=== PATIENT | female | born 1975 | race Caucasian/White ===

== ENCOUNTER 2022-08-13 18:41 | Inpatient (IN) | payer OTHER, SELFPAY ==
[2022-08-13] VITALS (11 sets, daily range): BP systolic 146–180; BP diastolic 87–103; PULSE 91–108; RESP 16–24; TEMP 36.7–37; O2SAT 94–99; BMI 28.2; BMI 27.7
[2022-08-13 19:05] LABS: Absolute Lymphocyte Count 2.02 X10^3/uL (0.83-4.51); Absolute Neutrophil Count 2.8 X10^3/uL (2.0-7.7); Basophil# 0.02 X10^3/uL; Basophil% 0.4 % (0-1); Eosinophil# 0.08 X10^3/uL; Eosinophils% 1.5 % (0-5); Hematocrit 45.1 % (37-47); Hemoglobin 15.3 g/dL (12.0-15.0); Lymphocyte # 2.02 X10^3/ul (0.83-4.51); Lymphocyte % 37.5 % (19-41); Mean Corp Hgb Conc 33.9 g/dL (32-36); Mean Corpuscular Hgb 29.5 pg (27.0-32.0); Mean Corpuscular Volume 87.1 fL (81-99); Mean Platelet Vol. 9.6 fl (6.2-12.0); Monocyte# 0.49 X10^3/uL; Monocyte% 9.1 % (0-10); NRBC Flagged by Analyzer 0 % (0-5); Neutrophil # 2.75 X10^3/uL (2.7-7.7); Neutrophil % 51.1 % (47-70); Platelet Count 208 K/mm3 (150-450); RBC Distribution Width CV 11.9 % (11.6-14.6); RBC Distribution Width SD 37.8 fl (35.1-43.9); Red Blood Count 5.18 M/mm3 (4.2-5.4); White Blood Count 5.4 K/mm3 (4.4-11.0)
--- NOTE | 2022-08-13 19:07 | ED.RN ---
SYMPTOMS STARTING AT 0800, RIGHT ARM AND RIGHT LEG N/T, WEAKNESS. ALSO LEFT SIDE N/T TO FACE.
[2022-08-13 19:19] LABS: Anion Gap 9 (5-15); BUN 17 mg/dL (7-18); BUN/Creat Ratio 24.4 RATIO (10-20); Calcium,Total 9.9 mg/dL (8.5-10.1); Chloride 99 mmol/L (98-107); EST Glomerular Filtration Rate 95 mL/min (>60); Est Glom Filt Rate - Afr Amer 115 mL/min (>60); Estimated Creatinine Clearance 91.01 ml/min; Glucose 295 mg/dL (74-106); Potassium 3.8 mmol/L (3.5-5.1); Sodium Level 136 mmol/L (136-145)
[2022-08-13 19:20] LABS: Bedside Glucose 305 mg/dL (74-106)
--- NOTE | 2022-08-13 19:44 | EKG12_ITS ---
Test Reason : DYSRHYTHMIA Blood Pressure : / mmHG Vent. Rate : 102 BPM Atrial Rate : 102 BPM P-R Int : 150 ms QRS Dur : 090 ms QT Int : 350 ms P-R-T Axes : 050 -23 022 degrees QTc Int : 456 ms Sinus tachycardia Inferior NH, age undetermined, cannot be excluded Confirmed by SUZETTE RICE, SCARLET ([id number]), copy editor MAXWELL LAY ([id number]) on 08/15/2022 10:59:45 AM Referred By: Confirmed By:SCARLET BRADFORD MD
--- NOTE | 2022-08-13 19:44 | CT_ITS ---
STUDY: CT BRAIN WITHOUT CONTRAST REASON FOR EXAM: Female, 47 years old. Neuro deficit, acute, stroke suspected RADIATION DOSAGE (If Supplied By Facility): CTDIvol = ( ) mGy, DLP = ( 796.11 ) mGycm TECHNIQUE: Transaxial CT imaging of the brain was performed without administration of intravenous contrast material. Individualized dose optimization techniques were used for this CT. COMPARISON: No relevant priors. FINDINGS: Normal soft tissue structures. Normal calvarium. Normal size ventricles and extra-axial spaces for the patient''s age. Normal white matter tracts of the cerebral hemispheres. Normal basal ganglia and thalami. Normal brainstem. Normal cerebellum. There is no intracranial hemorrhage. There are no findings of an acute ischemic infarction. Normal visualized paranasal sinuses. CT/STROKE Brain/Head without Cont IMPRESSION: Normal unenhanced CT scan of the brain. N.B. : The above Results were Read Back by Eren Scott MD to Dr. Jake MD, and understanding confirmed on 08/13/2022 20:06:54 (ET). Electronically Signed: Eren Scott MD at 20:10 EDT ,
--- NOTE | 2022-08-13 19:45 | CT_ITS ---
We are attempting to reach an attending provider to discuss findings. An addendum with communication details will be sent when the communication is complete. STUDY: CTA HEAD AND NECK WITH CONTRAST REASON FOR EXAM: Female, 47 years old. Neuro deficit, acute, stroke suspected RADIATION DOSAGE (If Supplied By Facility): CTDIvol = ( 17.25 ) mGy, DLP = ( 650.98 ) mGycm TECHNIQUE: CT angiography was performed with a multi-detector CT scanner. Data acquisition was obtained from the skull base through the vertex following intravenous administration of IV 100mL Isovue-[id number]. MIP images were reconstructed from the axial data set. Post-processing of the angiographic images was performed, with multiplanar reformation and 3D reconstruction. Individualized dose optimization techniques were used for this CT. COMPARISON: No relevant priors. FINDINGS: Normal bilateral petrous carotid arteries. There is calcified plaque formation of the right cavernous carotid artery, with a moderate stenosis (50-75%). There is calcified plaque formation of the left cavernous carotid artery, with a moderate stenosis (50-75%). Normal right A1 segments of the anterior cerebral artery. Normal left A1 segments of the anterior cerebral artery. Normal intact anterior communicating artery (ACOM). Normal bilateral A2 segments of the anterior cerebral arteries. Normal right M1 and M2 segments of the middle cerebral arteries, with a normal M1 bifurcation. Normal left M1 and M2 segments of the middle cerebral arteries, with a normal M1 bifurcation. There is non-visualization of the right posterior communicating artery (PCOM). There is non-visualization of the left posterior communicating artery (PCOM). Normal bilateral vertebral arteries. Normal basilar artery with a normal basilar bifurcation. The visualized bilateral superior cerebellar (SCA) arteries are normal. Normal bilateral P1, P2 and visualized P3 segments of the posterior cerebral arteries. There is no demonstrated aneurysm of the [place] of [place]. There is no demonstrated abnormality of the visualized brain. AORTIC ARCH: Normal visualized aortic arch. Normal origins of the brachiocephalic, left common carotid, and left subclavian arteries. RIGHT CAROTID ARTERIES: Normal right common carotid artery (CCA). Normal right common carotid bulb. Normal origin of the right internal carotid (ICA) artery without a hemodynamically significant stenosis. Normal visualized cervical portion of the right internal carotid artery. Normal origin of the right external carotid artery (ECA). LEFT CAROTID ARTERIES: Normal left common carotid artery (CCA). Normal left common carotid bulb. Normal origin of the left internal carotid (ICA) artery without a hemodynamically significant stenosis. Normal visualized cervical portion of the left internal carotid artery. Normal origin of the left external carotid artery (ECA). VERTEBRAL ARTERIES: Normal bilateral vertebral arteries. 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 Sensitivity limited due to suboptimal 3-D reformats. Electronically Signed: Eren Scott MD at 20:40 EDT ,
--- NOTE | 2022-08-13 19:50 | CM.ED ---
Social Work Responding to stroke alert. Patient friend present and reports that family has been notified. No social work needs currently identified. Abner Valenzuela MSW, FCOS
--- NOTE | 2022-08-13 20:29 | RAD_ITS ---
STUDY: X-RAY CHEST REASON FOR EXAM: Female, 47 years old. Neuro deficit, acute, stroke suspected TECHNIQUE: Single frontal view of the chest. COMPARISON: None. FINDINGS: The lungs are clear and expanded. There is no demonstrated pleural abnormality. Normal size heart. Normal mediastinum and renuka. Normal visualized pulmonary arteries. Normal visualized aortic arch and descending thoracic aorta. Normal visualized thoracic spine. Normal visualized ribs, clavicles, and shoulders. There is no demonstrated abnormality of the visualized soft tissue structures of the upper abdomen. RAD/Chest 1 View IMPRESSION: Normal x-ray examination of the chest. Electronically Signed: Eren Scott MD at 22:18 EDT ,
--- NOTE | 2022-08-13 20:42 | EX.ED.DYSGE1 ---
HPI History of Present Illness Chief Complaint: Hypertension Detail of Chief Complaint: High blood pressure, numbness left side of face, numbness right extremities Informant: patient Onset/Context/Timing Onset: Today and Hours (Arm at 0800 leg and face late morning early afternoon) Context: Sudden Onset Timing: Continuous Quality: Tingling right upper and lower extremity, left side of face and weakness RL Location: Per HPI narrative Current Severity: Mild Maximum Severity: Mild Worsened by: Nothing Relieved by: Nothing Associated Symptoms Associated Symptoms: Symptoms of hyperglycemia Narrative Narrative: Patient is a 47-year-old woman who is a former smoker. She quit in 2010. She has not seen a physician prior to [facility]. She presents because her blood pressure was elevated. Upon questioning she endorses numbness left side her face, numbness to the right upper and lower extremity. She also complains of weakness right lower extremity. Onset 0800. She is on no medications. She denies any allergies. She does report intermittent blurred vision. She does report polyuria, polydipsia and nocturia. Prior similar symptoms: No Recent Illness/Hospitalization: No PFSH PFS Medical History (Updated 08/13/22 @ 20:[address] Thong Joseph MD) Nondisplaced fracture of neck of right radius Medical History no medical history no medical history Home Medications apple cider vinegar 500 mg tablet 500 mg PO DAILY 02/09/22 [History Last Taken Unknown] cinnamon bark 500 mg capsule (Cinnamon) 500 mg PO DAILY 02/09/22 [History Last Taken Unknown] ibuprofen 200 mg capsule 800 mg PO Q6H PRN Pain 02/09/22 [History Last Taken Unknown] multivitamin 1 cap PO DAILY 08/13/22 [History Last Taken Unknown] Allergy/AdvReac Type Severity Reaction Status Date / Time cephalexin monohydrate Allergy Hives Verified 08/13/22 18:42 [From Keflex] CT CONTRAST AdvReac Other Uncoded 08/13/22 20:13 Surgical History H/O abdominoplasty H/O adenoidectomy Social History (Updated 08/13/22 @ 20:[address] Thong Joseph MD) household members: none Smoking Status: Former smoker substance use type: does not use ROS ROS ED Constitutional Constitutional ED: Denies chills, fever(s), subjective, sweats or weight loss Eyes Eyes: Reports blurry vision; Denies change in vision or diplopia ENT ENT ED: Denies ear pain, rhinorrhea or sore throat Cardiovascular Cardiovascular: Denies chest pain, orthopnea, palpitations, paroxysmal nocturnal dyspnea or racing heartbeat Respiratory/Chest Respiratory/Chest: Denies cough, dyspnea, dyspnea on exertion, orthopnea or paroxysmal nocturnal dyspnea Gastrointestinal Gastrointestinal: Denies abdominal pain, melena, nausea or vomiting Genitourinary Genitourinary ED: Denies dysuria, hematuria or urinary frequency Musculoskeletal Musculoskeletal: Denies arthralgias, back pain, myalgias or neck pain Integumentary Denies abscess, Abrasions or rash Neurologic Neurologic: Reports paresthesias and weakness; Denies headache(s) Psychiatric Psychiatric: Denies anxiety or depression Endocrine Endocrinology: Reports polydipsia, polyphagia and polyuria; Denies cold intolerance or heat intolerance Hematologic/Lymphatic Hematologic/Lymphatic: Denies easy bleeding or easy bruising EXAM Physical Exam Const Vital Signs: 08/13/22 18:42 08/13/22 20:01 08/13/22 19:44 Temperature 98.6 F 98.6 F Temperature Source Temporal Temporal Pulse Rate 105 H 104 H Respiratory Rate 18 24 H Blood Pressure 162/99 H 178/96 H Blood Pressure Mean 120 123 Pulse Ox 99 94 Oxygen Delivery Method Room Air Room Air Room Air 08/13/22 20:14 Temperature 98.1 F Temperature Source Oral Pulse Rate 108 H Respiratory Rate 24 H Blood Pressure 177/98 H Blood Pressure Mean 124 Pulse Ox 96 Oxygen Delivery Method Room Air Positive well nourished and well developed General Appearance ED: well developed and NAD; Negative for pallor HEENT Reports moist mucous membranes HEENT Narrative: Head is atraumatic no cephalic. Ears normal. Nares patent. Uvula midline. No deviation of protrusion. No erythema or exudate the posterior pharynx. Eyes PERRL and EOMs intact bilaterally Eyes Narrative: There is no nystagmus. Neck no lymphadenopathy, supple and no JVD Neck Narrative: There is no carotid bruit. Chest Wall inspection of chest normal and palpation of chest normal Resp normal respiratory effort and clear to auscultation bilaterally Cardio regular rhythm, S1 normal heart sound, S2 normal heart sound and no murmurs Rate: tachycardic GI normal to inspection, nondistended, normoactive bowel sounds, non-tender, non-distended and no masses; Negative for hepatosplenomegaly Back/Spine no CVA tenderness Cervical Spine: Negative for cervical spine tenderness Thoracic Spine / Upper Back: Negative for thoracic spinal tenderness Lumbar Spine / Lower Back: Negative for lumbar spinal tenderness Neuro oriented x3, CN's II-XII intact bilaterally and No no sensory deficits noted Sensorium / Orientation: alert Motor Exam: Negative for strength 5/5 throughout Psych mental status grossly normal Skin No no rashes or lesions noted and No no wounds General Skin Exam: Negative for elasticity normal, jaundice or pallor MDM MDM MDM Narrative Medical decision making narrative: She presents because of high blood pressure. Her blood sugar is high. She also has elevated blood sugar. Her cyst symptoms and findings are consistent with a stroke. Stroke team was initiated. Stroke order set was initiated. Lab Data Attestation: I reviewed the patient's lab results. Labs: Laboratory Results - last 24 hr 08/13/22 08/13/22 08/13/22 19:00 19:00 19:01 WBC 5.4 RBC 5.18 Hgb 15.3 H Hct 45.1 MCV 87.1 MCH 29.5 MCHC 33.9 RDW Std Deviation 37.8 RDW Coeff of Jarett 11.9 Plt Count 208 MPV 9.6 Immature Gran % (Auto) 0.400 Neut % (Auto) 51.1 Lymph % (Auto) 37.5 [place] % (Auto) 9.1 Eos % (Auto) 1.5 Baso % (Auto) 0.4 Absolute Neuts (auto) 2.8 Absolute Lymphs (auto) 2.02 Nucleated RBC % 0 Sodium 136 Potassium 3.8 Chloride 99 Carbon Dioxide 28.0 Anion Gap 9 BUN 17 Creatinine 0.70 Estim Creat Clear Calc 91.01 Est GFR (MDRD) Af Amer 115 Est GFR (MDRD) Non-Af 95 BUN/Creatinine Ratio 24.4 H Glucose 295 H Calcium 9.9 POC Glucose 305 H Radiography Diagnostic Testing: Clinical Impression(s) from Imaging Studies Brain CT 08/13/22 19:44 IMPRESSION: Normal unenhanced CT scan of the brain. N.B. : The above Results were Read Back by Eren Scott MD to Dr. Jake MD, and understanding confirmed on 08/13/2022 20:06:54 (ET). Electronically Signed: Eren Scott MD at 20:10 EDT Reading Location ID and State: [address] [place] [address] , Service support , ADDENDUM: 08/13/222016 IMPRESSION: Normal unenhanced CT scan of the brain. N.B. : The above Results were Read Back by Eren Scott MD to Dr. Jake MD, and understanding confirmed on 08/13/2022 20:06:54 (ET). 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 Sensitivity limited due to suboptimal 3-D reformats. Electronically Signed: Eren Scott MD at 20:40 EDT Reading Location ID and State: [address] [place] [address] , Service support , Single view chest x-ray is normal. Cardiac silhouette and size normal. Perihilar region normal. Osseous structures normal. Lung parenchyma is normal EKG Initial EKG: Attestation: I personally reviewed and interpreted this EKG as follows: Interpretation: Sinus Tachycardia (Sinus tachycardia otherwise normal. IA interval is 150 ms. Cures duration 90 ms. QT duration 3 and 50 ms. [place] is normal) Discharge Plan Triage Chief Complaint: Hypertension ED Provider: Thong Joseph Dx/Rx/DC Orders Clinical Impression: Acute cerebrovascular accident (CVA), Hypertension, New onset type 2 diabetes mellitus Prescriptions: No Action cinnamon bark [Cinnamon] 500 mg capsule 500 mg PO DAILY apple cider vinegar 500 mg tablet 500 mg PO DAILY ibuprofen 200 mg capsule 800 mg PO Q6H PRN (Reason: Pain) multivitamin Capsule 1 cap PO DAILY Primary Care Provider: Ema Amaro Referrals: Ema Amaro MD [Primary Care Provider] - Disposition Disposition: Acute Care Hospital [facility]
--- NOTE | 2022-08-13 21:01 | ECHOD_ITS ---
Reason For Study: TIA/STROKE Procedure This was a 2D Doppler, Color Flow transthoracic echocardiogram. Exam performed in department. Left Ventricle Normal LV size. Left ventricular systolic function is normal. The estimated ejection fraction is 60 %. Diastolic function is indeterminate. No regional wall motion abnormalities noted. Right Ventricle Normal RV size. Normal systolic function. Atria Normal left atrium. Normal right atrium. No doppler evidence for ASD. Bubble contrast study negative for right to left interatrial shunt. Mitral Valve There is no mitral annular calcification. Normal mitral valve. Mild (1+) mitral valve insufficiency. Tricuspid Valve Normal tricuspid valve. Trivial tricuspid valve insufficiency. Unable to estimate RV systolic pressure due to insufficient tricuspid regurgitant envelope. Aortic Valve Trisinus/trileaflet aortic valve. Normal aortic valve. Pulmonic Valve The pulmonic valve is not well visualized. Great Vessels Normal sized aortic root. Pericardium/Pleural No pericardial effusion. Medication Performed a rapid injection of agitated mix of 9 cc saline and 1cc air to assess for atrial septal defect. MMode/2D Measurements & Calculations LVIDd: 5.0 cm IVSd: 0.91 cm Ao root diam: 3.1 cm LVIDs: 3.2 cm LVPWd: 0.87 cm RVDd: 2.5 cm FS: 37.4 % LAV(MOD-bp): 72.1 ml LVAd ap4: 25.4 cm2 SV(MOD-sp4): 35.2 ml LAV(MOD-bp) Indexed: 38.3 ml/m2 LVLd ap4: 8.1 cm LAV(MOD-sp2): 73.0 ml EDV(MOD-sp4): 66.0 ml LAV(MOD-sp4): 59.8 ml EDV(sp4-el): 67.5 ml LVAs ap4: 15.4 cm2 LVLs ap4: 6.9 cm ESV(MOD-sp4): 30.7 ml ESV(sp4-el): 29.2 ml EF(MOD-sp4): 53.4 % EF(sp4-el): 56.8 % SV(sp4-el): 38.3 ml LA A4 area: 20.6 cm2 LA dimension(2D): 3.8 cm RA A4 area: 12.2 cm2 Time Measurements MV dec time: 0.16 sec Doppler Measurements & Calculations MV E max ernesto: 76.5 cm/sec Lat Peak E' Ernesto: 9.5 cm/sec Med Peak E' Ernesto: 7.4 cm/sec MV A max ernesto: 111.6 cm/sec E/E' lat: 8.1 E/E' med: 10.3 MV E/A: 0.69 MV V2 max: 100.3 cm/sec MV dec slope: 480.1 cm/sec2 Ao V2 max: 152.6 cm/sec MV max P.0 mmHg Ao max P.3 mmHg MV V2 mean: 61.0 cm/sec Ao V2 mean: 105.9 cm/sec MV mean P.7 mmHg Ao mean P.0 mmHg MV V2 VTI: 23.7 cm Ao V2 VTI: 28.1 cm LV V1 max: 91.4 cm/sec PA V2 max: 95.8 cm/sec LV V1 max P.4 mmHg PA V2 mean: 72.4 cm/sec LV V1 mean P.2 mmHg LV V1 mean: 70.0 cm/sec LV V1 VTI: 17.3 cm ECHO/Echo Complete Interpretation Summary Left ventricular systolic function is normal. The estimated ejection fraction is 60 %. Mild (1+) mitral valve insufficiency. Trivial tricuspid valve insufficiency. Unable to estimate RV systolic pressure due to insufficient tricuspid regurgita nt envelope. Diastolic function is indeterminate. Bubble contrast study negative for right to left interatrial shunt. Ordering Physician: Jacqueline Byers Referring Physician: Ema Amaro M.D. Performed By: Idalmis Berg RCS
--- NOTE | 2022-08-13 21:02 | PCM.HP.STD ---
Documented by User: SAGRARIO Santiago 08/13/22 21:13 HPI - General General Date of Admission: 08/13/22 Date of Service: 08/13/22 Chief Complaint: Right sided weakness HPI Narrative ANCELMO SARKAR, is a 47 F who presents weakness of her upper and lower extremities. Patient states that the onset of her weakness began at 8:00 this morning. Patient states that she has not seen a physician in many years and is not currently on any medications. Patient states that she does not know if she has any health problems and she has not seen a physician for quite some time. Patient states that she also noted her blood pressure was elevated this morning. [facility] Medical History Nondisplaced fracture of neck of right radius Medical History no medical history Home Medications apple cider vinegar 500 mg tablet 500 mg PO DAILY 02/09/22 [History Last Taken Unknown] cinnamon bark 500 mg capsule (Cinnamon) 500 mg PO DAILY 02/09/22 [History Last Taken Unknown] ibuprofen 200 mg capsule 800 mg PO Q6H PRN Pain 02/09/22 [History Last Taken Unknown] multivitamin 1 cap PO DAILY 08/13/22 [History Last Taken Unknown] Allergy/AdvReac Type Severity Reaction Status Date / Time cephalexin monohydrate Allergy Hives Verified 08/13/22 18:42 [From Keflex] CT CONTRAST AdvReac Other Uncoded 08/13/22 20:13 Family History (Updated 08/13/22 @ 23:36 by Sommer Maddox) Mother Diabetes Father Diabetes Surgical History H/O abdominoplasty H/O adenoidectomy Social History (Updated 08/13/22 @ 23:37 by Sommer Maddox) household members: significant other and none number of children: 4 current occupational status: employed 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 Smoking Status: Former smoker substance use type: does not use ROS Constitutional Constitutional: Denies anorexia, change in weight, chills, fatigue, fever(s) or malaise Cardiovascular Cardiovascular: Denies chest pain, edema, palpitations or syncope Respiratory/Chest Respiratory/Chest: Denies cough, shortness of breath at rest, shortness of breath with exertion or wheezing Gastrointestinal Gastrointestinal: Denies abdominal pain, constipation, diarrhea, nausea or vomiting Genitourinary Genitourinary: Denies dysuria Musculoskeletal Musculoskeletal: Denies back pain, extremity pain or joint pain Integumentary Integumentary: Denies dry skin Neurologic Neurologic: Reports focal weakness and sensory deficit; Denies abnormal speech, confusion or dizziness Psychiatric Psychiatric: Denies anxiety or depression Endocrine Endocrinology: Denies change in body appearance Hematologic/Lymphatic Hematologic/Lymphatic: Denies anemia Vital Signs Vital Signs Vital Signs: 08/13/22 18:42 08/13/22 20:01 08/13/22 19:44 Temperature 98.6 F 98.6 F Temperature Source Temporal Temporal Pulse Rate 105 H 104 H Respiratory Rate 18 24 H Blood Pressure 162/99 H 178/96 H Blood Pressure Mean 120 123 Pulse Ox 99 94 Oxygen Delivery Method Room Air Room Air Room Air 08/13/22 20:14 Temperature 98.1 F Temperature Source Oral Pulse Rate 108 H Respiratory Rate 24 H Blood Pressure 177/98 H Blood Pressure Mean 124 Pulse Ox 96 Oxygen Delivery Method Room Air Weight Weight: 175 lb Body Mass Index (BMI) 28.2 Physical Exam Const alert, oriented x3 and no apparent distress General Appearance: cooperative HEENT normocephalic and head/scalp atraumatic Eyes conjunctivae normal and no scleral icterus Neck no lymphadenopathy and supple General: trachea midline Lymph Lymphatic: no lymphadenopathy noted Resp normal respiratory effort, normal air movement and clear to auscultation bilaterally Effort and Inspection: tachypneic Cardio regular rate, regular rhythm, S1 normal heart sound, S2 normal heart sound and peripheral pulses 2+ throughout Rate: tachycardic GI normal to inspection, nondistended, normoactive bowel sounds, soft to palpation and non-tender Extremity normal capillary refill and no clubbing, cyanosis or edema Skin General Skin Exam: no breakdown Lesions: no lesions Rashes: no rashes Neuro oriented x3 Neuro Narrative: NIH score 4 due to right leg and right arm motor drift as well as limb ataxia Sensorium / Orientation: awake and alert Speech: speech normal Psych thought process normal and cooperative Appearance: appropriate Results Lab / Micro Data Result Diagrams: 08/13/22 19:00 08/13/22 19:00 Labs: Laboratory Results - last 24 hr 08/13/22 19:00: WBC 5.4, RBC 5.18, Hgb 15.3 H, Hct 45.1, MCV 87.1, MCH 29.5, MCHC 33.9, RDW Std Deviation 37.8, RDW Coeff of Jarett 11.9, Plt Count 208, MPV 9.6, Immature Gran % (Auto) 0.400, Neut % (Auto) 51.1, Lymph % (Auto) 37.5, [place] % (Auto) 9.1, Eos % (Auto) 1.5, Baso % (Auto) 0.4, Absolute Neuts (auto) 2.8, Absolute Lymphs (auto) 2.02, Nucleated RBC % 0 08/13/22 19:00: Sodium 136, Potassium 3.8, Chloride 99, Carbon Dioxide 28.0, Anion Gap 9, BUN 17, Creatinine 0.70, Estim Creat Clear Calc 91.01, Est GFR (MDRD) Af Amer 115, Est GFR (MDRD) Non-Af 95, BUN/Creatinine Ratio 24.4 H, Glucose 295 H, Calcium 9.9 08/13/22 19:01: POC Glucose 305 H Radiology Impression Brain CT 08/13/22 19:44 IMPRESSION: Normal unenhanced CT scan of the brain. N.B. : The above Results were Read Back by Eren Scott MD to Dr. Jake MD, and understanding confirmed on 08/13/2022 20:06:54 (ET). Electronically Signed: Eren Scott MD at 20:10 EDT Reading Location ID and State: [facility] / [place] , Service support , ADDENDUM: 08/13/222016 IMPRESSION: Normal unenhanced CT scan of the brain. N.B. : The above Results were Read Back by Eren Sctot MD to Dr. Jake MD, and understanding confirmed on 08/13/2022 20:06:54 (ET). Electronically Signed: Eren Scott MD at 20:10 EDT , Head/Neck CTA 08/13/22 19:45 IMPRESSION: Moderate stenosis within the cavernous segment internal carotid arteries bilaterally. Sensitivity limited due to suboptimal 3-D reformats. Electronically Signed: Eren Scott MD at 20:40 EDT Reading Location ID and State: [facility] / [place] , Service support , ADDENDUM: 08/13/22 204 IMPRESSION: Moderate stenosis within the cavernous segment internal carotid arteries bilaterally. Sensitivity limited due to suboptimal 3-D reformats. N.B. : The above Results were Read Back by Eren Scott MD to dr mc MD, and understanding confirmed on 08/13/2022 20:41:15 (ET). Electronically Signed: Eren Scott MD at 20:40 EDT , Assessment & Plan Assessment/Plan (1) Acute cerebrovascular accident (CVA): PLAN: Plan 1. CVA -Admit to PCU -NIH and vital sign monitoring per protocol -Patient initiated on atorvastatin -MRI head ordered for a.m. -Echocardiogram ordered for a.m. -CBC, BMP, TSH, hemoglobin A1c, lipid panel ordered for a.m. -CTA head and neck and brain CT negative -As needed labetalol and hydralazine ordered for blood pressure control -PT, ST, OT ordered per stroke protocol -NIH score 4 2. Hypertension -We will allow permissive hypertension for the first 24 hours per stroke protocol -As needed hydralazine and labetalol ordered 3. Diabetes mellitus type 2 -Patient has elevated blood sugar on initial CMP -Not currently under medical supervision outpatient -ACH S blood sugars with sliding scale insulin ordered -Hemoglobin A1c ordered DVT prophylaxis-subcu Lovenox This patient was seen by SAGRARIO Santiago under the supervision of Dr. Coles. 28 minutes spent in clinical coordination of patient's plan of care. Documented by User: Dr. Marcellus Coles MD 08/14/22 00:51 HPI - General General Date of Admission: 08/13/22 PFSH Medical History Nondisplaced fracture of neck of right radius Medical History no medical history Home Medications apple cider vinegar 500 mg tablet 500 mg PO DAILY 02/09/22 [History Last Taken Unknown] cinnamon bark 500 mg capsule (Cinnamon) 500 mg PO DAILY 02/09/22 [History Last Taken Unknown] ibuprofen 200 mg capsule 800 mg PO Q6H PRN Pain 02/09/22 [History Last Taken Unknown] multivitamin 1 cap PO DAILY 08/13/22 [History Last Taken Unknown] Allergy/AdvReac Type Severity Reaction Status Date / Time cephalexin monohydrate Allergy Hives Verified 08/13/22 18:42 [From Keflex] CT CONTRAST AdvReac Other Uncoded 08/13/22 20:13 Family History (Updated 08/13/22 @ 23:36 by Sommer Maddox) Mother Diabetes Father Diabetes Surgical History H/O abdominoplasty H/O adenoidectomy Social History (Updated 08/13/22 @ 23:37 by Sommer Maddox) household members: significant other and none number of children: 4 current occupational status: employed 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 CVA -Admit to PCU -NIH and vital sign monitoring per protocol -Patient initiated on atorvastatin -MRI head ordered for a.m. -Echocardiogram ordered for a.m. -CBC, BMP, TSH, hemoglobin A1c, lipid panel ordered for a.m. -CTA head and neck and brain CT negative -As needed labetalol and hydralazine ordered for blood pressure control -PT, ST, OT ordered per stroke protocol -NIH score 4 2. Hypertension -We will allow permissive hypertension for the first 24 hours per stroke protocol -As needed hydralazine and labetalol ordered 3. Diabetes mellitus type 2 -Patient has elevated blood sugar on initial CMP -Not currently under medical supervision outpatient -ACH S blood sugars with sliding scale insulin ordered -Hemoglobin A1c ordered DVT prophylaxis-subcu Lovenox This patient was seen by Jacqueline Byers NP-C under the supervision of Dr. Coles. 28 minutes spent in clinical coordination of patient's plan of care. Patient seen and examined and agree with above assessment and plan
[2022-08-13 22:32] LABS: International Normalized Ratio 1.1; Prothrombin Time (Protime)PT. 14.3 SECONDS (11.7-14.9)
[2022-08-13 22:33] LABS: Partial Thromboplast Time 31.7 Seconds (24.1-36.2)
[2022-08-13 22:55] LABS: Troponin-I HS 6 pg/mL (3.0-54.0)
[2022-08-13 22:59] LABS: Troponin-I HS 5 pg/mL (3.0-54.0)
[2022-08-13 23:22] LABS: Hemoglobin A1c 11.7 % (3.8-5.6)
[2022-08-14] VITALS (13 sets, daily range): BP systolic 142–160; BP diastolic 81–92; PULSE 75–106; RESP 14–18; TEMP 36.5–37.1; O2SAT 93–97; BMI 27.7
[2022-08-14] MEDS: Insulin Lispro 100 UNIT/ML INSULN.PEN SC ×5 (00:21→22:11)
[2022-08-14] MEDS: Atorvastatin Calcium 80 MG Tablet PO ×2 (00:22→22:11)
[2022-08-14 00:36] LABS: Bedside Glucose 226 mg/dL (74-106)
[2022-08-14 06:24] LABS: Absolute Lymphocyte Count 2.08 X10^3/uL (0.83-4.51); Absolute Neutrophil Count 2.6 X10^3/uL (2.0-7.7); Basophil# 0.02 X10^3/uL; Basophil% 0.4 % (0-1); Eosinophil# 0.11 X10^3/uL; Eosinophils% 2.1 % (0-5); Hematocrit 43.6 % (37-47); Hemoglobin 14.6 g/dL (12.0-15.0); Lymphocyte # 2.08 X10^3/ul (0.83-4.51); Lymphocyte % 39.2 % (19-41); Mean Corp Hgb Conc 33.5 g/dL (32-36); Mean Corpuscular Hgb 29.8 pg (27.0-32.0); Mean Platelet Vol. 9.9 fl (6.2-12.0); Monocyte# 0.44 X10^3/uL; Monocyte% 8.3 % (0-10); NRBC Flagged by Analyzer 0 % (0-5); Neutrophil # 2.64 X10^3/uL (2.7-7.7); Neutrophil % 49.8 % (47-70); Platelet Count 193 K/mm3 (150-450); RBC Distribution Width CV 11.8 % (11.6-14.6); RBC Distribution Width SD 38.1 fl (35.1-43.9); White Blood Count 5.3 K/mm3 (4.4-11.0)
[2022-08-14] MEDS: 0.9% Saline Lock 10 ML Syringe IV (06:40)
[2022-08-14 07:01] LABS: Bedside Glucose 265 mg/dL (74-106)
[2022-08-14 07:02] LABS: Anion Gap 9 (5-15); BUN 13 mg/dL (7-18); BUN/Creat Ratio 24.3 RATIO (10-20); Calcium,Total 9.1 mg/dL (8.5-10.1); Chloride 103 mmol/L (98-107); Cholesterol 210 mg/dL (200); Creatinine, Serum 0.54 mg/dL (0.55-1.02); EST Glomerular Filtration Rate 129 mL/min (>60); Est Glom Filt Rate - Afr Amer 156 mL/min (>60); Estimated Creatinine Clearance 117.97 ml/min; Glucose 249 mg/dL (74-106); High Density Lipoprotein 40 mg/dL; Potassium 3.7 mmol/L (3.5-5.1); Sodium Level 137 mmol/L (136-145); Thyroid Stim Hormone (TSH) 1.55 uIU/mL (0.358-3.74); Triglycerides 379 mg/dL; Very Low Density Lipoprotein 76 mg/dL (5-40)
--- NOTE | 2022-08-14 07:59 | PCM.PN.HOSP ---
Subjective Subjective Patient is a 47-year-old lady with no previous medical comorbidities who presented with right lower extremity weakness as well as altered sensation on right side of the face. CT of the head obtained came back unremarkable. Patient was found to have elevated glucose levels consistent with new onset diabetes mellitus type 2 hemoglobin A1c was greater than 11. Objective Data Objective Data Vital Signs: Vital Signs Temp Pulse Resp BP Pulse Ox O2 Del Method 98.1 F 102 H 14 155/92 H 93 Room Air 08/14/22 07:54 08/14/22 07:54 08/14/22 07:54 08/14/22 07:54 08/14/22 07:54 08/14/22 07:54 Oxygen Delivery Method Room Air Weight: 79.1 kg Body Mass Index (BMI) 27.7 Intake & Output: Intake and Output for Last 24 Hours 08/12/22 08/13/22 08/14/22 23:59 23:59 23:59 Intake Total 120 / 120 Balance 120 / 120 Lab / Micro Data Result Diagrams: 08/14/22 05:33 08/14/22 05:33 Labs: Laboratory Results - last 24 hr 08/13/22 19:00: WBC 5.4, RBC 5.18, Hgb 15.3 H, Hct 45.1, MCV 87.1, MCH 29.5, MCHC 33.9, RDW Std Deviation 37.8, RDW Coeff of Jarett 11.9, Plt Count 208, MPV 9.6, Immature Gran % (Auto) 0.400, Neut % (Auto) 51.1, Lymph % (Auto) 37.5, [place] % (Auto) 9.1, Eos % (Auto) 1.5, Baso % (Auto) 0.4, Absolute Neuts (auto) 2.8, Absolute Lymphs (auto) 2.02, Nucleated RBC % 0 08/13/22 19:00: Sodium 136, Potassium 3.8, Chloride 99, Carbon Dioxide 28.0, Anion Gap 9, BUN 17, Creatinine 0.70, Estim Creat Clear Calc 91.01, Est GFR (MDRD) Af Amer 115, Est GFR (MDRD) Non-Af 95, BUN/Creatinine Ratio 24.4 H, Glucose 295 H, Calcium 9.9 08/13/22 19:00: PT 14.3, INR 1.1, APTT 31.7 08/13/22 19:00: Troponin I High Sens 5 08/13/22 19:00: Hemoglobin A1c 11.7 H 08/13/22 19:01: POC Glucose 305 H 08/13/22 22:25: Troponin I High Sens 6 08/13/22 23:56: POC Glucose 226 H 08/14/22 05:33: WBC 5.3, RBC 4.90, Hgb 14.6, Hct 43.6, MCV 89.0, MCH 29.8, MCHC 33.5, RDW Std Deviation 38.1, RDW Coeff of Jarett 11.8, Plt Count 193, MPV 9.9, Immature Gran % (Auto) 0.200, Neut % (Auto) 49.8, Lymph % (Auto) 39.2, [place] % (Auto) 8.3, Eos % (Auto) 2.1, Baso % (Auto) 0.4, Absolute Neuts (auto) 2.6, Absolute Lymphs (auto) 2.08, Nucleated RBC % 0 08/14/22 05:33: Sodium 137, Potassium 3.7, Chloride 103, Carbon Dioxide 25.0, Anion Gap 9, BUN 13, Creatinine 0.54 L, Estim Creat Clear Calc 117.97, Est GFR (MDRD) Af Amer 156, Est GFR (MDRD) Non-Af 129, BUN/Creatinine Ratio 24.3 H, Glucose 249 H, Calcium 9.1, Triglycerides 379 H, Cholesterol 210 H, LDL Cholesterol 94, VLDL Cholesterol 76 H, HDL Cholesterol 40, TSH 1.55 08/14/22 06:37: POC Glucose 265 H Radiography Diagnostic Testing: Radiology Impression Brain CT 08/13/22 19:44 IMPRESSION: Normal unenhanced CT scan of the brain. N.B. : The above Results were Read Back by Eren Scott MD to Dr. Jake MD, and understanding confirmed on 08/13/2022 20:06:54 (ET). Electronically Signed: Eren Scott MD at 20:10 EDT Reading Location ID and State: [facility] / [place] , Service support , ADDENDUM: 08/13/222016 IMPRESSION: Normal unenhanced CT scan of the brain. N.B. : The above Results were Read Back by Eren Scott MD to Dr. Jake MD, and understanding confirmed on 08/13/2022 20:06:54 (ET). Electronically Signed: Eren Scott MD at 20:10 EDT Reading Location ID and State: [facility] / [place] , Service support , Head/Neck CTA 08/13/22 19:45 IMPRESSION: Moderate stenosis within the cavernous segment internal carotid arteries bilaterally. Sensitivity limited due to suboptimal 3-D reformats. Electronically Signed: Eren Scott MD at 20:40 EDT Reading Location ID and State: [facility] / [place] , Service support , ADDENDUM: 08/13/222047 IMPRESSION: Moderate stenosis within the cavernous segment internal carotid arteries bilaterally. Sensitivity limited due to suboptimal 3-D reformats. N.B. : The above Results were Read Back by Eren Scott MD to dr mc MD, and understanding confirmed on 08/13/2022 20:41:15 (ET). Electronically Signed: Eren Scott MD at 20:40 EDT Reading Location ID and State: [facility] / [place] , Service support , Chest X-Ray 08/13/22 20:29 IMPRESSION: Normal x-ray examination of the chest. Electronically Signed: Eren Scott MD at 22:18 EDT , Physical Exam Narrative GENERAL: cooperative HEENT: Atraumatic; normocephalic EYES; Anicteric, Normal Conjunctiva NECK; supple, normal thyroid, RESPIRATORY: Diminished to auscultation CARDIOVASCULAR: Regular S1 S2, GI: soft, normoactive bowel sounds, : No Renal angle tenderness; EXTREMITIES: No edema, no clubbing, MUSCULOSKELETAL: no muscle wasting NEURO: Awake; strength 4/5 in right lower extremity SKIN: No Rash PSYCH; Flat affect Assessment & Plan Assessment/Plan (1) Hypertension: (2) New onset type 2 diabetes mellitus: (3) Acute cerebrovascular accident (CVA): (4) Nondisplaced fracture of neck of right radius: PLAN: Plan Patient is a 47-year-old lady with no previous medical comorbidities who presented with right lower extremity weakness as well as altered sensation on right side of the face. CT of the head obtained came back unremarkable. Patient was found to have elevated glucose levels consistent with new onset diabetes mellitus type 2 hemoglobin A1c was greater than 11. 1. Right-sided weakness ? Patient has been admitted to a monitored bed where she is currently undergoing evaluation to either rule in or rule out acute CVA. As part of patient management she was started on antiplatelet therapy statin therapy. CTA of the head and neck obtained demonstrated moderate bilateral carotid artery stenosis. MRI ordered. 2D echo also ordered 2. Dyslipidemia ? New onset diagnosis patient is on high-dose statin therapy 3. New onset diabetes mellitus type 2 ? Hemoglobin A1c on admission was 11.7. Patient started on long-acting insulin in addition to Accu-Cheks before meals and at bedtime with sliding scale correction factor coverage. Consult was also placed to dietitian and diabetic education 4. Elevated blood pressure ? Patient not a known hypertensive blood pressure on admission was 180/103. Given her presentation will allow permissive hypertension. Plan is to initiate antihypertensives prior to discharge 5. Overweight with BMI of 27.7 ? Weight loss advised 6. DVT prophylaxis ? SC Lovenox Charges/Coding Visit Charges OBSV E&M: 98532 Subsequent observation care L3
--- NOTE | 2022-08-14 09:00 | MRI_ITS ---
STUDY: MRI BRAIN WITHOUT CONTRAST REASON FOR EXAM: Female, 47 years old. Stroke TECHNIQUE: Standardized multiplanar fat and water weighted pulse sequences were obtained. COMPARISON: None. FINDINGS: Normal size of the ventricles and extra-axial spaces for the patient''s age. Normal white matter tracts of the supratentorial brain. There is a focal DWI signal within the left lateral mid thalamus measuring 10 x 4 mm with low signal on ADC consistent with acute focal thalamic infarct. Normal T2* images of the brain without demonstrated susceptibility artifact. There is no demonstrated hemosiderin stain. Normal bilateral basal ganglia. There is no extra-axial fluid accumulation. Normal flow voids within the major intracranial circulation suggesting patency by spin echo criteria. Normal sella turcica, pituitary gland, infundibular stalk, optic chiasm and hypothalamus. Normal tectal plate and pineal gland. Normal midbrain, sabi and medulla. Small area of high T2 and low T1 signal within the left mid cerebellum consistent with previous infarct is noted measuring approximately 10 x 5 mm.. Normal basal cisterns. Normal bilateral temporal bones. Normal bilateral internal auditory canals. No demonstrated orbital abnormality, within the constraints of a routine brain study. Normal visualized paranasal sinuses. Normal calvarium and skull base. Normal visualized soft tissue structures. Normal visualized upper cervical spine. MRI/Brain without Contrast IMPRESSION: 1. Findings consistent with acute focal left thalamic infarct measuring 10 x 4 mm with mild surrounding ischemic change. Otherwise no evidence of acute intraparenchymal bleed or large territorial ischemia. 2. 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 Electronically Signed: Elliot Mas DO at 15:23 EDT ,
[2022-08-14] MEDS: Insulin Glargine-YFGN 100 UNIT/ML Pen 15 UNIT SC ×2 (11:22→22:12)
[2022-08-14] MEDS: Aspirin 81 MG TAB.CHEW 162 MG PO (11:22)
[2022-08-14 11:40] LABS: Bedside Glucose 311 mg/dL (74-106)
[2022-08-14] MEDS: LORazepam 0.5 MG Tablet PO (13:51)
--- NOTE | 2022-08-14 15:33 | TELEMED_ITS ---
[facility] Tele[facility] has confirmed receipt of a request for visit. This document confirms receipt of the order initiating the consult. To find the results of the consultation, please view the patient's reports for the scanned Telemed Consult.
[2022-08-14] MEDS: Enoxaparin 40 MG/0.4 ML Syringe SC (16:06)
[2022-08-14 16:25] LABS: Bedside Glucose 285 mg/dL (74-106)
[2022-08-14 22:40] LABS: Bedside Glucose 283 mg/dL (74-106)
--- NOTE | 2022-08-15 01:20 | PCM.HOSP.N ---
Hospitalist Note Review of records with MRI brain w/ findings consistent with acute focal left thalamic infarct measuring 10 x 4 mm with mild surrounding ischemic change, small left mid cerebellar 10 x 5 mm previous chronic infarct is also noted, CTA head and neck w/ moderate stenosis within the cavernous segment internal carotid arteries bilaterally, ECHO w/ normal LV systolic function, EF 60%, mild MVI, trivial TVI, bubble contrast study negative. Patient currently maintained on aspirin, high-dose statin, hemoglobin A1c 11.7% with initiation of subcu twice daily long-acting insulin and short-acting insulin with insulin sliding scale. Neurology recommended dual asa, plavix x 3 weeks which was added and then transition following to single agent asa 81 mg daily following.
[2022-08-15 02:59] VITALS: PULSE 80
[2022-08-15 03:45] VITALS: BP 147/88; PULSE 93; RESP 18; TEMP 36.6; O2SAT 99
[2022-08-15 04:10] VITALS: BMI 27.7
[2022-08-15] MEDS: Insulin Lispro 100 UNIT/ML INSULN.PEN SC (06:33)
[2022-08-15 06:55] LABS: Bedside Glucose 233 mg/dL (74-106)
[2022-08-15 07:00] VITALS: PULSE 86
[2022-08-15 07:15] VITALS: BP 155/102; PULSE 101; RESP 16; TEMP 36.7; O2SAT 97
[2022-08-15 07:23] VITALS: O2SAT 94
--- NOTE | 2022-08-15 07:27 | PCM.PN.HOSP ---
Subjective Subjective Patient seen had a relatively uneventful night Objective Data Objective Data Vital Signs: Vital Signs Temp Pulse Resp BP Pulse Ox O2 Del Method 98.1 F 101 H 16 155/102 H 97 Room Air 08/15/22 07:15 08/15/22 07:15 08/15/22 07:15 08/15/22 07:15 08/15/22 07:15 08/15/22 07:15 Oxygen Delivery Method Room Air Weight: 79.1 kg Body Mass Index (BMI) 27.7 Intake & Output: Intake and Output for Last 24 Hours 08/13/22 08/14/22 08/15/22 23:59 23:59 23:59 Intake Total 1295 / 1295 Balance 1295 / 1295 Lab / Micro Data Result Diagrams: 08/14/22 05:33 08/14/22 05:33 Labs: Laboratory Results - last 24 hr 08/14/22 11:19: POC Glucose 311 H 08/14/22 15:55: POC Glucose 285 H 08/14/22 22:09: POC Glucose 283 H 08/15/22 06:31: POC Glucose 233 H Radiography Diagnostic Testing: Radiology Impression Echocardiogram 08/13/22 21:01 Interpretation Summary Left ventricular systolic function is normal. The estimated ejection fraction is 60 %. Mild (1+) mitral valve insufficiency. Trivial tricuspid valve insufficiency. Unable to estimate RV systolic pressure due to insufficient tricuspid regurgitant envelope. Diastolic function is indeterminate. Bubble contrast study negative for right to left interatrial shunt. Ordering Physician: Jacquelnie Byers Referring Physician: Ema Amaro M.D. Performed By: Idalmis Berg RCS Brain MRI 08/14/22 09:00 IMPRESSION: 1. Findings consistent with acute focal left thalamic infarct measuring 10 x 4 mm with mild surrounding ischemic change. Otherwise no evidence of acute intraparenchymal bleed or large territorial ischemia. 2. 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 Electronically Signed: Elliot Mas, at 15:23 EDT , Physical Exam Narrative GENERAL: cooperative HEENT: Atraumatic; normocephalic EYES; Anicteric, Normal Conjunctiva NECK; supple, normal thyroid, RESPIRATORY: Diminished to auscultation CARDIOVASCULAR: Regular S1 S2, GI: soft, normoactive bowel sounds, : No Renal angle tenderness; EXTREMITIES: No edema, no clubbing, MUSCULOSKELETAL: no muscle wasting NEURO: Awake; strength 4/5 in right lower extremity SKIN: No Rash PSYCH; Flat affect Assessment & Plan Assessment/Plan (1) Hypertension: (2) New onset type 2 diabetes mellitus: (3) Acute cerebrovascular accident (CVA): (4) Nondisplaced fracture of neck of right radius: PLAN: Plan Patient is a 47-year-old lady with no previous medical comorbidities who presented with right lower extremity weakness as well as altered sensation on right side of the face. CT of the head obtained came back unremarkable. Patient was found to have elevated glucose levels consistent with new onset diabetes mellitus type 2 hemoglobin A1c was greater than 11. 1. Right-sided weakness ? Patient has been admitted to a monitored bed where she is currently undergoing evaluation to either rule in or rule out acute CVA. As part of patient management she was started on antiplatelet therapy statin therapy. CTA of the head and neck obtained demonstrated moderate bilateral carotid artery stenosis. MRI ordered. 2D echo also ordered -Echo result and MRI reviewed. MRI was diagnostic for Findings consistent with acute focal left thalamic infarct measuring 10 x 4 mm with mild surrounding ischemic change. Otherwise no evidence of acute intraparenchymal bleed or large territorial ischemia. 2. Dyslipidemia ? New onset diagnosis patient is on high-dose statin therapy 3. New onset diabetes mellitus type 2 ? Hemoglobin A1c on admission was 11.7. Patient started on long-acting insulin in addition to Accu-Cheks before meals and at bedtime with sliding scale correction factor coverage. Consult was also placed to dietitian and diabetic education 4. Elevated blood pressure ? Patient not a known hypertensive blood pressure on admission was 180/103. Given her presentation will allow permissive hypertension. Plan is to initiate antihypertensives prior to discharge 5. Overweight with BMI of 27.7 ? Weight loss advised 6. DVT prophylaxis ? JAVIER Cali Charges/Coding Visit Charges Inpatient E&M: 84477 Subs Hosp L2
[2022-08-15] MEDS: Enoxaparin 40 MG/0.4 ML Syringe SC (08:55)
[2022-08-15] MEDS: Clopidogrel Bisulfate 75 MG Tablet PO (08:55)
[2022-08-15] MEDS: Aspirin 81 MG TAB.CHEW 162 MG PO (08:55)
[2022-08-15] MEDS: Insulin Glargine-YFGN 100 UNIT/ML Pen 15 UNIT SC (08:56)
--- NOTE | 2022-08-15 09:39 | PCM.DC.SUM ---
Providers Date of Admission: 08/14/22 Date of Discharge: 08/15/22 Primary Care Physician: Dr. Ema Amaro MD Reason For Visit: STROKE R/O Diagnosis Discharge Diagnosis (1) Hypertension: Status: Chronic Code(s): I10 - Essential (primary) hypertension (2) New onset type 2 diabetes mellitus: Status: Acute Code(s): E11.9 - Type 2 diabetes mellitus without complications (3) Acute cerebrovascular accident (CVA): Status: Acute Code(s): I63.9 - Cerebral infarction, unspecified (4) Nondisplaced fracture of neck of right radius: Status: Acute Code(s): S52.134A - Nondisplaced fracture of neck of right radius, initial encounter for closed fracture Plan Patient is a 47-year-old lady with no previous medical comorbidities who presented with right lower extremity weakness as well as altered sensation on right side of the face. CT of the head obtained came back unremarkable. Patient was found to have elevated glucose levels consistent with new onset diabetes mellitus type 2 hemoglobin A1c was greater than 11. 1. Right-sided weakness ? Patient has been admitted to a monitored bed where she is currently undergoing evaluation to either rule in or rule out acute CVA. As part of patient management she was started on antiplatelet therapy statin therapy. CTA of the head and neck obtained demonstrated moderate bilateral carotid artery stenosis. MRI ordered. 2D echo also ordered -Echo result and MRI reviewed. MRI was diagnostic for Findings consistent with acute focal left thalamic infarct measuring 10 x 4 mm with mild surrounding ischemic change. Otherwise no evidence of acute intraparenchymal bleed or large territorial ischemia. 2. Dyslipidemia ? New onset diagnosis patient is on high-dose statin therapy 3. New onset diabetes mellitus type 2 ? Hemoglobin A1c on admission was 11.7. Patient started on long-acting insulin in addition to Accu-Cheks before meals and at bedtime with sliding scale correction factor coverage. Consult was also placed to dietitian and diabetic education 4. Elevated blood pressure ? Patient not a known hypertensive blood pressure on admission was 180/103. Given her presentation will allow permissive hypertension. Plan is to initiate antihypertensives prior to discharge 5. Overweight with BMI of 27.7 ? Weight loss advised 6. DVT prophylaxis ? SC Lovenox Medications at Discharge Home Medications aspirin 81 mg chewable tablet 162 mg PO BREAKFAST #90 tabs 08/15/22 atorvastatin 80 mg tablet 80 mg PO QHS #90 tabs 08/15/22 clopidogrel 75 mg tablet 75 mg PO DAILY #21 tabs 08/15/22 insulin glargine 100 unit/mL (3 mL) subcutaneous pen (Lantus Solostar U-100 Insulin) 15 unit (0.15 mL) subcut BID #120 mL 08/15/22 losartan 50 mg tablet 50 mg PO DAILY #90 tabs 08/15/22 metformin 500 mg tablet 500 mg PO BID #180 tabs 08/15/22 Hospital Course Summary of Care Provided Minutes Spent on Discharge: 35 Physical Exam Narrative GENERAL: cooperative HEENT: Atraumatic; normocephalic EYES; Anicteric, Normal Conjunctiva NECK; supple, normal thyroid, RESPIRATORY: Diminished to auscultation CARDIOVASCULAR: Regular S1 S2, GI: soft, normoactive bowel sounds, : No Renal angle tenderness; EXTREMITIES: No edema, no clubbing, MUSCULOSKELETAL: no muscle wasting NEURO: Awake; strength 4/5 in right lower extremity SKIN: No Rash PSYCH; Flat affect Weight / BMI Weight Weight: 79.1 kg Body Mass Index (BMI) 27.7 ABG / Lab / Microbiology Data Result Diagrams: 08/14/22 05:33 08/14/22 05:33 Laboratory: Laboratory Results - last 24 hr 08/14/22 11:19: POC Glucose 311 H 08/14/22 15:55: POC Glucose 285 H 08/14/22 22:09: POC Glucose 283 H 08/15/22 06:31: POC Glucose 233 H Radiography Diagnostic Testing: Radiology Impression Echocardiogram 08/13/22 21:01 Interpretation Summary Left ventricular systolic function is normal. The estimated ejection fraction is 60 %. Mild (1+) mitral valve insufficiency. Trivial tricuspid valve insufficiency. Unable to estimate RV systolic pressure due to insufficient tricuspid regurgitant envelope. Diastolic function is indeterminate. Bubble contrast study negative for right to left interatrial shunt. Ordering Physician: Jacqueline Byers Referring Physician: Ema Amaro M.D. Performed By: Idalmis Berg RCS Brain MRI 08/14/22 09:00 IMPRESSION: 1. Findings consistent with acute focal left thalamic infarct measuring 10 x 4 mm with mild surrounding ischemic change. Otherwise no evidence of acute intraparenchymal bleed or large territorial ischemia. 2. 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 Electronically Signed: Elliot Mas DO at 15:23 EDT , D/C Instructions Discharge Diet: Low fat / Low cholesterol and 1800 Calorie Control Diet Discharge Activity: Return to Normal Activity Call your doctor if you observe: Fever of 101 or Higher, Shortness of breath, Fainting spells and Chest pain Meaningful Use Info Meaningful Use Diagnoses (Choose all that apply): Ischemic CVA CVA Therapy Assessed for PT,OT and/or ST?: Yes Ischemic Stroke Antithrombotic order at d/c?: Yes Dx of Atrial fib/flutter?: No Anticoagulant at discharge?: No Reason anticoagulant not ordered: Treatment not Indicated Statins at discharge?: Yes Primary Dx Acute Ischemic CVA?: Yes IV tPA ordered during stay?: No Reason IV t-PA not ordered: Treatment not Indicated Discharge Plan Admission Admit Date/Time: 08/14/22 15:23 Attending Provider: Adelso Medina Consulting Providers: Marcellus Coles Discharge Orders/Prescriptions Prescriptions: New atorvastatin 80 mg Tablet 80 mg PO QHS Qty: 90 0RF aspirin 81 mg Tablet,Chewable 162 mg PO BREAKFAST Qty: 90 0RF insulin glargine [Lantus Solostar U-100 Insulin] 100 unit/mL (3 mL) insulin pen 15 unit subcut BID Qty: 120 0RF losartan 50 mg tablet 50 mg PO DAILY Qty: 90 0RF clopidogrel 75 mg Tablet 75 mg PO DAILY Qty: 21 0RF metformin 500 mg tablet 500 mg PO BID Qty: 180 0RF Discontinued cinnamon bark [Cinnamon] 500 mg capsule 500 mg PO DAILY apple cider vinegar 500 mg tablet 500 mg PO DAILY ibuprofen 200 mg capsule 800 mg PO Q6H PRN (Reason: Pain) multivitamin Capsule 1 cap PO DAILY Referrals / Follow Up: Ema Amaro MD [Med Staff - Substation Operator Transforming] - In 1 Week Disposition Disposition (needs filled in before D/C Order can be placed): Home, Self Care Charges/Coding Visit Charges Inpatient E&M: 83723 Disch Hosp
--- NOTE | 2022-08-15 09:43 | CASEMGMT ---
FILIBERTO completed assessment with patient at bedside. SW also confirmed addresses and phone numbers. PCP: Currently does not have one. Specialists: None Preferred Pharmacy:? [facility] Insurance: [employer] Prescription Benefit: Patient was not sure. She just acquired this insurance Living Will/HPOA: None LNOK: Patient has 4 children Living Arrangements:? Patient lives in a 1 story home with 3 entry steps. Patient lives with her fiance. Transportation: Patient drives DME:??None HHC/SNF: None Mental Health:? None Substance Use:? None Community Resources:? None Plan:? Patient has been diagnosed with a Stroke this admission. Patient is also a newly diagnosed Diabetic. Patient needs a Primary Care Doctor. SW gave patient a Healthcare Provider Directory. Patient would like to go to [facility]. Patient is okay with any physician at that office. FILIBERTO spoke with departmental secretary and asked her to please schedule a new patient appointment for patient. [place] called [facility] and they are not taking new patients. FILIBERTO spoke with patient and she was okay with [facility]. FILIBERTO notified departmental secretary. Proposal Consultant was able to get an appt for patient and she placed in the computer to print out on d/c instructions. RN ALYCE was working on obtaining a prescription for a glucometer for patient. Radha SHAH
--- NOTE | 2022-08-15 10:43 | CASEMGMT ---
Glucometer script to pt with discharge instructions. Pt states no further concerns with going home at discharge. Pt referred to [facility] pt link program. Pt was seeing Dr. Amaro but would like to switch to Dr. Ugarte and appt set up for 08/21. Nilson RO CM
--- NOTE | 2022-08-15 10:59 | CASEMGMT ---
SW completed a PHQ 9 with patient as she had a Stroke. Patient scored a 0 which indicates no depression. Patient denies any need for resources. Radha SHAH
[2022-08-15 11:15] VITALS: BP 150/98; PULSE 103; RESP 16; TEMP 36.7; O2SAT 98
--- NOTE | 2022-08-15 11:21 | PHA.DC.MC ---
Pharmacy Service has performed discharge medication reconciliation and counseling for this patient. Pen needles not entered, started on Lantus.This [facility] spoke to RN ALYCE who texted to request pen needles to be sent to pharmacy. 1. ATORVASTATIN 80MG PO QHS 2. ASPIRIN 162MG PO BREAKFAST 3. CLOPIDOGREL 75MG PO DAILY 4. INSULIN GLARGINE 15UNITS SC BID 5. LOSARTAN 50MG PO DAILY 6. METFORMIN 500MG PO BIDCM The patient's discharge medication list was reviewed for discrepancies and discrepancies were resolved. Home Medications aspirin 81 mg chewable tablet 162 mg PO BREAKFAST #90 tabs 08/15/22 atorvastatin 80 mg tablet 80 mg PO QHS #90 tabs 08/15/22 clopidogrel 75 mg tablet 75 mg PO DAILY #21 tabs 08/15/22 insulin glargine 100 unit/mL (3 mL) subcutaneous pen (Lantus Solostar U-100 Insulin) 15 unit (0.15 mL) subcut BID #120 mL 08/15/22 losartan 50 mg tablet 50 mg PO DAILY #90 tabs 08/15/22 metformin 500 mg tablet 500 mg PO BID #180 tabs 08/15/22 The patient was counseled on the following discharge medications and changes in medications for homegoing were reviewed. The Reason for Use, instructions for use, and potential side effects were reviewed for all new medications. The patient's questions regarding all of their medications were answered. The patient was able to verbally demonstrate an understanding of their discharge medications. Patient counseled by pharmacy graduate internMaria E.
[2022-08-15 11:40] VITALS: BMI 27.7
== END 2022-08-15 11:40 | disposition home or self-care (01) | DRG 66 ==
LOC: ED 20:50 → PCU 21:11
PROVIDERS: Nurse Practitioner Family; Admitting Provider Family Medicine; Emergency Provider Emergency Medicine; PCP Internal Medicine; Visit Provider Internal Medicine
DX: I63.50 Cerebral infarction due to unspecified occlusion or stenosis of unspecified cerebral artery (principal); E11.65 Type 2 diabetes mellitus with hyperglycemia; I10 Essential (primary) hypertension; H53.8 Other visual disturbances; I65.23 Occlusion and stenosis of bilateral carotid arteries; E78.5 Hyperlipidemia, unspecified; S52.134A Nondisplaced fracture of neck of right radius, initial encounter for closed fracture; Z87.891 Personal history of nicotine dependence; E66.3 Overweight; M62.81 Muscle weakness (generalized); Z79.2 Long term (current) use of antibiotics; Z68.27 Body mass index [BMI] 27.0-27.9, adult
CPT/HCPCS: 36415; 70450; 70496; 70498; 70551; 71045; 80048; 80061; 82962; 83036; 84443; 84484; 85025; 85610; 85730; 92610; 93005; 93306; 94762; 97162; 97802; 99284; Q9967; A4216

== ENCOUNTER 2022-11-08 08:00 | Outpatient (RCR) | payer OTHER, SELFPAY ==
--- NOTE | 2022-08-27 16:56 | HP.PTEVAL ---
Patient's Visit Information ANCELMO SARKAR is a 47 year old F referred to Physical Therapy by Dr. Heather Ugarte MD with a diagnosis of CVA. Date of Evaluation: 08/27/22 Physical Therapist: Terra Pittman DPT - Visit Plan Frequency: 3x /Week Duration: 4 Weeks Plan: Focus on proprioception, right sided strength and core strength/stabilization and functional mobility s/p CVA. HEP Given IE: HR/TR, SLS, SLR, sit to stand - Subjective Patient reports that she had a stroke about 2 weeks ago- she reports that her right side just feels weak. She feels that the right leg is going to buckle under her. She has no pain just the sensation of weakness. She is right hand dominate. Lives with with a ranch with 5 stairs to enter- handrail. She is trying reciprocal but is more doing then one at a time. She feels that her balance is just not there. Her has a large vehicle and getting in/out does not feel safe. She has N/T in her right hand- she plans to get an OT Script. Fully I prior to the stroke- she is driving a little bit now- but is nervous about the break at quick speed. 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 Sleep: no problems- she is more tired and is now taking naps to combat fatigue. She has not had an LOB just feels funny. Goals: be able to drive again and feel more confident with her balance and strength. - Objective Posture: FH, RS can correct but does not maintain. Gait: antalgic- decreased stance on right foot and does catch her right toe occasionally. HR/TR: able in standing. SLS: 3 sec then LOB- increased muscle sway. Stairs: asc.desc 8 recip with 2 HR- poor control with foot placement. Balance: See FGA. ROM: WFL in all planes. Strength: Core: fair minus, Hip: Left: 4+/5 throughout Right: 4/5 throughout with 4-/5 in hip flexion- poor control with SLR but able. Knee: Left: 5/5 Right: 4+/5, Ankle: Left: 5/5 Right: 4+/5 - Balance/Special Test Scores Functional Gait Assessment Score: 20 % Disability: 33.3400 Lower Extremity Functional Score: 60 TUG Test Time Seconds: 9.8 30 Second Chair Rise Test Seconds: 11 - Goals Goal 1:: Patient will be I with HEP and progression Goal Time Frame: 4-6 Weeks Goal 2:: Patient will ambulate >300 feet with a normalized gait pattern Goal Time Frame: 4-6 Weeks Goal 3:: Patient will asc/desc 8 recip with 1 HR and good control Goal Time Frame: 4-6 Weeks Goal 4:: Patient will report 80% improvement Goal Time Frame: 4-6 Weeks - Rehabilitation Potential Physical Therapy Diagnosis: Patient presents with hypomobility- she has decreased LE and core strength/stabilization right>left, proprioception, flex and muscular endurance s/p CVA leading to decreased ability to perform ADL's. Rehabilitation Potential: Fair - Anticipated Interventions Patient/Client Instruction: Educate patient on: Benefits of Fitness Program Therapeutic Exercise to Include: Strength training, Endurance training, Balance training, Coordination, Agility training, Body mechanics, Postural training, Flexibilty training, Gait and locomotor training, Neuromotor development, Dynamic Lumbar Stabilization, Abigail Exercises For the Purpose of:: To improve muscle performance and motor function Thank you for the opportunity to evaluate your patient. For Medicare and Medicare HMO plans, please review the plan of care and approve it. It will need to be FAXED BACK to us at [phone] for Medicare purposes. For Medicare only, by signing this I certify the plan of care. Please let me know if there are questions or concerns regarding this plan of care. Physician Signature: Date:
--- NOTE | 2022-09-12 10:52 | HP.OTEVAL_ITS ---
Patient's Visit Information ANCELMO SARKAR is a 47 year old F, referred to Occupational Therapy by Dr. Heather Ugarte MD, with a diagnosis of CVA right side weakness. 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 pt states she said she was dropping her phone a lot during the day-. pt states her did try to get her when her blood pressure was high- pt refused. 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 pt will see neurologist in Dec. unless they call her with a cancellation - ADLs Kitchen: Open jars, Open bottle caps Miscellaneous: Handle money (change), Write, Use computer keyboard - ROM ROM Comments: bilateral ROM is WNL. no lag or deviation of right UE - Strength Shoulder: right 14# left 15# Elbow: right 15# biceps 19# left 16# biceps 18# Cafeteria Aide: right 25# left 50# Lateral Pinch: right 2# left 4# Tripod Pinch: right 8# left 8# Tip-to-Tip Pinch: right 4# left 4# - Sensation Thumb: right 2.83 left 2.83 Index: right 2.83 left 2.83 Middle: right 2.83 left 2.83 Ring: right 2.83 left 2.83 Little: right 2.83 left 2.83 Sensation Comments: pt reports tingling throughout the entire right UE does get worse with movement - Visual/Perceptual Skills Comments: pt states she is going to her eye as left eye is not seeing as well since her stroke. - Nine Hole Peg Right: 21.59 Left: 18.24 - Goals Goal:: pt will demo a increase in right supervisor cab strength to 45# or greater to increase pts ind. with ADLs and IADLs by d/c. pt will demo the ability to lift 3#, 4# to shoulder height for 5 min or above to simulate putting dishes away by d/c Goal:: pt will demo a increase in FMS noted by a decrease completion time with 9 hole peg test to under 20Sec. by d.c. pt will demo the ability to type 3 sentences without mistakes or needing corrections by d/c Goal:: pt will demo understanding of energy conservation and use of ad. eq. as needed by d/c Goal:: pt will report a decrease in right UE tingling by 50% to increase ind. with ADLs and IADLs by d.c - Rehabilitation General Assessment: pt demo with right UE supervisor cab weakness and decrease in FMS limiting pts ind. with ADLs and IADLS. pt would benefit form skilled OT services 2-3x week for 3-4weeks to return pt to PLOF. Rehabilitation Potential: Excellent - Anticipated Interventions Strengthening, Desensitization, Sensory Retraining, Ergonomic Education, Fine Motor Coord/Herrera, Neuro Reeducation, Education re assistive Equipment, Education re Diagnosis, Caregiver Training, Home Program - Visit Plan Frequency: 2-3x /Week Duration: 4 Weeks General Plan: therapy will initiate UE strengthening- fine motor challenges and simulated Home mtg. tasks TEXT: Thank you for the opportunity to evaluate your patient. For Medicare and Medicare HMO plans, please review the plan of care and approve it. It will need to be FAXED BACK to us at [phone] for Medicare purposes. Please let me know if there are questions or concerns regarding this plan of care. Physician Signature: Date:
--- NOTE | 2022-10-02 13:30 | HP.OTDCSUM_ITS ---
It has been my pleasure to treat ANCELMO SARKAR under orders from Dr. Heather Ugarte MD, for the diagnosis of CVA right side weakness for a total of 6 visit(s). Please see the following information for a summary of their discharge status. % Improvement: 100 Objective/Function: Initial: Press Hand Supervisor: right 25#(current 65#) left 50# (current- same). Lateral Pinch: right 2#(current- 13# ) left 4#(current- 12#). Tripod Pinch: right 8# (current-14# ) left 8# (current-12#). Tip-to-Tip Pinch: right 4# (current-10#) left 4#. (current- 8#) Patient Goals: Use Hand/Wrist/Arm Normally Again, Decrease Tingling/Numbness, Be More Independent in ADLS Goal:: pt will demo a increase in right fruit vendor strength to 45# or greater to increase pts ind. with ADLs and IADLs by d/c. pt will demo the ability to lift 3#, 4# to shoulder height for 5 min or above to simulate putting dishes away by d/c Goal:: pt will demo a increase in FMS noted by a decrease completion time with 9 hole peg test to under 20Sec. by d.c. pt will demo the ability to type 3 sentences without mistakes or needing corrections by d/c Goal:: pt will demo understanding of energy conservation and use of ad. eq. as needed by d/c Goal:: pt will report a decrease in right UE tingling by 50% to increase ind. with ADLs and IADLs by d.c Plan: Discontinue d/t mastering goals. See measurements above. Discharge Comments: pt was seen for 6 OT sessions - pt has made gains in her strength and reports she is doing 100% of all her daily tasks- pt will continue with speech therapy for cognitive issues. pt met OT goals and is D.C at this time with [facility]. pt agrees with D/C. If there are questions or concerns regarding this patient's occupational therapy, please fell free to call me at [phone]. Thank you for the referral of this patient. Sincerely, Erin Garrett, OTR/L, CHT
--- NOTE | 2022-10-05 14:16 | HP.SP.EVAL ---
History - History Date of Eval: 10/04/22 Date of Onset of Diagnosis: 08/13/22 Previous speech therapy: Yes Results: Swallow eval at [facility] for stroke protocol - swallow function determined to be WNL Other Relevant Medical History/Diagnoses/Surgery: ARELIS SARKAR is a 47 year old female who presents to [facility] following a recommendation from physical therapy due to concerns for word finding deficits and short-term memory s/p left thalamic and cerebellar CVA. 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 Arelis manages her own finances and medications at home and reports no difficulty. Pt is also driving - no concerns. Pt reporting difficulties at work with word finding when under high stress environments. Pt reporting this did not use to affect her. Pt also reporting being more emotional. Smoking Status: Smoker, status unknown Hx Smoking: Yes Hx Smoking Cessation Date: 04/18/11 Hx Tobacco Use: No - Pain Is pain an issue with your current prescribed condition?: No Patient Allergies - Allergies Allergies cephalexin monohydrate [From Keflex] Allergy (Verified 09/24/22 09:12) Hives CT CONTRAST Adverse Reaction (Uncoded 09/24/22 09:12) Other SNEEZING CLQT - CLQT CLQT Administered: Yes CLQT: Cognitive Linguistic Quick Test (CLQT) is a criterion - referenced assessment designed for adults between the ages of 18 and 89 with known or suspected neurological dysfuntions. The CLQT is to assess strength and weaknesses in five cognitive domains. Severity ratings are within normal limits, mild, moderate, severe deficits. The subtests are as follows: Date: 10/04/22 - Attention Attention: WNL - Memory Memory: WNL - Executive Functions Executive Functions: WNL - Language Language: WNL - Visuospatial Skills Visuospatial Skills: WNL - Composite Severity Rating Composite Severity Rating: WNL - Clock Drawing Severity Rating Clock Drawing Severity Rating: Moderate - CLQT Comments Qualitative Data Although Pt scored WNL across all indices Pt still reporting aphasia symptoms mostly high stress environments, however in the day to day as well. Pt reporting her coworkers often need to finish her sentences for her. Pt also reporting poor short-term memory as well as fleeting attention to tasks. Plan - Plan Plan: Will recommend Pt for weekly outpatient speech therapy to address mild cognitive impairment and aphasia deficits characterized by difficulties with short-term memory, word retrieval, and attention. Pt would benefit from training in compensatory strategies for recall and word retrieval, as well as cognitive training to improve cognitive functioning. Without skilled ST services, the Pt is at risk for decreased independence completing daily living tasks. - Recommendations Treatment Warranted: Yes Treatment Warranted: Receptive/ Expressive Language, Cognition - Progress Prognosis: Excellent - Frequency Frequency: 1x/Week Duration: 6 Weeks - Goals that are Established Determination:: Goals will be added/modified as deemed necessary and appropriate. Therapy will be discontinued when results of re-evaluation indicate therapy is no longer needed or lack of progress has been documented. - Goal #1-5 Goal #1: Arelis will independently demonstrate use of word finding strategies to participate in complex conversation tasks that include a memory component in 3 out of 4 word finding occurrences across 3 measured opportunities. Goal #2: Arelis will establish volitional control of respiration evidenced by utilization of diaphragmatic breathing to calm self during stressful situations within 4 weeks with 100% accuracy independently. Goal #3: Arelis will modify environment at home or work via implementing internal and external memory compensatory strategies within 4 weeks time of their initial evaluation. Goal #4: Arelis will complete mod complex sustained, alternating, divided attention tasks with 85% acc independently across 3 measured opportunities. Education - Patient has Indicated that the Following Identified Educational Needs: None The Patient has indicated that they have no educational or learning abilities that may effect their care.: Yes - Patient Instruction Patient Education: Diagnosis, Treatment Plan, Goals Other Education: Extensive education provided to Pt regarding the locations of her current stroke and apparent previous undx stroke - left thalamus and left cerebellum. Discussed the types of symptoms she would be experiencing and how this may play out in day to day life. Pt appearing appreciative of education. Person Taught: Patient Teaching Method: Discussion, Demonstration Response to teaching: Return demonstration, Verbalize understanding
--- NOTE | 2022-11-08 08:52 | HP.SP.DC_ITS ---
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 Pt attended 4 additional consecutive sessions following initial evaluation to target word retrieval, instruction on word finding strategies, and diaphragmatic breathing exercises to reduce tension in difficult word finding moments. Following Pt's performance in therapy as well as self-report, Pt deemed appropriate for d/c from speech therapy at this time. Pt provided w/home carry over activities to continue targeting expressive language as well as handouts provided for automobile rental clerk al/internal/environmental memory aids. Pt discharged from speech therapy caseload on this date with Pt's consent, 11/08/22. Thank you for allowing me to participate in the care of your Pt. Will reevaluate at Pt?s request following script from physician.
== END 2022-11-08 13:17 | disposition home or self-care (01) ==
LOC: SP 08:00
PROVIDERS: PCP Internal Medicine; Referring Provider Internal Medicine; Visit Provider Internal Medicine
DX: I69.351 Hemiplegia and hemiparesis following cerebral infarction affecting right dominant side (principal)
CPT/HCPCS: 92507; 92523; 97110; 97162; 97166; 97530

== ENCOUNTER → 2022-12-13 | Outpatient (CLI) | payer OTHER, SELFPAY ==
--- NOTE | 2022-12-13 09:03 | BI_ITS ---
MAMMOGRAPHY - BILATERAL DIAGNOSTIC REASON FOR EXAM: Female, 47 years old. Occasional left breast discomfort. PERTINENT HISTORY: Mother with breast cancer. Grandmother with breast cancer. TECHNIQUE: Digital bilateral breast dimitry (3D mammographic acquisition) in the CC and MLO projections. 2-D mediolateral oblique (MLO) and craniocaudad (CC) views of both breasts were obtained. CAD: Full Field Digital Mammography with Computer Added Detection was performed. COMPARISON: Comparison is made with prior outside EXAMINATION dated 05/05/2019. FINDINGS: Breast Composition: The breasts are heterogeneously dense, which may obscure small masses. There are no dominant masses or suspicious calcifications. Stable small benign-appearing bilateral axillary lymph nodes. No other significant abnormalities are identified. There has been no significant change since the prior study. BI/DIAG MAMM W/CAD, BILAT IMPRESSION: Stable bilateral diagnostic mammogram. One year follow-up recommended. (A) ASSESSMENT CATEGORY: BIRADS Category 2: Benign. A letter regarding these results will be sent to the patient by the facility within 30 days. Approximately 10% of breast cancers are not detected by mammography. A normal mammogram should not delay biopsy of a clinically suspicious abnormality. Electronically Signed: Isaias Loaiza MD at 10:09 [facility] ,
== END | disposition home or self-care (01) ==
LOC: OPBI 09:01
PROVIDERS: PCP Internal Medicine; Visit Provider Internal Medicine
DX: N64.4 Mastodynia (principal); Z80.3 Family history of malignant neoplasm of breast
CPT/HCPCS: 77062; 77066; G0279

== ENCOUNTER → 2023-03-02 | Outpatient (CLI) | payer OTHER, SELFPAY ==
[2023-03-02 08:23] LABS: Erythrocyte Sedimentation Rate 9 mm/hr (0-30)
[2023-03-02 08:26] LABS: Hematocrit 37.2 % (37-47); Hemoglobin 12.5 g/dL (12.0-15.0); Mean Corp Hgb Conc 33.6 g/dL (32-36); Mean Corpuscular Hgb 29.7 pg (27.0-32.0); Mean Corpuscular Volume 88.4 fL (81-99); Mean Platelet Vol. 9.5 fl (6.2-12.0); Platelet Count 275 K/mm3 (150-450); RBC Distribution Width CV 11.7 % (11.6-14.6); RBC Distribution Width SD 37.4 fl (35.1-43.9); Red Blood Count 4.21 M/mm3 (4.2-5.4); White Blood Count 5.6 K/mm3 (4.4-11.0)
[2023-03-02 08:54] LABS: ALB/GLOB Ratio 1.1 RATIO (0.9-2.4); AST(SGOT) 15 U/L (15-37); Alanine Aminotransfer ALT/SGPT 27 U/L (13-56); Albumin, Serum 3.3 g/dL (3.2-5.0); Alkaline Phosphatase 65 U/L (45-117); Anion Gap 2 (5-15); BUN 10 mg/dL (7-18); BUN/Creat Ratio 16.3 RATIO (10-20); Calcium,Total 8.6 mg/dL (8.5-10.1); Chloride 107 mmol/L (98-107); Cholesterol 131 mg/dL (200); Creatinine, Serum 0.61 mg/dL (0.55-1.02); EST Glomerular Filtration Rate 110 mL/min (>60); Est Glom Filt Rate - Afr Amer 133 mL/min (>60); Globulin 3.1 g/dL (2.2-4.2); Glucose 96 mg/dL (74-106); High Density Lipoprotein 46 mg/dL; Potassium 4.1 mmol/L (3.5-5.1); Protein, Total 6.4 g/dL (6.4-8.2); Sodium Level 137 mmol/L (136-145); Thyroid Stim Hormone (TSH) 1.15 uIU/mL (0.358-3.74); Triglycerides 76 mg/dL; Very Low Density Lipoprotein 15 mg/dL (5-40)
[2023-03-04 09:02] LABS: Vitamin B12 267 pg/mL (211-911)
[2023-03-04 15:40] LABS: ANTINUCLEAR ANTIBODIES DIRECT Negative (Negative)
[2023-03-07 00:07] LABS: Complement C3 106 mg/dL (82-167); Dilute Prothrombin Time (dPT) 34.4 sec (0.0-47.6); Dilute Russell Viper Venom 32.1 sec (0.0-47.0); Free Kappa Light Chains 30.8 mg/L (3.3-19.4); Free Lambda Light Chains 23.1 mg/L (5.7-26.3); PTT-LA 33.3 sec (0.0-43.5); Protein C Antigen 182 % (60-150); Protein S, Free 103 % (61-136); Thrombin Time 16.1 sec (0.0-23.0); Vitamin B1, Thiamine 107.8 nmol/L (66.5-200.0); dPT Confirm Ratio 1.08 Ratio (0.00-1.34)
[2023-03-07 12:57] LABS: Anti-Cardiolipin Ab, IgA, Qn < 9 APL U/mL (0-11); Anti-Cardiolipin Ab, IgG, Qn < 9 GPL U/mL (0-14); Anti-Cardiolipin Ab, IgM, Qn 10 MPL U/mL (0-12); Anti-Thrombin 3 AG, Immunol 83 % (72-124); Antithrombin 3 Function 118 % (75-135); Complement CH50 > 60 U/mL (>41); Interpretation Comment: (.); Protein C, Functional 186 % (73-180); Protein S, Funtional 110 % (63-140); Protein S, Total 77 % (60-150)
== END | disposition home or self-care (01) ==
LOC: LAB 06:58
PROVIDERS: PCP Internal Medicine; Visit Provider Psychiatry & Neurology Neurology
DX: I63.9 Cerebral infarction, unspecified (principal); G57.90 Unspecified mononeuropathy of unspecified lower limb
CPT/HCPCS: 36415; 80053; 80061; 81240; 81241; 82607; 82746; 83883; 84425; 84443; 85027; 85300; 85301; 85302; 85303; 85305; 85306; 85652; 86038; 86147; 86160; 86162; 86225; 86235

== ENCOUNTER → 2023-09-09 | Outpatient (CLI) | payer OTHER, SELFPAY ==
[2023-09-11 12:08] LABS: Albumin 3.6 g/dL (2.9-4.4); Alpha-1-Globulins 0.2 g/dL (0.0-0.4); Alpha-2-Globulins 0.7 g/dL (0.4-1.0); Gamma Globulin 0.9 g/dL (0.4-1.8); Immunoglobulin A 503 mg/dL (87-352); Immunoglobulin G 940 mg/dL (586-1602); Immunoglobulin M 92 mg/dL (26-217); PROEL- TOTAL PROTEIN 6.8 g/dL (6.0-8.5)
== END | disposition home or self-care (01) ==
PROVIDERS: PCP Internal Medicine; Referring Provider Psychiatry & Neurology Neurology; Visit Provider Psychiatry & Neurology Neurology
DX: G57.90 Unspecified mononeuropathy of unspecified lower limb (principal)
CPT/HCPCS: 36415; 82784; 84165; 86334; 86335

== ENCOUNTER → 2023-12-16 | Outpatient (CLI) | payer OTHER, SELFPAY ==
[2023-12-16 12:14] LABS: Absolute Lymphocyte Count 2.04 X10^3/uL (0.83-4.51); Absolute Neutrophil Count 3.3 X10^3/uL (2.0-7.7); Basophil# 0.03 X10^3/uL; Basophil% 0.5 % (0-1); Eosinophil# 0.16 X10^3/uL; Eosinophils% 2.7 % (0-5); Hematocrit 39.3 % (37-47); Hemoglobin 13.5 g/dL (12.0-15.0); Lymphocyte # 2.04 X10^3/ul (0.83-4.51); Lymphocyte % 33.9 % (19-41); Mean Corp Hgb Conc 34.4 g/dL (32-36); Mean Corpuscular Hgb 30.8 pg (27.0-32.0); Mean Corpuscular Volume 89.5 fL (81-99); Mean Platelet Vol. 9.9 fl (6.2-12.0); Monocyte# 0.48 X10^3/uL; NRBC Flagged by Analyzer 0 % (0-5); Neutrophil # 3.28 X10^3/uL (2.7-7.7); Neutrophil % 54.6 % (47-70); Platelet Count 269 K/mm3 (150-450); RBC Distribution Width CV 11.8 % (11.6-14.6); RBC Distribution Width SD 38.5 fl (35.1-43.9); Red Blood Count 4.39 M/mm3 (4.2-5.4)
[2023-12-16 12:59] LABS: ALB/GLOB Ratio 0.9 RATIO (0.9-2.4); AST(SGOT) 11 U/L (15-37); Alanine Aminotransfer ALT/SGPT 22 U/L (13-56); Albumin, Serum 3.6 g/dL (3.2-5.0); Alkaline Phosphatase 71 U/L (45-117); Anion Gap 7 (5-15); BUN 15 mg/dL (7-18); BUN/Creat Ratio 17.6 RATIO (10-20); Calcium,Total 9.7 mg/dL (8.5-10.1); Chloride 105 mmol/L (98-107); Cholesterol 191 mg/dL (200); Creatinine, Serum 0.85 mg/dL (0.55-1.02); EST Glomerular Filtration Rate 75 mL/min (>60); Est Glom Filt Rate - Afr Amer 91 mL/min (>60); Globulin 3.8 g/dL (2.2-4.2); Glucose 121 mg/dL (74-106); High Density Lipoprotein 57 mg/dL; Potassium 4.8 mmol/L (3.5-5.1); Protein, Total 7.4 g/dL (6.4-8.2); Sodium Level 137 mmol/L (136-145); Triglycerides 141 mg/dL; Very Low Density Lipoprotein 28 mg/dL (5-40)
== END | disposition home or self-care (01) ==
LOC: BIMLAB 09:28
PROVIDERS: PCP Internal Medicine; Referring Provider Internal Medicine; Visit Provider Internal Medicine
DX: E11.9 Type 2 diabetes mellitus without complications (principal); E78.5 Hyperlipidemia, unspecified
CPT/HCPCS: 36415; 80053; 80061; 85025

== ENCOUNTER → 2024-01-29 | Outpatient (CLI) | payer OTHER, SELFPAY ==
--- NOTE | 2024-01-29 10:24 | BI_ITS ---
MAMMOGRAPHY - BILATERAL SCREENING 3-D TOMOSYNTHESIS REASON FOR EXAM: Female, 48 years old. SCREENING PERTINENT HISTORY: No significant family history. TECHNIQUE: 2-D mammograms and 3-D Tomosynthesis of the breast (s) were performed. CAD was performed. COMPARISON: 12/13/2022 FINDINGS: The breast composition is composed of scattered fibroglandular density. Scattered benign calcifications are seen. 1 cm oval obscured equal density mass in the retroareolar right breast at mid depth and focal compression views recommended for further evaluation. No dominant mass left breast. No suspicious calcifications.. No architectural distortion is identified. There is no skin thickening or retraction. BI/SCRN MAMM (CAD)W/ROLO BILAT IMPRESSION: Further imaging evaluation is recommended. ASSESSMENT CATEGORY: BIRADS Category 0: Incomplete. Need additional imaging evaluation as above. A letter regarding these results will be sent to the patient by the facility within 30 days. FOLLOW UP RECOMMENDATION: Additional imaging recommended as above. (E) Approximately 10% of breast cancers are not detected by mammography. A normal mammogram should not delay biopsy of a clinically suspicious abnormality. Electronically Signed: Sekou Chance MD at 19:33 EST ,
--- OUTSIDE RECORDS SUMMARY | 2024-01-29 10:55 | XMS RPT_ITS | CCD ---
Author Name Unknown Address [address] [place] [address] Organization [facility] Results Test Name Value Interpretation Reference Range Facil ity Clinical Note 06-16-2021 Note Date & Type Note Facility 06-16-2021 Note Patient Outreach (IN [facility]) ANCELMO SARKAR ([id number]) 1975 F Date Time Provider Department 06/16/21 MICHAEL GU During your visit today, we recorded the following information about you: Allergies As of Date: 06/16/2021 Noted Allergy Reaction KEFLEX (CEPHALEXIN) 08/02/2008 4 - Hives Date Reviewed: 02/15/2020 Reviewed by: [facility] - Fully Assessed Visit Diagnosis:Encounter for screening mammogram for breast cancer [Z12.31] Order(s):[facility] SCREENING [[id number]] Order #: [id number] FUTURE Prescriptions as of 06/19/2021 - metFORMIN (GLUCOPHAGE) 500 mg tablet Take 2 tablets by mouth daily with breakfast. Take one at supper as directed - metFORMIN (GLUCOPHAGE) 500 mg tablet Take 2 tablets by mouth daily with breakfast. Take one at supper as directed - losartan (COZAAR) 100 mg tablet Take 1 tablet by mouth once daily. - Multivitamin capsule Take 1 capsule by mouth once daily. - glimepiride (AMARYL) 4 mg tablet Take 1 tablet by mouth daily with breakfast. - lansoprazole (PREVACID 24HR) 15 mg capsule Take 1 capsule by mouth once daily. - Blood-Glucose Meter (RELION PRIME METER) misc Checking sugars once daily (and as needed) - Lancets lancets Test blood sugar(s) 3 times daily. Dx: 250.02. Insulin: No - Alcohol Swabs (ALCOHOL PREP SWABS) padm Apply 1 Units to affected area three times daily. Problem List As Of Date 06/16/2021 Noted Resolved HSIL (High Grade Squamous Intraepithelial Lesio*03/22/2010 Menorrhagia [N92.0] 04/10/2010 Dysmenorrhea [N94.6] 07/12/2010 Endometrial Polyp [N84.0] 07/19/2010 Liver enzyme elevation [R74.8] 05/27/2012 DM (diabetes mellitus) [E11.9] 06/02/2012 Abdominal pain, epigastric [R10.13] Diabetes mellitus type 2, uncontrolled, without* Diastasis recti [M62.08] 08/26/2012 Gastroesophageal reflux disease [K21.9] 09/14/2019 Psoriasis [L40.9] 09/14/2019 Tendinitis of left shoulder [M77.8] 01/20/2020 Encounter Status:Closed by CARLO JARA on 06/19/21 [facility] Clinical Note 03-21-2021 Note Date & Type Note Facility 03-21-2021 Note Patient Outreach ([facility]) ANCELMO SARKAR ([id number]) 1975 F Date Time Provider Department 03/21/21 PATRICIA DIAZ (ZAK) SAVITA During your visit today, we recorded the following information about you: Patricia Diaz Pss 03/21/2021 8:55 AM Signed POPULATION HEALTH NAVIGATION OUTREACH Action/FYI HM due mammo, HGB A1c, Retinal Exam Left , sent ms Contact made with patient or family member? NO Pt identified by name and : NO Outreach Outcome/Action Unable to reach patient: Phone number not valid / voicemail full [employer] message sent Reason for Outreach Care Gap or Scheduling/Wellness visits Payer: Payor: MMO / Plan: MMO [employer] / Product Type: PPO / Care Gap Reviewed:: Breast Cancer screening Diabetic Eye Exam HBA1C Reminder: Reminder note to check Health Maintenance for items below Health Maintenance items due: HEPATITIS C SCREENING Never done HIV SCREENING Never done BP CONTROLLED (<130/80) Never done HBA1C due on 04/09/2018 URINE ALBUMIN:CREATININE RATIO due on 10/10/2018 LDL CHOLESTEROL due on 10/10/2018 PAP TESTING due on 02/15/2019 HPV TESTING due on 02/15/2019 MAMMOGRAM due on 04/16/2020 DIABETIC FOOT EXAM due on 09/14/2020 DEPRESSION SCREENING due on 09/14/2020 DILATED RETINAL EXAM due on 01/19/2021 ANNUAL PCP TEAM CHRONIC DISEASE VISIT due on 02/28/2021 Advanced Directives Completed: Have you ever planned for future healthcare decisions with a power of criminal attorney, living will, or advance directives? n/a Referrals: N/A Message Sent to Practice: NO Navigation Signature: Patricia Diaz Pss March 21, 2021 8:50 AM Allergies As of Date: 03/21/2021 Noted Allergy Reaction KEFLEX (CEPHALEXIN) 08/02/2008 4 - Hives Date Reviewed: 02/15/2020 Reviewed by: Sybil (Fur Blowing Machine Attendant) Da - Fully Assessed Reason for Visit: Population Health Navigation Outreach [3910] Cmt: deferred care Prescriptions as of 03/21/2021 Sig: METFORMIN 500 MG TABLET Take 2 tablets by mouth daily* METFORMIN 500 MG TABLET Take 2 tablets by mouth daily* LOSARTAN 100 MG TABLET Take 1 tablet by mouth once d* MULTIVITAMIN CAPSULE Take 1 capsule by mouth once * GLIMEPIRIDE 4 MG TABLET Take 1 tablet by mouth daily * LANSOPRAZOLE 15 MG CAPSULE,DE* Take 1 capsule by mouth once * BLOOD-GLUCOSE METER Checking sugars once daily (a* LANCETS Test blood sugar(s) 3 times d* ALCOHOL SWABS Apply 1 Units to affected are* Problem List As Of Date 03/21/2021 Noted Resolved HSIL (High Grade Squamous Intraepithelial Lesio*03/22/2010 Menorrhagia [N92.0] 04/10/2010 Dysmenorrhea [N94.6] 07/12/2010 Endometrial Polyp [N84.0] 07/19/2010 Liver enzyme elevation [R74.8] 05/27/2012 DM (diabetes mellitus) [E11.9] 06/02/2012 Abdominal pain, epigastric [R10.13] Diabetes mellitus type 2, uncontrolled, without* Diastasis recti [M62.08] 08/26/2012 Gastroesophageal reflux disease [K21.9] 09/14/2019 Psoriasis [L40.9] 09/14/2019 Tendinitis of left shoulder [M77.8] 01/20/2020 Encounter Status:Closed by PATRICIA COSTA on 03/21/21 [facility] Progress note 03-21-2021 Note Date & Type Note Facility 03-21-2021 Note HNO ID: [id number] Author: Patricia Oro Service: ? Author Type: ? Type: Progress Notes Filed: 03/21/2021 8:55 AM Note Text: POPULATION HEALTH NAVIGATION OUTREACH Action/FYI HM due mammo, HGB A1c, Retinal Exam Left vm, sent [facility] Contact made with patient or family member? NO Pt identified by name and : NO Outreach Outcome/Action Unable to reach patient: Phone number not valid / voicemail full [employer] message sent Reason for Outreach Care Gap or Scheduling/Wellness visits Payer: Payor: MMO / Plan: MMO [employer] / Product Type: PPO / Care Gap Reviewed:: Breast Cancer screening Diabetic Eye Exam HBA1C Reminder: Reminder note to check Health Maintenance for items below Health Maintenance items due: HEPATITIS C SCREENING Never done HIV SCREENING Never done BP CONTROLLED (<130/80) Never done HBA1C due on 04/09/2018 URINE ALBUMIN:CREATININE RATIO due on 10/10/2018 LDL CHOLESTEROL due on 10/10/2018 PAP TESTING due on 02/15/2019 HPV TESTING due on 02/15/2019 MAMMOGRAM due on 04/16/2020 DIABETIC FOOT EXAM due on 09/14/2020 DEPRESSION SCREENING due on 09/14/2020 DILATED RETINAL EXAM due on 01/19/2021 ANNUAL PCP TEAM CHRONIC DISEASE VISIT due on 02/28/2021 Advanced Directives Completed: Have you ever planned for future healthcare decisions with a power of criminal attorney, living will, or advance directives? n/a Referrals: N/A Message Sent to Practice: NO Navigation Signature: Patricia Oro March 21, 2021 8:50 AM [facility] Clinical Note 02-28-2021 Note Date & Type Note Facility 02-28-2021 Note Patient Outreach (IN TMWS) ANCELMO SARKAR ([id number]) 1975 F Date Time Provider Department 02/28/21 MICHAEL GU INTERIC During your visit today, we recorded the following information about you: Brinda Jono [employer] OFFICER 02/28/2021 11:51 AM Signed POPULATION HEALTH NAVIGATION OUTREACH Action/ Hba1c - Attempted to reach patient but no answer and no voice mail set up. Letter mailed Contact made with patient or family member? NO Pt identified by name and : YES Outreach Outcome/Action Letter mailed Reason for Outreach Care Gap or Scheduling/Wellness visits Payer: Payor: MMO / Plan: MMO [employer] / Product Type: PPO / Care Gap Reviewed:: HBA1C Reminder: Reminder note to check Health Maintenance for items below Health Maintenance items due: HEPATITIS C SCREENING Completed HIV SCREENING Completed BP CONTROLLED (<130/80) Completed HBA1C due on 04/09/2018 URINE ALBUMIN:CREATININE RATIO due on 10/10/2018 LDL CHOLESTEROL due on 10/10/2018 PAP TESTING due on 02/15/2019 HPV TESTING due on 02/15/2019 MAMMOGRAM due on 04/16/2020 DIABETIC FOOT EXAM due on 09/14/2020 DEPRESSION SCREENING due on 09/14/2020 DILATED RETINAL EXAM due on 01/19/2021 ANNUAL PCP TEAM CHRONIC DISEASE VISIT due on 02/28/2021 Advanced Directives Completed: Have you ever planned for future healthcare decisions with a power of criminal attorney, living will, or advance directives? No. Are you interested in a follow-up phone call or visit with a doctor for more information about planning for future health care decisions? No Referrals: N/A Message Sent to Practice: NO Navigation Signature: Brinda De La Cruz LPN February 28, 2021 11:02 AM Allergies As of Date: 02/28/2021 Noted Allergy Reaction KEFLEX (CEPHALEXIN) 08/02/2008 4 - Hives Date Reviewed: 02/15/2020 Reviewed by: Sybil (Fur Blowing Machine Attendant) Da - Fully Assessed Prescriptions as of 02/28/2021 Sig: METFORMIN 500 MG TABLET Take 2 tablets by mouth daily* METFORMIN 500 MG TABLET Take 2 tablets by mouth daily* LOSARTAN 100 MG TABLET Take 1 tablet by mouth once d* MULTIVITAMIN CAPSULE Take 1 capsule by mouth once * GLIMEPIRIDE 4 MG TABLET Take 1 tablet by mouth daily * LANSOPRAZOLE 15 MG CAPSULE,DE* Take 1 capsule by mouth once * BLOOD-GLUCOSE METER Checking sugars once daily (a* LANCETS Test blood sugar(s) 3 times d* ALCOHOL SWABS Apply 1 Units to affected are* Problem List As Of Date 02/28/2021 Noted Resolved HSIL (High Grade Squamous Intraepithelial Lesio*03/22/2010 Menorrhagia [N92.0] 04/10/2010 Dysmenorrhea [N94.6] 07/12/2010 Endometrial Polyp [N84.0] 07/19/2010 Liver enzyme elevation [R74.8] 05/27/2012 DM (diabetes mellitus) [E11.9] 06/02/2012 Abdominal pain, epigastric [R10.13] Diabetes mellitus type 2, uncontrolled, without* Diastasis recti [M62.08] 08/26/2012 Gastroesophageal reflux disease [K21.9] 09/14/2019 Psoriasis [L40.9] 09/14/2019 Tendinitis of left shoulder [M77.8] 01/20/2020 Letter Text Encounter Status:Closed by BRINDA DE LA CRUZ LPN on 02/28/21 [facility] Progress note 02-28-2021 Note Date & Type Note Facility 02-28-2021 Note HNO ID: [id number] Author: Brinda De La Cruz LPN Service: ? Author Type: ? Type: Progress Notes Filed: 02/28/2021 11:51 AM Note Text: POPULATION HEALTH NAVIGATION OUTREACH Action/FYI Hba1c - Attempted to reach patient but no answer and no voice mail set up. Letter mailed Contact made with patient or family member? NO Pt identified by name and : YES Outreach Outcome/Action Letter mailed Reason for Outreach Care Gap or Scheduling/Wellness visits Payer: Payor: MMO / Plan: MMO [employer] / Product Type: PPO / Care Gap Reviewed:: HBA1C Reminder: Reminder note to check Health Maintenance for items below Health Maintenance items due: HEPATITIS C SCREENING Completed HIV SCREENING Completed BP CONTROLLED (<130/80) Completed HBA1C due on 04/09/2018 URINE ALBUMIN:CREATININE RATIO due on 10/10/2018 LDL CHOLESTEROL due on 10/10/2018 PAP TESTING due on 02/15/2019 HPV TESTING due on 02/15/2019 MAMMOGRAM due on 04/16/2020 DIABETIC FOOT EXAM due on 09/14/2020 DEPRESSION SCREENING due on 09/14/2020 DILATED RETINAL EXAM due on 01/19/2021 ANNUAL PCP TEAM CHRONIC DISEASE VISIT due on 02/28/2021 Advanced Directives Completed: Have you ever planned for future healthcare decisions with a power of criminal attorney, living will, or advance directives? No. Are you interested in a follow-up phone call or visit with a doctor for more information about planning for future health care decisions? No Referrals: N/A Message Sent to Practice: NO Navigation Signature: Brinda De La Cruz LPN February 28, 2021 11:02 AM [facility] Progress note 02-21-2021 Note Date & Type Note Facility 02-21-2021 Note HNO ID: [id number] Author: Sybil Roberson (Cns) Service: ? Author Type: Nurse Specialist Type: Progress Notes Filed: 02/21/2021 11:36 AM Note Text: needs labs and visit scheduled [facility] Clinical Note 02-02-2021 Note Date & Type Note Facility 02-02-2021 Note Patient Outreach ([place] [facility]) ANCELMO SARKAR ([id number]) 1975 F Date Time Provider Department 02/02/21 WEATHERS, OUSMANE COVAMN During your visit today, we recorded the following information about you: Allergies As of Date: 02/02/2021 Noted Allergy Reaction KEFLEX (CEPHALEXIN) 08/02/2008 4 - Hives Date Reviewed: 02/15/2020 Reviewed by: Sybil (Fur Blowing Machine Attendant) Da - Fully Assessed Order(s):SARS-COVID VACCINE 1ST DOSE APPT [[id number]] Order #: [id number] FUTURE Prescriptions as of 02/02/2021 Sig: METFORMIN 500 MG TABLET Take 2 tablets by mouth daily* METFORMIN 500 MG TABLET Take 2 tablets by mouth daily* LOSARTAN 100 MG TABLET Take 1 tablet by mouth once d* MULTIVITAMIN CAPSULE Take 1 capsule by mouth once * GLIMEPIRIDE 4 MG TABLET Take 1 tablet by mouth daily * LANSOPRAZOLE 15 MG CAPSULE,DE* Take 1 capsule by mouth once * BLOOD-GLUCOSE METER Checking sugars once daily (a* LANCETS Test blood sugar(s) 3 times d* ALCOHOL SWABS Apply 1 Units to affected are* Problem List As Of Date 02/02/2021 Noted Resolved HSIL (High Grade Squamous Intraepithelial Lesio*03/22/2010 Menorrhagia [N92.0] 04/10/2010 Dysmenorrhea [N94.6] 07/12/2010 Endometrial Polyp [N84.0] 07/19/2010 Liver enzyme elevation [R74.8] 05/27/2012 DM (diabetes mellitus) [E11.9] 06/02/2012 Abdominal pain, epigastric [R10.13] Diabetes mellitus type 2, uncontrolled, without* Diastasis recti [M62.08] 08/26/2012 Gastroesophageal reflux disease [K21.9] 09/14/2019 Psoriasis [L40.9] 09/14/2019 Tendinitis of left shoulder [M77.8] 01/20/2020 Encounter Status:Closed by E Ink, Momentum EnergyUSER on 02/06/21 [facility] Summary Purpose Family History No Family History Records FoundNo Family History Records Found Advance Directives No Advanced Directives Records FoundNo Advanced Directives Records Found Additional Source Comments INFORMATION SOURCE (unrecogn ized section and content) DATE CREATED AUTHOR AUTHOR'S ORGANIZ ATION 01/13/2022 [facility] FOR RECORDS PERTAINING TO PATIENTS WHO ARE OR HAVE BEEN ENROLLED IN A CHEMICAL DEPENDENCY/SUBSTANCEABUSE PROGRAM, SOME INFORMATION MAY BE OMITTED. This clinical summary was aggregated from multiple sources. Caution should be exercised in using it in the provision of clinical care. This summary normalizes information from multiple sources, and as a consequence, information in this document may materially change the coding, format and clinical context of patient data. In addition, data may be omitted in some cases. CLINICAL DECISIONS SHOULD BE BASED ON THE PRIMARY CLINICAL RECORDS. [facility]. provides no warranty or guarantee of the accuracy or completeness of information in this document.
== END | disposition home or self-care (01) ==
LOC: OPBI 10:23
PROVIDERS: PCP Internal Medicine; Referring Provider Nurse Practitioner; Visit Provider Nurse Practitioner
DX: Z12.31 Encounter for screening mammogram for malignant neoplasm of breast (principal)
CPT/HCPCS: 77063; 77067

== ENCOUNTER → 2024-02-03 | Outpatient (CLI) | payer OTHER, SELFPAY ==
--- NOTE | 2024-02-03 14:20 | US_ITS ---
STUDY: ULTRASOUND BREAST - RIGHT REASON FOR EXAM: Female, 48 years old. Abnormal screening mammogram. TECHNIQUE: Axial and longitudinal images of the RIGHT breast were performed with a high resolution ultrasound transducer. # OF IMAGES: [id number] COMPARISON: Comparison is made with prior mammogram dated February 03, 2024. FINDINGS: RIGHT Breast: The mammographic abnormality corresponds to a 9 mm x 9 mm x 5 mm well-defined hypoechoic solid nodule at the 6:00 position breast and one centimeters from the nipple. This most likely represents a fibroadenoma although biopsy is recommended for further evaluation. US/Breast Limited Unilateral IMPRESSION: The mammographic abnormality corresponds to a 9 mm x 9 mm x 5 mm well-defined hypoechoic nodule at the 6:00 position of the breast at 1 cm from the nipple. Biopsy recommended. ASSESSMENT CATEGORY: BIRADS Category 4: Suspicious - Biopsy Should Be Considered. A letter regarding these results will be sent to the patient by the facility within 30 days. Electronically Signed: Isaias Loaiza MD at 15:15 EDT ,
--- NOTE | 2024-02-03 14:20 | BI_ITS ---
MAMMOGRAPHY - UNILATERAL DIAGNOSTIC: RIGHT BREAST REASON FOR EXAM: Female, 48 years old. Abnormal screening mammogram. PERTINENT HISTORY: Non-contributory. TECHNIQUE: Compression spot views in the mediolateral oblique and craniocaudad projections were obtained. CAD: Full Field Digital Mammography with Computer Added Detection was performed. COMPARISON: Comparison is made with prior study of January 29, 2024. FINDINGS: Breast Composition: The breasts are heterogeneously dense, which may obscure small masses. Persistent 1 cm nodular density in the retroareolar region of the right breast. Correlation with ultrasound is recommended. No other significant abnormalities are identified. BI/DIAG MAMM W/CAD, UNILAT IMPRESSION: Persistent 1 cm nodular density in the retroareolar region of the right breast as described. Correlation with ultrasound is recommended. ASSESSMENT CATEGORY: BIRADS Category 0: Incomplete. Need additional imaging evaluation. A letter regarding these results will be sent to the patient by the facility within 30 days. Approximately 10% of breast cancers are not detected by mammography. A normal mammogram should not delay biopsy of a clinically suspicious abnormality. Electronically Signed: Isaias Loaiza MD at 15:33 EDT ,
--- OUTSIDE RECORDS SUMMARY | 2024-02-03 20:02 | XMS RPT_ITS | CCD ---
Author Name Unknown Address [address] [place] [address] Organization [facility] Results Test Name Value Interpretation Reference Range Facil ity Clinical Note 06-16-2021 Note Date & Type Note Facility 06-16-2021 Note Patient Outreach (IN TMMN) ANCELMO SARKAR ([id number]) 1975 F Date Time Provider Department 06/16/21 MICHAEL GU During your visit today, we recorded the following information about you: Allergies As of Date: 06/16/2021 Noted Allergy Reaction KEFLEX (CEPHALEXIN) 08/02/2008 4 - Hives Date Reviewed: 02/15/2020 Reviewed by: [facility]Min[facility] Center[facility]an Roberson - Fully Assessed Visit Diagnosis:Encounter for screening mammogram for breast cancer [Z12.31] Order(s):[facility] SCREENING [[id number]] Order #: [id number] FUTURE Prescriptions as of 06/19/2021 - metFORMIN [...] Encounter Status:Closed by CARLO JARA on 06/19/21 [facility] Clinical Note 03-21-2021 Note Date & Type Note Facility 03-21-2021 Note Patient Outreach ([facility]) ANCELMO SARKAR ([id number]) 1975 F Date Time Provider Department 03/21/21 [...] Phone number not valid / voicemail full [employer] message sent Reason for Outreach Care Gap [...] future healthcare decisions with a power of state attorney, living will, or advance directives? n/a Referrals: N/A Message Sent to Practice: NO Navigation Signature: Patricia Diaz Pss March 21, 2021 8:50 AM Allergies As of Date: 03/21/2021 Noted Allergy Reaction KEFLEX (CEPHALEXIN) 08/02/2008 4 - Hives Date Reviewed: 02/15/2020 Reviewed by: Sybil (Top [employer]) Da - Fully Assessed Reason for Visit: [...] Encounter Status:Closed by PATRICIA COSTA on 03/21/21 [facility] Progress note 03-21-2021 Note Date & Type Note Facility 03-21-2021 Note HNO ID: [id number] Author: Patricia Oro Service: ? Author Type: ? Type: Progress Notes Filed: 03/21/2021 8:55 AM Note Text: POPULATION HEALTH NAVIGATION OUTREACH Action/FYI HM due mammo, HGB A1c, Retinal Exam Left vm, sent [facility] Contact made with patient or family member? NO Pt identified by name and : NO Outreach Outcome/Action Unable to reach patient: Phone number not valid / voicemail full Whisk[employer] message sent Reason for Outreach Care Gap [...] future healthcare decisions with a power of state attorney, living will, or advance directives? n/a Referrals: N/A Message Sent to Practice: NO Navigation Signature: Patricia Oro March 21, 2021 8:50 AM [facility] Clinical Note 02-28-2021 Note Date & Type Note Facility 02-28-2021 Note Patient Outreach (IN TMWS) ANCELMO SARKAR ([id number]) 1975 F Date Time Provider Department 02/28/21 MICHAEL GU INTERIC During your visit today, we recorded the following information about you: Brinda Jono CHILD CARE ATTENDANT 02/28/2021 11:51 AM Signed POPULATION HEALTH NAVIGATION [...] future healthcare decisions with a power of state attorney, living will, or advance directives? No. [...] Hives Date Reviewed: 02/15/2020 Reviewed by: Sybil (Top Executive) Da - Fully Assessed Prescriptions as of [...] BRINDA DE LA CRUZ LPN on 02/28/21 [facility] Progress note 02-28-2021 Note Date & Type Note Facility 02-28-2021 Note HNO ID: [id number] Author: Brinda De La Cruz LPN Service: [...] future healthcare decisions with a power of state attorney, living will, or advance directives? No. Are you interested in a follow-up phone call or visit with a doctor for more information about planning for future health care decisions? No Referrals: N/A Message Sent to Practice: NO Navigation Signature: Brinda De La Cruz LPN February 28, 2021 11:02 AM [facility] Progress note 02-21-2021 Note Date & Type Note Facility 02-21-2021 Note HNO ID: [id number] Author: Sybil Roberson (Cns) Service: ? Author Type: Nurse Specialist Type: Progress Notes Filed: 02/21/2021 11:36 AM Note Text: needs labs and visit scheduled [facility] Clinical Note 02-02-2021 Note Date & Type Note Facility 02-02-2021 Note Patient Outreach ([place] [facility]) ANCELMO SARKAR ([id number]) 1975 F Date Time Provider Department 02/02/21 WEATHERS, OUSMANE COVAMN During your visit today, we recorded the following information about you: Allergies As of Date: 02/02/2021 Noted Allergy Reaction KEFLEX (CEPHALEXIN) 08/02/2008 4 - Hives Date Reviewed: 02/15/2020 Reviewed by: Sybil ([employer]) Da - Fully Assessed Order(s):SARS-COVID VACCINE 1ST DOSE APPT [[id number]] Order #: [id number] FUTURE Prescriptions as of 02/02/2021 Sig: METFORMIN [...] left shoulder [M77.8] 01/20/2020 Encounter Status:Closed by [employer], ShustirUSER on 02/06/21 [facility] Summary Purpose Family History No Family History Records FoundNo Family History Records Found Advance Directives No Advanced Directives Records FoundNo Advanced Directives Records Found Additional Source Comments INFORMATION SOURCE (unrecogn ized section and content) DATE CREATED AUTHOR AUTHOR'S ORGANIZ ATION 01/13/2022 [facility] FOR RECORDS PERTAINING TO PATIENTS WHO [...] BE BASED ON THE PRIMARY CLINICAL RECORDS. [facility]. provides no warranty or guarantee of the accuracy or completeness of information in this document.
== END | disposition home or self-care (01) ==
PROVIDERS: PCP Internal Medicine; Referring Provider Nurse Practitioner; Visit Provider Nurse Practitioner
DX: R92.8 Other abnormal and inconclusive findings on diagnostic imaging of breast (principal); R92.30 Dense breasts, unspecified
CPT/HCPCS: 76642; 77065

== ENCOUNTER → 2024-02-14 | Outpatient (CLI) | payer OTHER, SELFPAY ==
--- NOTE | 2024-02-14 | BRBX_PTH ---
PATIENT: ANCELMO SARKAR LOC: OPUS U#:[id number] AGE/SX: 48/F ROOM: RE02/14/[address]: SAGRARIO Sultana : 1975 BED: DIS: 02/14/2024 SPEC #: [id number] RECD: 02/14/24 14:54 STATUS: ЕКАТЕРИНА REQ #: [id number] SHERIE: 02/14/24 00:[address]: Mony Ferrer DEPT: SURGICAL PATHOLOGY RECD BY: Benjamin Siegel ENTERED: 02/17/24 08:54 SP TYPE: BREAST BX OTHR DR: MD Dr. Mony Lott MD Emily Ferullo, NP-C Tissues: Right breast, NOS Procedures: Surgery Specimen Level IV Comments: @ Ordering doctor for LYNDSAY edited from EJ to @ by MOHSEN at 02/17/24 0935 @ Submitting doctor edited from EJ to @ by MOHSEN at 02/17/24 0935 HEADER OPERATION: Ultrasound guided right breast core biopsy PRE-OP DIAGNOSIS: Right breast mass TISSUE SUBMITTED: Right breast 6 o'clock, 1cm from the nipple MICROSCOPIC DIAGNOSIS Right breast at 6 o'clock, core biopsy; Densely collagenized stroma. Lobular involution. No evidence of malignancy. /mr 02/18/2024 MICROSCOPIC DESCRIPTION Slides are reviewed. GROSS DESCRIPTION Received in fixative is one container labeled with the patient name and designated right breast. The specimen consists of multiple elongated fragments of douglas-yellow fibrotic loose tissue measuring in aggregate 1.5 x 1.5x 0.1 cm. The specimen is totally submitted in 1 cassette. MARYAM/ 02/17/24 TC:5 CPT: 06531
--- NOTE | 2024-02-14 12:17 | US_ITS ---
ULTRASOUND GUIDED CORE BIOPSY REASON FOR EXAM: Female, 48 years old. Right breast mass PERTINENT HISTORY: Hypoechoic nodule at the 6:00 position of the breast at 1 cm from the nipple. COMPARISON: None. TECHNIQUE: (All elements of maximal sterile barrier technique followed, including US elements as applicable) Upon arrival to the breast imaging department the patient''s identification was confirmed and the RIGHT breast was marked according to time-out protocol. Ultrasound guided core biopsy and clip placement, to include potential risks and complications, was explained in full to the patient. Written and verbal consent were obtained prior to initiation of the procedure. The RIGHT breast was prepped and draped in standard sterile fashion and local anesthesia was obtained with 1% buffered lidocaine. A small dermatotomy was then made to introduce the core biopsy needle. Under ultrasound guidance multiple core samples were obtained with a 13 gauge needle and submitted in formalin for pathology. A titanium clip was then deployed into the biopsy cavity under ultrasound guidance. Upon completion of the procedure hemostasis was obtained and sterile dressing was applied. The patient tolerated the entire procedure without immediate complication and was discharged from the breast imaging department in good condition. US/US Breast Biopsy 1st Lesion IMPRESSION: Ultrasound guided core biopsy of a mass in the RIGHT breast at 6:00 position of the breast at 1 cm from nipple. without complication. Electronically Signed: Isaias Loaiza MD at 14:20 EDT ,
--- NOTE | 2024-02-14 13:07 | PCM.OPRPT ---
Report of Operation Date of Procedure: 02/14/24 Pre-Operative Diagnosis: Right breast mass Post-Operative Diagnosis: Same Surgery/Procedure Performed:: Ultrasound guided right breast biopsy Surgeon: Mony Ferrer Type of Anesthesia: Local Specimen's removed: Right breast mass 6:00 1 cm from the nipple Estimated Blood Loss (mL): < 5 cc Description of Procedure: Procedure: Right ultrasound-guided core biopsy Indications: 48 year-old female with hypoechoic nodule at 6:00 in the right breast 1 centimeters from the nipple. Risk benefits were discussed the patient and she elected to proceed with ultrasound guided core biopsy with clip placement Description of procedure: Patient was brought into the ultrasound room in the right breast was marked. A timeout was completed verifying correct patient, procedure, site, specially, prior to beginning procedure. The right breast was prepped and draped in usual sterile fashion and using local anesthesia was obtained with 1% lidocaine with epi. The lesion was located with the ultrasound. Small incision was made with 11 blade to introduced the mammotome through the skin. Under ultrasound guidance multiple core samples were obtained using then 13-gauge mammotome and sent in formalin for pathology. The Bluesocket dual ultra ribbon clip was then deployed into the biopsy cavity under ultrasound guidance and a picture was taken. Upon completion procedure hemostasis was obtained and a Steri-Strip and OpSite were placed. Patient was then taken to the mammography suite for clip verification. The clip was verified. The patient tolerated the procedure well and was discharged from the breast imaging department good condition. Complications none
== END | disposition home or self-care (01) ==
PROVIDERS: PCP Internal Medicine; Referring Provider Nurse Practitioner; Visit Provider Nurse Practitioner
DX: N63.10 Unspecified lump in the right breast, unspecified quadrant (principal)
CPT/HCPCS: 19083; 88305

== ENCOUNTER → 2024-04-10 | Outpatient (CLI) | payer OTHER, SELFPAY ==
[2024-04-10 12:11] LABS: Absolute Lymphocyte Count 1.86 X10^3/uL (0.83-4.51); Basophil# 0.05 X10^3/uL; Basophil% 0.7 % (0-1); Eosinophil# 0.13 X10^3/uL; Eosinophils% 1.7 % (0-5); Hematocrit 39.8 % (37-47); Hemoglobin 13.1 g/dL (12.0-15.0); Lymphocyte # 1.86 X10^3/ul (0.83-4.51); Lymphocyte % 24.5 % (19-41); Mean Corp Hgb Conc 32.9 g/dL (32-36); Mean Corpuscular Hgb 29.2 pg (27.0-32.0); Mean Corpuscular Volume 88.8 fL (81-99); Mean Platelet Vol. 10.1 fl (6.2-12.0); Monocyte% 6.6 % (0-10); NRBC Flagged by Analyzer 0 % (0-5); Neutrophil # 5.02 X10^3/uL (2.7-7.7); Neutrophil % 66.2 % (47-70); Platelet Count 272 K/mm3 (150-450); RBC Distribution Width CV 11.8 % (11.6-14.6); RBC Distribution Width SD 38.1 fl (35.1-43.9); Red Blood Count 4.48 M/mm3 (4.2-5.4); White Blood Count 7.6 K/mm3 (4.4-11.0)
[2024-04-10 13:10] LABS: AST(SGOT) 15 U/L (15-37); Alanine Aminotransfer ALT/SGPT 22 U/L (13-56); Albumin, Serum 3.7 g/dL (3.2-5.0); Alkaline Phosphatase 73 U/L (45-117); Anion Gap 6 (5-15); BUN 20 mg/dL (7-18); BUN/Creat Ratio 20.6 RATIO (10-20); Calcium,Total 9.5 mg/dL (8.5-10.1); Chloride 106 mmol/L (98-107); Creatinine, Serum 0.97 mg/dL (0.55-1.02); EST Glomerular Filtration Rate 65 mL/min (>60); Est Glom Filt Rate - Afr Amer 78 mL/min (>60); Globulin 3.6 g/dL (2.2-4.2); Glucose 123 mg/dL (74-106); Potassium 4.4 mmol/L (3.5-5.1); Protein, Total 7.3 g/dL (6.4-8.2); Sodium Level 138 mmol/L (136-145)
[2024-04-14 16:09] LABS: Anti-Nuclear Antibody Test Positive (.)
== END | disposition home or self-care (01) ==
PROVIDERS: PCP Internal Medicine; Referring Provider Dermatology; Visit Provider Dermatology
DX: L30.9 Dermatitis, unspecified (principal)
CPT/HCPCS: 36415; 80053; 85025; 86038

== ENCOUNTER → 2024-07-20 | Outpatient (CLI) | payer OTHER, SELFPAY ==
--- NOTE | 2024-07-20 12:24 | STRESSREP ---
Stress Test Report Date: 07/20/2024 Procedure: Exercise tolerance test/imaging study Indications: Chest pain Consent: Per the patient Procedure: The patient exercised on a Blue protocol for 5 minutes achieving a peak heart rate of 141 bpm (83% predicted maximal heart rate) with a peak blood pressure 150/70 mmHg and a peak MET capacity of 7.0 METs. The baseline ECG demonstrated sinus rhythm. The peak exercise ECG demonstrated no ischemic changes. There were no cardiac dysrhythmias pretest, during exercise, or recovery. The functional capacity was considered average. There was complained of mild chest discomfort with exercise. The examination was discontinued secondary to dyspnea and chest discomfort. The patient was injected with 13.9 mCi of technetium 99m Cardiolite and subsequently rest SPECT Cardiolite nuclear imaging was obtained in the horizontal long, vertical long, and short axis views. Post-exercise, the patient was injected with 42.7 mCi of technetium 99m Cardiolite and subsequently stress SPECT Cardiolite nuclear imaging was obtained in the horizontal long, vertical long, and short axis views. A gated Cardiolite study at peak stress was obtained. Rest and stress SPECT Cardiolite nuclear imaging status post realignment, normalization, and attenuation correction, demonstrates the appearance of relative uniform tracer uptake and myocardial perfusion appearing within normal limits. There is end systolic thickening and brightening. The gated Cardiolite study demonstrates myocardial thickening and inward wall motion. The reported LVEF is 62%. Impression: 1. Technically adequate (percent predicted maximal heart rate greater than 85%) exercise tolerance test 2. Peak exercise ECG with no ischemic changes. Mild chest discomfort reported. 3. There were no cardiac dysrhythmias pretest, during exercise, or recovery 4. Rest and stress SPECT Cardiolite nuclear imaging demonstrate relative uniform tracer uptake and myocardial perfusion appearing within normal limits. 5. The gated Cardiolite study reports an LVEF of 62%. This note was generated with [employer]edom[employer] software. It may contain incorrect words, spelling, and punctuation that were not noted in checking the note before signing.
== END | disposition home or self-care (01) ==
LOC: CVS 06:58
PROVIDERS: PCP Internal Medicine; Referring Provider Internal Medicine; Visit Provider Internal Medicine
DX: R94.31 Abnormal electrocardiogram [ECG] [EKG] (principal); R07.9 Chest pain, unspecified
CPT/HCPCS: 78452; 93017; A9500; A4216

== ENCOUNTER → 2024-07-29 | Outpatient (CLI) | payer OTHER, SELFPAY ==
[2024-08-03 12:08] LABS: HPV APTIMA, High Risk Negative (Negative)
== END | disposition home or self-care (01) ==
LOC: LABSPEC 13:06
PROVIDERS: PCP Internal Medicine; Referring Provider Nurse Practitioner Family; Visit Provider Nurse Practitioner Family
DX: Z12.4 Encounter for screening for malignant neoplasm of cervix (principal)
CPT/HCPCS: 87624; 88175; G0145

== ENCOUNTER → 2024-09-21 | Outpatient (CLI) | payer OTHER, SELFPAY ==
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
[2024-09-21 12:33] LABS: Anion Gap 9 (5-15); BUN 22 mg/dL (7-18); BUN/Creat Ratio 24.9 RATIO (10-20); Calcium,Total 9.2 mg/dL (8.5-10.1); Chloride 108 mmol/L (98-107); Creatinine, Serum 0.88 mg/dL (0.55-1.02); EST Glomerular Filtration Rate 72 mL/min (>60); Est Glom Filt Rate - Afr Amer 87 mL/min (>60); Glucose 152 mg/dL (74-106); Potassium 4.6 mmol/L (3.5-5.1); Sodium Level 141 mmol/L (136-145)
== END | disposition home or self-care (01) ==
LOC: BIMLAB 10:48
PROVIDERS: PCP Internal Medicine; Referring Provider Internal Medicine; Visit Provider Internal Medicine
DX: I10 Essential (primary) hypertension (principal)
CPT/HCPCS: 36415; 80048

== ENCOUNTER 2024-10-12 06:23 | Day surgery (SDC) | payer OTHER, SELFPAY ==
[2024-10-12] VITALS (9 sets, daily range): BP systolic 81–123; BP diastolic 53–89; PULSE 72–107; RESP 16; TEMP 36.7–36.9; O2SAT 95–98; BMI 25.6
--- NOTE | 2024-10-12 06:59 | PRE.ANES_ITS ---
ASA Classification* ASA Classification ASA Classification: 3 Assessment & Plan Anesthesia* Anesthesia Assessment Anesthesia Assessment: Discussed sedation and/or anesthesia options, risks, benefits, and alternatives with patient/parents/legal guardian/POA. Questions invited. The patient/parents/legal guardian/POA seems to understand and agrees to proceed with anesthesia plan. Reviewed the physical assessment, medical history, allergy history and patient home medications list prior to surgery/procedure/anesthetic and documented any changes. Performed airway and anesthesia risk assessments. Anesthesia Type Anesthesia Type: MAC Anesthesia Focused Assessment* Temperature: 98.0 F Pulse Rate: 107 Blood Pressure: 123/89 Respiratory Rate: 16 Pulse Ox: 98 Airway Assessment Mouth opens: >3 cm Mallampati Score: II Focused Labs Anesthesia Preop lab: CBC WBC 7.6 K/mm3 (4.4-11.0) 04/10/24 09:53 RBC 4.48 M/mm3 (4.2-5.4) 04/10/24 09:53 Hgb 13.1 g/dL (12.0-15.0) 04/10/24 09:53 Hct 39.8 % (37-47) 04/10/24 09:53 Plt Count 272 K/mm3 (150-450) 04/10/24 09:53 CHEMISTRY Potassium 4.6 mmol/L (3.5-5.1) 09/21/24 10:48 Sodium 141 mmol/L (136-145) 09/21/24 10:48 BUN 22 mg/dL (7-18) H 09/21/24 10:48 Creatinine 0.88 mg/dL (0.55-1.02) 09/21/24 10:48 Glucose 152 mg/dL (74-106) H 09/21/24 10:48 POC Glucose 233 mg/dL (74-106) H 08/15/22 06:31 TSH 1.15 uIU/mL (0.358-3.74) 03/02/23 07:02 COAG PT 14.3 SECONDS (11.7-14.9) 08/13/22 19:00 Pre-Assessment Diagnosis/Proposed Procedure Planned Operative Procedure(s): COLONOSCOPY-OA Anesthesia History 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 When Was Last Pacemaker Check QUESTION #4 FULL TEXT: You/Your Family Experience fever (hyperthermia) with Anesthesia Last Oral Intake Last Oral intake: Last Oral Intake NPO since 23:00 10/12/24 06:35 Meds taken in AM with sips of Yes 10/12/24 06:35 water? Meds patient instructed to see med list 10/12/24 06:35 take am of surgery PONV PONV - salesperson automobiles: PONV - salesperson automobiles Female Yes 10/08/24 09:59 HX of Motion Sickness Yes 10/08/24 09:59 HX of N/V After Surgery No 10/08/24 09:59 Non-Smoker Yes 10/08/24 09:59 Duration of Surgery greater No 10/08/24 09:59 than 60 minutes Number of Risk Factors 3 10/08/24 09:59 PONV Score Moderate Risk 10/08/24 09:59 Height & Weight Height & Weight: Anesthesia: Height & Weight Height 5 ft 6 in 10/12/24 06:35 Weight: 72 kg 10/12/24 06:35 Body Mass Index (BMI) 25.6 10/12/24 06:35 Respiratory Assessment Respiratory Assessment - salesperson automobiles: Respiratory Tract Infection Hx - salesperson automobiles Hx Respiratory Tract Infection No 10/08/24 09:59 STOP Sleep Apnea STOP Sleep Apnea - salesperson automobiles: STOP Sleep Apnea - salesperson automobiles Hx Hypertension Yes: CONTROLLED ON MED 10/08/24 09:59 Hx Sleep Apnea No 10/08/24 09:59 CPAP BIPAP Do you snore loudly (louder No 10/08/24 09:59 than talking or can be heard Do you often feel tired/ No 10/08/24 09:59 fatigued/ sleepy during daytime? Has anyone observed you stop No 10/08/24 09:59 breathing during sleep? STOP Results Negative 10/08/24 09:59 QUESTION #5 FULL TEXT : Do you snore loudly (louder than talking or can be heard through closed doors)? 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 Specify any problems Hx of Preganancy in last 3 No 10/08/24 09:59 Months Nurse Filling Out Transfusion VCHRISTIN 10/08/24 09:59 & Questions: Date: 10/08/24 10/08/24 09:59 Time: 10:00 10/08/24 09:59 Patient unable to answer at this time (ie. confused, unrespo /Reproduction History /Reproductive History - salesperson automobiles: /Reproductive Hx- salesperson automobiles Hx Now No 10/08/24 09:59 Gestational Age (in weeks): EDC: Hx Hx Para Hx Section SAB No 10/08/24 09:59 PFSH Medical History Post-menopausal Alcohol use Diabetes Migraine headache Dietary restriction Former smoker History of Holter monitoring History of echocardiogram History of stress test Hypertension Flu vaccine refused Anxiety about health Chest pain Abnormal EKG Colon cancer screening Health care maintenance Psoriasis Fungal dermatitis Numbness on right side Fatigue Acute frontal sinusitis, unspecified Hyperlipidemia Family history of breast cancer in first degree relative Breast pain, left Headache Type 2 diabetes mellitus Right sided weakness CVA (cerebral vascular accident) History of gallstones History of fracture of clavicle History of wrist fracture Nondisplaced fracture of neck of right radius Home Medications ?Medication ?Instructions ?Recorded ?Last Taken ?Type aspirin 81 mg chewable tablet 162 mg (2 x 81 mg) PO BREAKFAST 08/15/22 10/06/24 Rx #90 tabs cyanocobalamin (vitamin B-12) 100 100 mcg .Route .Q30 DAYS 03/11/23 Unknown Hi story mcg/mL injection solution flash glucose sensor (FreeStyle #3 ea 11/28/23 Unknown Rx Bob 2 Sensor kit) losartan 50 mg tablet 50 mg PO DAILY #90 TABLETS 06/29/24 10/12/24 Rx metformin 500 mg tablet 500 mg PO BID 3 months #180 tabs 06/29/24 Unknown Rx semaglutide 2 mg/dose (8 mg/3 mL) 2 mg (0.75 mL) subcut QWEEK 3 10/01/24 10/04/24 Rx subcutaneous pen injector (Ozempic) months #9.75 mL Allergy/AdvReac Type Severity Reaction Status Date / Time adhesive Allergy Unknown Rash Verified 10/12/24 06:35 cephalexin monohydrate (From AdvReac Intermediate Hives Verified 10/12/24 06:35 Keflex) Iodinated Contrast Media AdvReac Intermediate Sneezing Verified 10/12/24 06:35 Family History Mother Diabetes Breast cancer, Onset Age: 60 Hypertension High cholesterol CVA (cerebral vascular accident) Thyroid disorder Father Diabetes Myocardial infarction, Onset Age: 65 Hypertension Surgical History H/O breast biopsy History of History of cholecystectomy H/O abdominoplasty H/O adenoidectomy Social History adopted: No household members: significant other number of children: 4 current occupational status: employed 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 current occupational exposures/hazards: No pets and animals: Yes history of recent travel: No sexually active: Yes Smoking Status: Former smoker Tobacco: How many years used: 20 second hand exposure: No quit status: quit date established alcohol intake: current alcohol intake frequency: other Alcohol type: wine details: occasionally substance use type: does not use caffeine: Yes Type: coffee Number of servings: 1 eating out: 1-3 times/week during the past year weight has: remained stable what type of physical activity do you participate in: none jessa/evangelical: None seatbelt use: always do you feel safe at home: Yes Review of Systems (Anesthesia) ROS Narrative System reviewed and no additional complaints, except as documented.
[2024-10-12 07:09] LABS: Bedside Glucose 142 mg/dL (74-106)
--- NOTE | 2024-10-12 07:22 | HP.PCM_ITS ---
HPI - General General Date of Service: 10/12/24 HPI Narrative ANCELMO SARKAR, is a 49 F who presents for screening colonoscopy. Patient never had previous colonoscopy. Patient denies any family history of colon cancer. Patient has bowel movements about every other day denies any blood. Patient denies any chronic abdominal pain/nausea/vomiting/reflux. [facility] Medical History Post-menopausal Alcohol use Diabetes Migraine headache Dietary restriction Former smoker History of Holter monitoring History of echocardiogram History of stress test Hypertension Flu vaccine refused Anxiety about health Chest pain Abnormal EKG Colon cancer screening Health care maintenance Psoriasis Fungal dermatitis Numbness on right side Fatigue Acute frontal sinusitis, unspecified Hyperlipidemia Family history of breast cancer in first degree relative Breast pain, left Headache Type 2 diabetes mellitus Right sided weakness CVA (cerebral vascular accident) History of gallstones History of fracture of clavicle History of wrist fracture Nondisplaced fracture of neck of right radius Home Medications ?Medication ?Instructions ?Recorded ?Last Taken ?Type aspirin 81 mg chewable tablet 162 mg (2 x 81 mg) PO BREAKFAST 08/15/22 10/06/24 Rx #90 tabs cyanocobalamin (vitamin B-12) 100 100 mcg .Route .Q30 DAYS 03/11/23 Unknown History mcg/mL injection solution flash glucose sensor (FreeStyle #3 ea 11/28/23 Unknown Rx Bob 2 Sensor kit) losartan 50 mg tablet 50 mg PO DAILY #90 TABLETS 06/29/24 10/12/24 Rx metformin 500 mg tablet 500 mg PO BID 3 months #180 tabs 06/29/24 Unknown Rx semaglutide 2 mg/dose (8 mg/3 mL) 2 mg (0.75 mL) subcut QWEEK 3 10/01/24 10/04/24 Rx subcutaneous pen injector (Ozempic) months #9.75 mL Allergy/AdvReac Type Severity Reaction Status Date / Time adhesive Allergy Unknown Rash Verified 10/12/24 06:35 cephalexin monohydrate (From AdvReac Intermediate Hives Verified 10/12/24 06:35 Keflex) Iodinated Contrast Media AdvReac Intermediate Sneezing Verified 10/12/24 06:35 Family History Mother Diabetes Breast cancer, Onset Age: 60 Hypertension High cholesterol CVA (cerebral vascular accident) Thyroid disorder Father Diabetes Myocardial infarction, Onset Age: 65 Hypertension Surgical History H/O breast biopsy History of History of cholecystectomy H/O abdominoplasty H/O adenoidectomy Social History adopted: No household members: significant other number of children: 4 current occupational status: employed 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 current occupational exposures/hazards: No pets and animals: Yes history of recent travel: No sexually active: Yes Smoking Status: Former smoker Tobacco: How many years used: 20 second hand exposure: No quit status: quit date established alcohol intake: current alcohol intake frequency: other Alcohol type: wine details: occasionally substance use type: does not use caffeine: Yes Type: coffee Number of servings: 1 eating out: 1-3 times/week during the past year weight has: remained stable what type of physical activity do you participate in: none jessa/temple: None seatbelt use: always do you feel safe at home: Yes Past Medical/Surgical History Planned Operation Planned Operative Procedure(s): COLONOSCOPY-OA Previous Hospitalizations/Surgeries HX Hospitalizations: No Any Problems With Anesthesia: No You/Your Family Experience Fever (Hyperthermia) With Anes: No Cholinesterase deficiency: No Cardiovascular Hx of Irregular Heartbeat and/or Afib: No Hx Heart Attack: No Hx Congestive Heart Failure: No Hx Hypertension: Yes (CONTROLLED ON MED) Hx Pacemaker: No Respiratory Hx Chronic Obstructive Pulmonary Disease (COPD): No Hx Asthma: No Hx Emphysema: No Hx Sleep Apnea: No Hx Respiratory Tract Infection/Cold (presently): No Do You Snore Loudly (louder than talking or can be heard): No Do You Often Feel Tired/ Fatigued/ Sleepy Dring Daytime?: No Has Anyone Observed You Stop Breathing During Sleep?: No Result (for STOP score): Negative Hx Smoking: Yes Smoking Status: Former smoker Gastrointestinal Hx Ulcer: No Difficulty Chewing/Swallowing: No Neurological Hx Seizures: No Hx Transient Ischemic Attacks (TIA): No Hx Multiple Sclerosis: No Hx Parkinson's Disease: No Hx Head/Neck Injury: No Hx Headaches: No Hx Back Injury/Pain: No Does patient have nerve stimulator: No Blood Disorder Hx Deep Vein Thrombosis: No Reproduction : No Endocrine Hx Diabetes: Yes Psycho/Social Hx Anxiety: No Hx Depression: No Miscellaneous Recent Exposure to Contagious Disease: No Allergies adhesive Allergy (Unknown, Verified 10/12/24 06:35) Rash cephalexin monohydrate (From Keflex) Adverse Reaction (Intermediate, Verified 10/12/24 06:35) Hives Iodinated Contrast Media Adverse Reaction (Intermediate, Verified 10/12/24 06:35) Sneezing Discharge Is Pt Admitted From a Longterm, or a Residential: No After D/C, Where Do you Plan to Go: Return Home Vital Signs Vital Signs Vital Signs: 10/12/24 06:35 10/12/24 06:35 10/12/24 07:00 Temperature 98.0 F 98.0 F Temperature Source Temporal Pulse Rate 107 H 107 H Respiratory Rate 16 16 Respiratory Pattern Normal Blood Pressure 123/89 H 123/89 H Blood Pressure Mean 100 Blood Pressure Source Monitor Blood Pressure Position Sitting Blood Pressure Location Right Arm Pulse Ox 98 98 Oxygen Delivery Method Room Air Weight Weight: 158 lb 11.725 oz Body Mass Index (BMI) 25.6 Physical Exam Const alert, oriented x3 and no apparent distress HEENT normocephalic and head/scalp atraumatic Resp normal respiratory effort Cardio regular rate GI soft to palpation and non-tender; Negative for non-distended Palpation: Negative for guarding Extremity no clubbing, cyanosis or edema Skin no rashes or lesions noted Neuro CN's II-XII intact bilaterally Psych mental status grossly normal Assessment & Plan Assessment/Plan (1) Colon cancer screening: Surgery Risks - Colonoscopy I discussed with the patient the risks of the procedure: Yes Risks Include but are not Limited To: Risks include but are not limited to: Bleeding, perforation requiring further surgery, inability to complete colonoscopy requiring barium enema.
--- NOTE | 2024-10-12 07:53 | OP.COLON_ITS ---
Patient Name: Arelis Bacon Procedure Date: 10/12/2024 7:24 AM Date of : 1975 Age: 49 Procedure: Colonoscopy Indications: Screening for colorectal malignant neoplasm Providers: Mony Ferrer MD Referring MD: Heather Ugarte MD Medicines: Monitored Anesthesia Care Patient Profile: This is a 49 year old female. Last Colonoscopy: none. The patient's first colonoscopy is today. Complications: No immediate complications. Procedure: Pre-Anesthesia Assessment: - Prior to the procedure, a History and Physical was performed, and patient medications and allergies were reviewed. The patient's tolerance of previous anesthesia was also reviewed. The risks and benefits of the procedure and the sedation options and risks were discussed with the patient. All questions were answered, and informed consent was obtained. Prior Anticoagulants: The patient has taken no anticoagulant or antiplatelet agents. ASA Grade Assessment: Per anesthesia. After reviewing the risks and benefits, the patient was deemed in satisfactory condition to undergo the procedure. After I obtained informed consent, the scope was passed under direct vision. Throughout the procedure, the patient's blood pressure, pulse, and oxygen saturations were monitored continuously. The Colonoscope was introduced through the anus and advanced to the cecum, identified by appendiceal orifice and ileocecal valve. The colonoscopy was performed without difficulty. The patient tolerated the procedure well. The quality of the bowel preparation was good. Scope In: 7:36:27 AM Scope Withdrawal Time 0 hours 7 minutes 58 seconds Scope Out: 7:49:45 AM Total Procedure Duration Time 0 hours 13 minutes 18 seconds Findings: The perianal and digital rectal examinations were normal. The entire examined colon appeared normal on direct and retroflexion views. Impression: - The entire examined colon is normal on direct and retroflexion views. - No specimens collected. Recommendation: - Discharge patient to home. - Resume previous diet. - Continue present medications. - Repeat colonoscopy in 10 years for screening purposes. Procedure Code(s): --- Professional --- G0121, PT, Colorectal cancer screening; colonoscopy on individual not meeting criteria for high risk Diagnosis Code(s): --- Professional --- Z12.11, Encounter for screening for malignant neoplasm of colon CPT copyright 2021 [employer]. All rights reserved. The codes documented in this report are preliminary and upon microsoft dynamics ax developer review may be revised to meet current compliance requirements. MD Mony Sears MD 10/12/2024 7:52:32 AM This report has been signed electronically. Number of Addenda: 0 Note Initiated On: 10/12/2024 7:24 AM
--- NOTE | 2024-10-12 07:53 | OP.CCLET_ITS ---
10/12/2024 Heather Ugarte MD [address] [place] [address] [place] [address] Re : Colonoscopy procedure for Arelis Bacon Dear Dr. Ugarte This procedure was performed on Saturday, October 12, 2024. My impressions and recommendations are as follows: Impressions : - The entire examined colon is normal on direct and retroflexion views. - No specimens collected. Recommendations : - Discharge patient to home. - Resume previous diet. - Continue present medications. - Repeat colonoscopy in 10 years for screening purposes. My findings are described in the full procedure note, which is enclosed. If I can be of further assistance, please feel free to contact me at Doctor phone number(s): , Work: . Sincerely, MD Mony Sears MD 10/12/2024 7:52:32 AM This report has been signed electronically.
--- NOTE | 2024-10-12 08:03 | PCM.POST.ANE ---
Anesthesia: Postop Eval I Current Vital Signs Temperature: 98.2 F Pulse Rate: 72 Blood Pressure: 97/53 Respiratory Rate: 16 Pulse Ox: 98 Oxygen Delivery Method: Room Air Assessment Airway patent: Yes Spontaneous unlabored respirations: Yes Mental status: Asleep nausea: No Vomiting: No Anesthesia Complication: No Fluid Hydration Crystalloid volume administer (ml): 50 Total IV fluid infused: 50 Progress Note Anesthesia document: Postop Eval 1 completed: Yes
--- NOTE | 2024-10-12 10:17 | PCM.POSTANE2 ---
Anesthesia Postop Eval I Sum Postop Eval Completion status Anesthesia document: Postop Eval 1 completed: Yes Anesthesia Postop Eval I Summary Anesthesia Postop Eval I Summary: Anesthesia Postop Eval I: Assessment Summary Airway patent Yes 10/12/24 08:04 [email or web address] Spontaneous unlabored Yes 10/12/24 08:04 [email or web address] respirations Mental status Asleep 10/12/24 08:04 [email or web address] nausea No 10/12/24 08:04 [email or web address] Vomiting No 10/12/24 08:04 [email or web address] Anesthesia Postop Eval I: Fluid Summary Crystalloid volume administer 50 10/12/24 08:04 [email or web address] (ml) Colloids volume administered ( ml) Blood Product volume administered (ml) Total IV fluid infused 50 10/12/24 08:04 [email or web address] Anesthesia Postop Eval I: Summary Notes Anesthesia Complication No 10/12/24 08:04 [email or web address] Anesthesia Complication Comment: Post-operative progress note Anesthesia: Postop Eval II Evaluation Mental status: Awake Pain Level: 1 nausea: No Vomiting: No
== END 2024-10-12 08:39 | disposition home or self-care (01) ==
LOC: EN 06:23 → AC 06:24
PROVIDERS: PCP Internal Medicine; Referring Provider Internal Medicine; Visit Provider Surgery
PROC: 0DJD8ZZ Inspection of Lower Intestinal Tract, Via Natural or Artificial Opening Endoscopic (ICD-10-PCS; CPT 45378; principal; 2024-10-12 07:25)
DX: Z12.11 Encounter for screening for malignant neoplasm of colon (principal); E11.9 Type 2 diabetes mellitus without complications; Z79.82 Long term (current) use of aspirin; Z79.84 Long term (current) use of oral hypoglycemic drugs; Z87.891 Personal history of nicotine dependence; Z79.85 Long-term (current) use of injectable non-insulin antidiabetic drugs; E78.5 Hyperlipidemia, unspecified; I10 Essential (primary) hypertension; Z86.73 Personal history of transient ischemic attack (TIA), and cerebral infarction without residual deficits; Z79.899 Other long term (current) drug therapy; Z90.49 Acquired absence of other specified parts of digestive tract
CPT/HCPCS: 45378; 82962; A4216; J2405

== ENCOUNTER → 2025-02-04 | Outpatient (CLI) | payer OTHER, SELFPAY ==
--- NOTE | 2025-02-04 08:00 | BI_ITS ---
PROCEDURE: SCRN MAMM (CAD)W/ROLO BILAT REASON FOR EXAM: F, Age 49 y/o , BREAST CANCER SCREENINGMother with breast cancer. Grandmother with breast cancer. History of prior right ultrasound-guided breast biopsy. TECHNIQUE: Bilateral screening digital breast tomosynthesis with 2D and 3D images. Computer aided detection. COMPARISON: Prior exam(s) dating back to February 14, 2000.. FINDINGS: The breasts are heterogeneously dense which may obscure small masses. A tissue clip marker is seen in the anterior slightly inferior medial aspect of the right breast. This is unchanged. Small bilateral axillary lymph nodes. No suspicious masses, areas of developing architectural distortion, or suspicious calcifications.. Stable examination. BI/SCRN MAMM (CAD)W/ROLO BILAT IMPRESSION: BI-RADS 2: BENIGN. RECOMMEND ANNUAL MAMMOGRAPHIC SCREENING. Follow-up code: Routine Follow-up The patient will be notified of the results by letter. Reading Location: [facility]
== END | disposition home or self-care (01) ==
LOC: OPBI 07:53
PROVIDERS: PCP Internal Medicine; Referring Provider Internal Medicine; Visit Provider Internal Medicine
DX: Z12.31 Encounter for screening mammogram for malignant neoplasm of breast (principal); Z80.3 Family history of malignant neoplasm of breast
CPT/HCPCS: 77063; 77067

== ENCOUNTER → 2025-03-25 | Outpatient (CLI) | payer OTHER, SELFPAY ==
[2025-03-25 10:47] LABS: Absolute Lymphocyte Count 1.88 X10^3/uL (0.83-4.51); Absolute Neutrophil Count 3.9 X10^3/uL (2.0-7.7); Basophil# 0.04 X10^3/uL; Basophil% 0.6 % (0-1); Eosinophil# 0.12 X10^3/uL; Eosinophils% 1.9 % (0-5); Hemoglobin 13.2 g/dL (12.0-15.0); Lymphocyte # 1.88 X10^3/ul (0.83-4.51); Lymphocyte % 29.1 % (19-41); Mean Corp Hgb Conc 33.8 g/dL (32-36); Mean Corpuscular Hgb 29.7 pg (27.0-32.0); Mean Corpuscular Volume 87.6 fL (81-99); Mean Platelet Vol. 9.6 fl (6.2-12.0); Monocyte% 7.7 % (0-10); NRBC Flagged by Analyzer 0 % (0-5); Neutrophil % 60.4 % (47-70); Platelet Count 255 K/mm3 (150-450); RBC Distribution Width CV 11.9 % (11.6-14.6); RBC Distribution Width SD 38.5 fl (35.1-43.9); Red Blood Count 4.45 M/mm3 (4.2-5.4); White Blood Count 6.5 K/mm3 (4.4-11.0)
[2025-03-25 11:00] LABS: ALB/GLOB Ratio 1.4 RATIO (0.9-2.4); AST(SGOT) 21 U/L (<=31); Alanine Aminotransfer ALT/SGPT 18 U/L (<=34); Albumin, Serum 4.1 g/dL (3.5-5.0); Alkaline Phosphatase 65 U/L (35-104); Anion Gap 13 (5-15); BUN 17 mg/dL (4-19); BUN/Creat Ratio 22.3 RATIO (10-20); Calcium,Total 9.3 mg/dL (7.6-11.0); Carbon Dioxide 18.3 mmol/L (21.0-32.0); Chloride 103 mmol/L (98-108); Cholesterol 196 mg/dL (<=200); Creatinine, Serum 0.76 mg/dL (0.70-1.20); EST Glomerular Filtration Rate 94 (>60); Glucose 122 mg/dL (70-99); High Density Lipoprotein 51 mg/dL; Low Density Lipoprotein Calc. 116 mg/dL; Potassium 4.6 mmol/L (3.3-5.1); Protein, Total 7.1 g/dL (5.9-8.4); Sodium Level 134 mmol/L (133-145); Total Bilirubin 0.38 mg/dL (0.00-1.30); Triglycerides 149 mg/dL; Very Low Density Lipoprotein 30 mg/dL (5-40); cholesterol:hdl ratio screen 3.88
[2025-03-25 11:02] LABS: Hemoglobin A1c 6.8 % (<=5.6)
== END | disposition home or self-care (01) ==
LOC: MTLAB 08:34
PROVIDERS: PCP Internal Medicine; Referring Provider Internal Medicine; Visit Provider Internal Medicine
DX: E11.69 Type 2 diabetes mellitus with other specified complication (principal)
CPT/HCPCS: 36415; 80053; 80061; 83036; 85025

== ENCOUNTER → 2025-07-21 | Outpatient (CLI) | payer OTHER, SELFPAY ==
[2025-07-21 10:10] LABS: Hematocrit 38.9 % (37-47); Hemoglobin 13.3 g/dL (12.0-15.0); Immature Granulocytes Count 0.030 X10^3/uL (0.0-0.0); Mean Corp Hgb Conc 34.2 g/dL (32-36); Mean Corpuscular Volume 87.8 fL (81-99); Mean Platelet Vol. 9.6 fl (6.2-12.0); NRBC Flagged by Analyzer 0 % (0-5); Platelet Count 265 K/mm3 (150-450); RBC Distribution Width CV 12.0 % (11.6-14.6); RBC Distribution Width SD 38.5 fl (35.1-43.9); Red Blood Count 4.43 M/mm3 (4.2-5.4); White Blood Count 7.8 K/mm3 (4.4-11.0)
[2025-07-21 10:45] LABS: AST(SGOT) 18 U/L (<=31); Alanine Aminotransfer ALT/SGPT 18 U/L (<=34); Albumin, Serum 4.3 g/dL (3.5-5.0); Alkaline Phosphatase 59 U/L (35-104); Anion Gap 15 (5-15); BUN 14 mg/dL (4-19); BUN/Creat Ratio 19.1 RATIO (10-20); Calcium,Total 9.7 mg/dL (7.6-11.0); Carbon Dioxide 22.0 mmol/L (21.0-32.0); Chloride 101 mmol/L (98-108); Globulin 3.0 g/dL (2.2-4.2); Glucose 100 mg/dL (70-99); Potassium 4.4 mmol/L (3.3-5.1)
== END | disposition home or self-care (01) ==
LOC: MTLAB 07:32
PROVIDERS: PCP Internal Medicine; Referring Provider Internal Medicine; Visit Provider Internal Medicine
DX: R00.2 Palpitations (principal)
CPT/HCPCS: 36415; 80053; 84439; 84443; 85025

== ENCOUNTER → 2025-07-23 | Outpatient (CLI) | payer OTHER, SELFPAY ==
--- NOTE | 2025-07-23 12:34 | MRI_ITS ---
PROCEDURE: UPPER EXT/NO JT/ WO 07/23/2025 REASON FOR EXAM: R HAND PAIN ATTN: THUMB TECHNIQUE: T1, T2, stir, multiplanar multisequence images through the right hand were obtained without contrast. COMPARISON: June 11, 2025 x-ray FINDINGS: Bone Marrow: Subcortical cyst formation is noted in the trapezium. Marginal osteophytes are noted at the base of the 1st metacarpal. A 0.4 x 0.2 cm corticated osteochondral fragment is noted at the 1st carpometacarpal articulation. The carpal bones appear aligned. There is no occult fracture. Effusion: There is no significant effusion. Soft Tissues: There is no soft tissue mass or cyst. Ligaments and Tendons: The flexor and extensor tendons appear intact. MRI/Upper Ext/No Jt/ wo IMPRESSION: Subcortical cyst formation is noted in the trapezium. Marginal osteophytes are noted at the base of the 1st metacarpal. A 0.4 x 0.2 cm corticated osteochondral fragment is noted at the 1st carpometac arpal articulation. Reading Location: [facility]
== END | disposition home or self-care (01) ==
LOC: MRI 12:31
PROVIDERS: PCP Internal Medicine; Referring Provider Nurse Practitioner Family; Visit Provider Nurse Practitioner Family
DX: M65.4 Radial styloid tenosynovitis [de Quervain] (principal); M77.8 Other enthesopathies, not elsewhere classified; M18.11 Unilateral primary osteoarthritis of first carpometacarpal joint, right hand
CPT/HCPCS: 73218

== ENCOUNTER → 2025-08-03 | Outpatient (CLI) | payer OTHER, SELFPAY | END | disposition home or self-care (01) | LOC: PSN 07:31 | PROVIDERS: PCP Internal Medicine; Referring Provider Internal Medicine; Visit Provider Internal Medicine | DX: R00.2 Palpitations (principal) | CPT/HCPCS: 93225; 93226 ==

== ENCOUNTER 2025-09-09 10:00 | Outpatient (RCR) | payer OTHER, SELFPAY ==
--- NOTE | 2025-08-04 17:06 | HP.OTEVAL_ITS ---
Patient's Visit Information Visit Information Visit Information: ANCELMO SARKAR is a 50 year old F, referred to Occupational Therapy by SAGRARIO Norton, with a diagnosis of right thumb pain cmc OA, pain. Date of Evaluation: 08/04/25 Occupational Therapist: BARBARA Guajardo/Speedy, CHT Subjective Subjective: This 50 year old female was seen for OT eval with dx of right unilateral primary osteoarthritis of first carpometacarpal joint. pt states end of April she started having pain- pt states pain was very intense she went to the [facility]. 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 pt is limited with daily tasks due to pain of her right thumb. pt would like to know what she can do to return to a PLOF. Pain right hand: Current Pain Intensity: 2 Pain Intensity Range: 7 ROM Wrist: right 55/30 left 75/70 CMC: right 10 left 15 MP: right 50 left 60 IP: right 30 left 50 Palmar Abduction: right 45 left 55* Strength [employer] Specialist: right 10# left 50# Lateral Pinch: right unable left 4# Tripod Pinch: right unable left 4# Sensation Sensation Comments: denies Quick DASH-Disab of Arm,Shoulder& Hand Quick DASH Score: 36.6650 Goals Goal:: pt will demo a increase in right hand alterations tailor strength by 15# or greater to return pt to her PLOF by d.c. pt will demo a increase in right lateral and tripod pinch by 4# to increase pts IND. wtih ADLs by dc. Goal:: pt will demo a increase in right wrist ROM by 10* to improve pts functional use of right dominate hand by d/c. Goal:: pt will report no pain greater than 2/10 with use of right UE with ADLs by d.c Goal:: Pt will demo understanding of joint protection and ergonomics when performing BADLs and IADLs by d/c Pt will demo understanding of adaptive Equipment use to decrease stress on joints to allow pt to perform BADSL and IADLS at SHERLY level. Goal:: Pt will demo understanding of using supportive bracing 80% of workday/ADLS to decrease stress on tendon origin to allow healing and decrease pain by end of 2nd session. Rehabilitation General Assessment: pt demo with right thumb pain that limits her use of right dominate hand with daily tasks. Pt would benefit from skilled OT services 1-2x week for 4 weeks. Today therapist josiane. custom thumb spica orthosis with wrist included to decrease joint stress and pain. Therapist ed. pt on CMC braces once pain decreases that will support cmc but not limit her wrist ROM. Therapist ed. pt on joint protection bertha. pt demo understanding and agree to POC. Rehabilitation Potential: Good Anticipated Interventions Anticipated Interventions: A/AAROM/PROM, Strengthening, Triggerpoint Release, Modalities, Orthoses, Joint Protection/Energy Conservation and Ergonomic E ducation Visit Plan Frequency: 1-2x /Week Duration: 4 Weeks General Plan: orthosis to decrease pain and support CMC ed. on joint protection bertha. info on thumb care strengthen as zander. TEXT: Thank you for the opportunity to evaluate your patient. For Medicare and Medicare HMO plans, please review the plan of care and approve it. It will need to be FAXED BACK to us at [phone] for Medicare purposes. Please let me know if there are questions or concerns regarding this plan of care. Physician Signature: Date:
--- NOTE | 2025-09-09 10:16 | HP.OTDCSUM ---
Discharge Summary D/C Summary: It has been my pleasure to treat ANCELMO SARKAR under orders from SAGRARIO Norton, for the diagnosis of right thumb pain cmc OA, pain for a total of 6 visit(s). Please see the following information for a summary of their discharge status. Overall Improvement % Improvement: 90 Objective Objective/Function: pt demo understanding of orthosis right product development intern strength 40# increase from 10# right lateral pinch 2# increase from 0 right tripod pinch 2# increase from 0 right wrist ROM 60/6 increase from 55/30 right cmc 10* same as eval right MPJ flexion 50* same as eval right IP flexion 50* increase from 30* pt is out of her splint most of the time- only wearing when needed. 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 pt agrees with D/C Goals Patient Goals: Decrease Pain, Use Hand/Wrist/Arm Normally Again and Be More Independent in ADLS Goal:: pt will demo a increase in right product development intern strength by 15# or greater to return pt to her PLOF by d.c. ( goal met) pt will demo a increase in right lateral and tripod pinch by 4# to increase pts IND. wtih ADLs by dc. ( progressing able to pinch 2# more discomfort at CMCJ) Goal:: pt will demo a increase in right wrist ROM by 10* to improve pts functional use of right dominate hand by d/c. ( goal met ) Goal:: pt will report no pain greater than 2/10 with use of right UE with ADLs by d.c ( goal met) Goal:: Pt will demo understanding of joint protection and ergonomics when performing BADLs and IADLs by d/c ( goal met ) Pt will demo understanding of adaptive Equipment use to decrease stress on joints to allow pt to perform BADSL and IADLS at SHERLY level. ( goal met) Goal:: Pt will demo understanding of using supportive bracing 80% of workday/ADLS to decrease stress on tendon origin to allow healing and decrease pain by end of 2nd session. 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 Thank you for the referral of this patient. Sincerely, Erin Garrett OTR/L, CHT
== END 2025-09-09 12:22 | disposition home or self-care (01) ==
LOC: OT 10:00
PROVIDERS: PCP Internal Medicine; Referring Provider Nurse Practitioner Family; Visit Provider Nurse Practitioner Family
DX: M18.11 Unilateral primary osteoarthritis of first carpometacarpal joint, right hand (principal); M77.8 Other enthesopathies, not elsewhere classified
CPT/HCPCS: 97035; 97110; 97140; 97166; 97530

== ENCOUNTER → 2025-10-19 | Outpatient (CLI) | payer OTHER, SELFPAY ==
[2025-10-19 11:44] LABS: AST(SGOT) 18 U/L (<=31); Alanine Aminotransfer ALT/SGPT 21 U/L (<=34); Albumin, Serum 4.3 g/dL (3.5-5.0); Alkaline Phosphatase 63 U/L (35-104); Anion Gap 13 (5-15); BUN 18 mg/dL (4-19); BUN/Creat Ratio 24.0 RATIO (10-20); Calcium,Total 10.0 mg/dL (7.6-11.0); Carbon Dioxide 25.1 mmol/L (21.0-32.0); Chloride 102 mmol/L (98-108); Cholesterol 208 mg/dL (<=200); Globulin 3.1 g/dL (2.2-4.2); Glucose 116 mg/dL (70-99); Low Density Lipoprotein Calc. 119 mg/dL; Potassium 4.7 mmol/L (3.3-5.1); Triglycerides 165 mg/dL; Very Low Density Lipoprotein 33 mg/dL (5-40); cholesterol:hdl ratio screen 3.47
== END | disposition home or self-care (01) ==
LOC: LAB 09:36
PROVIDERS: PCP Internal Medicine; Referring Provider Internal Medicine Cardiovascular Disease; Visit Provider Internal Medicine Cardiovascular Disease
DX: E11.69 Type 2 diabetes mellitus with other specified complication (principal); E78.5 Hyperlipidemia, unspecified
CPT/HCPCS: 36415; 80053; 80061

== ENCOUNTER → 2025-11-10 | Outpatient (CLI) | payer OTHER, SELFPAY ==
--- NOTE | 2025-11-10 06:21 | ECHOCS_ITS ---
Reason For Study Reason For Study: PALPITATIONS Procedure This was a 2D Doppler, Color Flow transthoracic echocardiogram. Myocardial strain analysis was performed in this exam to aid in the assessment of cardiac function. The patient is in sinus rhythm. Contrast injection was performed. Exam performed in department. Left Ventricle Normal size and thickness. Moderate posterior and inferior hypokinesis. Estimated LVEF 45%. Stage I diastolic dysfunction. Global longitudinal strain is -15% which is mildly abnormal. Right Ventricle Normal right ventricle. Atria The left and right atria are normal. Mitral Valve Trivial mitral valve insufficiency. Tricuspid Valve Normal tricuspid valve. Aortic Valve Trisinus/trileaflet aortic valve. Trivial aortic valve insufficiency. Pulmonic Valve The pulmonic valve is not well visualized. Trivial pulmonic valve insufficiency. Great Vessels Normal sized aortic root. Pericardium/Pleural No pericardial effusion. Medication 22 gauge I.V. with prn adaptor inserted into right arm. (HAND). Diluted definity 1.5ml given slow IV push to enhance endocardial definition. MMode/2D Measurements & Calculations LVIDd: 3.7 cm IVSd: 1.1 cm LVOT diam: 2.1 cm LVIDs: 2.4 cm LVPWd: 1.0 cm RVDd: 3.1 cm FS: 35.7 % LVOT area: 3.4 cm2 Ao root diam: 2.9 cm asc Aorta Diam: 3.4 cm LAV(MOD- bp): 32.6 ml LAV(MOD- bp) Indexed: 17.7 ml/m2 LAV(MOD- sp2): 28.8 ml LAV(MOD- sp4): 36.0 ml LVAd ap4: 29.8 cm2 LVAd ap2: 29.4 cm2 EDV(MOD- bp): 89.7 ml LVLd ap4: 8.2 cm LVLd ap2: 8.1 cm ESV(MOD- bp): 47.4 ml EDV(MOD-sp4): 88.9 ml EDV(MOD-sp2): 88.5 ml EF(MOD- bp): 47.1 % EDV(sp4-el): 92.0 ml EDV(sp2-el): 90.9 ml LVAs ap4: 20.3 cm2 LVAs ap2: 20.4 cm2 LVLs ap4: 7.4 cm LVLs ap2: 7.3 cm ESV(MOD-sp4): 46.2 ml ESV(MOD-sp2): 47.5 ml ESV(sp4-el): 47.5 ml ESV(sp2-el): 48.7 ml EF(MOD-sp4): 48.0 % EF(MOD-sp2): 46.3 % EF(sp4-el): 48.4 % SV(MOD-sp4): 42.6 ml SV(MOD-sp2): 40.9 ml SV(sp4- el): 44.6 ml SI(MOD-sp4): 23.2 ml/m2 SI(MOD-sp2): 22.3 ml/m2 Ao sinus diam: 3.[address] Junction: 2.9 cm LA A4 area: 14.7 cm2 LA dimension(2D): 3.4 cm RA A4 area: 8.4 cm2 TAPSE: 1.7 cm Time Measurements MV dec time: 0.18 sec Doppler Measurements & Calculations MV E max ernesto: 58.6 cm/sec Lat Peak E' Ernesto: 7.1 cm/sec Med Peak E' Ernesto: 6.6 cm/sec MV A max ernesto: 87.9 cm/sec E/E' lat: 8.2 E/E' med: 8.9 MV E/A: 0.67 Ao V2 max: 117.6 cm/sec LV V1 max: 83.2 cm/sec MV dec slope: 333.2 cm/sec2 Ao max P.5 mmHg LV V1 max P.8 mmHg Ao V2 mean: 92.8 cm/sec LV V1 mean P.8 mmHg Ao mean P.6 mmHg LV V1 mean: 65.1 cm/sec Ao V2 VTI: 23.3 cm LV V1 VTI: 15.4 cm AV (velocity ratio): 0.66 SAUL(I,D): 2.3 cm2 SAUL(V,D): 2.4 cm2 SV(LVOT): 53.0 ml PA V2 max: 72.1 cm/sec PI end-d ernesto: 100.2 cm/sec ECHO/Echo Complete W/ Contrast Interpretation Summary Moderate posterior and inferior hypokinesis. Estimated LVEF 45%. Stage I diasto lic dysfunction. Global longitudinal strain is -15% which is mildly abnormal. Ordering Physician: Jorge Lindsay Referring Physician: DAVID KLEIN Performed By: Trixie Peralta RDCS
--- OUTSIDE RECORDS SUMMARY | 2025-11-10 06:23 | XMS RPT_ITS | CCD ---
Author Organization [facility] Care Team Providers Care Stopper Grinder Name Role Phone Dr. Michael Gu Primary Care Provider Dr. Thong Joseph Emergency Provider Dr. Marcellus Coles Admit Provider Dr. Marcellus Coles Other Provider SAGRARIO Byers Attending Provider Unavail able Dr. Adelso Medina Attending Provider Unavailable Dr. Adelso Medina Other Provider Unavailable Dr. Marcellus Aldana Attending Provider [phone] Lisandra Robin Attending Provider Dr. Michael Gu Primary Care Provider Dr. Marcellus Aldana Attending Provider [phone] Thong Joseph Emergency Provider Dr. Marcellus Coles Admit Provider Sharyn, Dr. Germain Other Provider SAGRARIO Byers Attending Provider Unavail able Dr. Adelso Medina Attending Provider Unavailable Dr. Adelso Medina Other Provider Unavailable Dr. Heather Ugarte Primary Care Provider [phone] Dr. Heather Ugarte Attending Provider [phone] Dr. Heather Ugarte Referring Provider [phone] Dr. Heather Ugarte Primary Care Provider [phone] Dr. Heather Ugarte Attending Provider [phone] Dr. eHather Ugarte Referring Provider [phone] Dr. Lukas Wang Attending Provider LASHAWN Mcdowell Attending Provider Dr. Lukas Wang Referring Provider Dr. Heather Ugarte Primary Care Provider [phone] Dr. Lukas Wang Attending Provider Dr. Lukas Wang Referring Provider Dr. Heather Ugarte Attending Provider [phone] Torito, Dr. Romero Referring Provider [phone] Dr. Heather Ugarte Primary Care Provider [phone] Torito, Dr. Romero Referring Provider [phone] Dr. Lukas Wang Attending Provider Dr. Lukas Wang Referring Provider [phone] Dr. Heather Ugarte Attending Provider [phone] Dr. Heather Ugarte Primary Care Provider [phone] Dr. Lukas Wang Attending Provider [phone] Lukas Wang Referring Provider [phone] Heather Ugarte Attending Provider [phone] Dr. Heather Ugarte Referring Provider [phone] SHEILA Rodriguez-C Sugey Attending Provider [phone] Dr. Heather Ugarte Primary Care Provider [phone] Dr. Lukas Wang Attending Provider [phone] Dr. Lukas Wang Referring Provider [phone] Dr. Mony Ferrer Attending Provider Michael, BLUEBERRY GROWER-C Sugey Referring Provider [phone] Michael, BLUEBERRY GROWER-C Sugey Other Provider [phone] LASHAWN Quijano Attending Provider Torito RICE, Dr. Romero Primary Care Provider Kathleen RICE, Dr. Gaytan Attending Provider Kathleen RICE, Dr. Gaytan Referring Provider Torito RICE, Dr. Romero Attending Provider Torito RICE, Dr. Romero Referring Provider Torito RICE, Dr. Romero Primary Care Provider Kathleen RICE, Dr. Gaytan Attending Provider Kathleen RICE, Dr. Gaytan Referring Provider Torito RICE, Dr. Romero Primary Care Provider Kathleen RICE, Dr. Gaytan Attending Provider Kathleen RICE, Dr. Gaytan Referring Provider Torito RICE, Dr. Romero Primary Care Provider Torito RICE, Dr. Romero Attending Provider Torito RICE, Dr. Romero Referring Provider Kathleen RICE, Dr. Gaytan Attending Provider Kathleen RICE, Dr. Gaytan Referring Provider Yadiel Mcdowell Attending Provider Torito RICE, Dr. Romero Primary Care Provider Kathleen RICE, Dr. Gaytan Attending Provider Kathleen RICE, Dr. Gaytan Referring Provider Torito RICE, Dr. Romero Attending Provider oTrito RICE, Dr. Romero Referring Provider Tonya Padgett Attending Provider Ashly RICE, Dr. Hinton Attending Provider Torito RICE, Dr. Romero Primary Care Provider Kathleen RICE, Dr. Gaytan Attending Provider [phone] Kathleen RICE, Dr. Gaytan Referring Provider [phone] Torito RICE, Dr. Romero Primary Care Provider Torito RICE, Dr. Romero Attending Provider [phone] Torito RICE, Dr. Romero Referring Provider [phone] Jacoby SOSA-CTonya Referring Provider Torito RICE, Dr. Romero Primary Care Provider Torito RICE, Dr. Romero Referring Provider [phone] Torito RICE, Dr. Romero Attending Provider [phone] Torito RICE, Dr. Romero Primary Care Physician Kathleen RICE, Dr. Gaytan Attending Physician [phone] Kathleen RICE, Dr. Gaytan Referring Provider Yadiel Mcdowell Attending Physician Tonya Padgett Attending Physician [phone] Ashly RICE, Dr. Hinton Attending Physician [phone] Torito RICE, Dr. Romero Attending Physician [phone] Neftali RICE, Dr. Patel Attending Physician [phone] Dr. Nick Lee MD Attending Physician Torito RICE, Dr. Romero Primary Care Physician Kathleen RICE, Dr. Gaytan Attending Physician [phone] Kathleen RICE, Dr. Gaytan Referring Provider Lukas Wang Attending Unavailable Lukas Wang Referring Unavailable Oleghe, Efewongosmani Primary Care Unavailable Oleghe, Efewongbe Referring Unavailable Oleghe, Efewongbe Primary Care Unavailable Oleghe, Efewongbe Attending Unavailable Tonya Dozier Attending Unavailable Oleghe, Efewongbe Referring Unavailable Oleghe, Efewongbe Primary Care Unavailable Lukas Wang Referring Unavailable Lukas Wang Attending Unavailable Oleghe, Efewongbe Primary Care Unavailable Oleghe, Efewongbe Attending Unavailable Oleghe, Efewongbe Referring Unavailable Oleghe, Efewongbe Primary Care Unavailable Oleghe, Efewongbe Referring Unavailable Oleghe, Efewongbe Primary Care Unavailable Oleghe, Efewongbe Attending Unavailable Tonya Dozier Attending Unavailable Oleghe, Efewongbe Referring Unavailable Oleghe, Efewongbe Primary Care Unavailable Lukas Wang Referring Unavailable Lukas Wang Attending Unavailable Oleghe, Efewongbe Primary Care Unavailable Oleghe, Efewongbe Referring Unavailable Oleghe, Efewongbe Primary Care Unavailable Oleghe, Efewongbe Attending Unavailable Oleghe, Efewongbe Primary Care Unavailable Lukas Wang Referring Unavailable Lukas Wang Attending Unavailable Oleghe, Efewongbe Primary Care Unavailable Jamaal Limon Attending Unavailable Nick Lee Attending Unavailable Oleghe, Efewongbe Primary Care Unavailable Willye, Efewongbe Referring Unavailable Lukas Wang Referring Unavailable Lukas Wang Attending Unavailable Oleghe, Efewongbe Primary Care Unavailable Lukas Wang Attending Unavailable Lukas Wang Referring Unavailable Oleghe, Efewongbe Primary Care Unavailable Lukas Wang Attending Unavailable Lukas Wang Referring Unavailable Oleghe, Efewongbe Primary Care Unavailable Oleghe, Efewongbe Attending Unavailable Oleghe, Efewongbe Referring Unavailable Oleghe, Efewongbe Primary Care Unavailable Lukas Wang Attending Unavailable Lukas Wang Referring Unavailable Oleghe, Efewongbe Primary Care Unavailable Robotham, Mony Consulting Unavailable Carissa Mony Attending Unavailable Oleghe, Efewongbe Referring Unavailable Oleghe, Efewongbe Primary Care Unavailable Lukas Wang Attending Unavailable Oleghe, Efewongbe Primary Care Unavailable Oleghe, Efewongbe Referring Unavailable Ashly, [place] Attending Unavailable Oleghe, Efewongbe Primary Care Unavailable Tonya Dozier Attending Unavailable Oleghe, Efewongbe Referring Unavailable Oleghe, Efewongbe Primary Care Unavailable Tonya Dozier Referring Unavailable Tonya Dozier Attending Unavailable Oleghe, Efewongbe Primary Care Unavailable Oleghe, Efewongbe Attending Unavailable Oleghe, Efewongbe Referring Unavailable Oleghe, Efewongbe Primary Care Unavailable Tonya Dozier Attending Unavailable Tonya Dozier Referring Unavailable Oleghe, Efewongbe Primary Care Unavailable Lukas Wang Referring Unavailable BaddoLukas perera Attending Unavailable Oleghe, Efewongbe Primary Care Unavailable Lukas Wang Referring Unavailable Mignondour Lukas Attending Unavailable Oleghe, Efewongbe Primary Care Unavailable Oleghe, Efewongbe Attending Unavailable Oleghe, Efewongbe Referring Unavailable Oleghe, Efewongbe Primary Care Unavailable Tonya Dozier Attending Unavailable Oleghe, Efewongbe Referring Unavailable Oleghe, Efewongbe Primary Care Unavailable Yadiel Mcdowell Attending Unavailable Oleghe, Efewongbe Referring Unavailable Oleghe, Efewongbe Primary Care Unavailable MignondoLukas perera Referring Unavailable Baddotrever Lukas Attending Unavailable Oleghe, Efewongbe Primary Care Unavailable Mignondour Lukas Attending Unavailable Oleghe, Efewongbe Primary Care Unavailable Oleghe, Efewongbe Referring Unavailable Oleghe, Efewongbe Primary Care Unavailable Mony Ferrer Attending Unavailable Oleghe, Efewongbe Referring Unavailable Oleghe , Dr. Romero Primary Care Physician Dr. Heather Ugarte MD Referring Provider [phone] Yadiel Mcdowell Attending Physician Tonya Padgett Attending Physician Dr. Jamaal Limon MD Attending Physician Dr. Lukas Wang MD Attending Physician [phone] Dr. Lukas Wang MD Referring Provider Dr. Heather Ugarte MD Attending Physician Tonya Padgett Referring Provider Neftali RICE, Dr. Patel Attending Physician [phone] Rosa RICE, Dr. Romero Attending Physician Allergies Allergy Classification Reported Allergen(s) Allergy Type Date of Onset Reaction(s) Facility (20 sources) Cephalexin; Translations: [cephalexin monohydrate] Drug Allergy 2 Hives [facility] (4 sources) CT CONTRAST Propensity to adverse reactions 2 Other [facility] (20 sources) Triiodobenzoic Acids Propensity to adverse reactions 3 Sneezing [facility] (20 sources) Adhesive agent; Translations: [adhesive] Allergy to substance 5 Rash [facility] (1 source) Iodinated Contrast Media Drug allergy (disorder) 5 [facility] Repository Medications Current Medications Medication Drug Class(es) Dates Sig (Normalized) Sig (Original) aspirin 81 mg chewable tablet (20 sources) Platelet Aggregation Inhibitor, Nonsteroidal Anti-inflammatory Drug Start: 08-15-2022 take 2 tablets by mouth at breakfast Start: 08-15-2022 take 162 mg by mouth at breakf ast Aspirin Active 162 MG PO WITH BREAKFAST August 15, 2022 12:00am Blood-Glucose Sensor (Freest yle Bob 3 Plus Sensor) device (8 sources) Start: 08-02-2025 Blood-Glucose Sensor (Freestyle Bob 3 Plus Sensor) device Active 0 .Route 1 August 01, 2025 11:00pm As directed Start: 08-02-2025 Blood-Glucose Sensor (Freestyle Bob 3 Plus Sensor) device Active 0 .Route 1 August 02, 2025 12:00am As directed Blood-Glucose,[place],Cont (Freestyle Bob 3 [place]) misc (8 sources) Start: 08-02-2025 Blood-Glucose,[place],Cont (Freestyle Bob 3 [place]) misc Active 0 .Route 1 August 01, 2025 11:00pm As directed Start: 08-02-2025 Blood-Glucose, [place],Cont (Freestyle Bob 3 [place]) misc Active 0 .Route 1 August 02, 2025 12:00am As directed carvedilol 3.125 mg oral tablet (6 sources) alpha-Adrenergic Yodit, beta-Adrenergic Yodit Start: 08-06-2025 take 1 tablet by mouth every twelve hours at mealtime Cyanocobalamin (Vitamin B-12) 100 mcg/mL solution (20 sources) Start: 03-11-2023 Start: 03-11-2023 Cyanocobalamin (Vitamin B-12) 100 mcg/mL solution Active 100 ug .Route .Q30 DAYS March 11, 2023 12:00am 100 mcg Q30 DAYS; every 30 days Complies with drug therapy Start: 03-11-2023 Start: 03-11-2023 Cyanocobalamin (Vitamin B-12) 100 mcg/mL solution Active 100 ug .Route .Q30 DAYS March 11, 2023 12:00am 100 mcg Q30 DAYS; every 30 days 24 hr metFORMIN hydrochlorid e 500 mg extended release oral tablet (20 sources) Biguanide Start: 03-29-2025 Start: 06-10-2023 End: 03-29-2025 take 1 tablet by mouth twice daily Metformin 500 mg tablet Discontinued 500 mg PO TWICE A DAY 180 90 3 June 29, 2024 3:22pm March 29, 2025 8:12am Start: 12-03-2022 End: 06-10-2023 take 1 tablet by mouth twice daily Metformin 1,000 mg tablet Discontinued 1000 mg PO TWICE A DAY 180 90 3 December 03, 2022 9:56am June 10, 2023 8:30am Start: 08-15-2022 End: 12-03-2022 take 1 tablet by mouth twice daily Metformin 500 mg tablet Discontinued 500 mg PO TWICE A DAY 180 0 November 13, 2022 11:27am December 03, 2022 9:59am Start: 11-30-2015 End: 02-09-2022 take 1 tablet by mouth twice daily at mealtime Metformin 500 MG tablet Discontinued 500 mg PO TWICE DAILY WITH MEALS November 30, 2015 12:00am February 09, 2022 12:08pm Semaglutide (20 sources) Start: 09-15-2025 Start: 09-15-2025 Start: 10-01-2024 End: 09-15-2025 Semaglutide (Ozempic) 2 mg/d ose (8 mg/3 mL) pen injector Discontinued 2 mg SC EVERY WEEK 9.75 90 October 01, 2024 2:01pm September 15, 2025 4:15pm Start: 10-01-2024 End: 09-15-2025 Semaglutide (Ozempic) 2 mg/d ose (8 mg/3 mL) pen injector Discontinued 2 mg SC EVERY WEEK 9.75 90 October 01, 2024 3:01pm September 15, 2025 5:15pm Start: 10-01-2024 Semaglutide (O zempic) 2 mg/dose (8 mg/3 mL) pen injector Active 2 mg SC EVERY WEEK 9.75 90 October 01, 2024 3:01pm Complies with drug therapy Start: 10-01-2024 Start: 04-20-2024 End: 10-01-2024 Semaglutide (Ozempic) 2 mg/d ose (8 mg/3 mL) pen injector Discontinued 2 mg SC EVERY WEEK 9.75 90 April 20, 2024 9:57pm October 01, 2024 2:01pm Start: 04-20-2024 End: 10-01-2024 Semaglutide (Ozempic) 2 mg/d ose (8 mg/3 mL) pen injector Discontinued 2 mg SC EVERY WEEK 9.75 90 April 20, 2024 10:57pm October 01, 2024 3:01pm Start: 09-11-2023 End: 04-20-2024 Semaglutide (Ozempic) 2 mg/d ose (8 mg/3 mL) pen injector Discontinued 2 mg SC EVERY WEEK September 10, 2023 11:00pm April 20, 2024 9:58pm Start: 09-11-2023 End: 04-20-2024 Semaglutide (Ozempic) 2 mg/d ose (8 mg/3 mL) pen injector Discontinued 2 mg SC EVERY WEEK September 11, 2023 12:00am April 20, 2024 10:58pm Start: 06-25-2023 End: 06-27-2023 Semaglutide 2 mg/dose (8 mg/ 3 mL) pen injector Discontinued 2 mg SC EVERY WEEK 9.75 90 June 25, 2023 10:09am June 27, 2023 2:03pm Start: 06-25-2023 End: 06-27-2023 Semaglutide 2 mg/dose (8 mg/ 3 mL) pen injector Discontinued 2 mg SC EVERY WEEK 9.75 90 June 25, 2023 11:09am June 27, 2023 3:03pm Start: 03-26-2023 End: 06-25-2023 Semaglutide (Ozempic) 2 mg/d ose (8 mg/3 mL) pen injector Discontinued 2 mg SC EVERY WEEK 9.75 March 26, 2023 12:12pm June 25, 2023 10:09am Start: 03-26-2023 End: 06-25-2023 Semaglutide (Ozempic) 2 mg/d ose (8 mg/3 mL) pen injector Discontinued 2 mg SC EVERY WEEK 9.75 90 March 26, 2023 1:12pm June 25, 2023 11:09am Semaglutide (Ozempic) 2 mg/d ose (8 mg/3 mL) pen injector (20 sources) Start: 10-01-2024 Semaglutide (O zempic) 2 mg/dose (8 mg/3 mL) pen injector Active 2 mg SC EVERY WEEK 9.75 October 01, 2024 3:01pm Start: 10-01-2024 Semaglutide (O zempic) 2 mg/dose (8 mg/3 mL) pen injector Active 2 mg SC EVERY WEEK 9.75 October 01, 2024 3:01pm Start: 04-20-2024 End: 10-01-2024 Semaglutide (Ozempic) 2 mg/d ose (8 mg/3 mL) pen injector Discontinued 2 mg SC EVERY WEEK 9.75 90 April 20, 2024 10:57pm October 01, 2024 3:01pm Start: 04-20-2024 End: 10-01-2024 Semaglutide (Ozempic) 2 mg/d ose (8 mg/3 mL) pen injector Discontinued 2 mg SC EVERY WEEK 9.75 April 20, 2024 10:57pm October 01, 2024 3:01pm Start: 09-11-2023 End: 04-20-2024 Semaglutide (Ozempic) 2 mg/d ose (8 mg/3 mL) pen injector Discontinued 2 mg SC EVERY WEEK September 11, 2023 12:00am April 20, 2024 10:58pm Start: 09-11-2023 Semaglutide (O zempic) 2 mg/dose (8 mg/3 mL) pen injector Active 2 MG SC EVERY WEEK September 10, 2023 11:00pm Start: 09-11-2023 Semaglutide (O zempic) 2 mg/dose (8 mg/3 mL) pen injector Active 2 MG SC EVERY WEEK September 11, 2023 12:00am Start: 03-26-2023 End: 06-25-2023 Semaglutide (Ozempic) 2 mg/d ose (8 mg/3 mL) pen injector Discontinued 2 mg SC EVERY WEEK 9.75 90 March 26, 2023 1:12pm June 25, 2023 11:09am Start: 03-26-2023 End: 06-25-2023 Semaglutide (Ozempic) 2 mg/d ose (8 mg/3 mL) pen injector Discontinued 2 mg SC EVERY WEEK 9.75 March 26, 2023 1:12pm June 25, 2023 11:09am Start: 03-26-2023 End: 06-25-2023 Semaglutide (Ozempic) 2 mg/d ose (8 mg/3 mL) pen injector Discontinued 2 MG SC EVERY WEEK 9.75 March 26, 2023 12:12pm June 25, 2023 10:09am Start: 03-26-2023 End: 06-25-2023 Semaglutide (Ozempic) 2 mg/d ose (8 mg/3 mL) pen injector Discontinued 2 MG SC EVERY WEEK 9.75 March 26, 2023 1:12pm June 25, 2023 11:09am vitamin B12 (6 sources) Vitamin B12 Start: 03-11-2023 Cyanocobalamin (Vitamin B-12) Active 100 MCG .Route March 10, 2023 11:00pm every 30 days Start: 03-11-2023 Cyanocobalamin (Vitamin B-12) Active 100 MCG .Route March 11, 2023 12:00am every 30 days Completed/Discontinued Medications Medication Drug Class(es) Dates Sig (Normalized) Sig (Original) amoxicillin 500 mg oral capsule (20 sources) Penicillin-class Antibacterial Start: 02-19-2024 End: 02-29-2024 take 1 capsule by mouth twice daily Amoxicillin 500 mg capsule Discontinued 500 mg PO TWICE A DAY 20 10 February 18, 2024 11:00pm February 27, 2024 11:00pm February 28, 2024 11:14pm apple cider vinegar 500 mg oral tablet (20 sources) Start: 02-09-2022 End: 08-15-2022 take 1 tablet by mouth once daily Apple Cider Vinegar 500 mg tablet Discontinued 500 mg PO DAILY February 08, 2022 11:00pm August 15, 2022 8:45am atorvastatin 80 mg oral tablet (20 sources) HMG-CoA Reductase Inhibitor Start: 08-15-2022 End: 03-04-2023 take 1 tablet by mouth at bedtime Atorvastatin 80 mg tablet Discontinued 80 mg PO AT BEDTIME 90 0 November 14, 2022 9:09am March 04, 2023 1:03pm azithromycin 250 mg oral tablet (20 sources) Macrolide Antimicrobial Start: 02-12-2023 End: 03-04-2023 Azithromycin 250 mg tablet Discontinued 250 mg PO daily 12 February 11, 2023 11:00pm March 04, 2023 1:03pm 2 tablets today, then 1 tablet daily on days 2 through 11 B-Complex With Vitamin C (6 sources) Start: 03-04-2023 End: 06-10-2023 take 1 tablet by mouth once daily B-Complex With Vitamin C Discontinued 1 TABLET PO DAILY March 03, 2023 11:00pm June 10, 2023 8:15am Start: 03-04-2023 End: 06-10-2023 take 1 tablet by mouth once daily B-Complex With Vitamin C Discontinued 1 TABLET PO DAILY March 04, 2023 12:00am June 10, 2023 9:15am Start: 03-04-2023 take 1 tablet by yessenia th once daily B-Complex With Vitamin C Active 1 TABLET PO DAILY March 04, 2023 12:00am B-Complex With Vitamin C tablet (20 sources) Start: 03-04-2023 End: 06-10-2023 B-Complex With Vitamin C tab let Discontinued 1 {tbl} PO DAILY March 03, 2023 11:00pm June 10, 2023 8:15am Start: 03-04-2023 End: 06-10-2023 B-Complex With Vitamin C tab let Discontinued 1 {tbl} PO DAILY March 04, 2023 12:00am June 10, 2023 9:15am benzocaine 15 mg / menthol 2.6 mg oral lozenge (20 sources) Standardized Chemical Allergen Start: 11-30-2015 End: 02-09-2022 Benzocaine-Menthol (Cepacol Sore Throat Lozenge) 1 EACH lozenge Discontinued 1 NMA MM 4 TIMES DAILY NEEDED as needed for Sore Throat 16 0 November 30, 2015 5:20am February 09, 2022 12:07pm cinnamon bark 500 mg oral capsule (20 sources) Start: 02-09-2022 End: 08-15-2022 take 1 capsule by mouth once daily Cinnamon Bark (Cinnamon) 500 mg capsule Discontinued 500 mg PO DAILY February 08, 2022 11:00pm August 15, 2022 8:45am clopidogrel 75 mg oral tablet (20 sources) [id number] Platelet Inhibitor Start: 08-15-2022 End: 12-03-2022 take 1 tablet by mouth once daily Clopidogrel 75 mg Tablet Discontinued 75 mg PO DAILY 0 August 14, 2022 11:00pm December 03, 2022 9:24am Dulaglutide (20 sources) GLP-1 Receptor Agonist Start: 07-18-2023 End: 09-11-2023 Dulaglutide (Trulicity) 3 mg/0.5 mL pen injector Discontinued 3 mg SC EVERY WEEK 6.5 90 July 18, 2023 7:17am September 11, 2023 7:47am Start: 07-18-2023 End: 09-11-2023 Dulaglutide (Trulicity) 3 mg /0.5 mL pen injector Discontinued 3 mg SC EVERY WEEK 6.5 90 July 18, 2023 8:17am September 11, 2023 8:47am Start: 07-18-2023 End: 09-11-2023 Dulaglutide (Trulicity) 3 mg /0.5 mL pen injector Discontinued 3 mg SC EVERY WEEK 6.5 90 July 18, 2023 8:17am September 11, 2023 8:47am Start: 07-18-2023 End: 09-11-2023 Dulaglutide (Trulicity) 3 mg /0.5 mL pen injector Discontinued 3 MG SC EVERY WEEK 6.5 90 July 18, 2023 7:17am September 11, 2023 7:47am Start: 07-18-2023 End: 09-11-2023 Dulaglutide (Trulicity) 3 mg /0.5 mL pen injector Discontinued 3 MG SC EVERY WEEK 6.5 90 July 18, 2023 8:17am September 11, 2023 8:47am Start: 07-16-2023 End: 07-18-2023 Dulaglutide (Trulicity) 3 mg /0.5 mL pen injector Discontinued 3 mg SC EVERY WEEK 6.5 90 July 16, 2023 11:03am July 18, 2023 7:17am Start: 07-16-2023 End: 07-18-2023 Dulaglutide (Trulicity) 3 mg /0.5 mL pen injector Discontinued 3 mg SC EVERY WEEK 6.5 90 July 16, 2023 12:03pm July 18, 2023 8:17am Start: 07-16-2023 End: 07-18-2023 Dulaglutide (Trulicity) 3 mg /0.5 mL pen injector Discontinued 3 mg SC EVERY WEEK 6.5 July 16, 2023 12:03pm July 18, 2023 8:17am Start: 07-16-2023 End: 07-18-2023 Dulaglutide (Trulicity) 3 mg /0.5 mL pen injector Discontinued 3 MG SC EVERY WEEK 6.5 90 July 16, 2023 11:03am July 18, 2023 7:17am Start: 07-16-2023 End: 07-18-2023 Dulaglutide (Trulicity) 3 mg /0.5 mL pen injector Discontinued 3 MG SC EVERY WEEK 6.5 July 16, 2023 12:03pm July 18, 2023 8:17am Start: 06-27-2023 End: 07-16-2023 Dulaglutide (Trulicity) 3 mg /0.5 mL pen injector Discontinued 3 mg SC EVERY WEEK 2 0 June 26, 2023 11:00pm July 16, 2023 11:04am Start: 06-27-2023 End: 07-16-2023 Dulaglutide (Trulicity) 3 mg /0.5 mL pen injector Discontinued 3 mg SC EVERY WEEK 2 0 June 27, 2023 12:00am July 16, 2023 12:04pm Start: 06-27-2023 End: 07-16-2023 Dulaglutide (Trulicity) 3 mg /0.5 mL pen injector Discontinued 3 mg SC EVERY WEEK 2 June 27, 2023 12:00am July 16, 2023 12:04pm Start: 06-27-2023 End: 07-16-2023 Dulaglutide (Trulicity) 3 mg /0.5 mL pen injector Discontinued 3 MG SC EVERY WEEK 2 June 26, 2023 11:00pm July 16, 2023 11:04am Start: 06-27-2023 End: 07-16-2023 Dulaglutide (Trulicity) 3 mg /0.5 mL pen injector Discontinued 3 MG SC EVERY WEEK 2 June 27, 2023 12:00am July 16, 2023 12:04pm fexofenadine hydrochloride 180 mg oral tablet (20 sources) Histamine-1 Receptor Antagonist Start: 07-29-2024 End: 09-21-2024 take 1 tablet by mouth once daily Fexofenadine (Yani Allergy) 180 mg tablet Discontinued 180 mg PO daily July 28, 2024 11:00pm September 21, 2024 9:26am Flash Glucose Scanning [place] (Freestyle Bob 2 [place]) misc (20 sources) Start: 01-11-2023 End: 06-22-2024 Flash Glucose Scanning [place] (Freestyle Bob 2 [place]) misc Discontinued 0 .Route 1 January 11, 2023 9:34am June 22, 2024 8:15am As directed Start: 01-11-2023 End: 06-22-2024 Flash Glucose Scanning [place] r (Freestyle Bob 2 [place]) misc Discontinued 0 .Route 1 January 11, 2023 10:34am June 22, 2024 9:15am As directed Start: 01-11-2023 End: 06-22-2024 Flash Glucose Scanning [place] r (Freestyle Bob 2 [place]) misc Discontinued 0 .Route 1 January 11, 2023 10:34am June 22, 2024 9:15am As directed Start: 01-11-2023 Flash Glucose Scanning [place] (Freestyle Bob 2 [place]) misc Active 0 .Route 1 January 11, 2023 9:34am As directed Start: 01-11-2023 Flash Glucose Scanning [place] (Freestyle Bob 2 [place]) misc Active 0 .Route 1 January 11, 2023 10:34am As directed Start: 09-24-2022 End: 01-11-2023 Flash Glucose Scanning [place] r (Freestyle Bob 2 [place]) misc Discontinued 0 .Route 1 September 23, 2022 11:00pm January 11, 2023 9:34am As directed Start: 09-24-2022 End: 01-11-2023 Flash Glucose Scanning [place] (Freestyle Bob 2 [place]) misc Discontinued 0 .Route 1 September 24, 2022 12:00am January 11, 2023 10:34am As directed Start: 09-24-2022 End: 01-11-2023 Flash Glucose Scanning [place] r (Freestyle Bob 2 [place]) misc Discontinued 0 .Route 1 September 23, 2022 11:00pm January 11, 2023 9:34am As directed Start: 09-24-2022 End: 01-11-2023 Flash Glucose Scanning [place] (Freestyle Bob 2 [place]) misc Discontinued 0 .Route September 24, 2022 12:00am January 11, 2023 10:34am As directed Start: 09-24-2022 Flash Glucose Scanning [place] (Freestyle Bob 2 [place]) misc Active 0 .Route 1 September 23, 2022 11:00pm As directed Flash Glucose Sensor (Freestyle Bob 2 Sensor) kit (20 sources) Start: 08-02-2025 End: 08-02-2025 Flash Glucose Sensor (Freest yle Bob 2 Sensor) kit Discontinued 0 .ROUTE .COMPLEX 3 August 02, 2025 5:57pm August 02, 2025 5:59pm USE DIRECTED TO MONITOR BLOOD SUGAR CONTINUOUSLY. CHANGE SENSOR EVERY 14 DAYS Start: 08-02-2025 End: 08-02-2025 Flash Glucose Sensor (Freest yle Bob 2 Sensor) kit Discontinued 0 .ROUTE .COMPLEX 3 August 02, 2025 6:57pm August 02, 2025 6:59pm USE DIRECTED TO MONITOR BLOOD SUGAR CONTINUOUSLY. CHANGE SENSOR EVERY 14 DAYS Start: 12-02-2024 End: 08-02-2025 Flash Glucose Sensor (Freest yle Bob 2 Sensor) kit Discontinued 0 .ROUTE .COMPLEX 3 December 02, 2024 8:43am August 02, 2025 5:57pm USE DIRECTED TO MONITOR BLOOD SUGAR CONTINUOUSLY. CHANGE SENSOR EVERY 14 DAYS Start: 12-02-2024 End: 08-02-2025 Flash Glucose Sensor (Freest yle Bob 2 Sensor) kit Discontinued 0 .ROUTE .COMPLEX 3 December 02, 2024 9:43am August 02, 2025 6:57pm USE DIRECTED TO MONITOR BLOOD SUGAR CONTINUOUSLY. CHANGE SENSOR EVERY 14 DAYS Start: 12-02-2024 Flash Glucose Sensor (Freestyle Bob 2 Sensor) kit Active 0 .ROUTE .COMPLEX 3 December 02, 2024 9:43am USE DIRECTED TO MONITOR BLOOD SUGAR CONTINUOUSLY. CHANGE SENSOR EVERY 14 DAYS Start: 12-02-2024 Flash Glucose Sensor (Freestyle Bob 2 Sensor) kit Active 0 .ROUTE .COMPLEX December 02, 2024 9:43am USE DIRECTED TO MONITOR BLOOD SUGAR CONTINUOUSLY. CHANGE SENSOR EVERY 14 DAYS Start: 11-28-2023 End: 12-02-2024 Flash Glucose Sensor (Freest yle Bob 2 Sensor) kit Discontinued 0 .ROUTE .COMPLEX 3 November 28, 2023 9:37pm December 02, 2024 8:44am USE DIRECTED TO MONITOR BLOOD SUGAR CONTINUOUSLY. CHANGE SENSOR EVERY 14 DAYS Start: 11-28-2023 End: 12-02-2024 Flash Glucose Sensor (Freest yle Bob 2 Sensor) kit Discontinued 0 .ROUTE .COMPLEX 3 November 28, 2023 10:37pm December 02, 2024 9:44am USE DIRECTED TO MONITOR BLOOD SUGAR CONTINUOUSLY. CHANGE SENSOR EVERY 14 DAYS Start: 11-28-2023 End: 12-02-2024 Flash Glucose Sensor (Freest yle Bob 2 Sensor) kit Discontinued 0 .ROUTE .COMPLEX November 28, 2023 10:37pm December 02, 2024 9:44am USE DIRECTED TO MONITOR BLOOD SUGAR CONTINUOUSLY. CHANGE SENSOR EVERY 14 DAYS Start: 11-28-2023 Flash Glucose Sensor (Freestyle Bob 2 Sensor) kit Active 0 .ROUTE .COMPLEX November 28, 2023 10:37pm USE DIRECTED TO MONITOR BLOOD SUGAR CONTINUOUSLY. CHANGE SENSOR EVERY 14 DAYS Start: 11-28-2023 Flash Glucose Sensor (Freestyle Bob 2 Sensor) kit Active 0 .ROUTE .COMPLEX 3 November 28, 2023 9:37pm USE DIRECTED TO MONITOR BLOOD SUGAR CONTINUOUSLY. CHANGE SENSOR EVERY 14 DAYS Start: 09-27-2023 End: 11-28-2023 Flash Glucose Sensor (Freest yle Bob 2 Sensor) kit Discontinued 0 .ROUTE .COMPLEX 1 September 27, 2023 7:26am November 28, 2023 9:38pm USE DIRECTED TO MONITOR BLOOD SUGAR CONTINUOUSLY. CHANGE SENSOR EVERY 14 DAYS Start: 09-27-2023 End: 11-28-2023 Flash Glucose Sensor (Freest yle Bob 2 Sensor) kit Discontinued 0 .ROUTE .COMPLEX 1 3 September 27, 2023 8:26am November 28, 2023 10:38pm USE DIRECTED TO MONITOR BLOOD SUGAR CONTINUOUSLY. CHANGE SENSOR EVERY 14 DAYS Start: 09-27-2023 End: 11-28-2023 Flash Glucose Sensor (Freest yle Bob 2 Sensor) kit Discontinued 0 .ROUTE .COMPLEX 1 September 27, 2023 8:26am November 28, 2023 10:38pm USE DIRECTED TO MONITOR BLOOD SUGAR CONTINUOUSLY. CHANGE SENSOR EVERY 14 DAYS Start: 09-27-2023 End: 11-28-2023 Flash Glucose Sensor (Freest yle Bob 2 Sensor) kit Discontinued 0 .ROUTE .COMPLEX 1 September 27, 2023 7:26am November 28, 2023 9:38pm USE DIRECTED TO MONITOR BLOOD SUGAR CONTINUOUSLY. CHANGE SENSOR EVERY 14 DAYS Start: 08-12-2023 End: 09-27-2023 Flash Glucose Sensor (Freest yle Bob 2 Sensor) kit Discontinued 0 .ROUTE .COMPLEX 1 August 12, 2023 9:36pm September 27, 2023 7:27am USE DIRECTED TO MONITOR BLOOD SUGAR CONTINUOUSLY. CHANGE SENSOR EVERY 14 DAYS Start: 08-12-2023 End: 09-27-2023 Flash Glucose Sensor (Freest yle Bob 2 Sensor) kit Discontinued 0 .ROUTE .COMPLEX 1 3 August 12, 2023 10:36pm September 27, 2023 8:27am USE DIRECTED TO MONITOR BLOOD SUGAR CONTINUOUSLY. CHANGE SENSOR EVERY 14 DAYS Start: 08-12-2023 End: 09-27-2023 Flash Glucose Sensor (Freest yle Bob 2 Sensor) kit Discontinued 0 .ROUTE .COMPLEX 1 August 12, 2023 10:36pm September 27, 2023 8:27am USE DIRECTED TO MONITOR BLOOD SUGAR CONTINUOUSLY. CHANGE SENSOR EVERY 14 DAYS Start: 08-12-2023 End: 09-27-2023 Flash Glucose Sensor (Freest yle Bob 2 Sensor) kit Discontinued 0 .ROUTE .COMPLEX 1 August 12, 2023 9:36pm September 27, 2023 7:27am USE DIRECTED TO MONITOR BLOOD SUGAR CONTINUOUSLY. CHANGE SENSOR EVERY 14 DAYS Start: 08-12-2023 Flash Glucose Sensor (Freestyle Bob 2 Sensor) kit Active 0 .ROUTE .COMPLEX 1 August 12, 2023 10:36pm USE DIRECTED TO MONITOR BLOOD SUGAR CONTINUOUSLY. CHANGE SENSOR EVERY 14 DAYS Start: 06-28-2023 End: 08-12-2023 Flash Glucose Sensor (Freest yle Bob 2 Sensor) kit Discontinued 0 .ROUTE .COMPLEX 1 June 28, 2023 6:01pm August 12, 2023 9:36pm USE DIRECTED TO MONITOR BLOOD SUGAR CONTINUOUSLY. CHANGE SENSOR EVERY 14 DAYS Start: 06-28-2023 End: 08-12-2023 Flash Glucose Sensor (Freest yle Bob 2 Sensor) kit Discontinued 0 .ROUTE .COMPLEX 1 3 June 28, 2023 7:01pm August 12, 2023 10:36pm USE DIRECTED TO MONITOR BLOOD SUGAR CONTINUOUSLY. CHANGE SENSOR EVERY 14 DAYS Start: 06-28-2023 End: 08-12-2023 Flash Glucose Sensor (Freest yle Bob 2 Sensor) kit Discontinued 0 .ROUTE .COMPLEX 1 June 28, 2023 6:01pm August 12, 2023 9:36pm USE DIRECTED TO MONITOR BLOOD SUGAR CONTINUOUSLY. CHANGE SENSOR EVERY 14 DAYS Start: 06-28-2023 End: 08-12-2023 Flash Glucose Sensor (Freest yle Bob 2 Sensor) kit Discontinued 0 .ROUTE .COMPLEX 1 June 28, 2023 7:01pm August 12, 2023 10:36pm USE DIRECTED TO MONITOR BLOOD SUGAR CONTINUOUSLY. CHANGE SENSOR EVERY 14 DAYS Start: 05-06-2023 End: 06-28-2023 Flash Glucose Sensor (Freest yle Bob 2 Sensor) kit Discontinued 0 .ROUTE .COMPLEX 1 3 May 06, 2023 11:55am June 28, 2023 6:01pm USE DIRECTED TO MONITOR BLOOD SUGAR CONTINUOUSLY. CHANGE SENSOR EVERY 14 DAYS Start: 05-06-2023 End: 06-28-2023 Flash Glucose Sensor (Freest yle Bob 2 Sensor) kit Discontinued 0 .ROUTE .COMPLEX 1 3 May 06, 2023 12:55pm June 28, 2023 7:01pm USE DIRECTED TO MONITOR BLOOD SUGAR CONTINUOUSLY. CHANGE SENSOR EVERY 14 DAYS Start: 05-06-2023 End: 06-28-2023 Flash Glucose Sensor (Freest yle Bob 2 Sensor) kit Discontinued 0 .ROUTE .COMPLEX 1 May 06, 2023 11:55am June 28, 2023 6:01pm USE DIRECTED TO MONITOR BLOOD SUGAR CONTINUOUSLY. CHANGE SENSOR EVERY 14 DAYS Start: 05-06-2023 End: 06-28-2023 Flash Glucose Sensor (Freest yle Bob 2 Sensor) kit Discontinued 0 .ROUTE .COMPLEX 1 May 06, 2023 12:55pm June 28, 2023 7:01pm USE DIRECTED TO MONITOR BLOOD SUGAR CONTINUOUSLY. CHANGE SENSOR EVERY 14 DAYS Start: 05-02-2023 End: 05-06-2023 Flash Glucose Sensor (Freest yle Bob 2 Sensor) kit Discontinued 0 .ROUTE .COMPLEX 1 3 May 02, 2023 10:01am May 06, 2023 11:55am USE DIRECTED TO MONITOR BLOOD SUGAR CONTINUOUSLY. CHANGE SENSOR EVERY 14 DAYS Start: 05-02-2023 End: 05-06-2023 Flash Glucose Sensor (Freest yle Bob 2 Sensor) kit Discontinued 0 .ROUTE .COMPLEX 1 3 May 02, 2023 11:01am May 06, 2023 12:55pm USE DIRECTED TO MONITOR BLOOD SUGAR CONTINUOUSLY. CHANGE SENSOR EVERY 14 DAYS Start: 05-02-2023 End: 05-06-2023 Flash Glucose Sensor (Freest yle Bob 2 Sensor) kit Discontinued 0 .ROUTE .COMPLEX 1 May 02, 2023 10:01am May 06, 2023 11:55am USE DIRECTED TO MONITOR BLOOD SUGAR CONTINUOUSLY. CHANGE SENSOR EVERY 14 DAYS Start: 05-02-2023 End: 05-06-2023 Flash Glucose Sensor (Freest yle Bob 2 Sensor) kit Discontinued 0 .ROUTE .COMPLEX 1 May 02, 2023 11:01am May 06, 2023 12:55pm USE DIRECTED TO MONITOR BLOOD SUGAR CONTINUOUSLY. CHANGE SENSOR EVERY 14 DAYS Start: 05-01-2023 End: 05-02-2023 Flash Glucose Sensor (Freest yle Bob 2 Sensor) kit Discontinued 0 .ROUTE .COMPLEX 1 3 May 01, 2023 5:27pm May 02, 2023 10:01am USE DIRECTED TO MONITOR BLOOD SUGAR CONTINUOUSLY. CHANGE SENSOR EVERY 14 DAYS Start: 05-01-2023 End: 05-02-2023 Flash Glucose Sensor (Freest yle Bob 2 Sensor) kit Discontinued 0 .ROUTE .COMPLEX 1 3 May 01, 2023 6:27pm May 02, 2023 11:01am USE DIRECTED TO MONITOR BLOOD SUGAR CONTINUOUSLY. CHANGE SENSOR EVERY 14 DAYS Start: 05-01-2023 End: 05-02-2023 Flash Glucose Sensor (Freest yle Bob 2 Sensor) kit Discontinued 0 .ROUTE .COMPLEX 1 May 01, 2023 5:27pm May 02, 2023 10:01am USE DIRECTED TO MONITOR BLOOD SUGAR CONTINUOUSLY. CHANGE SENSOR EVERY 14 DAYS Start: 05-01-2023 End: 05-02-2023 Flash Glucose Sensor (Freest yle Bob 2 Sensor) kit Discontinued 0 .ROUTE .COMPLEX 1 May 01, 2023 6:27pm May 02, 2023 11:01am USE DIRECTED TO MONITOR BLOOD SUGAR CONTINUOUSLY. CHANGE SENSOR EVERY 14 DAYS Start: 04-30-2023 End: 05-01-2023 Flash Glucose Sensor (Freest yle Bob 2 Sensor) kit Discontinued 0 .ROUTE .COMPLEX 1 3 April 30, 2023 3:16pm May 01, 2023 5:27pm USE DIRECTED TO MONITOR BLOOD SUGAR CONTINUOUSLY. CHANGE SENSOR EVERY 14 DAYS Start: 04-30-2023 End: 05-01-2023 Flash Glucose Sensor (Freest yle Bob 2 Sensor) kit Discontinued 0 .ROUTE .COMPLEX 1 3 April 30, 2023 4:16pm May 01, 2023 6:27pm USE DIRECTED TO MONITOR BLOOD SUGAR CONTINUOUSLY. CHANGE SENSOR EVERY 14 DAYS Start: 04-30-2023 End: 05-01-2023 Flash Glucose Sensor (Freest yle Bob 2 Sensor) kit Discontinued 0 .ROUTE .COMPLEX 1 April 30, 2023 3:16pm May 01, 2023 5:27pm USE DIRECTED TO MONITOR BLOOD SUGAR CONTINUOUSLY. CHANGE SENSOR EVERY 14 DAYS Start: 04-30-2023 End: 05-01-2023 Flash Glucose Sensor (Freest yle Bob 2 Sensor) kit Discontinued 0 .ROUTE .COMPLEX 1 April 30, 2023 4:16pm May 01, 2023 6:27pm USE DIRECTED TO MONITOR BLOOD SUGAR CONTINUOUSLY. CHANGE SENSOR EVERY 14 DAYS Start: 04-29-2023 End: 04-30-2023 Flash Glucose Sensor (Freest yle Bob 2 Sensor) kit Discontinued 0 .ROUTE .COMPLEX 1 3 April 29, 2023 10:21am April 30, 2023 3:16pm USE DIRECTED TO MONITOR BLOOD SUGAR CONTINUOUSLY. CHANGE SENSOR EVERY 14 DAYS Start: 04-29-2023 End: 04-30-2023 Flash Glucose Sensor (Freest yle Bob 2 Sensor) kit Discontinued 0 .ROUTE .COMPLEX 1 3 April 29, 2023 11:21am April 30, 2023 4:16pm USE DIRECTED TO MONITOR BLOOD SUGAR CONTINUOUSLY. CHANGE SENSOR EVERY 14 DAYS Start: 04-29-2023 End: 04-30-2023 Flash Glucose Sensor (Freest yle Bob 2 Sensor) kit Discontinued 0 .ROUTE .COMPLEX 1 April 29, 2023 10:21am April 30, 2023 3:16pm USE DIRECTED TO MONITOR BLOOD SUGAR CONTINUOUSLY. CHANGE SENSOR EVERY 14 DAYS Start: 04-29-2023 End: 04-30-2023 Flash Glucose Sensor (Freest yle Bob 2 Sensor) kit Discontinued 0 .ROUTE .COMPLEX 1 April 29, 2023 11:21am April 30, 2023 4:16pm USE DIRECTED TO MONITOR BLOOD SUGAR CONTINUOUSLY. CHANGE SENSOR EVERY 14 DAYS Start: 03-13-2023 End: 04-29-2023 Flash Glucose Sensor (Freest yle Bob 2 Sensor) kit Discontinued 0 .Route 1 March 13, 2023 8:03am April 29, 2023 10:21am As directed Start: 03-13-2023 End: 04-29-2023 Flash Glucose Sensor (Freest yle Bob 2 Sensor) kit Discontinued 0 .Route 1 March 13, 2023 9:03am April 29, 2023 11:21am As directed Start: 03-13-2023 End: 04-29-2023 Flash Glucose Sensor (Freest yle Bob 2 Sensor) kit Discontinued 0 .Route 1 March 13, 2023 8:03am April 29, 2023 10:21am As directed Start: 03-13-2023 End: 04-29-2023 Flash Glucose Sensor (Freest yle Bob 2 Sensor) kit Discontinued 0 .Route 1 March 13, 2023 9:03am April 29, 2023 11:21am As directed Start: 01-15-2023 End: 03-13-2023 Flash Glucose Sensor (Freest yle Bob 2 Sensor) kit Discontinued 0 .Route 1 January 15, 2023 12:27pm March 13, 2023 8:03am As directed Start: 01-15-2023 End: 03-13-2023 Flash Glucose Sensor (Freest yle Bob 2 Sensor) kit Discontinued 0 .Route 1 January 15, 2023 1:27pm March 13, 2023 9:03am As directed Start: 01-15-2023 End: 03-13-2023 Flash Glucose Sensor (Freest yle Bob 2 Sensor) kit Discontinued 0 .Route January 15, 2023 12:27pm March 13, 2023 8:03am As directed Start: 01-15-2023 End: 03-13-2023 Flash Glucose Sensor (Freest yle Bob 2 Sensor) kit Discontinued 0 .Route 1 January 15, 2023 1:27pm March 13, 2023 9:03am As directed Start: 01-15-2023 Flash Glucose Sensor (Freestyle Bob 2 Sensor) kit Active 0 .Route January 15, 2023 1:27pm As directed Start: 11-08-2022 End: 01-15-2023 Flash Glucose Sensor (Freest yle Bob 2 Sensor) kit Discontinued 0 .Route 1 November 08, 2022 12:17pm January 15, 2023 12:28pm As directed Start: 11-08-2022 End: 01-15-2023 Flash Glucose Sensor (Freest yle Bob 2 Sensor) kit Discontinued 0 .Route 1 November 08, 2022 1:17pm January 15, 2023 1:28pm As directed Start: 11-08-2022 End: 01-15-2023 Flash Glucose Sensor (Freest yle Bob 2 Sensor) kit Discontinued 0 .Route 1 November 08, 2022 12:17pm January 15, 2023 12:28pm As directed Start: 11-08-2022 End: 01-15-2023 Flash Glucose Sensor (Freest yle Bob 2 Sensor) kit Discontinued 0 .Route 1 November 08, 2022 1:17pm January 15, 2023 1:28pm As directed Start: 11-08-2022 Flash Glucose Sensor (Freestyle Bob 2 Sensor) kit Active 0 .Route 1 November 08, 2022 12:17pm As directed Start: 09-24-2022 End: 11-08-2022 Flash Glucose Sensor (Freest yle Bob 2 Sensor) kit Discontinued 0 .Route 1 September 23, 2022 11:00pm November 08, 2022 12:17pm As directed Start: 09-24-2022 End: 11-08-2022 Flash Glucose Sensor (Freest yle Bob 2 Sensor) kit Discontinued 0 .Route 1 September 24, 2022 12:00am November 08, 2022 1:17pm As directed Start: 09-24-2022 End: 11-08-2022 Flash Glucose Sensor (Freest yle Bob 2 Sensor) kit Discontinued 0 .Route 1 September 24, 2022 12:00am November 08, 2022 1:17pm As directed Start: 09-24-2022 End: 11-08-2022 Flash Glucose Sensor (Freest yle Bob 2 Sensor) kit Discontinued 0 .Route 1 September 23, 2022 11:00pm November 08, 2022 12:17pm As directed fluconazole 200 mg oral tablet (20 sources) Azole Antifungal Start: 12-16-2023 End: 03-16-2024 take 1 tablet by mouth once daily Fluconazole 200 mg tablet Discontinued 200 mg PO DAILY 5 0 January 17, 2024 10:21am March 16, 2024 8:24am Cutaneous fungal infection Superficial mycosis, unspecified glimepiride 4 mg oral tablet (20 sources) Sulfonylurea Start: 11-30-2015 End: 02-09-2022 take 1 tablet by mouth once daily Glimepiride 4 MG tablet Discontinued 4 mg PO DAILY November 30, 2015 12:00am February 09, 2022 12:08pm hydrocortisone 25 mg/ml topical cream (20 sources) Corticosteroid Start: 12-31-2023 End: 03-16-2024 Hydrocortisone 2.5 % cream Discontinued 1 NMA TOPICAL TWICE A DAY as needed for rash 30 December 31, 2023 12:00am March 16, 2024 8:24am ibuprofen 200 mg oral capsule (20 sources) Nonsteroidal Anti-inflammatory Drug Start: 02-09-2022 End: 08-15-2022 take 4 capsules by mouth every six hours as needed for pain Ibuprofen 200 mg capsule Discontinued 800 mg PO EVERY 6 HOURS as needed for Pain February 08, 2022 11:00pm August 15, 2022 8:49am Start: 02-09-2022 End: 08-15-2022 take 800 mg by mouth every six hours Ibuprofen Discontinued 800 MG PO EVERY 6 HOURS February 09, 2022 12:00am August 15, 2022 9:49am 3 ml insulin glargine 100 unt/ml pen injector (20 sources) Insulin Analog Start: 03-26-2023 End: 03-26-2023 Insulin Glargine (Lantus Solostar U-100 Insulin) 100 unit/mL (3 mL) insulin pen Discontinued 5 U SC DAILY 4.5 90 2 March 26, 2023 7:42am March 26, 2023 12:12pm Start: 12-03-2022 End: 03-26-2023 Insulin Glargine (Lantus [place] ostar U-100 Insulin) 100 unit/mL (3 mL) insulin pen Discontinued 15 U SC DAILY 13.5 90 2 December 03, 2022 9:56am March 26, 2023 7:43am Start: 08-15-2022 End: 12-03-2022 Insulin Glargine (Lantus [place] ostar U-100 Insulin) 100 unit/mL (3 mL) insulin pen Discontinued 15 U SC TWICE A DAY 120 0 August 14, 2022 11:00pm December 03, 2022 9:59am losartan potassium 50 mg oral tablet (20 sources) Angiotensin 2 Receptor Yodit Start: 08-15-2022 End: 08-02-2025 take 1 tablet by mouth once daily Losartan 50 mg tablet Discontinued 50 mg PO DAILY 90 1 February 08, 2025 3:26pm August 02, 2025 5:57pm miconazole nitrate 0.02 mg/mg topical powder (20 sources) Azole Antifungal Start: 01-17-2024 End: 06-22-2024 Miconazole Nitrate (Antifungal (Miconazole)) 2 % powder Discontinued 1 NMA TOPICAL TWICE A DAY 85 1 January 17, 2024 12:00am June 22, 2024 8:15am Cutaneous fungal infection Superficial mycosis, unspecified apply twice a day x3 weeks or until rash is clear then apply for 1 week thereafter Multivitamin Capsule (20 sources) Start: 08-13-2022 End: 08-15-2022 Multivitamin Capsule Discontinued 1 NMA PO DAILY August 12, 2022 11:00pm August 15, 2022 8:45am Start: 08-13-2022 End: 08-15-2022 Multivitamin Capsule Discont inued 1 NMA PO DAILY August 13, 2022 12:00am August 15, 2022 9:45am Multivitamin preparation (9 sources) Start: 08-13-2022 End: 08-15-2022 take 1 capsule by mouth once daily Multivitamin Discontinued 1 CAP PO DAILY August 12, 2022 11:00pm August 15, 2022 8:45am Start: 08-13-2022 End: 08-15-2022 take 1 capsule by mouth once daily Multivitamin Discontinued 1 CAP PO DAILY August 13, 2022 12:00am August 15, 2022 9:45am Start: 08-13-2022 take 1 capsule by mo [facility] once daily Multivitamin Active 1 CAP PO DAILY August 13, 2022 12:00am nystatin 100 unt/mg topical powder (20 sources) Polyene Antifungal Start: 12-16-2023 End: 01-17-2024 Nystatin 100,000 unit/gram powder Discontinued 1 NMA TOPICAL THREE TIMES A DAY 60 2 December 16, 2023 12:00am January 17, 2024 10:22am Start: 12-16-2023 End: 01-17-2024 Nystatin Discontinued 1 APPL IC TOPICAL THREE TIMES A DAY 60 December 16, 2023 1:00am January 17, 2024 11:22am predniSONE 10 mg oral tablet (18 sources) Start: 06-02-2025 End: 07-12-2025 take 4 tablets by mouth once daily, then take 3 tablets by mouth once daily, then take 2 tablets by mouth once daily, then take 1 tablet by mouth once daily Prednisone 10 mg tablet Discontinued 10 mg PO daily 30 0 June 01, 2025 11:00pm July 12, 2025 9:29am 4 tablets daily x3 days, then 3 tablets daily x3 days, then 2 tablets daily x3 days, then 1 tablet daily x3 days rosuvastatin calcium 10 mg oral tablet (20 sources) HMG-CoA Reductase Inhibitor Start: 03-29-2025 End: 06-02-2025 take 1 tablet by mouth once daily Rosuvastatin 10 mg tablet Discontinued 10 mg PO daily 30 March 28, 2025 11:00pm June 02, 2025 1:44pm Semaglutide (20 sources) Start: 03-26-2023 End: 03-26-2023 Semaglutide (Ozempic) 1 mg/dose (4 mg/3 mL) pen injector Discontinued 2 mg SC EVERY WEEK 19.5 90 March 26, 2023 7:42am March 26, 2023 12:12pm Start: 03-26-2023 End: 03-26-2023 Semaglutide (Ozempic) 1 mg/d ose (4 mg/3 mL) pen injector Discontinued 2 mg SC EVERY WEEK 19.5 90 March 26, 2023 8:42am March 26, 2023 1:12pm Start: 03-26-2023 End: 03-26-2023 Semaglutide (Ozempic) 1 mg/d ose (4 mg/3 mL) pen injector Discontinued 2 mg SC EVERY WEEK 19.5 90 March 26, 2023 8:42am March 26, 2023 1:12pm Start: 03-26-2023 End: 03-26-2023 Semaglutide (Ozempic) 1 mg/d ose (4 mg/3 mL) pen injector Discontinued 2 MG SC EVERY WEEK 19.5 90 March 26, 2023 7:42am March 26, 2023 12:12pm Start: 03-26-2023 End: 03-26-2023 Semaglutide (Ozempic) 1 mg/d ose (4 mg/3 mL) pen injector Discontinued 2 MG SC EVERY WEEK 19.5 90 March 26, 2023 8:42am March 26, 2023 1:12pm Start: 12-03-2022 End: 03-26-2023 Semaglutide (Ozempic) 1 mg/d ose (4 mg/3 mL) pen injector Discontinued 1 mg SC EVERY WEEK 9.75 90 December 03, 2022 9:55am March 26, 2023 7:43am Start: 12-03-2022 End: 03-26-2023 Semaglutide (Ozempic) 1 mg/d ose (4 mg/3 mL) pen injector Discontinued 1 mg SC EVERY WEEK 9.75 90 December 03, 2022 10:55am March 26, 2023 8:43am Start: 12-03-2022 End: 03-26-2023 Semaglutide (Ozempic) 1 mg/d ose (4 mg/3 mL) pen injector Discontinued 1 mg SC EVERY WEEK 9.75 December 03, 2022 10:55am March 26, 2023 8:43am Start: 12-03-2022 End: 03-26-2023 Semaglutide (Ozempic) 1 mg/d ose (4 mg/3 mL) pen injector Discontinued 1 MG SC EVERY WEEK 9.75 December 03, 2022 9:55am March 26, 2023 7:43am Start: 12-03-2022 End: 03-26-2023 Semaglutide (Ozempic) 1 mg/d ose (4 mg/3 mL) pen injector Discontinued 1 MG SC EVERY WEEK 9.75 December 03, 2022 10:55am March 26, 2023 8:43am Start: 12-03-2022 Semaglutide (O zempic) 1 mg/dose (4 mg/3 mL) pen injector Active 1 MG SC EVERY WEEK 9.75 December 03, 2022 10:55am Start: 09-24-2022 End: 12-03-2022 Semaglutide (Ozempic) 1 mg/d ose (4 mg/3 mL) pen injector Discontinued 0.5 mg SC EVERY WEEK 4.875 90 September 24, 2022 8:29am December 03, 2022 9:59am 0.25 WEEKLY X 1 MONTH THEN INCREASE TO 0.5 Start: 09-24-2022 End: 12-03-2022 Semaglutide (Ozempic) 1 mg/d ose (4 mg/3 mL) pen injector Discontinued 0.5 mg SC EVERY WEEK 4.87 90 September 24, 2022 9:29am December 03, 2022 10:59am 0.25 WEEKLY X 1 MONTH THEN INCREASE TO 0.5 Start: 09-24-2022 End: 12-03-2022 Semaglutide (Ozempic) 1 mg/d ose (4 mg/3 mL) pen injector Discontinued 0.5 mg SC EVERY WEEK 4.September 24, 2022 9:29am December 03, 2022 10:59am 0.25 WEEKLY X 1 MONTH THEN INCREASE TO 0.5 Start: 09-24-2022 End: 12-03-2022 Semaglutide (Ozempic) 1 mg/d ose (4 mg/3 mL) pen injector Discontinued 0.5 MG SC EVERY WEEK 4.September 24, 2022 8:29am December 03, 2022 9:59am 0.25 WEEKLY X 1 MONTH THEN INCREASE TO 0.5 Start: 09-24-2022 End: 12-03-2022 Semaglutide (Ozempic) 1 mg/d ose (4 mg/3 mL) pen injector Discontinued 0.5 MG SC EVERY WEEK 4.September 24, 2022 9:29am December 03, 2022 10:59am 0.25 WEEKLY X 1 MONTH THEN INCREASE TO 0.5 Start: 09-24-2022 Semaglutide (O zempic) 1 mg/dose (4 mg/3 mL) pen injector Active 0.5 MG SC EVERY WEEK 4.September 24, 2022 8:29am 0.25 WEEKLY X 1 MONTH THEN INCREASE TO 0.5 Start: 08-21-2022 End: 09-24-2022 Semaglutide (Ozempic) 1 mg/d ose (4 mg/3 mL) pen injector Discontinued 0.25 mg SC EVERY WEEK 3 August 20, 2022 11:00pm September 24, 2022 8:29am 0.25 WEEKLY X 1 MONTH THEN INCREASE TO 0.5 Start: 08-21-2022 End: 09-24-2022 Semaglutide (Ozempic) 1 mg/d ose (4 mg/3 mL) pen injector Discontinued 0.25 mg SC EVERY WEEK 3 August 21, 2022 12:00am September 24, 2022 9:29am 0.25 WEEKLY X 1 MONTH THEN INCREASE TO 0.5 Start: 08-21-2022 End: 09-24-2022 Semaglutide (Ozempic) 1 mg/d ose (4 mg/3 mL) pen injector Discontinued 0.25 mg SC EVERY WEEK 3 August 21, 2022 12:00am September 24, 2022 9:29am 0.25 WEEKLY X 1 MONTH THEN INCREASE TO 0.5 Start: 08-21-2022 End: 09-24-2022 Semaglutide (Ozempic) 1 mg/d ose (4 mg/3 mL) pen injector Discontinued 0.25 MG SC EVERY WEEK 3 August 21, 2022 12:00am September 24, 2022 9:29am 0.25 WEEKLY X 1 MONTH THEN INCREASE TO 0.5 Start: 08-21-2022 End: 09-24-2022 Semaglutide (Ozempic) 1 mg/d ose (4 mg/3 mL) pen injector Discontinued 0.25 MG SC EVERY WEEK August 20, 2022 11:00pm September 24, 2022 8:29am 0.25 WEEKLY X 1 MONTH THEN INCREASE TO 0.5 Semaglutide (5 sources) Start: 06-25-2023 End: 06-27-2023 Semaglutide Discontinued 2 M G SC EVERY WEEK 9.75 June 25, 2023 10:09am June 27, 2023 2:03pm Start: 06-25-2023 End: 06-27-2023 Semaglutide Discontinued 2 M G SC EVERY WEEK 9.75 June 25, 2023 11:09am June 27, 2023 3:03pm Semaglutide 2 mg/dose (8 mg/ 3 mL) pen injector (17 sources) Start: 06-25-2023 End: 06-27-2023 Semaglutide 2 mg/dose (8 mg/ 3 mL) pen injector Discontinued 2 mg SC EVERY WEEK 9.75 90 June 25, 2023 11:09am June 27, 2023 3:03pm Start: 06-25-2023 End: 06-27-2023 Semaglutide 2 mg/dose (8 mg/ 3 mL) pen injector Discontinued 2 mg SC EVERY WEEK 9.75 90 June 25, 2023 11:09am June 27, 2023 3:03pm triamcinolone acetonide 0.005 mg/mg topical ointment (20 sources) Corticosteroid Start: 03-16-2024 End: 06-22-2024 Triamcinolone Acetonide 0.5 % ointment Discontinued 1 NMA TOPICAL TWICE A DAY 15 March 15, 2024 11:00pm June 22, 2024 8:15am Problems Active Problems Problem Classification Problem Date Documented Date Episodic/Chronic Acute cerebrovascular disease (20 sources) Cerebrovascular accident; Translations: [Cerebral infarction, unspecified] Chronic Comment on above: 07/2022, NO RESIDUAL Cardiac dysrhythmias (12 sources) Palpitations; Translations: [Palpitations] Onset: 08-16-2025 07-19-2025 Episodic Diabetes mellitus with complications (1 source) Type 2 diabetes mellitus with other specified complication; Translations: [Type 2 diabetes mellitus with other specified complication] Onset: 07-12-2025 Chronic Diabetes mellitus without complication (20 sources) Type 2 diabetes mellitus; Translations: [Type 2 diabetes mellitus without complications] Onset: 12-21-2024 Chronic Disorders of lipid metabolism (20 sources) Hyperlipidemia; Translations: [Hyperlipidemia, unspecified] 12-03-2022 Chronic Essential hypertension (20 sources) Hypertensive disorder; Translations: [Essential (primary) hypertension] Chronic Fracture of upper limb (20 sources) Fracture of radial neck; Translations: [Nondisplaced fracture of neck of right radius, initial encounter for closed fracture] Episodic Headache; including migraine (20 sources) Headache; Translations: [Headache] Episodic Malaise and fatigue (1 source) Chronic fatigue, unspecified; Translations: [Chronic fatigue, unspecified] Onset: 09-22-2025 Chronic Malaise and fatigue (20 sources) Right hemiparesis; Translations: [Weakness] Episodic Miscellaneous mental health disorders (20 sources) Anxiety about body function or health; Translations: [Other symptoms and signs involving emotional state] 06-22-2024 Episodic Mycoses (20 sources) Dermal mycosis; 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, unspecified] 12-16-2023 Episodic Nonmalignant breast conditions (20 sources) Mastodynia; Translations: [Pain of left breast] 12-03-2022 Episodic Nonspecific chest pain (20 sources) Chest pain; Translations: [Chest pain, unspecified] 06-22-2024 Episodic Osteoarthritis (20 sources) Arthritis of first carpometacarpal joint of right hand; Translations: [Unilateral primary osteoarthritis of first carpometacarpal joint, right hand] Onset: 09-09-2025 06-11-2025 Chronic Comment on above: Right Thumb Other connective tissue disease (20 sources) Tenosynovitis of right radial styloid; Translations: [Radial styloid tenosynovitis [de Quervain]] 06-02-2025 Episodic Other connective tissue disease (20 sources) Tendinitis of hand; Translations: [Other enthesopathies, not elsewhere classified] 06-11-2025 Episodic Other connective tissue disease (1 source) Other enthesopathies, not elsewhere classified; Translations: [Other enthesopathies, not elsewhere classified] Onset: 09-09-2025 Episodic Other connective tissue disease (1 source) Radial styloid tenosynovitis [de Quervain]; Translations: [Radial styloid tenosynovitis [de Quervain]] Onset: 07-30-2025 Episodic Other nervous system disorders (20 sources) Neuropathy of lower limb; Translations: [Unspecified mononeuropathy of unspecified lower limb] 12-23-2022 Chronic Other nervous system disorders (2 sources) Unspecified mononeuropathy of unspecified lower limb; Translations: [Mononeuritis of lower limb, unspecified] 09-03-2023 Chronic Other nervous system disorders (20 sources) Numbness; Translations: [Anesthesia of skin] 12-23-2022 Episodic Other nervous system disorders (5 sources) Anesthesia of skin; Translations: [Disturbance of skin sensation] 12-17-2022 Episodic Other upper respiratory infections (20 sources) Acute frontal sinusitis; Translations: [Acute frontal sinusitis, unspecified] 02-12-2023 Episodic Residual codes; unclassified (20 sources) Family history of malignant neoplasm of breast in first degree relative; Translations: [Family history of malignant neoplasm of breast] 12-03-2022 Episodic Residual codes; unclassified (1 source) Family history of malignant neoplasm of breast; Translations: [Family history of malignant neoplasm of breast] 12-03-2022 Episodic Residual codes; unclassified (20 sources) Influenza vaccination declined; Translations: [Immunization not carried out because of patient refusal] 09-21-2024 Episodic Unclassified (3 sources) Tendinitis of thumb Unclassified (8 sources) M77.8 - Other enthesopathies, not elsewhere classified,M18.11 - Unilateral primary osteoarthritis of first carpometacarpal joint, right hand Past or Other Problems Problem Classification Problem Date Documented Da te Episodic/Chronic Other screening for suspected conditions (not mental disorders or infectious disease) (20 sources) Patient encounter status; Translations: [Encounter for other screening for malignant neoplasm of breast] Onset: 10-19-2024 01-17-2024 Episodic Results Test Name Value Interpretation Reference Range Facility Office Visit Reporton 2024 Office Visit Report [facility] [address] [place] [address] OFFICE VISIT Date of Service: 09/13/25 MR#: [id number] Acct: [id number] Patient: ARELIS BACON Rep #: [id number] : 1975 Provider: Dr. Lukas fields MD Age/Sex: 50/F Location: [facility] Status: Signed Intake Vital Signs 08/09/25 13:09 08/31/25 14:20 09/13/25 08:40 Height 5 ft 6 in 5 ft 6 in 5 ft 6 in Weight: 163 lb BMI 26.3 BP 113/80 Blood Pressure Location Rt brachial Position Sitting Respiration 17 Pulse 106 H Pulse Source Monitor Temp 98.0 F Temp Source Temporal Pulse Oximetry (%) 94 Oxygen Delivery Method room air Intake Visit Reasons: B12 inject Chief Complaint: Allergies adhesive Allergy (Unknown, Verified 08/31/25 14:21) Rash cephalexin monohydrate (From Keflex) Adverse Reaction (Intermediate, Verified 08/31/25 14:21) Hives Iodinated Contrast Media Adverse Reaction (Intermediate, Verified 08/31/25 14:21) Sneezing Office Meds cyanocobalamin (vitamin B-12) 1,000 mcg/mL injection solution Performing Provider: Lukas Wang MD Performing Location: [facility] Administered by: Jazzy Lagos on 09/13/25 08:42 Dose Route Admin Location Dispensed Lot Number Expiration Date Package NDC NDC Propulsion Systems Engineer 1,500 mcg IM right deltoid 1.5 mL [id number] 03/24/27 40017-811-72 [id number] S OMERSET THERAP Comments: The patient presents for B12 injection for treatment of fatigue. She has fatigue. Her last B12 injection was of benefit for fatigue. The patient is awake and alert. B12 1500mcg IM was administered today. There were no complications. Assessment and Plan Assessment and Plan (1) Fatigue: Status: Chronic Qualifiers: Fatigue type: chronic, unspecified Qualified Code(s): R53.82 - Chronic fatigue, unspecified Orders: Orders Vitamin B12 09/13/25 R53.82 - Chronic fatigue, unspecified 09/14/25 0002 Date Lukas Green Signature: Date (if applicable) CC: Normal [facility] OT D/C Summaryon 09-09-2025 OT D/C Summary [facility] [place] [address] / REHABILITATION SERVICES DISCHARGE SUMMARY MR#: [id number] Acct: [id number] Name: ARELIS BACON Rep #: [id number] : 1975 50 From: Erin JIMENEZ/Speedy, CHT Referring DrDominique: SAGRARIO Dozier Status: REG RCR Eval Date: Discharge Date: Discharge Summary D/C Summary: It has been my pleasure to treat ARELIS BACON under orders from SAGRARIO Norton, for the diagnosis of right thumb pain cmc OA, pain for a total of 6 visit(s). Please see the following information for a summary of their discharge status. Overall Improvement % Improvement: 90 Objective Objective/Function: pt demo understanding of orthosis right design draftsman strength 40# increase from 10# right lateral pinch 2# increase from 0 right tripod pinch 2# increase from 0 right wrist ROM 60/6 increase from 55/30 right cmc 10* same as eval right MPJ flexion 50* same as eval right IP flexion 50* increase from 30* pt is out of her splint most of the time- only wearing when needed. 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 pt agrees with D/C Goals Patient Goals: Decrease Pain, Use Hand/Wrist/Arm Normally Again and Be More Independent in ADLS Goal:: pt will demo a increase in right design draftsman strength by 15# or greater to return pt to her PLOF by d.c. ( goal met) pt will demo a increase in right lateral and tripod pinch by 4# to increase pts IND. wtih ADLs by dc. ( progressing able to pinch 2# more discomfort at CMCJ) Goal:: pt will demo a increase in right wrist ROM by 10* to improve pts functional use of right dominate hand by d/c. ( goal met ) Goal:: pt will report no pain greater than 2/10 with use of right UE with ADLs by d.c ( goal met) Goal:: Pt will demo understanding of joint protection and ergonomics when performing BADLs and IADLs by d/c ( goal met ) Pt will demo understanding of adaptive Equipment use to decrease stress on joints to allow pt to perform BADSL and IADLS at SHERLY level. ( goal met) Goal:: Pt will demo understanding of using supportive bracing 80% of workday/ADLS to decrease stress on tendon origin to allow healing and decrease pain by end of 2nd session. 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 Thank you for the referral of this patient. Sincerely, Erin Garrett, ALYSONR/Speedy, CHT 09/09/25 1016 CC: BLUEBERRY GROWERJason Dozier; Dr. Heather Ugarte MD MK Signed Normal [facility] Plastic Surgery Visit Report on 08-31-2025 Plastic Surgery Visit Report [facility] Plastic Reconstructive Surgery [address], [address] [place] [address] OFFICE VISIT Date of Service: 08/31/25 MR#: [id number] Acct: [id number] Name: ARELSI BACON Rep #: [id number] : 1975 Provider: Dr. Nick Lee MD Age/Sex: 50/F Location: [place] [address] Status: Signed Intake Vital Signs 08/03/25 13:03 08/16/25 08:13 08/31/25 14:20 Height 5 ft 6 in 5 ft 6 in 5 ft 6 in Weight: 164 lb 13 oz BMI 26.6 BP 121/80 H Blood Pressure Location Rt brachial Position Sitting Respiration 17 Pulse 74 Pulse Source Monitor Temp 98.2 F Temp Source Temporal Pulse Oximetry (%) 94 Oxygen Delivery Method room air Intake Visit Reasons: RIGHT HAND Chief Complaint: right thumb and wrist pain-tendonitis Is patient in pain?: Yes (/) Allergies adhesive Allergy (Unknown, Verified 08/31/25 14:21) Rash cephalexin monohydrate (From Keflex) Adverse Reaction (Intermediate, Verified 08/31/25 14:21) Hives Iodinated Contrast Media Adverse Reaction (Intermediate, Verified 08/31/25 14:21) Sneezing Medications ???Medication ???Instructions ???Recorded ???Confirmed ???Type aspirin 81 mg chewable tablet 162 mg (2 x 81 mg) PO BREAKFAST 08/31/25 Rx #90 tabs cyanocobalamin (vitamin B-12) 100 100 mcg .Route .Q30 DAYS 03/11/23 08/31/25 History mcg/mL injection solution semaglutide 2 mg/dose (8 mg/3 mL) 2 mg (0.75 mL) subcut QWEEK 3 06/1708/31/25 Rx subcutaneous pen injector (Ozempic) months #9.75 mL metformin 500 mg tablet,extended 1,000 mg (2 x 500 mg) PO BID 3 04/1808/31/25 Rx release 24 hr months #360 tabs blood-glucose sensor (FreeStyle #1 ea 08/02/25 08/31/25 Rx Bob 3 Plus Sensor device) blood-glucose,freight manager,con t #1 ea 08/02/25 08/31/25 Rx (FreeStyle Bob 3 [place]) losartan 50 mg tablet 50 mg PO DAILY #90 TABLETS 5 08/31/25 Rx carvedilol 3.125 mg tablet 3.125 mg PO Q12H #60 tabs 08/06/25 08/31/25 Rx Nurse's Note: pt was seeing Alfredo Dozier NP, and has had OT therapy for right thumb and wrist pain. Rating pain at 2/10. Does use splint which helps. Kenalog [facility][NOTE 3] 9869-6210-31 LOT [id number] EXP 03/25/2027 Bupivacaine 0.25% [facility][NOTE 3] 6702-4226-23 LOT [id number] EXP 10/24/2025 [facility] Medical History Palpitations De Quervain's tenosynovitis, right Post-menopausal Alcohol use Diabetes Migraine headache Dietary restriction Former smoker History of Holter monitoring History of echocardiogram History of stress test Hypertension Flu vaccine refused Anxiety about health Chest pain Abnormal EKG Colon cancer screening Health care maintenance Psoriasis Fungal dermatitis Numbness on right side Fatigue Acute frontal sinusitis, unspecified Hyperlipidemia Family history of breast cancer in first degree relative Breast pain, left Headache Type 2 diabetes mellitus Right sided weakness CVA (cerebral vascular accident) History of gallstones History of fracture of clavicle History of wrist fracture Nondisplaced fracture of neck of right radius Surgical History H/O breast biopsy History of History of cholecystectomy H/O abdominoplasty H/O adenoidectomy Family History Mother Diabetes Breast cancer, Onset Age: 60 Hypertension High cholesterol CVA (cerebral vascular accident) Thyroid disorder Father Diabetes Myocardial infarction, Onset Age: 65 Hypertension Social History adopted: No household members: significant other number of children: 4 current occupational status: employed 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 current occupational exposures/hazards: No pets and animals: Yes history of recent travel: No sexually active: Yes Smoking Status: Former smoker Tobacco: How many years used: 20 second hand exposure: No quit status: quit date established alcohol intake: current alcohol intake frequency: other Alcohol type: wine details: occasionally substance use type: does not use caffeine: Yes Type: coffee Number of servings: 1 eating out: 1-3 times/week during the past year weight has: remained stable what type of physical activity do you participate in: none jessa/jainism: None seatbelt use: always do you feel safe at home: Yes HPI RIGHT HAND Details: The patient is a 50-year-old female presenting with right thumb pain and dysfunction. She reports pain and popping in the right thumb area, particularly when moving it up and down, which she attributes to arthritis. She has been working with a therapist named aRmandeep for three wee (more content not included)... Normal [facility] Office Visit Reporton 2024 Office Visit Report [facility] [address] [place] [address] OFFICE VISIT Date of Service: 08/16/25 MR#: [id number] Acct: [id number] Patient: ARELIS BACON Rep #: [id number] : 1975 Provider: Dr. Lukas fields MD Age/Sex: 50/F Location: [facility] Status: Signed Intake Vital Signs 07/12/25 10:30 08/09/25 13:09 08/16/25 08:13 Height 5 ft 6 in 5 ft 6 in 5 ft 6 in Weight: 160 lb 164 lb 13 oz BMI 25.8 26.6 BP 129/84 H 121/80 H Blood Pressure Location Rt brachial Rt brachial Position Sitting Sitting Respiration 16 17 Pulse 106 H 74 Pulse Source Monitor Monitor Temp 98.4 F 98.2 F Temp Source Temporal Temporal Pulse Oximetry (%) 98 94 Oxygen Delivery Method room air room air Intake Visit Reasons: B12 inject Chief Complaint: Allergies adhesive Allergy (Unknown, Verified 08/09/25 13:12) Rash cephalexin monohydrate (From Keflex) Adverse Reaction (Intermediate, Verified 08/09/25 13:12) Hives Iodinated Contrast Media Adverse Reaction (Intermediate, Verified 08/09/25 13:12) Sneezing Office Meds cyanocobalamin (vitamin B-12) 1,000 mcg/mL injection solution Performing Provider: Lukas Wang MD Performing Location: [facility] Administered by: Jazzy Carreradenisse on 08/16/25 08:15 Dose Route Admin Location Dispensed Lot Number Expiration Date Package NDC NDC Propulsion Systems Engineer 1,500 mcg IM right deltoid 1.5 mL [id number] 03/24/27 31631-068-80 [id number] V ASUNCIONUVROHINI SARAVIA Comments: The patient presents for B12 injection for treatment of fatigue. She has fatigue. Her last B12 injection was of benefit for fatigue. The patient is awake and alert. B12 1500mcg IM was administered today. There were no complications. Assessment and Plan Assessment and Plan (1) Fatigue: Status: Chronic Qualifiers: Fatigue type: chronic, unspecified Qualified Code(s): R53.82 - Chronic fatigue, unspecified Orders: Orders Vitamin B12 Today R53.82 - Chronic fatigue, unspecified 08/16/251751 Date Lukas Wang MD Cosigner Signature: Date (if applicable) CC: Normal [facility] Neurology Visit Reporton Neurology Visit Report [facility] [address] [place] [address] OFFICE VISIT Date of Service: 08/09/25 MR#: [id number] Acct: [id number] Name: ARELIS BACON Rep #: [id number] : 1975 Provider: Dr. Lukas fields MD Age/Sex: 50/F [place] [facility] Status: Signed HPI HPI Chief Complaint: Details: Interim History: Arelis returns for follow-up visit. She has a history of hypertension, diabetes mellitus and hyperlipidemia (all three conditions were diagnosed in 2021). In July 2022, she experienced an episode of feeling unwell and right-sided weakness. She exhibited dragging of the right foot. She had an episode of nausea and vomiting on the day the symptoms began. She had some word finding difficulty and dysarthria. She did not have vision change or headache. Her blood pressure at home was noted to be elevated (around 158/100). She presented to the emergency room; her blood pressure was 178/96. Teleneurology consult reported that she complained of left sided facial numbness and right arm and right leg numbness and also had some right arm and right leg weakness. She was noted to have a right drift. On evaluation, she was found to have an acute left thalamic infarct. A question of an old small left cerebellar infarct was noted on her head MRI. She was outside the window for thrombolytic therapy. At the time of her hospital evaluation, she was also diagnosed with hypertension, diabetes mellitus and hyperlipidemia and was started on treatment for these three conditions. She subsequently made dietary changes and has had normalization of her lipid profile and she discontinued atorvastatin in November 2022. A neck CTA did not reveal hemodynamically significant arterial stenosis; a head CTA revealed 50- 75% stenosis of the cavernous portions of the internal carotid arteries bilaterally. She was started on aspirin 162 mg daily. She was also given a 3-week course of clopidogrel. She received physical therapy, occupational therapy and speech therapy and her deficits resolved over a period of 6 to 8 weeks. She does not have any history of bleeding/clotting disorder. She does not have any history of miscarriage. She does not have any history of symptomatic stroke prior to July 2022 and has had no further symptoms suggestive of recurrent cerebrovascular ischemia since July 2022. She is tolerating aspirin well. She quit smoking in 2010. Mini-Mental status exam score was 30/30 in November 2022. She has fatigue. Her B12 level was near the low end of the normal range. B12 injections have been of benefit for her fatigue. Physical Exam: Neuro: The patient is awake and alert and responds appropriately; speech is fluent; gait is normal Neck: No bruits Heart: Regular rhythm; tachycardia Supplemental Info CBC, PT/PTT, BMP, hemoglobin A1c, troponin (08/13/2022): Hemoglobin 15.3 (high), glucose 295 (high), hemoglobin A1c 11.7 (high), BUN/creatinine ratio 24.4 (high) Cardiac echo (08/13/2022): Left ventricular systolic function is normal. The estimated ejection fraction is 60 %. Mild (1+) mitral valve insufficiency. Trivial tricuspid valve insufficiency. Unable to estimate RV systolic pressure due to insufficient tricuspid regurgitant envelope. Diastolic function is indeterminate. Bubble contrast study negative for right to left interatrial shunt. EKG (08/13/2022): Sinus tachycardia (ventricular rate 102 bpm); inferior IA, age undetermined, cannot be excluded. Head CT (08/13/2022): Normal unenhanced CT scan of the brain. These images were reviewed on 12/17/2022. Head and neck CTA (08/13/2022): FINDINGS: Normal bilateral petrous carotid arteries. There is calcified plaque formation of the right cavernous carotid artery, with a moderate stenosis (50-75%). There is calcified plaque formation of the left cavernous carotid artery, with a moderate stenosis (50-75%). Normal right A1 segments of the anterior cerebral artery. Normal left A1 segments of the anterior cerebral artery. Normal intact anterior communicating artery (ACOM). Normal bilateral A2 segments of the anterior cerebral arteries. Normal right M1 and M2 segments of the middle cerebral arteries, with a normal M1 bifurcation. Normal left M1 and M2 segments of the middle cerebral arteries, with a normal M1 bifurcation. There is non-visualization of the right posterior communicating artery (PCOM). There is non-visualization of the left posterior communicating artery (PCOM). Normal bilateral vertebral arteries. Normal basilar artery with a normal basilar bifurcation. The visualized bilateral superior cerebellar (SCA) arteries are normal. Normal bilateral P1, P2 and visualized P3 segments of the posterior cerebral arteries. There is no demonstrated aneurysm of the tolowa dee-ni' of Quiros. There is no demonstrated abnormality of the visualized brain. AORTIC ARC (more content not included)... Normal [facility] OT General Evaluationon 07-26 OT General Evaluation [facility]ational [facility] [place] [address] / REHABILITATION SERVICES INITIAL EVALUATION MR#: [id number] Acct: [id number] Name: ARELIS BACON Rep #: [id number] : 1975 50 From: Erin JIMENEZ/Speedy, LITAT Referring Dr.: SAGRARIO Dozier Status: REG RCR Insurance: [employer] [facility] Date: SELF PAY INSURANCE Patient's Visit Information Visit Information Visit Information: ARELIS BACON is a 50 year old F, referred to Occupational Therapy by SAGRARIO Norton, with a diagnosis of right thumb pain cmc OA, pain. Date of Evaluation: 08/04/25 Occupational Therapist: Erin Garrett, BARBARA/Speedy, CHT Subjective Subjective: This 50 year old female was seen for OT eval with dx of right unilateral primary osteoarthritis of first carpometacarpal joint. pt states end of April she started having pain- pt states pain was very intense she went to [facility]. 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 pt is limited with daily tasks due to pain of her right thumb. pt would like to know what she can do to return to a PLOF. Pain right hand: Current Pain Intensity: 2 Pain Intensity Range: 7 ROM Wrist: right 55/30 left 75/70 CMC: right 10 left 15 MP: right 50 left 60 IP: right 30 left 50 Palmar Abduction: right 45 left 55* Strength Automatic Corn Grinder Operator: right 10# left 50# Lateral Pinch: right unable left 4# Tripod Pinch: right unable left 4# Sensation Sensation Comments: denies Quick DASH-Disab of Arm,Shoulder Hand Quick DASH Score: 36.6650 Goals Goal:: pt will demo a increase in right design draftsman strength by 15# or greater to return pt to her PLOF by d.c. pt will demo a increase in right lateral and tripod pinch by 4# to increase pts IND. wtih ADLs by dc. Goal:: pt will demo a increase in right wrist ROM by 10* to improve pts functional use of right dominate hand by d/c. Goal:: pt will report no pain greater than 2/10 with use of right UE with ADLs by d.c Goal:: Pt will demo understanding of joint protection and ergonomics when performing BADLs and IADLs by d/c Pt will demo understanding of adaptive Equipment use to decrease stress on joints to allow pt to perform BADSL and IADLS at SHERLY level. Goal:: Pt will demo understanding of using supportive bracing 80% of workday/ADLS to decrease stress on tendon origin to allow healing and decrease pain by end of 2nd session. Rehabilitation General Assessment: pt demo with right thumb pain that limits her use of right dominate hand with daily tasks. Pt would benefit from skilled OT services 1-2x week for 4 weeks. Today therapist josiane. custom thumb spica orthosis with wrist included to decrease joint stress and pain. Therapist ed. pt on CMC braces once pain decreases that will support cmc but not limit her wrist ROM. Therapist ed. pt on joint protection bertha. pt demo understanding and agree to POC. Rehabilitation Potential: Good Anticipated Interventions Anticipated Interventions: A/AAROM/PROM, Strengthening, Triggerpoint Release, Modalities, Orthoses, Joint Protection/Energy Conservation and Ergonomic Education Visit Plan Frequency: 1-2x /Week Duration: 4 Weeks General Plan: orthosis to decrease pain and support CMC ed. on joint protection bertha. info on thumb care strengthen as zander. TEXT: Thank you for the opportunity to evaluate your patient. For Medicare and Medicare HMO plans, please review the plan of care and approve it. It will need to be FAXED BACK to us at [phone] for Medicare purposes. Please let me know if there are questions or concerns regarding this plan of care. Physician Signature: Date: 08/04/25 1707 CC: SAGRARIO Dozier; Dr. Heather Ugarte MD JM Signed For Medicare only, by signing this I certify the plan of care. __ Physicians Signature Date Normal [facility] Hand Min 3 Viewson 5 Hand Min 3 Views [facility] Imaging Services [address] [place] [address] Hand Min 3 Views MR#: [id number] Acct: [id number] Name: ARELIS BACON Rep #: [id number] : 1975 F 50 From: Eren hernandez MD PCP: Dr. Heather Ugarte MD Status: DEP AMB Study: Hand Min 3 Views Date of Exam: 08/03/25 Exam# [id number] Ordering Dr: Tonya Dozier PROCEDURE: HAND MIN 3 VIEWS 08/03/2025 REASON FOR EXAM: CONTINUED PAIN IN THUMB TECHNIQUE: Procedure Code: TIEN Modality: DX Procedure: HAND MIN 3 VIEWS Laterality: Right COMPARISON: Available priors FINDINGS: Bones: Bone mineralization is preserved. No acute fracture or dislocation. No destructive process. No erosions. Joints: No dislocation. No effusion. Soft tissues:No soft tissue edema. No radiopaque foreign body. RAD/Hand Min 3 Views IMPRESSION: No acute osseous abnormality. Reading Location: [id number] CC: SAGRARIO Dozier; Dr. Heather Ugarte MD Readiness Paraprofessional: Signed Normal [facility] Orthopedic Visit Reporton Orthopedic Visit Report [facility] [address] [place] [address] [address] [place] [address] OFFICE VISIT Date of Service: 08/03/25 MR#: [id number] Acct: [id number] Name: ARELIS BACON Rep #: [id number] : 1975 Provider: SAGRARIO figueroa Age/Sex: 50/F [place] [facility] Status: Signed Intake Vital Signs 07/15/25 07:54 08/03/25 13:03 Height 5 ft 6 in 5 ft 6 in Weight: 160 lb BMI 25.8 Intake Visit Reasons: RIGHT HAND Chief Complaint: Right hand 1 week follow up Accompanied by: Self Is patient in pain?: Yes Pain scale (1-10): 4 Allergies adhesive Allergy (Unknown, Verified 08/03/25 13:05) Rash cephalexin monohydrate (From Keflex) Adverse Reaction (Intermediate, Verified 08/03/25 13:05) Hives Iodinated Contrast Media Adverse Reaction (Intermediate, Verified 08/03/25 13:05) Sneezing Medications ???Medication ???Instructions ???Recorded ???Confirmed ???Type aspirin 81 mg chewable tablet 162 mg (2 x 81 mg) PO BREAKFAST 08/03/25 Rx #90 tabs cyanocobalamin (vitamin B-12) 100 100 mcg .Route .Q30 DAYS 03/11/23 08/03/25 History mcg/mL injection solution semaglutide 2 mg/dose (8 mg/3 mL) 2 mg (0.75 mL) subcut QWEEK 3 06/1708/03/25 Rx subcutaneous pen injector (Ozempic) months #9.75 mL metformin 500 mg tablet,extended 1,000 mg (2 x 500 mg) PO BID 3 04/1808/03/25 Rx release 24 hr months #360 tabs blood-glucose sensor (FreeStyle #1 ea 08/02/25 08/03/25 Rx Bob 3 Plus Sensor device) blood-glucose,freight manager,con t #1 ea 08/02/25 08/03/25 Rx (FreeStyle Bob 3 [place]) losartan 50 mg tablet 50 mg PO DAILY #90 TABLETS 5 08/03/25 Rx Have you fallen in the past year?: No PFSH Medical History Palpitations De Quervain's tenosynovitis, right Post-menopausal Alcohol use Diabetes Migraine headache Dietary restriction Former smoker History of Holter monitoring History of echocardiogram History of stress test Hypertension Flu vaccine refused Anxiety about health Chest pain Abnormal EKG Colon cancer screening Health care maintenance Psoriasis Fungal dermatitis Numbness on right side Fatigue Acute frontal sinusitis, unspecified Hyperlipidemia Family history of breast cancer in first degree relative Breast pain, left Headache Type 2 diabetes mellitus Right sided weakness CVA (cerebral vascular accident) History of gallstones History of fracture of clavicle History of wrist fracture Nondisplaced fracture of neck of right radius Surgical History H/O breast biopsy History of History of cholecystectomy H/O abdominoplasty H/O adenoidectomy Family History Mother Diabetes Breast cancer, Onset Age: 60 Hypertension High cholesterol CVA (cerebral vascular accident) Thyroid disorder Father Diabetes Myocardial infarction, Onset Age: 65 Hypertension Social History adopted: No household members: significant other number of children: 4 current occupational status: employed 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 current occupational exposures/hazards: No pets and animals: Yes history of recent travel: No sexually active: Yes Smoking Status: Former smoker Tobacco: How many years used: 20 second hand exposure: No quit status: quit date established alcohol intake: current alcohol intake frequency: other Alcohol type: wine details: occasionally substance use type: does not use caffeine: Yes Type: coffee Number of servings: 1 eating out: 1-3 times/week during the past year weight has: remained stable what type of physical activity do you participate in: none jessa/jainism: None seatbelt use: always do you feel safe at home: Yes HPI RIGHT HAND Details: This documentation accurately reflects the service provided and the decisions made by me, Tonya Dozier NP-C 08/03/25 1303. Part of today???s visit was documented by Jose Mishra MA, acting as scribe. ARELIS BACON is a 50 year old F here today for follow-up right thumb tendinitis, CMC arthritis, de Quervain's tenosynovitis. There is increased swelling and pain over the right thumb and wrist regions, somewhat worsened since last visit. Patient states she was doing radial and ulnar flexion range of motion exercises and felt a popping sensation that resulted in increased pain for 2 days, slowly improving but patient is avoiding those motions. Continues with range of motion several times daily out of the brace, warm Epsom salt soaks with range of motion exercises daily, Tylenol as noted above. Patient is not taking (more content not included)... Normal [facility] Magnetic resonance imaging r eportOrdered By: Kaushik Grace on 07-27-2025 Study report [facility] [address] [place] [address] Upper Ext/No Jt/ wo MR#: [id number] Acct: [id number] Name: ARELIS BACON Rep #: [id number] : 1975 F 50 From: Nicolette Grace MD PCP: Dr. Heather Ugarte MD Status: R EG CLI Study:Upper Ext/No Jt/ wo Date of Exam: 07/23/25 Exam# [id number] Ordering Dr: Serene Dozier PROCEDURE: UPPER EXT/NO JT/ WO 07/23/2025 REASON FOR EXAM: R HAND PAIN ATTN: THUMB TECHNIQUE: T1, T2, stir, multiplanar multisequence images through the right hand were obtained without contrast. COMPARISON: June 11, 2025 x-ray FINDINGS: Bone Marrow: Subcortical cyst formation is noted in the trapezium. Marginal osteophytes are noted at the base of the 1st metacarpal. A 0.4 x 0.2 cm corticated osteochondral fragment is noted at the 1st carpometacarpal articulation. The carpal bones appear aligned. There is no occult fracture. Effusion: There is no significant effusion. Soft Tissues: There is no soft tissue mass or cyst. Ligaments and Tendons: The flexor and extensor tendons appear intact. MRI/Upper Ext/No Jt/ wo IMPRESSION: Subcortical cyst formation is noted in the trapezium. Marginal osteophytes are noted at the base of the 1st metacarpal. A 0.4 x 0.2 cm corticated osteochondral fragment is noted at the 1st carpometacarpal articulation. Reading Location: [facility] CC: BLUEBERRY GROWER-C Tonya Dozier; Dr. Heather Ugarte MD ~ Readiness Paraprofessional: Signed [facility] Orthopedic Visit Reporton Orthopedic Visit Report [facility] [address] [place] [address] [address] [place] [address] OFFICE VISIT Date of Service: 07/27/25 MR#: [id number] Acct: [id number] Name: ARELIS BACON Rep #: [id number] : 1975 Provider: SAGRARIO figueroa Age/Sex: 50/F Location[place] [facility] Status: Signed with Addenda ADDENDUM by SAGRARIO Dozier on 07/27/25 at 1347 Assessment and Plan Assessment and Plan (1) Thumb tendonitis: Status: Acute (2) Arthritis of carpometacarpal (CMC) joint of right thumb: Status: Acute Comments Comments: MRI results back later in day of visit. Attempted to contact patient to review results, voicemail left to contact the office to review and keep next week scheduled appointment. 07/27/25 1347 Date Tonya Dozier cc: * Signed Intake Vital Signs 07/15/25 07:54 Height 5 ft 6 in Intake Visit Reasons: RIGHT HAND Chief Complaint: MRI Review Accompanied by: Self Is patient in pain?: Yes Allergies adhesive Allergy (Unknown, Verified 07/27/25 08:05) Rash cephalexin monohydrate (From Keflex) Adverse Reaction (Intermediate, Verified 07/27/25 08:05) Hives Iodinated Contrast Media Adverse Reaction (Intermediate, Verified 07/27/25 08:05) Sneezing Medications ???Medication ???Instructions ???Recorded ???Confirmed ???Type aspirin 81 mg chewable tablet 162 mg (2 x 81 mg) PO BREAKFAST 07/27/25 Rx #90 tabs cyanocobalamin (vitamin B-12) 100 100 mcg .Route .Q30 DAYS 03/11/23 07/27/25 History mcg/mL injection solution semaglutide 2 mg/dose (8 mg/3 mL) 2 mg (0.75 mL) subcut QWEEK 3 06/1707/27/25 Rx subcutaneous pen injector (Ozempic) months #9.75 mL flash glucose sensor (FreeStyle #3 ea 01/08/25 09/02/25 Rx Bob 2 Sensor kit) losartan 50 mg tablet 50 mg PO DAILY #90 TABLETS 5 07/27/25 Rx metformin 500 mg tablet,extended 1,000 mg (2 x 500 mg) PO BID 3 04/1807/27/25 Rx release 24 hr months #360 tabs PFSH Medical History Palpitations De Quervain's tenosynovitis, right Post-menopausal Alcohol use Diabetes Migraine headache Dietary restriction Former smoker History of Holter monitoring History of echocardiogram History of stress test Hypertension Flu vaccine refused Anxiety about health Chest pain Abnormal EKG Colon cancer screening Health care maintenance Psoriasis Fungal dermatitis Numbness on right side Fatigue Acute frontal sinusitis, unspecified Hyperlipidemia Family history of breast cancer in first degree relative Breast pain, left Headache Type 2 diabetes mellitus Right sided weakness CVA (cerebral vascular accident) History of gallstones History of fracture of clavicle History of wrist fracture Nondisplaced fracture of neck of right radius Surgical History H/O breast biopsy History of History of cholecystectomy H/O abdominoplasty H/O adenoidectomy Family History Mother Diabetes Breast cancer, Onset Age: 60 Hypertension High cholesterol CVA (cerebral vascular accident) Thyroid disorder Father Diabetes Myocardial infarction, Onset Age: 65 Hypertension Social History adopted: No household members: significant other number of children: 4 current occupational status: employed 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 current occupational exposures/hazards: No pets and animals: Yes history of recent travel: No sexually active: Yes Smoking Status: Former smoker Tobacco: How many years used: 20 second hand exposure: No quit status: quit date established alcohol intake: current alcohol intake frequency: other Alcohol type: wine details: occasionally substance use type: does not use caffeine: Yes Type: coffee Number of servings: 1 eating out: 1-3 times/week during the past year weight has: remained stable what type of physical activity do you participate in: none jessa/jainism: None seatbelt use: always do you feel safe at home: Yes HPI RIGHT HAND Details: This documentation accurately reflects the service provided and the decisions made by me, SAGRARIO Norton 07/27/25 0800. Part of today???s visit was documented by Olga Carter ATC, acting as scribe. ARELIS BACON is a 50 year old F here today for right hand MRI review. Patient states the pain in the hand is sore today. She continues to wear a brace on the hand and thumb and she states it does give her some support and relieves the pain. She will occasionally take Tylenol for the pain. Agree with above. There is increased swelling and pain over the righ (more content not included)... Normal [facility] Upper Ext/No Jt/ woon 2024 Upper Ext/No Jt/ wo [facility] [address] [place] [address] Upper Ext/No Jt/ wo MR#: [id number] Acct: [id number] Name: ARELIS BACON Rep #: [id number] : 1975 F 50 From: Kaushik Grace MD PCP: Dr. Heather Ugarte MD Status: REG CLI Study: Upper Ext/No Jt/ wo Date of Exam: 07/23/25 Exam# [id number] Ordering Dr: Tonya Dozier PROCEDURE: UPPER EXT/NO JT/ WO 07/23/2025 REASON FOR EXAM: R HAND PAIN ATTN: THUMB TECHNIQUE: T1, T2, stir, multiplanar multisequence images through the right hand were obtained without contrast. COMPARISON: June 11, 2025 x-ray FINDINGS: Bone Marrow: Subcortical cyst formation is noted in the trapezium. Marginal osteophytes are noted at the base of the 1st metacarpal. A 0.4 x 0.2 cm corticated osteochondral fragment is noted at the 1st carpometacarpal articulation. The carpal bones appear aligned. There is no occult fracture. Effusion: There is no significant effusion. Soft Tissues: There is no soft tissue mass or cyst. Ligaments and Tendons: The flexor and extensor tendons appear intact. MRI/Upper Ext/No Jt/ wo IMPRESSION: Subcortical cyst formation is noted in the trapezium. Marginal osteophytes are noted at the base of the 1st metacarpal. A 0.4 x 0.2 cm corticated osteochondral fragment is noted at the 1st carpometacarpal articulation. Reading Location: [facility] CC: SAGRARIO Dozier; Dr. Heather Ugarte MD Readiness Paraprofessional: Signed Normal [facility] Absolute lymphocyte countOrd ered By: Heather Ugarte on 07-21-2025 Lymphocytes Auto (Unsp spec) [#/Vol] 2.17 10*3/uL 0.83-4.51 [facility] Absolute neutrophil countOrd ered By: Heather Ugarte on 07-21-2025 Neutrophils (Bld) [#/Vol] 4.9 10*3/uL 2.0-7.7 [facility] Anion gap in Serum or Plasma Ordered By: Heather Ugarte on 07-21-2025 Anion gap [Moles/Vol] 15 mmol/L 5-15 [facility] Automated lymphocyte count a s percentage of total leukocytesOrdered By: Heather Ugarte on 07-21-2025 Lymphocytes/100 WBC Auto (Unsp spec) 27.8 % 19-41 [facility] BUN/creatinine ratioOrdered By: bladimir Ugarte on 07-21-2025 Urea nitrogen/Creatinine [Mass ratio] 19.1 mg/mg 10-20 [facility] Basophil percentageOrdered B y: Heather Ugarte on 07-21-2025 Basophils/100 WBC (Bld) 0.5 % 0-1 [facility] Bilirubin, totalOrdered By: Heather Ugarte on 07-21-2025 Bilirubin [Mass/Vol] 0.39 mg/dL 0.00-1.30 [facility] CBC W/Diff, Automatedon 06-26 Absolute Lymph 2.17 X10 3/uL Normal 0.83-4.51 [facility] Comment on above: Performed By: #### L 506.0400, L500.4050, L100.0100, L501.9520 ####[facility] [address] [place], [address] Absolute Neut 4.9 X10 3/uL Normal 2.0-7.7 [facility] Comment on above: Performed By: #### L 506.0400, L500.4050, L100.0100, L501.9520 ####[facility] [address] [place], [address] Basophils/100 WBC (Bld) 0.5 % Normal 0-1 [facility] Comment on above: Performed By: #### L 506.0400, L500.4050, L100.0100, L501.9520 ####[facility] [address] [place], [address] Eosinophils/100 WBC (Bld) 1.8 % Normal 0-5 [facility] Comment on above: Performed By: #### L 506.0400, L500.4050, L100.0100, L501.9520 ####[facility] [address] [place], [address] Erythrocyte distribution width (RBC) [Ratio] 12.0 % Normal 11.6-14.6 [facility] Comment on above: Performed By: #### L 506.0400, L500.4050, L100.0100, L501.9520 ####[facility] [address] [place], [address] Hematocrit (Bld) [Volume fraction] 38.9 % Normal 37-47 [facility] Comment on above: Performed By: #### L 506.0400, L500.4050, L100.0100, L501.9520 ####[facility] [address] [place], [address] Hemoglobin (Bld) [Mass/Vol] 13.3 g/dL Normal 12.0-15.0 [facility] Comment on above: Performed By: #### L 506.0400, L500.4050, L100.0100, L501.9520 ####[facility] [address] [place], [address] IG% 0.400 Normal 0.0-0.9 [facility] Comment on above: Result Comment: IG% - Immature Granulocytes (promyelocytes, myelocytes and metamyelocytes) > 1% indicates that a LEFT SHIFT is Present. Performed By: #### L 506.0400, L500.4050, L100.0100, L501.9520 ####[facility] [address] [place], [address] Lymphocytes/100 WBC (Bld) 27.8 % Normal 19-41 [facility] Comment on above: Performed By: #### L 506.0400, L500.4050, L100.0100, L501.9520 ####[facility] [address] [place], [address] MCH (RBC) [Entitic mass] 30.0 pg Normal 27.0-32.0 [facility] Comment on above: Performed By: #### L 506.0400, L500.4050, L100.0100, L501.9520 ####[facility] [address] [place], [address] MCHC (RBC) [Mass/Vol] 34.2 g/dL Normal 32-36 [facility] Comment on above: Performed By: #### L 506.0400, L500.4050, L100.0100, L501.9520 ####[facility] [address] [place], [address] MCV (RBC) [Entitic vol] 87.8 fL Normal 81-99 [facility] Comment on above: Performed By: #### L 506.0400, L500.4050, L100.0100, L501.9520 ####[facility] [address] [place], [address] Monocytes/100 WBC (Bld) 6.3 % Normal 0-10 [facility] Comment on above: Performed By: #### L 506.0400, L500.4050, L100.0100, L501.9520 ####[facility] [address] [place], [address] Neutrophils/100 WBC (Bld) 63.2 % Normal 47-70 [facility] Comment on above: Performed By: #### L 506.0400, L500.4050, L100.0100, L501.9520 ####[facility] [address] [place], [address] Nucleated RBC (Bld) [#/Vol] 0 10*3/uL Normal 0-5 [facility] Comment on above: Performed By: #### L 506.0400, L500.4050, L100.0100, L501.9520 ####[facility] [address] [place], [address] Platelet mean volume (Bld) [Entitic vol] 9.6 fL Normal 6.2-12.0 [facility] Comment on above: Performed By: #### L 506.0400, L500.4050, L100.0100, L501.9520 ####[facility] [address] [place], [address] Platelets (Bld) [#/Vol] 265 10*3/uL Normal 150-450 [facility] Comment on above: Performed By: #### L 506.0400, L500.4050, L100.0100, L501.9520 ####[facility] [address] [place], [address] RBC (Bld) [#/Vol] 4.43 10*6/uL Normal 4.2-5.4 [facility] Comment on above: Performed By: #### L 506.0400, L500.4050, L100.0100, L501.9520 ####[facility] [address] [place], [address] RDW SD 38.5 fl Normal 35.1-43.9 [facility] Comment on above: Performed By: #### L 506.0400, L500.4050, L100.0100, L501.9520 ####[facility] [address] [place], [address] WBC (Bld) [#/Vol] 7.8 10*3/uL Normal 4.4-11.0 [facility] Comment on above: Performed By: #### L 506.0400, L500.4050, L100.0100, L501.9520 ####[facility] [address] [place], [address] Carbon dioxide, total [Moles /volume] in Central venous bloodOrdered By: Heather Ugarte on 07-21-2025 CO2 [Moles/Vol] 22.0 mmol/L 21.0-32.0 [facility] Chloride assayOrdered By: Sebastian Ugarte on 07-21-2025 Chloride [Moles/Vol] 101 mmol/L 98-108 [facility] Comprehensive Metabolic Prof ilon 07-21-2025 Albumin [Mass/Vol] 4.3 g/dL Normal 3.5-5.0 [facility] Comment on above: Performed By: #### L 506.0400, L500.4050, L100.0100, L501.9520 ####[facility] [address] [place], [address] Albumin/Globulin [Mass ratio] 1.4 {ratio} Normal 0.9-2.4 [facility] Comment on above: Performed By: #### L 506.0400, L500.4050, L100.0100, L501.9520 ####[facility] [address] [place], [address] ALK PHOS 59 U/L Normal 35-104 [facility] Comment on above: Performed By: #### L 506.0400, L500.4050, L100.0100, L501.9520 ####[facility] [address] [place], [address] ALT [Catalytic activity/Vol] 18 U/L Normal <=34 [facility] Comment on above: Performed By: #### L 506.0400, L500.4050, L100.0100, L501.9520 ####[facility] [address] [place], [address] AST [Catalytic activity/Vol] 18 U/L Normal <=31 [facility] Comment on above: Performed By: #### L 506.0400, L500.4050, L100.0100, L501.9520 ####[facility] [address] [place], [address] Bilirubin [Mass/Vol] 0.39 mg/dL Normal 0.00-1.30 [facility] Comment on above: Performed By: #### L 506.0400, L500.4050, L100.0100, L501.9520 ####[facility] [address] [place], [address] BUN/CRE 19.1 RATIO Normal 10-20 [facility] Comment on above: Performed By: #### L 506.0400, L500.4050, L100.0100, L501.9520 ####[facility] [address] [place], [address] Calcium [Mass/Vol] 9.7 mg/dL Normal 7.6-11.0 [facility] Comment on above: Performed By: #### L 506.0400, L500.4050, L100.0100, L501.9520 ####[facility] [address] [place], [address] Chloride [Moles/Vol] 101 mmol/L Normal 98-108 [facility] Comment on above: Performed By: #### L 506.0400, L500.4050, L100.0100, L501.9520 ####[facility] [address] [place], [address] CO2 [Moles/Vol] 22.0 mmol/L Normal 21.0-32.0 [facility] Comment on above: Performed By: #### L 506.0400, L500.4050, L100.0100, L501.9520 ####[facility] [address] [place], [address] Creatinine [Mass/Vol] 0.76 mg/dL Normal 0.70-1.20 [facility] Comment on above: Performed By: #### L 506.0400, L500.4050, L100.0100, L501.9520 ####[facility] [address] [place], [address] GAP 15 Normal 5-15 [facility] Comment on above: Performed By: #### L 506.0400, L500.4050, L100.0100, L501.9520 ####[facility] [address] [place], [address] GFR/1.73 sq M.predicted among non-blacks MDRD (S/P/Bld) [Vol rate/Area] 95 mL/min/{1.73_m2} Normal >60 [facility] [facility] Comment on above: Result Comment: mL/m in/1.73m2 CKD-EPI Creatinine Equation (2020) Performed By: #### L 506.0400, L500.4050, L100.0100, L501.9520 ####[facility] [id number] [place], [address] Globulin (S) [Mass/Vol] 3.0 g/dL Normal 2.2-4.2 [facility] Comment on above: Performed By: #### L 506.0400, L500.4050, L100.0100, L501.9520 ####[facility] [address] [place], [address] Glucose [Mass/Vol] 100 mg/dL High 70-99 [facility] Comment on above: Performed By: #### L 506.0400, L500.4050, L100.0100, L501.9520 ####[facility] [address] [place], [address] Potassium [Moles/Vol] 4.4 mmol/L Normal 3.3-5.1 [facility] Comment on above: Performed By: #### L 506.0400, L500.4050, L100.0100, L501.9520 ####[facility] [address] [place], [address] Sodium [Moles/Vol] 138 mmol/L Normal 133-145 [facility] Comment on above: Performed By: #### L 506.0400, L500.4050, L100.0100, L501.9520 ####[facility] [address] [place], [address] T PROT 7.3 g/dL Normal 5.9-8.4 [facility] Comment on above: Performed By: #### L 506.0400, L500.4050, L100.0100, L501.9520 ####[facility] [address] [place], [address] Urea nitrogen [Mass/Vol] 14 mg/dL Normal 4-19 [facility] Comment on above: Performed By: #### L 506.0400, L500.4050, L100.0100, L501.9520 ####[facility] [address] [place], [address] Eosinophil percentageOrdered By: Heather Ugarte on 07-21-2025 Eosinophils/100 WBC (Bld) 1.8 % 0-5 [facility] Erythrocyte distribution wid th ratioOrdered By: bladimir Ugarte on 07-21-2025 Erythrocyte distribution width (RBC) [Ratio] 12.0 % 11.6-14.6 [facility] Erythrocyte distribution wid th standard deviationOrdered By: Heather Ugarte on 07-21-2025 Erythrocyte distribution width (RBC) [Ratio] 38.5 fl 35.1-43.9 [facility] Glomerular filtration rate ( GFR) estimation/1.73 sq m using serum, plasma, or whole bOrdered By: Heather Ugarte on 07-21-2025 GFR/1.73 sq M.predicted among non-blacks MDRD (S/P/Bld) [Vol rate/Area] 95 mL/min/{1.73_m2} >60 [facility] Comment on above: mL/min/1.73m2 CKD-EP I Creatinine Equation (2020) Hematocrit Auto (Bld) [Volum e fraction]Ordered By: Heather Ugarte on 07-21-2025 Hematocrit (Bld) [Volume fraction] 38.9 % 37-47 [facility] Hemoglobin measurementOrdere d By: Heather Ugarte on 07-21-2025 Hemoglobin (Bld) [Mass/Vol] 13.3 g/dL 12.0-15.0 [facility] Immature granulocytes/100 WB C Auto (Bld)Ordered By: Heather Ugarte on 07-21-2025 Immature granulocytes/100 WBC (Bld) 0.400 % 0.0-0.9 [facility] Comment on above: IG% - Immature Granu locytes (promyelocytes, myelocytes and metamyelocytes) > 1% indicates that a LEFT SHIFT is Present. Laboratory - Chemistry and C hemistry - challengeOrdered By: Heather Ugarte on 07-21-2025 AST [Catalytic activity/Vol] 18 U/L <32 [facility] MCV (mean corpuscular volume ) determinationOrdered By: Heather Ugarte on 07-21-2025 MCV (RBC) [Entitic vol] 87.8 fL 81-99 [facility] Mean corpuscular hemoglobin (MCH) determinationOrdered By: Heather Ugarte on 07-21-2025 MCH (RBC) [Entitic mass] 30.0 pg 27.0-32.0 [facility] Mean corpuscular hemoglobin concentration (MCHC) determinationOrdered By: Heather Ugarte on 07-21-2025 MCHC (RBC) [Mass/Vol] 34.2 g/dL 32-36 [facility] Mean platelet volume determi nationOrdered By: Heather Ugarte on 07-21-2025 Platelet mean volume (Bld) [Entitic vol] 9.6 fL 6.2-12.0 [facility] Monocyte percentageOrdered B y: Heather Ugarte on 07-21-2025 Monocytes/100 WBC (Bld) 6.3 % 0-10 [facility] Neutrophil percentageOrdered By: Heather Ugarte on 07-21-2025 Neutrophils/100 WBC (Bld) 63.2 % 47-70 [facility] Nucleated red blood cell per centageOrdered By: Heather Ugarte on 07-21-2025 Nucleated RBC/100 WBC (Bld) [Ratio] 0 % 0-5 [facility] Platelet countOrdered By: Sebastian nikiamol Ugarte on 07-21-2025 Platelets (Bld) [#/Vol] 265 10*3/uL 150-450 [facility] Potassium measurement (mass/ volume)Ordered By: Heather Ugarte on 07-21-2025 Potassium (Unsp spec) [Mass/Vol] 4.4 mmol/L 3.3-5.1 [facility] RBC Auto (Bld) [#/Vol]Ordere d By: Heather Ugarte on 07-21-2025 RBC (Bld) [#/Vol] 4.43 10*6/uL 4.2-5.4 [facility] Serum creatinine measurement (mass/volume)Ordered By: Heather Ugarte on 07-21-2025 Creatinine [Mass/Vol] 0.76 mg/dL 0.70-1.20 [facility] Serum globulin measurementOr dered By: Heather Ugarte on 07-21-2025 Globulin (S) [Mass/Vol] 3.0 g/dL 2.2-4.2 [facility] Serum glucose measurement (m ass/volume)Ordered By: Heather Ugarte on 07-21-2025 Glucose [Mass/Vol] 100 mg/dL High 70-99 [facility] Serum or plasma alanine neil otransferase (ALT) measurementOrdered By: Heather Ugarte on 07-21-2025 ALT [Catalytic activity/Vol] 18 U/L <35 [facility] Serum or plasma albumin nick urement (mass/volume)Ordered By: Heather Ugarte on 07-21-2025 Albumin [Mass/Vol] 4.3 g/dL 3.5-5.0 [facility] Serum or plasma albumin/glob ulin mass ratioOrdered By: Heather Ugarte on 07-21-2025 Albumin/Globulin [Mass ratio] 1.4 {ratio} 0.9-2.4 [facility] Serum or plasma alkaline etienne sphatase measurementOrdered By: Heather Ugarte on 07-21-2025 ALP [Catalytic activity/Vol] 59 U/L 35-104 [facility] Serum or plasma calcium nick urement (mass/volume)Ordered By: Heather Ugarte on 07-21-2025 Calcium [Mass/Vol] 9.7 mg/dL 7.6-11.0 [facility] Serum or plasma urea nitroge n measurement (mass/volume)Ordered By: Heather Ugarte on 07-21-2025 Urea nitrogen [Mass/Vol] 14 mg/dL 4-19 [facility] Sodium levelOrdered By: Benjamín Ugarte on 07-21-2025 Sodium [Moles/Vol] 138 mmol/L 133-145 [facility] T4 Free Directon 07-21-2025 T4 FREE DIRECT 1.30 ng/dL Normal 0.76-1.46 [facility] Comment on above: Performed By: #### L 506.0400, L500.4050, L100.0100, L501.9520 ####[facility] [address] [place], [address] T4 freeOrdered By: Heather Bostonriphelen on 07-21-2025 Free T4 [Mass/Vol] 1.30 ng/dL 0.76-1.46 [facility] TSH DL <= 0.005 mIU/L QnOrde red By: Sebastiannikiluis felipeosmani Meadriphelen on 07-21-2025 TSH Qn 0.933 uIU/mL 0.300-4.20 0 [facility] Thyroid Stim Hormone (TSH)on 07-21-2025 TSH 0.933 uIU/mL Normal 0.300-4.20 0 [facility] Comment on above: Performed By: #### L 506.0400, L500.4050, L100.0100, L501.9520 ####[facility] [address] [place], [address] Total proteinOrdered By: Rafi Ugarte on 07-21-2025 Protein [Mass/Vol] 7.3 g/dL 5.9-8.4 [facility] White blood cell (WBC) count Ordered By: Heather Ugarte on 07-21-2025 WBC (Bld) [#/Vol] 7.8 10*3/uL 4.4-11.0 [facility] Office Visit Reporton 2024 Office Visit Report [facility] [address] [place] [address] OFFICE VISIT Date of Service: 07/15/25 MR#: [id number] Acct: [id number] Patient: ARELIS BACON Rep #: [id number] : 1975 Provider: Dr. Lukas fields MD Age/Sex: 50/F Location: [facility] Status: Signed Intake Vital Signs 06/11/25 09:46 07/12/25 10:30 07/15/25 07:54 Height 5 ft 6 in 5 ft 6 in 5 ft 6 in Weight: 160 lb 161 lb BMI 25.8 25.9 BP 114/60 127/82 H Blood Pressure Location Lt brachial Rt brachial Position Sitting Sitting Respiration 16 15 Pulse 110 H 95 Pulse Source Monitor Monitor Temp 96.6 F L 98.4 F Temp Source Temporal Temporal Pulse Oximetry (%) 96 97 Oxygen Delivery Method room air room air Intake Visit Reasons: B12 inject Allergies adhesive Allergy (Unknown, Verified 07/12/25 10:28) Rash cephalexin monohydrate (From Keflex) Adverse Reaction (Intermediate, Verified 07/12/25 10:28) Hives Iodinated Contrast Media Adverse Reaction (Intermediate, Verified 07/12/25 10:28) Sneezing Office Meds cyanocobalamin (vitamin B-12) 1,000 mcg/mL injection solution Performing Provider: Lukas Wang MD Performing Location: [facility] Administered by: Kathy Mckeon on 07/15/25 07:59 Dose Route Admin Location Dispensed Lot Number Expiration Date [facility][NOTE 3] Man ufacturer 1,500 mcg IM Right Deltoid 1.5 mL [id number] 04/24/27 59843-973-10 VILMAUVMathieu THERA Comments: The patient presents for vitamin B12 injection for treatment of fatigue. She has fatigue. Her last B12 injection was of benefit for fatigue. The patient is awake and alert. Vitamin B12 1,500 IM was administered today. There were no complications. Assessment and Plan Assessment and Plan (1) Fatigue: Status: Chronic Qualifiers: Fatigue type: chronic, unspecified Qualified Code(s): R53.82 - Chronic fatigue, unspecified Orders: Orders Vitamin B12 Today R53.82 - Chronic fatigue, unspecified 07/15/25 0805 Date Lukas Wang MD Cosigner Signature: Date (if applicable) CC: Normal [facility] Internal Medicine Office Vis yudelka 07-12-2025 Internal Medicine Office Visit [facility] [address] [place] [address] [place] [address] OFFICE VISIT Date of Service: 07/12/25 MR#: [id number] Acct: [id number] Name: ARELIS BACON Rep #: [id number] : 1975 Provider: Dr. Heather strickland MD Age/Sex: 50/F Location[place] [facility] Status: Signed Intake Vital Signs 03/29/25 08:48 06/11/25 09:46 07/12/25 10:30 Height 5 ft 6 in 5 ft 6 in 5 ft 6 in Weight: 160 lb BMI 25.8 BP 114/60 Blood Pressure Location Lt brachial Position Sitting Respiration 16 Pulse 110 H Pulse Source Monitor Temp 96.6 F L Temp Source Temporal Pulse Oximetry (%) 96 Oxygen Delivery Method room air Intake Visit Reasons: 3 m fu Chief Complaint: Follow-up chronic conditions Plaster Pattern Caster Required: No Accompanied by: Self Is patient in pain?: No Allergies adhesive Allergy (Unknown, Verified 07/12/25 10:28) Rash cephalexin monohydrate (From Keflex) Adverse Reaction (Intermediate, Verified 07/12/25 10:28) Hives Iodinated Contrast Media Adverse Reaction (Intermediate, Verified 07/12/25 10:28) Sneezing Medications ???Medication ???Instructions ???Recorded ???Confirmed ???Type aspirin 81 mg chewable tablet 162 mg (2 x 81 mg) PO BREAKFAST 07/12/25 Rx #90 tabs cyanocobalamin (vitamin B-12) 100 100 mcg .Route .Q30 DAYS 03/11/23 07/12/25 History mcg/mL injection solution semaglutide 2 mg/dose (8 mg/3 mL) 2 mg (0.75 mL) subcut QWEEK 3 06/1707/12/25 Rx subcutaneous pen injector (Ozempic) months #9.75 mL flash glucose sensor (FreeStyle #3 ea 12/02/24 07/02/25 Rx Bob 2 Sensor kit) losartan 50 mg tablet 50 mg PO DAILY #90 TABLETS 5 07/12/25 Rx metformin 500 mg tablet,extended 1,000 mg (2 x 500 mg) PO BID 3 04/1807/12/25 Rx release 24 hr months #360 tabs PFSH Medical History De Quervain's tenosynovitis, right Post-menopausal Alcohol use Diabetes Migraine headache Dietary restriction Former smoker History of Holter monitoring History of echocardiogram History of stress test Hypertension Flu vaccine refused Anxiety about health Chest pain Abnormal EKG Colon cancer screening Health care maintenance Psoriasis Fungal dermatitis Numbness on right side Fatigue Acute frontal sinusitis, unspecified Hyperlipidemia Family history of breast cancer in first degree relative Breast pain, left Headache Type 2 diabetes mellitus Right sided weakness CVA (cerebral vascular accident) History of gallstones History of fracture of clavicle History of wrist fracture Nondisplaced fracture of neck of right radius Surgical History H/O breast biopsy History of History of cholecystectomy H/O abdominoplasty H/O adenoidectomy Family History Mother Diabetes Breast cancer, Onset Age: 60 Hypertension High cholesterol CVA (cerebral vascular accident) Thyroid disorder Father Diabetes Myocardial infarction, Onset Age: 65 Hypertension Social History adopted: No household members: significant other number of children: 4 current occupational status: employed 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 current occupational exposures/hazards: No pets and animals: Yes history of recent travel: No sexually active: Yes Smoking Status: Former smoker Tobacco: How many years used: 20 second hand exposure: No quit status: quit date established alcohol intake: current alcohol intake frequency: other Alcohol type: wine details: occasionally substance use type: does not use caffeine: Yes Type: coffee Number of servings: 1 eating out: 1-3 times/week during the past year weight has: remained stable what type of physical activity do you participate in: none jessa/jainism: None seatbelt use: always do you feel safe at home: Yes HPI HPI Chief Complaint: Follow-up chronic conditions Details: ARELIS BACON, is a 50-year-old female presenting with routine follow-up for management of type 2 diabetes mellitus and hypertension. She reports monitoring her blood glucose levels at home, with fasting levels ranging between 95 and 125 mg/dL, primarily around 100 mg/dL. Her hemoglobin A1c has shown a downward trend from 6.9% and 6.8% to a current value of 6.7%, indicating progress in glycemic control. The patient mentioned recent use of prednisone for a couple of days, during which she experienced increased appetite. into her regimen. Regarding her hypertension, the patient reports stable blood pressure readings, with a recent measurement of 114/60 mmHg. She remains on losartan. The patient denies any symptoms related to cardiovascular c (more content not included)... Normal [facility] Laboratory - Hematology and Cell countsOrdered By: Heather Ugarte on 07-12-2025 HbA1c (Bld) [Mass fraction] 6.7 % High 4.2-6.3 [facility] Orthopedic Visit Reporton Orthopedic Visit Report [facility] [address] [place] [address] OFFICE VISIT Date of Service: 07/02/25 MR#: [id number] Acct: [id number] Name: ARELIS BACON Rep #: [id number] : 1975 Provider: SAGRARIO figueroa Age/Sex: 50/F Location[place] [facility] Status: Signed Intake Vital Signs 06/11/25 09:46 Height 5 ft 6 in Intake Visit Reasons: RIGHT HAND/THUMB Chief Complaint: Thumb Injury Allergies adhesive Allergy (Unknown, Verified 07/02/25 08:09) Rash cephalexin monohydrate (From Keflex) Adverse Reaction (Intermediate, Verified 07/02/25 08:09) Hives Iodinated Contrast Media Adverse Reaction (Intermediate, Verified 07/02/25 08:09) Sneezing Medications ???Medication ???Instructions ???Recorded ???Confirmed ???Type aspirin 81 mg chewable tablet 162 mg (2 x 81 mg) PO BREAKFAST 07/02/25 Rx #90 tabs cyanocobalamin (vitamin B-12) 100 100 mcg .Route .Q30 DAYS 03/11/23 07/02/25 History mcg/mL injection solution semaglutide 2 mg/dose (8 mg/3 mL) 2 mg (0.75 mL) subcut QWEEK 3 06/1707/02/25 Rx subcutaneous pen injector (Ozempic) months #9.75 mL flash glucose sensor (FreeStyle #3 ea 12/02/24 07/02/25 Rx Bob 2 Sensor kit) losartan 50 mg tablet 50 mg PO DAILY #90 TABLETS 5 07/02/25 Rx metformin 500 mg tablet,extended 1,000 mg (2 x 500 mg) PO BID 3 04/1807/02/25 Rx release 24 hr months #360 tabs prednisone 10 mg tablet 10 mg PO QDAY #30 tabs 06/02/25 Rx PFSH Medical History De Quervain's tenosynovitis, right Post-menopausal Alcohol use Diabetes Migraine headache Dietary restriction Former smoker History of Holter monitoring History of echocardiogram History of stress test Hypertension Flu vaccine refused Anxiety about health Chest pain Abnormal EKG Colon cancer screening Health care maintenance Psoriasis Fungal dermatitis Numbness on right side Fatigue Acute frontal sinusitis, unspecified Hyperlipidemia Family history of breast cancer in first degree relative Breast pain, left Headache Type 2 diabetes mellitus Right sided weakness CVA (cerebral vascular accident) History of gallstones History of fracture of clavicle History of wrist fracture Nondisplaced fracture of neck of right radius Surgical History H/O breast biopsy History of History of cholecystectomy H/O abdominoplasty H/O adenoidectomy Family History Mother Diabetes Breast cancer, Onset Age: 60 Hypertension High cholesterol CVA (cerebral vascular accident) Thyroid disorder Father Diabetes Myocardial infarction, Onset Age: 65 Hypertension Social History adopted: No household members: significant other number of children: 4 current occupational status: employed 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 current occupational exposures/hazards: No pets and animals: Yes history of recent travel: No sexually active: Yes Smoking Status: Former smoker Tobacco: How many years used: 20 second hand exposure: No quit status: quit date established alcohol intake: current alcohol intake frequency: other Alcohol type: wine details: occasionally substance use type: does not use caffeine: Yes Type: coffee Number of servings: 1 eating out: 1-3 times/week during the past year weight has: remained stable what type of physical activity do you participate in: none jessa/jainism: None seatbelt use: always do you feel safe at home: Yes HPI RIGHT HAND/THUMB Details: This documentation accurately reflects the service provided and the decisions made by me, SAGRARIO Norton 07/02/25 0800. Part of today???s visit was documented by Alondra HARMON, acting as scribe. ARELIS BACON is a 50 year old F here today for 3 week f/u on the right thumb. She states that she still feels that her thumb is swollen and is still popping. She is still having a good amount of pain in the thumb especially after showering. She has been wearing her brace maritime officer and still continues to have pain when wearing it. She does take Tylenol for pain when she needs it. The cortisone injection that she was given did not advanced manufacturing engineer her any relief. Patient has been performing home exercises 1-2 times daily, daily warm Epsom salt soaks with range of motion exercises. Thumb does feel better while performing in Epsom salt soaks, however symptoms returned after completing. No new injuries. Upon further discussion, patient did have issues with her right thumb in the past after a fall, approximately 3+ years ago just prior to her CVA. He does not recall diagnosis unsure if (more content not included)... Normal [facility] Office Visit Reporton 2024 Office Visit Report [facility] [address] [place] [address] OFFICE VISIT Date of Service: 06/14/25 MR#: [id number] Acct: [id number] Patient: ARELIS BACON Rep #: [id number] : 1975 Provider: Dr. Lukas fields MD Age/Sex: 49/F Location: [facility] Status: Signed Intake Vital Signs 03/29/25 08:48 06/11/25 09:46 06/14/25 08:09 Height 5 ft 6 in 5 ft 6 in Weight: 165 lb 13 oz BP 130/80 H Blood Pressure Location Lt brachial Position Sitting Respiration 17 Pulse 102 H Pulse Source Monitor Temp 98.6 F Temp Source Temporal Pulse Oximetry (%) 97 Oxygen Delivery Method room air Intake Visit Reasons: B12 inject Allergies adhesive Allergy (Unknown, Verified 06/11/25 09:48) Rash cephalexin monohydrate (From Keflex) Adverse Reaction (Intermediate, Verified 06/11/25 09:48) Hives Iodinated Contrast Media Adverse Reaction (Intermediate, Verified 06/11/25 09:48) Sneezing Office Meds cyanocobalamin (vitamin B-12) 1,000 mcg/mL injection solution Performing Provider: Lukas Wang MD Performing Location: [facility] Administered by: Jazzy Lagos on 06/14/25 08:11 Dose Route Admin Location Dispensed Lot Number Expiration Date [facility]NOTE 3] Man ufacturer 1,500 mcg IM left deltoid 1.5 mL [id number] 05/24/26 3127-0381-64 [facility] Aaron/PRAMOD Comments: The patient presents for B12 injection for treatment of fatigue. She has fatigue. Her last B12 injection was of benefit for fatigue. The patient is awake and alert. B12 1500mcg IM was administered today. There were no complications. Assessment and Plan Assessment and Plan (1) Fatigue: Status: Chronic Qualifiers: Fatigue type: chronic, unspecified Qualified Code(s): R53.82 - Chronic fatigue, unspecified Orders: Orders Vitamin B12 06/14/25 R53.82 - Chronic fatigue, unspecified 06/15/25 0803 Date Lukas Wang MD Cosigner Signature: Date (if applicable) CC: Normal [facility] Orthopedic Visit Reporton Orthopedic Visit Report [facility] [address] [place] [address] OFFICE VISIT Date of Service: 06/11/25 MR#: [id number] Acct: [id number] Name: ARELIS BACON Rep #: [id number] : 1975 Provider: SAGRARIO figueroa Age/Sex: 49/F Location: [facility] Status: Signed Intake Vital Signs 03/29/25 08:48 06/11/25 09:46 Height 5 ft 6 in 5 ft 6 in Weight: 169 lb BMI 27.2 Intake Visit Reasons: RIGHT HAND/THUMB Chief Complaint: Thumb Injury Accompanied by: Self Is patient in pain?: Yes Pain scale (1-10): 7 Allergies adhesive Allergy (Unknown, Verified 06/11/25 09:48) Rash cephalexin monohydrate (From Keflex) Adverse Reaction (Intermediate, Verified 06/11/25 09:48) Hives Iodinated Contrast Media Adverse Reaction (Intermediate, Verified 06/11/25 09:48) Sneezing Medications ???Medication ???Instructions ???Recorded ???Confirmed ???Type aspirin 81 mg chewable tablet 162 mg (2 x 81 mg) PO BREAKFAST 06/11/25 Rx #90 tabs cyanocobalamin (vitamin B-12) 100 100 mcg .Route .Q30 DAYS 03/11/23 06/11/25 History mcg/mL injection solution semaglutide 2 mg/dose (8 mg/3 mL) 2 mg (0.75 mL) subcut QWEEK 3 06/1706/11/25 Rx subcutaneous pen injector (Ozempic) months #9.75 mL flash glucose sensor (FreeStyle #3 ea 12/02/24 06/11/25 Rx Bob 2 Sensor kit) losartan 50 mg tablet 50 mg PO DAILY #90 TABLETS 5 06/11/25 Rx metformin 500 mg tablet,extended 1,000 mg (2 x 500 mg) PO BID 3 04/1806/11/25 Rx release 24 hr months #360 tabs prednisone 10 mg tablet 10 mg PO QDAY #30 tabs 06/02/25 Rx Have you fallen in the past year?: No PFSH Medical History De Quervain's tenosynovitis, right Post-menopausal Alcohol use Diabetes Migraine headache Dietary restriction Former smoker History of Holter monitoring History of echocardiogram History of stress test Hypertension Flu vaccine refused Anxiety about health Chest pain Abnormal EKG Colon cancer screening Health care maintenance Psoriasis Fungal dermatitis Numbness on right side Fatigue Acute frontal sinusitis, unspecified Hyperlipidemia Family history of breast cancer in first degree relative Breast pain, left Headache Type 2 diabetes mellitus Right sided weakness CVA (cerebral vascular accident) History of gallstones History of fracture of clavicle History of wrist fracture Nondisplaced fracture of neck of right radius Surgical History H/O breast biopsy History of History of cholecystectomy H/O abdominoplasty H/O adenoidectomy Family History Mother Diabetes Breast cancer, Onset Age: 60 Hypertension High cholesterol CVA (cerebral vascular accident) Thyroid disorder Father Diabetes Myocardial infarction, Onset Age: 65 Hypertension Social History adopted: No household members: significant other number of children: 4 current occupational status: employed 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 current occupational exposures/hazards: No pets and animals: Yes history of recent travel: No sexually active: Yes Smoking Status: Former smoker Tobacco: How many years used: 20 second hand exposure: No quit status: quit date established alcohol intake: current alcohol intake frequency: other Alcohol type: wine details: occasionally substance use type: does not use caffeine: Yes Type: coffee Number of servings: 1 eating out: 1-3 times/week during the past year weight has: remained stable what type of physical activity do you participate in: none jessa/jainism: None seatbelt use: always do you feel safe at home: Yes HPI RIGHT HAND/THUMB Details: This documentation accurately reflects the service provided and the decisions made by me, SAGRARIO Norton 06/11/25 0946. Part of today???s visit was documented by Jose Mishra MA, acting as scribe. ARELIS BACON is a 49 year old F here today for right hand thumb. Reports symptoms began about 3 weeks ago with no identified injury. Patient states she awoken with pain and swelling to the base of her thumb. [facility] and diagnosed with de Quervain's tenosynovitis, no x-rays were completed at that time. Patient did obtain a thumb spica brace and has been wearing day and night. Patient is doing recommended home exercises twice daily including resistance against ball which does aggravate symptoms. She was put on a prednisone taper with 2 days remaining. She has noticed some improvement in the swelling and minimal improvemen (more content not included)... Normal [facility] Wrist min 3 Viewson 06-11-20 25 Wrist min 3 Views [facility] [address] [place] [address] Wrist min 3 Views MR#: [id number] Acct: [id number] Name: ARELIS BACON Rep #: [id number] : 1975 F 49 From: Dean Orr MD PCP: Dr. Heather Ugarte MD Status: DEP AMB Study: Wrist min 3 Views Date of Exam: 06/11/25 Exam# [id number] Ordering Dr: Tonya Dozier BLUEBERRY GROWERJason EXAM: XR Right Wrist Complete, 3 or More Views CLINICAL INDICATION: R WRIST PAIN, BASE OF THUMB AREA TECHNIQUE: Frontal, lateral and oblique views of the right wrist. COMPARISON: No relevant prior studies available. FINDINGS: BONES/JOINTS: Mild degenerative changes of the radiocarpal joint. No acute fracture. No dislocation. SOFT TISSUES: Soft tissue swelling. No radiopaque foreign body. RAD/Wrist min 3 Views IMPRESSION: Degenerative changes as above. Reading Location: [facility] CC: BLUEBERRY GROWERJason Dozier; Dr. Heather Ugarte MD Readiness Paraprofessional: Signed Normal [facility] Urgent Care Visit Reporton 0 06-02-2025 Urgent Care Visit Report [facility] [address], [address] [place] [address] OFFICE VISIT Date of Service: 06/02/25 MR#: [id number] Acct: [id number] Name: ARELIS BACON Rep #: [id number] : 1975 Provider: LASHAWN Jones Age/Sex: 49/F Location: [facility] Status: Signed Intake Vital Signs 03/29/25 08:48 06/02/25 14:52 Height 5 ft 6 in BP 110/62 Blood Pressure Location Lt brachial Position Sitting Respiration 16 Pulse 86 Pulse Source Monitor Temp 98.1 F Temp Source Oral Pulse Oximetry (%) 99 Intake Visit Reasons: R HAND/WRIST INJURY Chief Complaint: Thumb Injury Plaster Pattern Caster Required: No Accompanied by: Self Is patient in pain?: No Allergies adhesive Allergy (Unknown, Verified 06/02/25 14:43) Rash cephalexin monohydrate (From Keflex) Adverse Reaction (Intermediate, Verified 06/02/25 14:43) Hives Iodinated Contrast Media Adverse Reaction (Intermediate, Verified 06/02/25 14:43) Sneezing Medications ???Medication ???Instructions ???Recorded ???Confirmed ???Type aspirin 81 mg chewable tablet 162 mg (2 x 81 mg) PO BREAKFAST 06/02/25 Rx #90 tabs cyanocobalamin (vitamin B-12) 100 100 mcg .Route .Q30 DAYS 03/11/23 06/02/25 History mcg/mL injection solution semaglutide 2 mg/dose (8 mg/3 mL) 2 mg (0.75 mL) subcut QWEEK 3 06/1706/02/25 Rx subcutaneous pen injector (Ozempic) months #9.75 mL flash glucose sensor (FreeStyle #3 ea 12/02/24 03/29/25 Rx Bob 2 Sensor kit) losartan 50 mg tablet 50 mg PO DAILY #90 TABLETS 5 06/02/25 Rx metformin 500 mg tablet,extended 1,000 mg (2 x 500 mg) PO BID 3 04/1806/02/25 Rx release 24 hr months #360 tabs prednisone 10 mg tablet 10 mg PO QDAY #30 tabs 06/02/25 Rx Nurse's Note: Thumb pain for almost 2 weeks. Pops and clicks. Hurts to use and can not bear any weight on it. Did not fall or injury it directly. patient is unsure as to how the injury occured. PFSH Medical History (Updated 06/02/25 @ 16:53 by Yadiel HARDIN, PA) De Quervain's tenosynovitis, right Post-menopausal Alcohol use Diabetes Migraine headache Dietary restriction Former smoker History of Holter monitoring History of echocardiogram History of stress test Hypertension Flu vaccine refused Anxiety about health Chest pain Abnormal EKG Colon cancer screening Health care maintenance Psoriasis Fungal dermatitis Numbness on right side Fatigue Acute frontal sinusitis, unspecified Hyperlipidemia Family history of breast cancer in first degree relative Breast pain, left Headache Type 2 diabetes mellitus Right sided weakness CVA (cerebral vascular accident) History of gallstones History of fracture of clavicle History of wrist fracture Nondisplaced fracture of neck of right radius Surgical History H/O breast biopsy History of History of cholecystectomy H/O abdominoplasty H/O adenoidectomy Family History Mother Diabetes Breast cancer, Onset Age: 60 Hypertension High cholesterol CVA (cerebral vascular accident) Thyroid disorder Father Diabetes Myocardial infarction, Onset Age: 65 Hypertension Social History adopted: No household members: significant other number of children: 4 current occupational status: employed 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 current occupational exposures/hazards: No pets and animals: Yes history of recent travel: No sexually active: Yes Smoking Status: Former smoker Tobacco: How many years used: 20 second hand exposure: No quit status: quit date established alcohol intake: current alcohol intake frequency: other Alcohol type: wine details: occasionally substance use type: does not use caffeine: Yes Type: coffee Number of servings: 1 eating out: 1-3 times/week during the past year weight has: remained stable what type of physical activity do you participate in: none jessa/jainism: None seatbelt use: always do you feel safe at home: Yes HPI HPI Chief Complaint: Thumb Injury Details: ARELIS BACON, is a 49 F who presents to the office today for 10 day R dorsal thumb pain/ swelling - ? etiol (no trauma). No right elbow/wrist complaints. [id number]. No socf-nwg-sqigdwm products taken to assist. No other associated symptoms and no alleviating/aggravating factors. PMH: History of de Quervain's tenosynovitis several years ago to the same ROS Const Constitutional: No other (as above) Exam Const General: cooperative, healthy appearing and no acute distress Orientation: alert and awake Resp Effort Inspection: normal respiratory effort and able to speak (more content not included)... Normal [facility] Office Visit Reporton 2024 Office Visit Report [facility] [address] [place] [address] OFFICE VISIT Date of Service: 05/13/25 MR#: [id number] Acct: [id number] Patient: ARELIS BACON Rep #: [id number] : 1975 Provider: Dr. Lukas fields MD Age/Sex: 49/F Location: [facility] Status: Signed Intake Vital Signs 03/29/25 08:48 05/13/25 08:10 Height 5 ft 6 in Weight: 163 lb 163 lb 6 oz BMI 26.3 BP 112/74 113/76 Blood Pressure Location Lt brachial Lt brachial Position Sitting Sitting Respiration 16 17 Pulse 96 96 Pulse Source Monitor Monitor Temp 97.4 F L 98.2 F Temp Source Temporal Temporal Pulse Oximetry (%) 98 97 Oxygen Delivery Method room air room air Intake Visit Reasons: B12 inject Chief Complaint: 3 M Fu Allergies adhesive Allergy (Unknown, Verified 03/29/25 08:44) Rash cephalexin monohydrate (From Keflex) Adverse Reaction (Intermediate, Verified 03/29/25 08:44) Hives Iodinated Contrast Media Adverse Reaction (Intermediate, Verified 03/29/25 08:44) Sneezing Office Meds cyanocobalamin (vitamin B-12) 1,000 mcg/mL injection solution Performing Provider: Lukas Wang MD Performing Location: [facility] Administered by: Jazzy Lagos on 05/13/25 08:12 Dose Route Admin Location Dispensed Lot Number Expiration Date NDC Man ufacturer 1,500 mcg IM left deltoid 1.5 mL [id number] 04/24/27 55520-753-21 DEZ SARAVIA Comments: The patient presents for B12 injection for treatment of fatigue. She has fatigue. Her last B12 injection was of benefit for fatigue. The patient is awake and alert. B12 1500mcg IM was administered today. There were no complications. Assessment and Plan Assessment and Plan (1) Fatigue: Status: Chronic Qualifiers: Fatigue type: chronic, unspecified Qualified Code(s): R53.82 - Chronic fatigue, unspecified Orders: Orders Vitamin B12 Today R53.82 - Chronic fatigue, unspecified 05/13/25 1532 Date Lukas Wang MD Cosigner Signature: Date (if applicable) CC: Normal [facility] Office Visit Reporton 2024 Office Visit Report [facility] [address] [place] [address] OFFICE VISIT Date of Service: 04/12/25 MR#: [id number] Acct: [id number] Patient: ARELIS BACON Rep #: [id number] : 1975 Provider: Dr. Lukas fields MD Age/Sex: 49/F Location: [facility] Status: Signed Intake Vital Signs 03/11/25 08:12 03/29/25 08:48 04/12/25 09:08 Height 5 ft 6 in 5 ft 6 in Weight: 163 lb 13 oz 163 lb BMI 26.4 26.3 BP 110/70 112/74 107/77 Blood Pressure Location Lt brachial Lt brachial Rt brachial Position Sitting Sitting Sitting Respiration 17 16 17 Pulse 98 96 98 Pulse Source Monitor Monitor Monitor Temp 98.2 F 97.4 F L 98.4 F Temp Source Temporal Temporal Temporal Pulse Oximetry (%) 96 98 98 Oxygen Delivery Method room air room air room air Intake Visit Reasons: B12 inject Chief Complaint: 3 M Fu Allergies adhesive Allergy (Unknown, Verified 03/29/25 08:44) Rash cephalexin monohydrate (From Keflex) Adverse Reaction (Intermediate, Verified 03/29/25 08:44) Hives Iodinated Contrast Media Adverse Reaction (Intermediate, Verified 03/29/25 08:44) Sneezing Office Meds cyanocobalamin (vitamin B-12) 1,000 mcg/mL injection solution Performing Provider: Lukas Wang MD Performing Location: [facility] Administered by: Jazzy Lagos on 04/12/25 09:00 Dose Route Admin Location Dispensed Lot Number Expiration Date [facility][NOTE 3] Tone ufacturer 1,500 mcg IM right deltoid 1.5 mL [id number] 04/24/27 48845-783-95 MISHA SARAVIA Comments: The patient presents for B12 injection for treatment of fatigue. She has fatigue. Her last B12 injection was of benefit for fatigue. The patient is awake and alert. B12 1500mcg IM was administered today. There were no complications Assessment and Plan Assessment and Plan (1) Fatigue: Status: Chronic Qualifiers: Fatigue type: chronic, unspecified Qualified Code(s): R53.82 - Chronic fatigue, unspecified Orders: Orders Vitamin B12 Today R53.82 - Chronic fatigue, unspecified 04/12/251741 Date Lukas Wang MD Cosigner Signature: Date (if applicable) CC: Normal [facility] Internal Medicine Office Vis yudelka 03-29-2025 Internal Medicine Office Visit [facility] [address] [place] [address] [address] [place] [address] OFFICE VISIT Date of Service: 03/29/25 MR#: [id number] Acct: [id number] Name: ARELIS BACON Rep #: [id number] : 1975 Provider: Dr. 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: No Is patient in pain?: No Allergies adhesive Allergy (Unknown, Verified 03/29/25 08:44) Rash cephalexin monohydrate (From Keflex) Adverse Reaction (Intermediate, Verified 03/29/25 08:44) Hives Iodinated Contrast Media Adverse Reaction (Intermediate, Verified 03/29/25 08:44) Sneezing Medications ???Medication ???Instructions ???Recorded ???Confirmed ???Type aspirin 81 mg chewable tablet 162 mg (2 x 81 mg) PO BREAKFAST 03/29/25 Rx #90 tabs cyanocobalamin (vitamin B-12) 100 100 mcg .Route .Q30 DAYS 03/11/23 03/29/25 History mcg/mL injection solution semaglutide 2 mg/dose (8 mg/3 mL) 2 mg (0.75 mL) subcut QWEEK 3 06/1703/29/25 Rx subcutaneous pen injector (Ozempic) months #9.75 mL flash glucose sensor (FreeStyle #3 ea 12/02/24 03/29/25 Rx Bob 2 Sensor kit) losartan 50 mg tablet 50 mg PO DAILY #90 TABLETS 5 03/29/25 Rx metformin 500 mg tablet,extended 1,000 mg (2 x 500 mg) PO BID 3 04/1803/29/25 Rx release 24 hr months #360 tabs rosuvastatin 10 mg tablet 10 mg PO QDAY #30 tabs 03/29/25 Rx Nurse's Note: Pt got labs drawn last week. [facility] Medical History Post-menopausal Alcohol use Diabetes Migraine headache Dietary restriction Former smoker History of Holter monitoring History of echocardiogram History of stress test Hypertension Flu vaccine refused Anxiety about health Chest pain Abnormal EKG Colon cancer screening Health care maintenance Psoriasis Fungal dermatitis Numbness on right side Fatigue Acute frontal sinusitis, unspecified Hyperlipidemia Family history of breast cancer in first degree relative Breast pain, left Headache Type 2 diabetes mellitus Right sided weakness CVA (cerebral vascular accident) History of gallstones History of fracture of clavicle History of wrist fracture Nondisplaced fracture of neck of right radius Surgical History H/O breast biopsy History of History of cholecystectomy H/O abdominoplasty H/O adenoidectomy Family History Mother Diabetes Breast cancer, Onset Age: 60 Hypertension High cholesterol CVA (cerebral vascular accident) Thyroid disorder Father Diabetes Myocardial infarction, Onset Age: 65 Hypertension Social History adopted: No household members: significant other number of children: 4 current occupational status: employed 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 current occupational exposures/hazards: No pets and animals: Yes history of recent travel: No sexually active: Yes Smoking Status: Former smoker Tobacco: How many years used: 20 second hand exposure: No quit status: quit date established alcohol intake: current alcohol intake frequency: other Alcohol type: wine details: occasionally substance use type: does not use caffeine: Yes Type: coffee Number of servings: 1 eating out: 1-3 times/week during the past year weight has: remained stable what type of physical activity do you participate in: none jessa/jainism: None seatbelt use: always do you feel safe at home: Yes HPI HPI Chief Complaint: 3 M Fu Details: ARELIS BACON, is a 49 F who presents to the office today for follow-up of her chronic conditions. No acute concerns at this time. History of diabetes mellitus type 2, A1c is at 6.8 down slightly from 6.9. She is on semaglutide and metformin which she reports compliance with. Stays active but does not exercise. No concerns for hypoglycemia. Fasting blood sugar this morning said to be 170. Status post CVA, recent lipid profile reviewed and LDL over 100 similar to last check. Was on atorvastatin but this was discontinued due to poor tolerance. Other chronic medical conditions are stable. ROS Const Constitutional: No body ache, chills, excessive sweating, fatigue, fever( (more content not included)... Normal [facility] Absolute lymphocyte countOrd ered By: Heather Ugarte on 03-25-2025 Lymphocytes Auto (Unsp spec) [#/Vol] 1.88 10*3/uL 0.83-4.51 [facility] Absolute neutrophil countOrd ered By: Heather Ugarte on 03-25-2025 Neutrophils (Bld) [#/Vol] 3.9 10*3/uL 2.0-7.7 [facility] Anion gap in Serum or Plasma Ordered By: Sebastianbladimir Meadriphelen on 03-25-2025 Anion gap [Moles/Vol] 13 mmol/L 5-15 [facility] Automated lymphocyte count a s percentage of total leukocytesOrdered By: nikiluis felipeosmani Meadriphelen on 03-25-2025 Lymphocytes/100 WBC Auto (Unsp spec) 29.1 % 19-41 [facility] BUN/creatinine ratioOrdered By: nikiherscherosmani Meadriphelen on 03-25-2025 Urea nitrogen/Creatinine [Mass ratio] 22.3 mg/mg High 10-20 [facility] Basophil percentageOrdered B y: Mikoosmani Meadriphelen on 03-25-2025 Basophils/100 WBC (Bld) 0.6 % 0-1 [facility] Bilirubin, totalOrdered By: Heather Aguilerahelen on 03-25-2025 Bilirubin [Mass/Vol] 0.38 mg/dL Normal 0.00-1.30 [facility] Comment on above: Performed By: #### L 500.4050, L501.9985, L500.4100, L100.0100 ####[facility] [address] [place], [address] CBC W/Diff, Automatedon Absolute Lymph 1.88 X10 3/uL Normal 0.83-4.51 [facility] Comment on above: Performed By: #### L 500.4050, L501.9985, L500.4100, L100.0100 ####[facility] [address] [place], [address] Absolute Neut 3.9 X10 3/uL Normal 2.0-7.7 [facility] Comment on above: Performed By: #### L 500.4050, L501.9985, L500.4100, L100.0100 ####[facility] [address] [place], [address] Basophils/100 WBC (Bld) 0.6 % Normal 0-1 [facility] Comment on above: Performed By: #### L 500.4050, L501.9985, L500.4100, L100.0100 ####[facility] [address] [place], [address] Eosinophils/100 WBC (Bld) 1.9 % Normal 0-5 [facility] Comment on above: Performed By: #### L 500.4050, L501.9985, L500.4100, L100.0100 ####[facility] [address] [place], [address] Erythrocyte distribution width (RBC) [Ratio] 11.9 % Normal 11.6-14.6 [facility] Comment on above: Performed By: #### L 500.4050, L501.9985, L500.4100, L100.0100 ####[facility] [address] [place], [address] Hematocrit (Bld) [Volume fraction] 39.0 % Normal 37-47 [facility] Comment on above: Performed By: #### L 500.4050, L501.9985, L500.4100, L100.0100 ####[facility] [address] [place], [address] Hemoglobin (Bld) [Mass/Vol] 13.2 g/dL Normal 12.0-15.0 [facility] Comment on above: Performed By: #### L 500.4050, L501.9985, L500.4100, L100.0100 ####[facility] [address] [place], [address] IG% 0.300 Normal 0.0-0.9 [facility] Comment on above: Result Comment: IG% - Immature Granulocytes (promyelocytes, myelocytes and metamyelocytes) > 1% indicates that a LEFT SHIFT is Present. Performed By: #### L 500.4050, L501.9985, L500.4100, L100.0100 ####[facility] [address] [place], [address] Lymphocytes/100 WBC (Bld) 29.1 % Normal 19-41 [facility] Comment on above: Performed By: #### L 500.4050, L501.9985, L500.4100, L100.0100 ####[facility] [address] [place], [address] MCH (RBC) [Entitic mass] 29.7 pg Normal 27.0-32.0 [facility] Comment on above: Performed By: #### L 500.4050, L501.9985, L500.4100, L100.0100 ####[facility] [address] [place], [address] MCHC (RBC) [Mass/Vol] 33.8 g/dL Normal 32-36 [facility] Comment on above: Performed By: #### L 500.4050, L501.9985, L500.4100, L100.0100 ####[facility] [address] [place], [address] MCV (RBC) [Entitic vol] 87.6 fL Normal 81-99 [facility] Comment on above: Performed By: #### L 500.4050, L501.9985, L500.4100, L100.0100 ####[facility] [address] [place], [address] Monocytes/100 WBC (Bld) 7.7 % Normal 0-10 [facility] Comment on above: Performed By: #### L 500.4050, L501.9985, L500.4100, L100.0100 ####[facility] [address] [place], [address] Neutrophils/100 WBC (Bld) 60.4 % Normal 47-70 [facility] Comment on above: Performed By: #### L 500.4050, L501.9985, L500.4100, L100.0100 ####[facility] [address] [place], [address] Nucleated RBC (Bld) [#/Vol] 0 10*3/uL Normal 0-5 [facility] Comment on above: Performed By: #### L 500.4050, L501.9985, L500.4100, L100.0100 ####[facility] [address] [place], [address] Platelet mean volume (Bld) [Entitic vol] 9.6 fL Normal 6.2-12.0 [facility] Comment on above: Performed By: #### L 500.4050, L501.9985, L500.4100, L100.0100 ####[facility] [address] [place], [address] Platelets (Bld) [#/Vol] 255 10*3/uL Normal 150-450 [facility] Comment on above: Performed By: #### L 500.4050, L501.9985, L500.4100, L100.0100 ####[facility] [address] [place], [address] RBC (Bld) [#/Vol] 4.45 10*6/uL Normal 4.2-5.4 [facility] Comment on above: Performed By: #### L 500.4050, L501.9985, L500.4100, L100.0100 ####[facility] [address] [place], [address] RDW SD 38.5 fl Normal 35.1-43.9 [facility] Comment on above: Performed By: #### L 500.4050, L501.9985, L500.4100, L100.0100 ####[facility] [address] [place], [place], [address] WBC (Bld) [#/Vol] 6.5 10*3/uL Normal 4.4-11.0 [facility] Comment on above: Performed By: #### L 500.4050, L501.9985, L500.4100, L100.0100 ####[facility] [address] [place], [place], [address] Calculated very low density lipoprotein (VLDL) cholesterol measurementOrdered By: Heather Ugarte on 03-25-2025 Calculated very low density lipoprotein (VLDL) cholesterol measurement 30 mg/dL 5-40 [facility] Carbon dioxide, total [Moles /volume] in Central venous bloodOrdered By: Heather Ugarte on 03-25-2025 CO2 [Moles/Vol] 18.3 mmol/L Low 21.0-32.0 [facility] Comment on above: Performed By: #### L 500.4050, L501.9985, L500.4100, L100.0100 ####[facility] [address] [place], [place], [phone] Chloride assayOrdered By: Sebastian Ugarte on 03-25-2025 Chloride [Moles/Vol] 103 mmol/L Normal 98-108 [facility] Comment on above: Performed By: #### L 500.4050, L501.9985, L500.4100, L100.0100 ####[facility] [address] [place], [address] Comprehensive Metabolic Prof ilon 03-25-2025 ALK PHOS 65 U/L Normal 35-104 [facility] Comment on above: Performed By: #### L 500.4050, L501.9985, L500.4100, L100.0100 ####[facility] [address] [place], [address] BUN/CRE 22.3 RATIO High 10-20 [facility] Comment on above: Performed By: #### L 500.4050, L501.9985, L500.4100, L100.0100 ####[facility] [address] [place], [address] GAP 13 Normal 5-15 [facility] Comment on above: Performed By: #### L 500.4050, L501.9985, L500.4100, L100.0100 ####[facility] [address] [place], [address] Potassium [Moles/Vol] 4.6 mmol/L Normal 3.3-5.1 [facility] Comment on above: Performed By: #### L 500.4050, L501.9985, L500.4100, L100.0100 ####[facility] [address] [place], [address] T PROT 7.1 g/dL Normal 5.9-8.4 [facility] Comment on above: Performed By: #### L 500.4050, L501.9985, L500.4100, L100.0100 ####[facility] [address] [place], [address] Comprehensive Metabolic Prof ilOrdered By: Heather Ugarte on 03-25-2025 AST [Catalytic activity/Vol] 21 U/L Normal <=31 [facility] Comment on above: Performed By: #### L 500.4050, L501.9985, L500.4100, L100.0100 ####[facility] [address] [place], [address] Eosinophil percentageOrdered By: Heather Ugarte on 03-25-2025 Eosinophils/100 WBC (Bld) 1.9 % 0-5 [facility] Erythrocyte distribution wid th ratioOrdered By: Sebastiannikiluis felipeosmani Meadriphelen on 03-25-2025 Erythrocyte distribution width (RBC) [Ratio] 11.9 % 11.6-14.6 [facility] Erythrocyte distribution wid th standard deviationOrdered By: nikiherscherosmani Ugarte on 03-25-2025 Erythrocyte distribution width (RBC) [Ratio] 38.5 fl 35.1-43.9 [facility] Glomerular filtration rate ( GFR) estimation/1.73 sq m using serum, plasma, or whole bOrdered By: bladimir Ugarte on 03-25-2025 GFR/1.73 sq M.predicted among non-blacks MDRD (S/P/Bld) [Vol rate/Area] 94 mL/min/{1.73_m2} Normal >60 [facility] Comment on above: mL/min/1.73m2 CKD-EP I Creatinine Equation (2020) Result Comment: mL/m in/1.73m2 CKD-EPI Creatinine Equation (2020) Performed By: #### L 500.4050, L501.9985, L500.4100, L100.0100 ####[facility] [address] [place], [place], [id number] Hematocrit Auto (Bld) [Volum e fraction]Ordered By: Heather Ugarte on 03-25-2025 Hematocrit (Bld) [Volume fraction] 39.0 % 37-47 [facility] Hemoglobin A1con 03-25-2025 HbA1c (Bld) [Mass fraction] 6.8 % High <=5.6 [facility] Comment on above: Result Comment: Norm al < 5.7 % Prediabetic 5.7 - 6.4 % Diabetic >or= 6.5 % Please note range changes. Performed By: #### L 500.4050, L501.9985, L500.4100, L100.0100 ####[facility] [address] [place], [place], [phone] Hemoglobin A1c percentageOrd ered By: Heather Ugarte on 03-25-2025 HbA1c (Bld) [Mass fraction] 6.8 % High <5.7 [facility] Comment on above: Normal < 5.7 % Predi abetic 5.7 - 6.4 % Diabetic >or= 6.5 % Please note range changes. Hemoglobin measurementOrdere d By: Heather Ugarte on 03-25-2025 Hemoglobin (Bld) [Mass/Vol] 13.2 g/dL 12.0-15.0 [facility] Immature granulocytes/100 WB C Auto (Bld)Ordered By: bladimir Ugarte on 03-25-2025 Immature granulocytes/100 WBC (Bld) 0.300 % 0.0-0.9 [facility] Comment on above: IG% - Immature Granu locytes (promyelocytes, myelocytes and metamyelocytes) > 1% indicates that a LEFT SHIFT is Present. LDL calc ser/plasOrdered By: Heather Ugarte on 03-25-2025 Cholesterol in LDL [Mass/Vol] 116 mg/dL Normal [facility] Comment on above: Mlieiuiqbl=167-303 m g/dL & Higher Zozq=411 mg/dL or greater Result Comment: Bord lsrcrl=769-819 mg/dL Higher Lfqe=739 mg/dL or greater Performed By: #### L 500.4050, L501.9985, L500.4100, L100.0100 ####[facility] [address] [place], [place], [id number] Lipid Profileon 03-25-2025 CHOL:HDL 3.88 Normal [facility] Comment on above: Performed By: #### L 500.4050, L501.9985, L500.4100, L100.0100 ####[facility] [address] [place], [place], [address] Cholesterol in VLDL [Mass/Vol] 30 mg/dL Normal 5-40 [facility] Comment on above: Performed By: #### L 500.4050, L501.9985, L500.4100, L100.0100 ####[facility] [address] [place], [address] MCV (mean corpuscular volume ) determinationOrdered By: Heather Ugarte on 03-25-2025 MCV (RBC) [Entitic vol] 87.6 fL 81-99 [facility] Mean corpuscular hemoglobin (MCH) determinationOrdered By: Heather Ugarte on 03-25-2025 MCH (RBC) [Entitic mass] 29.7 pg 27.0-32.0 [facility] Mean corpuscular hemoglobin concentration (MCHC) determinationOrdered By: Heather Ugarte on 03-25-2025 MCHC (RBC) [Mass/Vol] 33.8 g/dL 32-36 [facility] Mean platelet volume determi nationOrdered By: Heather Ugarte on 03-25-2025 Platelet mean volume (Bld) [Entitic vol] 9.6 fL 6.2-12.0 [facility] Monocyte percentageOrdered B y: Heather Ugarte on 03-25-2025 Monocytes/100 WBC (Bld) 7.7 % 0-10 [facility] Neutrophil percentageOrdered By: nikiherscherosmani Ugarte on 03-25-2025 Neutrophils/100 WBC (Bld) 60.4 % 47-70 [facility] Nucleated red blood cell per centageOrdered By: Heather Ugarte on 03-25-2025 Nucleated RBC/100 WBC (Bld) [Ratio] 0 % 0-5 [facility] Platelet countOrdered By: Sebastian Ugarte on 03-25-2025 Platelets (Bld) [#/Vol] 255 10*3/uL 150-450 [facility] Potassium measurement (mass/ volume)Ordered By: Heather Ugarte on 03-25-2025 Potassium (Unsp spec) [Mass/Vol] 4.6 mmol/L 3.3-5.1 [facility] RBC Auto (Bld) [#/Vol]Ordere d By: Heather Ugarte on 03-25-2025 RBC (Bld) [#/Vol] 4.45 10*6/uL 4.2-5.4 [facility] Screening total cholesterol/ high density lipoprotein (HDL) cholesterol ratioOrdered By: Heather Ugarte on 03-25-2025 Cholesterol.total/Choles terol in HDL [Mass ratio] 3.88 {ratio} [facility] Serum creatinine measurement (mass/volume)Ordered By: Heather Ugarte on 03-25-2025 Creatinine [Mass/Vol] 0.76 mg/dL Normal 0.70-1.20 [facility] Comment on above: Performed By: #### L 500.4050, L501.9985, L500.4100, L100.0100 ####[facility] [address] [place], [place], [id number] Serum globulin measurementOr dered By: Heather Ugarte on 03-25-2025 Globulin (S) [Mass/Vol] 3.0 g/dL Normal 2.2-4.2 [facility] Comment on above: Performed By: #### L 500.4050, L501.9985, L500.4100, L100.0100 ####[facility] [address] [place], [place], [address] Serum glucose measurement (m ass/volume)Ordered By: Heather Ugarte on 03-25-2025 Glucose [Mass/Vol] 122 mg/dL High 70-99 [facility] Comment on above: Performed By: #### L 500.4050, L501.9985, L500.4100, L100.0100 ####[facility] [address] [place], [address] Serum or plasma alanine neil otransferase (ALT) measurementOrdered By: Heather Ugarte on 03-25-2025 ALT [Catalytic activity/Vol] 18 U/L Normal <=34 [facility] Comment on above: Performed By: #### L 500.4050, L501.9985, L500.4100, L100.0100 ####[facility] [address] [place], [place], [phone] Serum or plasma albumin nick urement (mass/volume)Ordered By: Heather Ugarte on 03-25-2025 Albumin [Mass/Vol] 4.1 g/dL Normal 3.5-5.0 [facility] Comment on above: Performed By: #### L 500.4050, L501.9985, L500.4100, L100.0100 ####[facility] [address] [place], [address] Serum or plasma albumin/glob ulin mass ratioOrdered By: Heather Ugarte on 03-25-2025 Albumin/Globulin [Mass ratio] 1.4 {ratio} Normal 0.9-2.4 [facility] Comment on above: Performed By: #### L 500.4050, L501.9985, L500.4100, L100.0100 ####[facility] [address] [place] [place], [address] Serum or plasma alkaline etienne sphatase measurementOrdered By: Heather Ugarte on 03-25-2025 ALP [Catalytic activity/Vol] 65 U/L 35-104 [facility] Serum or plasma calcium nick urement (mass/volume)Ordered By: Heather Ugarte on 03-25-2025 Calcium [Mass/Vol] 9.3 mg/dL Normal 7.6-11.0 [facility] Comment on above: Performed By: #### L 500.4050, L501.9985, L500.4100, L100.0100 ####[facility] [address] [place], [place], [address] Serum or plasma cholesterol in HDL measurement (mass/volume)Ordered By: Heather Ugarte on 03-25-2025 Cholesterol in HDL [Mass/Vol] 51 mg/dL Normal [facility] Comment on above: National Cholesterol Education Program (NCEP) guidelines:<40 mg/dL: Low HDL-cholesterol (major risk factor for CHD)>= 60 mg/dL: High HDL-cholesterol (negative risk factor for CHD)HDL-cholesterol is affected by a number of factors, e.g. smoking, exercise, hormones, sex and age. Result Comment: Margi onal Cholesterol Education Program (NCEP) guidelines: <40 mg/dL: Low HDL-cholesterol (major risk factor for CHD) >= 60 mg/dL: High HDL-cholesterol (negative risk factor for CHD) HDL-cholesterol is affected by a number of factors, e.g. smoking, exercise, hormones, sex and age. Performed By: #### L 500.4050, L501.9985, L500.4100, L100.0100 ####[facility] [address] [place], [place], [address] Serum or plasma cholesterol measurement (mass/volume)Ordered By: Heather Ugarte on 03-25-2025 Cholesterol [Mass/Vol] 196 mg/dL Normal <=200 [facility] Comment on above: Cholesterol level, D esirable <200 mg/dLBorderline high cholesterol 200-239 mg/dLHigh cholesterol >=240 mg/dLRecommendations of the NCEP Adult Treatment Panel for the following risk-cutoff thresholds for the [place] population. Result Comment: Chol esterol level, Desirable <200 mg/dL Borderline high cholesterol 200-239 mg/dL High cholesterol >=240 mg/dL Recommendations of the NCEP Adult Treatment Panel for the following risk-cutoff thresholds for the [place] population. Performed By: #### L 500.4050, L501.9985, L500.4100, L100.0100 ####[facility] [address] [place], [address] Serum or plasma urea nitroge n measurement (mass/volume)Ordered By: Heather Ugarte on 03-25-2025 Urea nitrogen [Mass/Vol] 17 mg/dL Normal 4-19 [facility] Comment on above: Performed By: #### L 500.4050, L501.9985, L500.4100, L100.0100 ####[facility] [address] [place], [address] Sodium levelOrdered By: Benjamín Ugarte on 03-25-2025 Sodium [Moles/Vol] 134 mmol/L Normal 133-145 [facility] Comment on above: Performed By: #### L 500.4050, L501.9985, L500.4100, L100.0100 ####[facility] [address] [place], [address] Total proteinOrdered By: Rafi Ugarte on 03-25-2025 Protein [Mass/Vol] 7.1 g/dL 5.9-8.4 [facility] Triglycerides measurementOrd ered By: Heather Ugarte on 03-25-2025 Triglyceride [Mass/Vol] 149 mg/dL Normal [facility] Comment on above: The drugs N-Acetylcy steine and Metamizole may falsely depress this assay. Normal range: <150 mg/dLBorderline High: 150-199 mg/dLHigh: 200-499 mg/dLVery High: >500 mg/dL Result Comment: The drugs N-Acetylcysteine and Metamizole may falsely depress this assay. Normal range: <150 mg/dL Borderline High: 150-199 mg/dL High: 200-499 mg/dL Very High: >500 mg/dL Performed By: #### L 500.4050, L501.9985, L500.4100, L100.0100 ####[facility] [address] [place] [place], [address] White blood cell (WBC) count Ordered By: Heather Bostonriphelen on 03-25-2025 WBC (Bld) [#/Vol] 6.5 10*3/uL 4.4-11.0 [facility] Office Visit Reporton 2024 Office Visit Report [facility] [address] [place] [address] OFFICE VISIT Date of Service: 03/11/25 MR#: [id number] Acct: [id number] Patient: ARELIS BACON Rep #: [id number] : 1975 Provider: Dr. Lukas fields MD Age/Sex: 49/F Location: [facility] Status: Signed Intake Vital Signs 01/07/25 08:15 03/11/25 08:12 Height 5 ft 6 in 5 ft 6 in Weight: 164 lb 13 oz 163 lb 13 oz BMI 26.6 26.4 BP 112/72 110/70 Blood Pressure Location Rt brachial Lt brachial Position Sitting Sitting Respiration 17 17 Pulse 100 98 Pulse Source Monitor Monitor Temp 98.4 F 98.2 F Temp Source Temporal Temporal Pulse Oximetry (%) 97 96 Oxygen Delivery Method room air room air Intake Visit Reasons: B12 inject Chief Complaint: 3 M Fu Allergies adhesive Allergy (Unknown, Verified 12/21/24 09:00) Rash cephalexin monohydrate (From Keflex) Adverse Reaction (Intermediate, Verified 12/21/24 09:00) Hives Iodinated Contrast Media Adverse Reaction (Intermediate, Verified 12/21/24 09:00) Sneezing Office Meds cyanocobalamin (vitamin B-12) 1,000 mcg/mL injection solution Performing Provider: Lukas Wang MD Performing Location: [facility] Administered by: Jazzy Lagos on 03/11/25 08:14 Dose Route Admin Location Dispensed Lot Number Expiration Date [facility][NOTE 3] Man ufacturer 1,500 mcg IM right deltoid 1.5 mL [id number] 02/22/27 65963-391-86 VITRUVI THERA Comments: The patient presents for B12 injection for treatment of fatigue. She has fatigue. Her last B12 injection was of benefit for fatigue. The patient is awake and alert. B12 1500mcg IM was administered today. There were no complications. Assessment and Plan Assessment and Plan (1) Fatigue: Status: Chronic Qualifiers: Fatigue type: chronic, unspecified Qualified Code(s): R53.82 - Chronic fatigue, unspecified Orders: Orders Vitamin B12 Today R53.82 - Chronic fatigue, unspecified 03/11/25 1501 Date Lukas Wang MD Cosigner Signature: Date (if applicable) CC: Normal [facility] Office Visit Reporton 2024 Office Visit Report [facility] [address] [address] OFFICE VISIT Date of Service: 02/08/25 MR#: [id number] Acct: [id number] Patient: ARELIS BACON Rep #: [id number] : 1975 Provider: Dr. Lukas fields MD Age/Sex: 49/F Location: [facility] Status: Signed Intake Vital Signs 12/21/24 09:05 01/07/25 08:15 02/08/25 08:19 Height 5 ft 6 in 5 ft 6 in 5 ft 6 in Weight: 164 lb 13 oz 166 lb 10 oz BMI 26.6 26.9 BP 112/72 126/80 H Blood Pressure Location Rt brachial Lt brachial Position Sitting Sitting Respiration 17 17 Pulse 100 94 Pulse Source Monitor Monitor Temp 98.4 F 97.8 F Temp Source Temporal Temporal Pulse Oximetry (%) 97 96 Oxygen Delivery Method room air room air Intake Visit Reasons: B12 inject Chief Complaint: 3 M Fu Allergies adhesive Allergy (Unknown, Verified 12/21/24 09:00) Rash cephalexin monohydrate (From Keflex) Adverse Reaction (Intermediate, Verified 12/21/24 09:00) Hives Iodinated Contrast Media Adverse Reaction (Intermediate, Verified 12/21/24 09:00) Sneezing Office Meds cyanocobalamin (vitamin B-12) 1,000 mcg/mL injection solution Performing Provider: Lukas Wang MD Performing Location: [facility] Administered by: Jazzy Lagos on 02/08/25 08:09 Dose Route Admin Location Dispensed Lot Number Expiration Date NDC Man ufacturer 1,500 mcg IM left deltoid 1.5 mL [id number] 02/22/27 27201-685-83 DEZ SARAVIA Comments: The patient presents for B12 injection for treatment of fatigue. She has fatigue. Her last B12 injection was of benefit for fatigue. The patient is awake and alert. B12 1500mcg IM was administered today. There were no complications. Assessment and Plan Assessment and Plan (1) Fatigue: Status: Chronic Qualifiers: Fatigue type: chronic, unspecified Qualified Code(s): R53.82 - Chronic fatigue, unspecified Orders: Orders Vitamin B12 Today R53.82 - Chronic fatigue, unspecified 02/08/25 1635 Date Lukas Wang MD Cosigner Signature: Date (if applicable) CC: Normal [facility] Breast imaging reportOrdered By: Isaias Loaiza on 02-04-2025 Study report [facility] [address] [place], [place] [address] SCRN MAMM (CAD)W/ROLO BILAT MR#: [id number] Acct: [id number] Name: ARELIS BACON Rep #: [id number] : 1975 F 49 From: Noé Loaiza MD PCP: Dr. Heather Ugarte MD Status: R EG CLI Study:SCRN MAMM (CAD)W/ROLO BILAT Date of Exa m: 02/04/25 Exam# [id number] Ordering Dr: Helen Ugarte MD PROCEDURE: SCRN MAMM (CAD)W/ROLO BILAT REASON FOR EXAM: F, Age 49 y/o , BREAST CANCER SCREENINGMother with breast cancer. Grandmother with breast cancer. History of prior right ultrasound-guided breast biopsy. TECHNIQUE: Bilateral screening digital breast tomosynthesis with 2D and 3D images. Computeraided detection. COMPARISON: Prior exam(s) dating back to February 14, 2000.. FINDINGS: The breasts are heterogeneously dense which may obscure small masses. A tissue clip marker is seen in the anterior slightly inferior medial aspect of the right breast. This is unchanged. Small bilateralaxillary lymph nodes. No suspicious masses, areas of developing architectural distortion, or suspicious calcifications.. Stable examination. BI/SCRN MAMM (CAD)W/ROLO BILAT IMPRESSION: BI-RADS 2: BENIGN. RECOMMEND ANNUAL MAMMOGRAPHIC SCREENING. Follow-up code: Routine Follow-up The patient will be notified of the results by letter. Reading Location: [id number] CC: Dr. Heather Ugarte MD ~ Readiness Paraprofessional: Signed [facility] SCRN MAMM (CAD)W/ROLO BILATo n 02-04-2025 SCRN MAMM (CAD)W/RLOO BILAT [facility] [address] [place] [address] SCRN MAMM (CAD)W/ROLO BILAT MR#: [id number] Acct: [id number] Name: ARELIS BACON Rep #: [id number] : 1975 F 49 From: Isaias ayoub MD PCP: Dr. Heather Ugarte MD Status: REG CLI Study: SCRN MAMM (CAD)W/ROLO BILAT Date of Exam: 01/23 02/16 Exam# [id number] Ordering Dr: Heather Ugarte MD PROCEDURE: SCRN MAMM (CAD)W/ROLO BILAT REASON FOR EXAM: F, Age 49 y/o , BREAST CANCER SCREENINGMother with breast cancer. Grandmother with breast cancer. History of prior right ultrasound-guided breast biopsy. TECHNIQUE: Bilateral screening digital breast tomosynthesis with 2D and 3D images. Computer aided detection. COMPARISON: Prior exam(s) dating back to February 14, 2000.. FINDINGS: The breasts are heterogeneously dense which may obscure small masses. A tissue clip marker is seen in the anterior slightly inferior medial aspect of the right breast. This is unchanged. Small bilateral axillary lymph nodes. No suspicious masses, areas of developing architectural distortion, or suspicious calcifications.. Stable examination. BI/SCRN MAMM (CAD)W/ROLO BILAT IMPRESSION: BI-RADS 2: BENIGN. RECOMMEND ANNUAL MAMMOGRAPHIC SCREENING. Follow-up code: Routine Follow-up The patient will be notified of the results by letter. Reading Location: [id number]-O CC: Dr. Heather Ugarte MD Readiness Paraprofessional: Signed Normal [facility] Office Visit Reporton 2024 Office Visit Report [facility] [address] [place] [address] OFFICE VISIT Date of Service: 01/07/25 MR#: [id number] Acct: [id number] Patient: ARELIS BACON Rep #: [id number] : 1975 Provider: Dr. Lukas fields MD Age/Sex: 49/F [place] [facility] [place]: Signed Intake Vital Signs 11/05/24 08:11 12/21/24 09:05 01/07/25 08:15 Height 5 ft 6 in 5 ft 6 in 5 ft 6 in Weight: 167 lb 164 lb 13 oz BMI 26.9 26.6 BP 118/68 112/72 Blood Pressure Location Lt brachial Rt brachial Position Sitting Sitting Respiration 16 17 Pulse 106 H 100 Pulse Source Monitor Monitor Temp 98.6 F 98.4 F Temp Source Temporal Temporal Pulse Oximetry (%) 97 Oxygen Delivery Method room air Intake Visit Reasons: B12 inject Chief Complaint: 3 M Fu Allergies adhesive Allergy (Unknown, Verified 12/21/24 09:00) Rash cephalexin monohydrate (From Keflex) Adverse Reaction (Intermediate, Verified 12/21/24 09:00) Hives Iodinated Contrast Media Adverse Reaction (Intermediate, Verified 12/21/24 09:00) Sneezing Office Meds cyanocobalamin (vitamin B-12) 1,000 mcg/mL injection solution Performing Provider: Lukas Wang MD Performing Location: [facility] Administered by: Jazzy Lagos on 01/07/25 08:17 Dose Route Admin Location Dispensed Lot Number Expiration Date [facility][NOTE 3] Man ufacturer 1,500 mcg IM right deltoid 1.5 mL [id number] 02/22/27 24015-308-24 VILMAUVI THERA Comments: The patient presents for B12 injection for treatment of fatigue. She has fatigue. Her last B12 injection was of benefit for fatigue. The patient is awake and alert. B12 1500mcg IM was administered today. Assessment and Plan Assessment and Plan (1) Fatigue: Status: Chronic Qualifiers: Fatigue type: chronic, unspecified Qualified Code(s): R53.82 - Chronic fatigue, unspecified Orders: Orders Vitamin B12 Today R53.82 - Chronic fatigue, unspecified 01/07/25 1713 Date Lukas Wang MD Cosigner Signature: Date (if applicable) CC: Mindy [facility] Internal Medicine Office Vis itojannette 12-21-2024 Internal Medicine Office Visit [facility] [address] [place] [address] [address] [place] [address] OFFICE VISIT Date of Service: 12/21/24 MR#: [id number] Acct: [id number] Name: ARELIS BACON Rep #: [id number] : 1975 Provider: Dr. 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: No Accompanied by: Self Is patient in pain?: No Allergies adhesive Allergy (Unknown, Verified 12/21/24 09:00) Rash cephalexin monohydrate (From Keflex) Adverse Reaction (Intermediate, Verified 12/21/24 09:00) Hives Iodinated Contrast Media Adverse Reaction (Intermediate, Verified 12/21/24 09:00) Sneezing Medications ???Medication ???Instructions ???Recorded ???Confirmed ???Type aspirin 81 mg chewable tablet 162 mg (2 x 81 mg) PO BREAKFAST 08/15/22 12/21/24 Rx #90 tabs cyanocobalamin (vitamin B-12) 100 100 mcg .Route .Q30 DAYS 03/11/23 12/21/24 History mcg/mL injection solution losartan 50 mg tablet 50 mg PO DAILY #90 TABLETS 06/29/24 12/21/24 Rx metformin 500 mg tablet 500 mg PO BID 3 months #180 tabs 06/29/24 12/21/24 Rx semaglutide 2 mg/dose (8 mg/3 mL) 2 mg (0.75 mL) subcut QWEEK 3 10/01/24 12/21/24 Rx subcutaneous pen injector (Ozempic) months #9.75 mL flash glucose sensor (FreeStyle #3 ea 12/02/24 12/21/24 Rx Bob 2 Sensor kit) FOR[facility]LY [facility], [facility] Medical History Post-menopausal Alcohol use Diabetes Migraine headache Dietary restriction Former smoker History of Holter monitoring History of echocardiogram History of stress test Hypertension Flu vaccine refused Anxiety about health Chest pain Abnormal EKG Colon cancer screening Health care maintenance Psoriasis Fungal dermatitis Numbness on right side Fatigue Acute frontal sinusitis, unspecified Hyperlipidemia Family history of breast cancer in first degree relative Breast pain, left Headache Type 2 diabetes mellitus Right sided weakness CVA (cerebral vascular accident) History of gallstones History of fracture of clavicle History of wrist fracture Nondisplaced fracture of neck of right radius Surgical History H/O breast biopsy History of History of cholecystectomy H/O abdominoplasty H/O adenoidectomy Family History Mother Diabetes Breast cancer, Onset Age: 60 Hypertension High cholesterol CVA (cerebral vascular accident) Thyroid disorder Father Diabetes Myocardial infarction, Onset Age: 65 Hypertension Social History adopted: No household members: significant other number of children: 4 current occupational status: employed 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 current occupational exposures/hazards: No pets and animals: Yes history of recent travel: No sexually active: Yes Smoking Status: Former smoker Tobacco: How many years used: 20 second hand exposure: No quit status: quit date established alcohol intake: current alcohol intake frequency: other Alcohol type: wine details: occasionally substance use type: does not use caffeine: Yes Type: coffee Number of servings: 1 eating out: 1-3 times/week during the past year weight has: remained stable what type of physical activity do you participate in: none jessa/jainism: None seatbelt use: always do you feel safe at home: Yes HPI HPI Chief Complaint: 3 M Fu Details: ARELIS BACON, is a 49 F who presents to the office today for follow-up of her chronic conditions. No acute concerns at this time History of diabetes mellitus type 2, A1c today is at 6.9 up from last visit. She states that during the holidays, she has been less active and eating more sweets. Plans to make changes. Occasion as prescribed. Other chronic medical conditions are stable. Blood pressure today at 118 over 68 mmHg. ROS Const Constitutional: No body ache, chills, excessive sweating, fatigue, fever(s), frequent falls, headache(s), snoring, weakness, weight change or change in appetite Eyes Eyes: No blurry vision, change in vision, bulging eyes, floaters, visual disturbances, eye pain or Light sensitivity ENT ENT: No abnormal hearing, ear or mastoid pain, tinnitus, balance problems, nosebleed/epistaxis, nasal congestion, headache(s), neck pain or sore throat Resp Respiratory: No cough, excessive phlegm production, (more content not included)... Normal [facility] Laboratory - Hematology and Cell countson 12-21-2024 HbA1c (Bld) [Mass fraction] 6.9 % High 4.2-6.3 [facility] Office Visit Reporton 2024 Office Visit Report [facility] [address] [place] [address] OFFICE VISIT Date of Service: 12/07/24 MR#: [id number] Acct: [id number] Patient: ARELIS BACON Rep #: [id number] : 1975 Provider: Dr. Lukas fields MD Age/Sex: 49/F Location: [facility] Status: Signed Intake Vital Signs 10/12/24 06:35 12/07/24 08:18 Height 5 ft 6 in 5 ft 6 in Weight: 168 lb 3 oz BMI 27.1 BP 138/82 H Blood Pressure Location Rt brachial Position Sitting Respiration 17 Pulse 105 H Pulse Source Monitor Temp 98.6 F Temp Source Temporal Pulse Oximetry (%) 96 Oxygen Delivery Method room air Intake Visit Reasons: B12 inject Chief Complaint: 3 M Fu Allergies adhesive Allergy (Unknown, Verified 10/12/24 06:35) Rash cephalexin monohydrate (From Keflex) Adverse Reaction (Intermediate, Verified 10/12/24 06:35) Hives Iodinated Contrast Media Adverse Reaction (Intermediate, Verified 10/12/24 06:35) Sneezing Office Meds cyanocobalamin (vitamin B-12) 1,000 mcg/mL injection solution Performing Provider: Lukas Wang MD Performing Location: [facility] Administered by: Jazzy Lagos on 12/07/24 08:21 Dose Route Admin Location Dispensed Lot Number Expiration Date [facility][NOTE 3] Man ufacturer 1,500 mcg IM right deltoid 1.5 mL [id number] 02/22/27 82170-041-08 FILOMENA SARAVIA Comments: The patient presents for B12 injection for treatment of fatigue. She has fatigue. Her last B12 1000mcg injection was of little benefit for fatigue. Patient is awake and alert. New verbal order: B12 was increased to 1500mcg IM. The new order was administered today. There were no complications. Assessment and Plan Assessment and Plan (1) Fatigue: Status: Chronic Qualifiers: Fatigue type: chronic, unspecified Qualified Code(s): R53.82 - Chronic fatigue, unspecified Orders: Orders Vitamin B12 Today R53.82 - Chronic fatigue, unspecified 12/07/24 1759 Date Luksa Wang MD Cosigner Signature: Date (if applicable) CC: Normal [facility] Office Visit Reporton 2023 Office Visit Report [facility] [address] [place] [address] OFFICE VISIT Date of Service: 11/05/24 MR#: [id number] Acct: [id number] Patient: ARELIS BACON Rep #: [id number] : 1975 Provider: Dr. Lukas fields MD Age/Sex: 49/F [place] [facility] [place]: Signed Intake Vital Signs 09/03/24 08:04 10/12/24 06:35 11/05/24 08:11 Height 5 ft 6 in 5 ft 6 in 5 ft 6 in Weight: 164 lb 3 oz BMI 26.4 BP 116/70 Blood Pressure Location Rt brachial Position Sitting Respiration 17 Pulse 112 H Pulse Source Monitor Temp 98.6 F Temp Source Temporal Pulse Oximetry (%) 96 Oxygen Delivery Method room air Intake Visit Reasons: B12 inject Chief Complaint: 3 M Fu Allergies adhesive Allergy (Unknown, Verified 10/12/24 06:35) Rash cephalexin monohydrate (From Keflex) Adverse Reaction (Intermediate, Verified 10/12/24 06:35) Hives Iodinated Contrast Media Adverse Reaction (Intermediate, Verified 10/12/24 06:35) Sneezing Office Meds cyanocobalamin (vitamin B-12) 1,000 mcg/mL injection solution Performing Provider: Lukas Wang MD Performing Location: [facility] Administered by: Jazzy Lagos on 11/05/24 08:15 Dose Route Admin Location Dispensed Lot Number Expiration Date NDC Man ufacturer 1,000 mcg IM right deltoid 1 mL [id number] 12/25/26 51104-967-31 FILOMENA SARAVIA Comments: The patient presents for B12 injection for treatment of fatigue. She has fatigue. Her last B12 injection was of benefit for fatigue. The patient is awake and alert. B12 1000mcg IM was administered today. There were no complication Assessment and Plan Assessment and Plan (1) Fatigue: Status: Chronic Qualifiers: Fatigue type: chronic, unspecified Qualified Code(s): R53.82 - Chronic fatigue, unspecified Orders: Orders Vitamin B12 Today R53.82 - Chronic fatigue, unspecified 11/05/24 1601 Date Lukas Green Signature: Date (if applicable) CC: Normal [facility] Bedside Glucoseon 10-12-2024 FINGERSTICK GLU 142 mg/dL High 74-106 [facility] Comment on above: Result Comment: ARNOLDO MAY OF PATIENT CARE PER NURSING PROTOCOL Performed By: #### L [phone] ####[facility] [id number] [place], [address] Colonoscopy Reporton 024 Colonoscopy Report [facility] Medical Records Department [address] [place] [address] Colonoscopy Report MR#: [id number] Acct: [id number] Name: ARELIS BACON Rep #: [id number] : 1975 49 From: Mony Ferrer MD PCP: Dr. Heather Ugarte MD Status:[facility] Patient Name: Arelis Bacon Procedure Date: 10/12/2024 7:24 AM Date of : 1975 Age: 49 Procedure: Colonoscopy Indications: Screening for colorectal malignant neoplasm Providers: Mony Ferrer MD Referring MD: Heather Ugarte MD Medicines: Monitored Anesthesia Care Patient Profile: This is a 49 year old female. Last Colonoscopy: none. The patient's first colonoscopy is today. Complications: No immediate complications. Procedure: Pre-Anesthesia Assessment: - Prior to the procedure, a History and Physical was performed, and patient medications and allergies were reviewed. The patient's tolerance of previous anesthesia was also reviewed. The risks and benefits of the procedure and the sedation options and risks were discussed with the patient. All questions were answered, and informed consent was obtained. Prior Anticoagulants: The patient has taken no anticoagulant or antiplatelet agents. ASA Grade Assessment: Per anesthesia. After reviewing the risks and benefits, the patient was deemed in satisfactory condition to undergo the procedure. After I obtained informed consent, the scope was passed under direct vision. Throughout the procedure, the patient's blood pressure, pulse, and oxygen saturations were monitored continuously. The Colonoscope was introduced through the anus and advanced to the cecum, identified by appendiceal orifice and ileocecal valve. The colonoscopy was performed without difficulty. The patient tolerated the procedure well. The quality of the bowel preparation was good. Scope In: 7:36:27 AM Scope Withdrawal Time 0 hours 7 minutes 58 seconds Scope Out: 7:49:45 AM Total Procedure Duration Time 0 hours 13 minutes 18 seconds Findings: The perianal and digital rectal examinations were normal. The entire examined colon appeared normal on direct and retroflexion views. Impression: - The entire examined colon is normal on direct and retroflexion views. - No specimens collected. Recommendation: - Discharge patient to home. - Resume previous diet. - Continue present medications. - Repeat colonoscopy in 10 years for screening purposes. Procedure Code(s): --- Professional --- G0121, PT, Colorectal cancer screening; colonoscopy on individual not meeting criteria for high risk Diagnosis Code(s): --- Professional --- Z12.11, Encounter for screening for malignant neoplasm of colon CPT copyright 2021 [employer]. All rights reserved. The codes documented in this report are preliminary and upon foot gatherer review may be revised to meet current compliance requirements. MD Mony Sears MD 10/12/2024 7:52:32 AM This report has been signed electronically. Number of Addenda: 0 Note Initiated On: 10/12/2024 7:24 AM 10/12/24 0752 Date Mony Ferrer MD Cosigner Signature: Date (if indicated) CC: Dr. Heather Ugarte MD; Dr. Mony Ferrer MD Date Dictated: 11/723 Date Transcribed: Readiness Paraprofessional: MALINDA Signed [facility] MR/POSTOP.ANEon 10-12-2024 MR/POSTOP.ANE [facility] Medical Records Department [address] [place] [address] Anesthesia Postop Eval I 10/12/24 0803 MR#: [id number] Acct: [id number] Name: ARELIS BACON Rep #: [id number] : 1975 49 From: Solitario Gonzalez PCP: Dr. Heather Ugarte MD Status:[facility] Y Race: C Location: [place] [address] Anesthesia: Postop Eval I Current Vital Signs Temperature: 98.2 F Pulse Rate: 72 Blood Pressure: 97/53 Respiratory Rate: 16 Pulse Ox: 98 Oxygen Delivery Method: Room Air Assessment Airway patent: Yes Spontaneous unlabored respirations: Yes Mental status: Asleep nausea: No Vomiting: No Anesthesia Complication: No Fluid Hydration Crystalloid volume administer (ml): 50 Total IV fluid infused: 50 Progress Note Anesthesia document: Postop Eval 1 completed: Yes 10/12/24803 Date Solitario Green Signature: Date CC: Signed [facility] MR/[id number] 10-12-2024 MR/POSTOPAN2 [facility] Medical Records Department [address] [place] [address] Anesthesia Postop Eval II 10/12/24 1017 MR#: [id number] Acct: [id number] Name: ARELIS BACONN Rep #: [id number] : 1975 49 From: Noah Watts MD PCP: Dr. Heather Ugarte MD Status:[facility] Y Race: C Location: [place] Anesthesia Postop Eval I Sum Postop Eval Completion status Anesthesia document: Postop Eval 1 completed: Yes Anesthesia Postop Eval I Summary Anesthesia Postop Eval I Summary: Anesthesia Postop Eval I: Assessment Summary Airway patent Yes 10/12/24 08:04 [email or web address] Spontaneous unlabored Yes 10/12/24 08:04 [email or web address] respirations Mental status Asleep 10/12/24 08:04 [email or web address] nausea No 10/12/24 08:04 [email or web address] Vomiting No 10/12/24 08:04 [email or web address] Anesthesia Postop Eval I: Fluid Summary Crystalloid volume administer 50 10/12/24 08:04 [email or web address] (ml) Colloids volume administered ( ml) Blood Product volume administered (ml) Total IV fluid infused 50 10/12/24 08:04 [email or web address] Anesthesia Postop Eval I: Summary Notes Anesthesia Complication No 10/12/24 08:04 [email or web address] Anesthesia Complication Comment: Post-operative progress note Anesthesia: Postop Eval II Evaluation Mental status: Awake Pain Level: 1 nausea: No Vomiting: No 10/12/24 1017 Date Noah Green Signature: Date CC: Signed Normal [facility] Office Visit Reporton 2023 Office Visit Report [facility] [address] [place] [address] OFFICE VISIT Date of Service: 10/05/24 MR#: [id number] Acct: [id number] Patient: ARELIS BACON Rep #: [id number] : 1975 Provider: Dr. Lukas fields MD Age/Sex: 49/F Location: [facility] Status: Signed Intake Vital Signs 08/19/24 09:21 09/03/24 08:04 10/05/24 08:17 Height 5 ft 6.5 in 5 ft 6 in 5 ft 6 in Weight: 161 lb 163 lb 163 lb 3 oz BMI 25.6 26.3 26.3 BP 120/80 120/80 Blood Pressure Location Lt brachial Rt brachial Position Sitting Sitting Respiration 17 17 Pulse 107 H 97 Pulse Source Monitor Monitor Temp 98.4 F 98.9 F Temp Source Temporal Temporal Pulse Oximetry (%) 98 97 Oxygen Delivery Method room air room air Intake Visit Reasons: B12 inject Chief Complaint: 3 M Fu Allergies adhesive Allergy (Unknown, Verified 09/21/24 10:26) Rash cephalexin monohydrate (From Keflex) Adverse Reaction (Intermediate, Verified 09/21/24 10:26) Hives Iodinated Contrast Media Adverse Reaction (Intermediate, Verified 09/21/24 10:26) Sneezing Office Meds cyanocobalamin (vitamin B-12) 1,000 mcg/mL injection solution Performing Provider: Lukas Wang MD Performing Location: [facility] Administered by: Jazzy Lagos on 10/05/24 08:20 Dose Route Admin Location Dispensed Lot Number Expiration Date [facility][NOTE 3] Man ufacturer 1,000 mcg IM right deltoid 1 mL [id number] 12/25/26 37668-377-71 FILOMENA SARAVIA Comments: The patient presents for B12 injection for treatment of fatigue. She has fatigue. Her last B12 injection was of benefit for fatigue. The patient is awake and alert. B12 1000mcg IM was administered today. There were no complications. Assessment and Plan Assessment and Plan (1) Fatigue: Status: Chronic Qualifiers: Fatigue type: chronic, unspecified Qualified Code(s): R53.82 - Chronic fatigue, unspecified Orders: Orders Vitamin B12 Today R53.82 - Chronic fatigue, unspecified 10/05/24 1632 Date Lukas Wang MD Cosigner Signature: Date (if applicable) CC: Normal [facility] Absolute lymphocyte countOrd ered By: Heather Ugarte on 12-16-2023 Lymphocytes Auto (Unsp spec) [#/Vol] 2.04 10*3/uL 0.83-4.51 [facility] Automated lymphocyte count a s percentage of total leukocytesOrdered By: Heather Ugarte on 12-16-2023 Lymphocytes/100 WBC Auto (Unsp spec) 33.9 % 19-41 [facility] Basophil percentageOrdered B y: Heather Ugarte on 12-16-2023 Basophils/100 WBC (Bld) 0.5 % 0-1 [facility] Bilirubin [Mass/Vol] 0.50 mg/dL 0.20-1.00 [facility] Comment on above: For patients on eltr ombopag therapy, use of Dimension [place] TBIL is not recommended. Chloride [Moles/Vol] 105 mmol/L 98-107 [facility] Cholesterol [Mass/Vol] 191 mg/dL <200 [facility] Comment on above: <200 mg/dL Desirable 200-240 mg/dL Borderline >240 mg/dL High Risk Eosinophils/100 WBC (Bld) 2.7 % 0-5 [facility] Glucose [Mass/Vol] 121 mg/dL 74-106 [facility] Comment on above: Fasting Glucose resu lt from 100 to 125 mg/dL suggests IMPAIRED HOMEOSTASIS per A.D.A. criteria. Hemoglobin (Bld) [Mass/Vol] 13.5 g/dL 12.0-15.0 [facility] Monocytes/100 WBC (Bld) 8.0 % 0-10 [facility] Neutrophils (Bld) [#/Vol] 3.3 10*3/uL 2.0-7.7 [facility] Neutrophils/100 WBC (Bld) 54.6 % 47-70 [facility] Potassium [Moles/Vol] 4.8 mmol/L 3.5-5.1 [facility] Protein [Mass/Vol] 7.4 g/dL 6.4-8.2 [facility] Sodium [Moles/Vol] 137 mmol/L 136-145 [facility] Triglyceride [Mass/Vol] 141 mg/dL <199 [facility] Comment on above: The drugs N-Acetylcy steine and Metamizole may falsely depress this assay.Serum Triglycerides Reference Interval Normal <150 mg/dL Borderline high 150 - 199 mg/dL High 200 - 499 mg/dL Very High > or = 500 mg/dL WBC (Bld) [#/Vol] 6.0 10*3/uL 4.4-11.0 [facility] Determination of erythrocyte mean corpuscular volume (MCV)Ordered By: Heather Ugarte on 12-16-2023 MCV (RBC) [Entitic vol] 89.5 fL 81-99 [facility] Erythrocyte distribution wid th ratioOrdered By: [facility] Ugarte on 12-16-2023 Erythrocyte distribution width (RBC) [Ratio] 11.8 % 11.6-14.6 [facility] Erythrocyte distribution wid th standard deviationOrdered By: [facility]i [place] on 12-16-2023 Erythrocyte distribution width (RBC) [Entitic vol] 38.5 fL 35.1-43.9 [facility] Hematocrit Auto (Bld) [Volum e fraction]Ordered By: Benjamínherscherosmani Meadhelen on 12-16-2023 Hematocrit (Bld) [Volume fraction] 39.3 % 37-47 [facility] High density lipoprotein (HD L) measurementOrdered By: [facility] [place] on 12-16-2023 Cholesterol in HDL (Body fld) [Mass/Vol] 57 mg/dL >40 [facility] Comment on above: The drugs N-Acetylcy steine and Metamizole may falsely depress this assay. Reference Range HDL <40 mg/dL Low HDL Cholesterol HDL >or= 60 mg/dL High HDL Cholesterol Immature granulocytes/100 WB C Auto (Bld)Ordered By: Heather Ugarte on 12-16-2023 Immature granulocytes/100 WBC (Bld) 0.300 % 0.0-0.9 [facility] Comment on above: IG% - Immature Granu locytes (promyelocytes, myelocytes and metamyelocytes) > 1% indicates that a LEFT SHIFT is Present. Laboratory - Chemistry and C hemistry - challengeOrdered By: Benjamínherscherosmani Ugarte on 12-16-2023 Albumin/Globulin [Mass ratio] 0.9 {ratio} 0.9-2.4 [facility] ALP [Catalytic activity/Vol] 71 U/L 45-117 [facility] ALT [Catalytic activity/Vol] 22 U/L 13-56 [facility] CO2 [Moles/Vol] 25.0 mmol/L 21.0-32.0 [facility] Globulin (S) [Mass/Vol] 3.8 g/dL 2.2-4.2 [facility] Urea nitrogen/Creatinine [Mass ratio] 17.6 mg/mg 10-20 [facility] Laboratory - Hematology and Cell countsOrdered By: Heather Ugarte on 12-16-2023 MCH (RBC) [Entitic mass] 30.8 pg 27.0-32.0 [facility] MCHC (RBC) [Mass/Vol] 34.4 g/dL 32-36 [facility] Nucleated RBC/100 WBC (Bld) [Ratio] 0 % 0-5 [facility] Platelets (Bld) [#/Vol] 269 10*3/uL 150-450 [facility] Laboratory - Hematology and Cell countson 12-16-2023 HbA1c (Bld) [Mass fraction] 6.5 % 4.2-6.3 [facility] Low density lipoprotein (LDL ) cholesterol measurementOrdered By: Heather Ugarte on 12-16-2023 Cholesterol in LDL (Body fld) [Moles/Vol] 106 mg/dL 0-130 [facility] No Panel InformationOrdered By: Heather Ugarte on 12-16-2023 Estimated GFR (MDRD) Amer 91 mL/min >60 [facility] Comment on above: GFR Calc Estimated GFR (MDRD) Non-Af Amer 75 mL/min >60 [facility] Comment on above: Non- GFR Calc Platelet mean volume Ben-Ec ker (Bld) [Entitic vol]Ordered By: Heather Ugarte on 12-16-2023 Platelet mean volume (Bld) [Entitic vol] 9.9 fL 6.2-12.0 [facility] RBC Auto (Bld) [#/Vol]Ordere d By: Heather Ugarte on 12-16-2023 RBC (Bld) [#/Vol] 4.39 10*6/uL 4.2-5.4 [facility] Serum or plasma calcium nick urement (mass/volume)Ordered By: Heather Ugarte on 12-16-2023 Calcium [Mass/Vol] 9.7 mg/dL 8.5-10.1 [facility] Serum or plasma creatinine m easurement (mass/volume)Ordered By: Heather Ugarte on 12-16-2023 Creatinine [Mass/Vol] 0.85 mg/dL 0.55-1.02 [facility] Comment on above: The validity of the calculated GFR & GFRAA in patients over 70 years has not been determined. Clinical correlation is essential. Serum or plasma urea nitroge n measurement (mass/volume)Ordered By: Heather Ugarte on 12-16-2023 Urea nitrogen [Mass/Vol] 15 mg/dL 7-18 [facility] Thin prep Papanicolaou smear with manual screeningOrdered By: Heather Ugarte on 12-16-2023 Thin prep Papanicolaou smear with manual screening 3.6 g/dL 3.2-5.0 [facility] Thin prep Papanicolaou smear with manual screening 11 U/L 15-37 [facility] Thin prep Papanicolaou smear with manual screening 7 5-15 [facility] Very low density lipoprotein (VLDL) cholesterol measurementOrdered By: Heather Ugarte on 12-16-2023 Cholesterol in VLDL Calc [Moles/Vol] 28 mg/dL 5-40 [facility] Laboratory - Hematology and Cell countson 09-11-2023 HbA1c (Bld) [Mass fraction] 5.6 % 4.2-6.3 [facility] Albumin Elph [Mass/Vol]Order ed By: Lukas Wang on 09-09-2023 Albumin [Mass/Vol] 3.6 g/dL 2.9-4.4 [facility] Basophil percentageOrdered B y: Lukas Wang on 09-09-2023 Basophil percentage Comment . [facility] Comment on above: No monoclonality det ected.Performed at: - [facility] [id number] Director: Shahram Victor PhD, Phone: [phone] Interpretation of serum or p lasma protein pattern by immunofixation (narrative resultOrdered By: Lukas Wang on 09-09-2023 Protein Fractions Immunofixation Behzad [Interp] See comment [facility] Comment on above: Result: Not Observed No Panel InformationOrdered By: Lukas Wang on 09-09-2023 Addendum Document Comment . [facility] Comment on above: Protein electrophore sis scan will follow via computer,mail, or mold insert changer delivery. Serum ljbvn-3-gypqfhgo measu rement by electrophoresisOrdered By: Lukas Wang on 09-09-2023 Alpha 1 globulin Elph [Mass/Vol] 0.2 g/dL 0.0-0.4 [facility] Alpha 1 globulin Elph [Mass/Vol] 0.7 g/dL 0.4-1.0 [facility] Serum globulin measurement ( mass/volume)Ordered By: Lukas Wang on 09-09-2023 Globulin (S) [Mass/Vol] 3.2 g/dL 2.2-3.9 [facility] Serum or plasma IgA measurem ent (mass/volume)Ordered By: Lukas Wang on 09-09-2023 IgA [Mass/Vol] 503 mg/dL 87-352 [facility] Serum or plasma IgG measurem ent (mass/volume)Ordered By: Lukas Wang on 09-09-2023 IgG [Mass/Vol] 940 mg/dL 586-1602 [facility] Serum or plasma IgM measurem ent (mass/volume)Ordered By: Lukas Wang on 09-09-2023 IgM [Mass/Vol] 92 mg/dL 26-217 [facility] Serum or plasma beta globuli n measurement by electrophoresis (mass/volume)Ordered By: Lukas Wang on 09-09-2023 Beta globulin Elph [Mass/Vol] 1.3 g/dL 0.7-1.3 [facility] Serum or plasma gamma globul in measurement by electrophoresis (mass/volume)Ordered By: Lukas Wang on 09-09-2023 Gamma globulin Elph [Mass/Vol] 0.9 g/dL 0.4-1.8 [facility] Serum or plasma immunoelectr ophoresis interpretation (nominal result)Ordered By: Lukas Wang on 09-09-2023 Interpretation IEP [Interp] Comment . [facility] Comment on above: No monoclonality det ected. Thin prep Papanicolaou smear with manual screeningOrdered By: Lukas Wang on 09-09-2023 Thin prep Papanicolaou smear with manual screening 1.2 0.7-1.7 [facility] Total protein bloodOrdered B y: Lukas Wang on 09-09-2023 Protein [Mass/Vol] 6.8 g/dL 6.0-8.5 [facility] Laboratory - Hematology and Cell countson 06-10-2023 HbA1c (Bld) [Mass fraction] 5.2 % 4.2-6.3 [facility] Basophil percentageOrdered B y: Dr. Wang on 03-02-2023 Basophil percentage Not Reportable [facility] Bilirubin [Mass/Vol] 0.40 mg/dL 0.20-1.00 [facility] Comment on above: For patients on eltr ombopag therapy, use of Dimension [place] TBIL is not recommended. Chloride [Moles/Vol] 107 mmol/L 98-107 [facility] Cholesterol [Mass/Vol] 131 mg/dL <200 [facility] Comment on above: <200 mg/dL Desirable 200-240 mg/dL Borderline >240 mg/dL High Risk Glucose [Mass/Vol] 96 mg/dL 74-106 [facility] Potassium [Moles/Vol] 4.1 mmol/L 3.5-5.1 [facility] Protein [Mass/Vol] 6.4 g/dL 6.4-8.2 [facility] Sodium [Moles/Vol] 137 mmol/L 136-145 [facility] Triglyceride [Mass/Vol] 76 mg/dL <199 [facility] Comment on above: The drugs N-Acetylcy steine and Metamizole may falsely depress this assay.Serum Triglycerides Reference Interval Normal <150 mg/dL Borderline high 150 - 199 mg/dL High 200 - 499 mg/dL Very High > or = 500 mg/dL WBC (Bld) [#/Vol] 5.6 10*3/uL 4.4-11.0 [facility] Blood erythrocytes count (nu mber/volume)Ordered By: Dr. Wang on 03-02-2023 RBC (Bld) [#/Vol] 4.21 10*6/uL 4.2-5.4 [facility] Blood hemoglobin measurement (mass/volume)Ordered By: Dr. Wang on 03-02-2023 Hemoglobin (Bld) [Mass/Vol] 12.5 g/dL 12.0-15.0 [facility] Blood or tissue coagulation factor II targeted mutation analysis by molecular geneticOrdered By: Dr. Wang on 03-02-2023 F2 gene targeted mutation analysis Mol[employer] Nom (Bld/Tiss) Comment . [facility] Comment on above: Result: c.*97G>A - N ot DetectedThis result is not associated with an increased risk for venousthromboembolism. See Additional Clinical Information andComments.Additional Clinical Information:Venous thromboembolism is a multifactorial disease influenced bygenetic, environmental, and circumstantial risk factors. The c.*97G>Avariant in the F2 gene is a genetic risk factor for venousthromboembolism. Heterozygous carriers have a 2- to 4-fold increasedrisk for venous thromboembolism. Homozygotes for the c.*97G>A variantare rare. The annual risk of VTE in homozygotes has been reported fahad 1.1%/year. Individuals who carry both a c.*97G>A variant in theF2 gene and a c.1601G>A (p. [id number]) variant in the F5 gene(commonly referred to as Factor V Leiden) have an approximately 20-fold increased risk for venous thromboembolism. Risks are likely fahad even higher in more complex genotype combinations involving theF2 c.*97G>A variant and Factor V Leiden (PMID: 25756493). Additionalrisk factors include but are not limited to: deficiency of protein C,protein S, or antithrombin III, age, male sex, personal or familyhistory of deep vein thromboembolism, smoking, surgery, prolongedimmobilization, malignant neoplasm, tamoxifen treatment, raloxifenetreatment, oral contraceptive use, hormone replacement therapy, andpregnancy. Management of thrombotic risk and thrombotic events shouldfollow established guidelines and fit the clinical circumstance. Thisresult cannot predict the occurrence or recurrence of a thromboticevent.Comments:Genetic counseling is recommended to discuss the potential clinicalimplications of positive results, as well as recommendations fortesting family members.Genetic Coordinators are available for health care providers to discussresults at [phone] Details:Variant analyzed: c.*97G>A, previously referred to as [id number]/Limitations:DNA analysis of the F2 gene (NM_000506.5) was performed by PCRamplification followed by restriction enzyme analysis. The diagnosticsensitivity is >99%. Results must be combined with clinicalinformation for the most accurate interpretation. Molecular-basedtesting is highly accurate, but as in any laboratory test, diagnosticerrors may occur. False positive or false negative results may occurfor reasons that include genetic variants, blood transfusions, bonemarrow transplantation, somatic or tissue-specific mosaicism,mislabeled samples, or erroneous representation of familyrelationships.This test was developed and its performance characteristics determinedby [facility]. It has not been cleared or approved by the Food and DrugAdministration.References:Tatiana Cast, Ling SARGENT, Bay R, Betsy WW, Dickson JH; [facility]G ProfessionalPractice and Guidelines Committee. Addendum: [employer] [place] [employer] consensus statement on factor V Leiden mutationtesting. [facility]. 2020Jan 27. doi: 10.1038/[id number]-w.PMID: 11103907.Linda METCALF. Prothrombin Thrombophilia. 2005Jun 18[Updated 2020Dec 29]. In: Dilan MP, Howard HH, Kylie RA, et al.,editors. Haroon(R) [Internet]. [place] ([place]): [facility]; 8318-6860. Available from:https://www.ncbi.nlm.nih.gov/books/QJX0514/Chidi Cast, Ling SARGENT, Pardeep X, Aiden B, Randall EB, Lorelei P, Leigh CS;[facility] Laboratory Shovel Logger Committee. Venous thromboembolismlaboratory testing (factor V Leiden and factor II c.*97G>A),2018 update: a technical standard of the [employer] [place] [employer] MedicalGenetics and Genomics ([employer]). [facility] Med. 2018 Oct;20(12):5356-8705.doi: 10.1038/[id number]-q. Epub 2017Aug 29. PMID: 44735420.Itzel Latham, PhD, Frankie Gutierrez, PhDCatalino Vera, PhD, Missael Bella, PhD, Kevin Begum, PhD, FACW Adriana Berrios, PhD, FACMGTory James, PhD, Brannon Quiros, PhD, [facility] Blood platelet mean volumeOr dered By: Dr. Wang on 03-02-2023 Platelet mean volume (Bld) [Entitic vol] 9.5 fL 6.2-12.0 [facility] Determination of erythrocyte mean corpuscular volume (MCV)Ordered By: Dr. Wang on 03-02-2023 MCV (RBC) [Entitic vol] 88.4 fL 81-99 [facility] Dilute Ben's viper venom timeOrdered By: Dr. Wang on 03-02-2023 dRVVT Coag (PPP) [Time] 32.1 s 0.0-47.0 [facility] Erythrocyte sedimentation ra teOrdered By: Dr. Wang on 03-02-2023 ESR (Bld) [Velocity] 9 mm/h 0-30 [facility] Functional protein C measure mentOrdered By: Dr. Wang on 03-02-2023 Protein C actual/normal Chromogenic method (PPP) [Rel catalytic activity/Vol] 186 % 73-180 [facility] Comment on above: Elevated protein C a ctivity is of no known clinicalsignificance.Performed at: - [facility] [id number] Director: Tonya Clemons MD, Phone: [phone] at: - [facility] [id number] Director: Shahram Victor PhD, Phone: [phone] at: - [facility] [id number] [place], [place] [id number] Director: Stepan Chaparro [facility], Phone: [phone] Hematocrit Auto (Bld) [Volum e fraction]Ordered By: Dr. Wang on 03-02-2023 Hematocrit (Bld) [Volume fraction] 37.2 % 37-47 [facility] Laboratory - Chemistry and C hemistry - challengeOrdered By: Dr. Wang on 03-02-2023 ALP [Catalytic activity/Vol] 65 U/L 45-117 [facility] ALT [Catalytic activity/Vol] 27 U/L 13-56 [facility] CO2 [Moles/Vol] 28.0 mmol/L 21.0-32.0 [facility] Cobalamin (Vitamin B12) [Mass/Vol] 267 pg/mL 211-911 [facility] Globulin (S) [Mass/Vol] 3.1 g/dL 2.2-4.2 [facility] Urea nitrogen/Creatinine [Mass ratio] 16.3 mg/mg 10-20 [facility] Laboratory - Hematology and Cell countsOrdered By: Dr. Wang on 03-02-2023 Erythrocyte distribution width (RBC) [Entitic vol] 37.4 fL 35.1-43.9 [facility] Erythrocyte distribution width (RBC) [Ratio] 11.7 % 11.6-14.6 [facility] MCH (RBC) [Entitic mass] 29.7 pg 27.0-32.0 [facility] MCHC Auto (RBC) [Mass/Vol]Or dered By: Dr. Wang on 03-02-2023 MCHC (RBC) [Mass/Vol] 33.6 g/dL 32-36 [facility] No Panel InformationOrdered By: Dr. Wang on 03-02-2023 Anti-Cardiolipin IgM Antibody 10 MPL U/mL 0-12 [facility] Comment on above: Negative: <13 Indete rminate: 13 - 20 Low-Med Positive: >20 - 80 High Positive: >80 Anti-Nuclear Antibody Screen Negative Negative [facility] Comment on above: Performed at: [address] [id number] Director: Shahram Victor PhD, Phone: [phone] Centromere B Antibody Not Reportable [facility] Estimated GFR (MDRD) Amer 133 mL/min >60 [facility] Comment on above: GFR Calc Estimated GFR (MDRD) Non-Af Amer 110 mL/min >60 [facility] Comment on above: Non- GFR Calc Factor V Leiden Mutation Comment . [facility] Comment on above: Result: c.1601G>A (p .[id number]) - Not DetectedThis result is not associated with an increased risk for venousthromboembolism. See Additional Clinical Information andComments.Additional Clinical Information:Venous thromboembolism is a multifactorial diseaseinfluenced by genetic, environmental, and circumstantialrisk factors. The c.1601G>A (p. [id number]) variant in theF5 gene, commonly referred to as Factor V Leiden, is agenetic risk factor for venous thromboembolism.Heterozygous carriers of this variant have a 6- to 8-foldincreased risk for venous thromboembolism. Individualshomozygous for this variant (ie, with a copy of the varianton each chromosome) have an approximately 80-fold increasedrisk for venous thromboembolism. Individuals who carry kay c.*97G>A variant in the F2 gene and Factor V Leiden havean approximately 20-fold increased risk for venousthromboembolism. Risks are likely to be even higher in morecomplex genotype combinations involving the F2 c.*97G>Avariant and Factor V Leiden (PMID: 25322304). Additionalrisk factors include but are not limited to: deficiency ofprotein C, protein S, or antithrombin III, age, male sex,personal or family history of deep vein thromboembolism,smoking, surgery, prolonged immobilization, malignantneoplasm, tamoxifen treatment, raloxifene treatment, oralcontraceptive use, hormone replacement therapy, andpregnancy. Management of thrombotic risk and thromboticevents should follow established guidelines and fit theclinical circumstance. This result cannot predict theoccurrence or recurrence of a thrombotic event.Comment:Genetic counseling is recommended to discuss thepotential clinical implications of positive results, aswell as recommendations for testing family members.Genetic Coordinators are available for health careproviders to discuss results at [phone] Details:Variant Analyzed: c.1601G>A (p. [id number]), referred toas Factor V LeidenMethods/Limitations:DNA analysis of the F5 gene (NM_000130.5) was performedby PCR amplification followed by restriction enzymeanalysis. The diagnostic sensitivity is >99%. Results mustbe combined with clinical information for the most accurateinterpretation. Molecular-based testing is highly accurate,but as in any laboratory test, diagnostic errors may occur.False positive or false negative results may occur forreasons that include genetic variants, blood transfusions,bone marrow transplantation, somatic or tissue-specificmosaicism, mislabeled samples, or erroneous representationof family relationships.This test was developed and its performance characteristicsdetermined by [facility]. It has not been cleared orapproved by the Food and Drug Administration.References:Tatiana Cast, Ling SARGENT, Bay R, Betsy WW, Dickson JH; ACMGProfessional Practice and Guidelines Committee. Addendum:[employer] consensus statement onfactor V Leiden mutation testing. [employer] Med. 2020Jan 27.doi: 10.1038/e95539-072-43249-r. PMID: 96705757.Linda METCALF. Factor V Leiden Thrombophilia. 1998April 07(Updated 2017Nov 28). In: Dilan MP, Howard HH, Kylie RA,et al., editors. [employer](R) (Internet). [place] ([place]):[facility], [place]; 0544-7208. Availablefrom: https://www.ncbi.nlm.nih.gov/books/SXU7519/Chidi Cast, Ling SARGENT, Pardeep X, Aiden B, Randall EB, Lorelei P,Leigh CS; [employer] Laboratory Shovel Logger Committee.Venous thromboembolism laboratory testing (factor V Leidenand factor II c.*97G>A), 2018 update: a technical standardof the [employer] [place] [employer] and Genomics([employer]). [employer] Med. 2017;20(12):2552-2926. doi:10.1038/[id number]-n. Epub 2017Aug 29. PMID: 69132277.Itzel Latham, PhD, Frankie Gutierrez, PhDCatalino Vera, PhD, Missael Bella, PhD, Kevin Begum, PhD, MEGHAN Berrios, PhD, Meir James, PhD, Brannon Quiros, PhD, FACMG Free Lambda Light Chains, Quant 23.1 mg/L 5.7-26.3 [facility] EMERGENCY MANAGEMENT COORDINATOR Antibody Not Reportable [facility] Thyroid Stimulating Hormone (TSH) 1.15 uIU/mL 0.358-3.74 [facility] Total Complement (CH50) > 60 U/mL >41 [facility] Comment on above: Age Male Female 1 - 30 days Not Estab. Not Estab. 31 days - 6 months >32 >20 7 months - 17 years >39 >39 >17 years >41 >41 NOTE: The adult (>17 years) reference interval range is used to flag abnormals on this report. If the patient is 17 years old or younger, use the table above to determine out of range values. Whole Blood Vitamin B1 Level 107.8 nmol/L 66.5-200.0 [facility] Platelet poor plasma antithr ombin actual/normal ratio by chromogenic method (relativeOrdered By: Dr. Wang on 03-02-2023 Antithrombin actual/normal Chromogenic method (PPP) [Rel catalytic activity/Vol] 118 % 75-135 [facility] Comment on above: Direct Xa inhibitor anticoagulants such as rivaroxaban,apixaban and edoxaban will lead to spuriously elevatedantithrombin activity levels possibly masking a deficiency. Platelet poor plasma antithr ombin antigen detection by immunoassayOrdered By: Dr. Wang on 03-02-2023 Antithrombin Ag IA Ql (PPP) 83 % 72-124 [facility] Comment on above: This test was devcal velázquez and its performance characteristicsdetermined by [facility]. It has not been cleared orapproved by the Food and Drug Administration. Platelet poor plasma protein S actual/normal ratio (relative time)Ordered By: Dr. Wang on 03-02-2023 Protein S actual/normal Coag (PPP) [Relative time] 110 % 63-140 [facility] Comment on above: Protein S activity m ay be falsely increased (masking anabnormal, low result) in patients receiving direct Xainhibitor (e.g., rivaroxaban, apixaban, edoxaban) or adirect thrombin inhibitor (e.g., dabigatran) anticoagulanttreatment due to assay interference by these drugs. Platelets bldOrdered By: Dr. Wang on 03-02-2023 Platelets (Bld) [#/Vol] 275 10*3/uL 150-450 [facility] Protein C antigen assayOrder ed By: Dr. Wang on 03-02-2023 Protein C Ag actual/normal IA (PPP) [Relative mass conc] 182 % 60-150 [facility] Protein S measurement in patrick telet poor plasma by coagulation assay (units/volume)Ordered By: Dr. Wang on 03-02-2023 Protein S Coag Qn (PPP) 77 % 60-150 [facility] Comment on above: This test was develo ped and its performance characteristicsdetermined by [facility]. It has not been cleared orapproved by the Food and Drug Administration. Protein S, freeOrdered By: Aaron Wang on 03-02-2023 Protein S Free Ag IA Qn (PPP) 103 % 61-136 [facility] Serum DNA double strand anti body assay (units/volume)Ordered By: Dr. Wang on 03-02-2023 DNA double strand Ab Qn (S) Not Reportable [facility] Serum Barbara-1 antibody assay (u nits/volume)Ordered By: Dr. Wang on 03-02-2023 Barbara-1 extractable nuclear Ab Qn (S) Not Reportable [facility] Serum Scl-70 extractable nuc lear antibody assay (units/volume)Ordered By: Dr. Wang on 03-02-2023 SCL-70 extractable nuclear Ab Qn (S) Not Reportable [facility] Serum Foster extractable nucl ear antibody detectionOrdered By: Dr. Wang on 03-02-2023 Foster extractable nuclear Ab Ql (S) Not Reportable [facility] Serum cardiolipin IgG antibo dy assay by immunoassay (units/volume)Ordered By: Dr. Wang on 03-02-2023 Cardiolipin IgG IA Qn (S) < 9 GPL U/mL 0-14 [facility] Comment on above: Negative: <15 Indete rminate: 15 - 20 Low-Med Positive: >20 - 80 High Positive: >80 Serum immunoglobulin kappa l ight chains/immunoglobulin lambda light chains mass ratioOrdered By: Dr. Wang on 03-02-2023 Immunoglobulin light chains.kappa/Immunoglobu rich light chains.lambda (S) [Mass ratio] 1.33 0.26-1.65 [facility] Serum or plasma albumin nick urement (mass/volume)Ordered By: Dr. Wang on 03-02-2023 Albumin [Mass/Vol] 3.3 g/dL 3.2-5.0 [facility] Serum or plasma albumin/glob ulin mass ratioOrdered By: Dr. Wang on 03-02-2023 Albumin/Globulin [Mass ratio] 1.1 {ratio} 0.9-2.4 [facility] Serum or plasma calcium nick urement (mass/volume)Ordered By: Dr. Wang on 03-02-2023 Calcium [Mass/Vol] 8.6 mg/dL 8.5-10.1 [facility] Serum or plasma cardiolipin IgA antibody assay (units/volume)Ordered By: Dr. Wang on 03-02-2023 Cardiolipin IgA Qn < 9 APL U/mL 0-11 [facility] Comment on above: Negative: <12 Indete rminate: 12 - 20 Low-Med Positive: >20 - 80 High Positive: >80 Serum or plasma cholesterol in HDL measurement (mass/volume)Ordered By: Dr. Wang on 03-02-2023 Cholesterol in HDL [Mass/Vol] 46 mg/dL >40 [facility] Comment on above: The drugs N-Acetylcy steine and Metamizole may falsely depress this assay. Reference Range HDL <40 mg/dL Low HDL Cholesterol HDL >or= 60 mg/dL High HDL Cholesterol Serum or plasma cholesterol in VLDL measurement (mass/volume)Ordered By: Dr. Wang on 03-02-2023 Cholesterol in VLDL [Mass/Vol] 15 mg/dL 5-40 [facility] Serum or plasma complement C 3 measurement (mass/volume)Ordered By: Dr. Wang on 03-02-2023 Complement C3 [Mass/Vol] 106 mg/dL 82-167 [facility] Serum or plasma complement C 4 measurement (mass/volume)Ordered By: Dr. Wang on 03-02-2023 Complement C4 [Mass/Vol] 22 mg/dL 12-38 [facility] Serum or plasma creatinine m easurement (mass/volume)Ordered By: Dr. Wang on 03-02-2023 Creatinine [Mass/Vol] 0.61 mg/dL 0.55-1.02 [facility] Comment on above: The validity of the calculated GFR & GFRAA in patients over 70 years has not been determined. Clinical correlation is essential. Serum or plasma folate measu rement (mass/volume)Ordered By: Dr. Wang on 03-02-2023 Folate [Mass/Vol] 8.30 ng/mL 3.1-55.4 [facility] Serum or plasma immunoglobul in kappa light chains measurement (mass/volume)Ordered By: Dr. Wang on 03-02-2023 Immunoglobulin light chains.kappa [Mass/Vol] 30.8 mg/L 3.3-19.4 [facility] Serum or plasma low density lipoprotein (LDL) cholesterol measurement (mass/volume)Ordered By: Dr. Wang on 03-02-2023 Cholesterol in LDL [Mass/Vol] 70 mg/dL 0-130 [facility] Serum or plasma urea nitroge n measurement (mass/volume)Ordered By: Dr. Wang on 03-02-2023 Urea nitrogen [Mass/Vol] 10 mg/dL 7-18 [facility] Thin prep Papanicolaou smear with manual screeningOrdered By: Dr. Wang on 03-02-2023 Thin prep Papanicolaou smear with manual screening 15 U/L 15-37 [facility] Thin prep Papanicolaou smear with manual screening 2 5-15 [facility] Thin prep Papanicolaou smear with manual screening 34.4 sec 0.0-47.6 [facility] [facility] [place] Thin prep Papanicolaou smear with manual screening 1.08 Ratio 0.00-1.34 [facility] [place] Thin prep Papanicolaou smear with manual screening 33.3 sec 0.0-43.5 [facility] [place] Thin prep Papanicolaou smear with manual screening Comment: . [facility] Comment on above: No lupus anticoagula nt was detected. Thrombin time in platelet po or plasmaOrdered By: Dr. Wang on 03-02-2023 Thrombin time Coag (PPP) [Time] 16.1 sec 0.0-23.0 [facility] Laboratory - Hematology and Cell countson 12-03-2022 HbA1c (Bld) [Mass fraction] 6.5 % 4.2-6.3 [facility] Glucose Glucometer (BldC) [M ass/Vol]on 08-15-2022 Glucose [Mass/Vol] 233 mg/dL 74-106 [facility] Work Phone: Comment on above: MANAGEMENT OF PATIEN T CARE PER NURSING PROTOCOL Absolute lymphocyte counton 08-14-2022 Lymphocytes Auto (Unsp spec) [#/Vol] 2.08 10*3/uL 0.83-4.51 [facility] Work Phone: Basophil percentageon 2021 Basophils/100 WBC (Bld) 0.4 % 0-1 [facility] Work Phone: Chloride [Moles/Vol] 103 mmol/L 98-107 [facility] Work Phone: Cholesterol [Mass/Vol] 210 mg/dL <200 [facility] Work Phone: Comment on above: <200 mg/dL Desirable 200-240 mg/dL Borderline >240 mg/dL High Risk Eosinophils/100 WBC (Bld) 2.1 % 0-5 [facility] Work Phone: Glucose [Mass/Vol] 249 mg/dL 74-106 [facility] Work Phone: Comment on above: Glucose result great er than or equal to 200 mg/dLsuggests DIABETES MELLITUS per A.D.A. criteria. Neutrophils (Bld) [#/Vol] 2.6 10*3/uL 2.0-7.7 [facility] Work Phone: Neutrophils/100 WBC (Bld) 49.8 % 47-70 [facility] Work Phone: Potassium [Moles/Vol] 3.7 mmol/L 3.5-5.1 [facility] Work Phone: Comment on above: Slight Hemolysis, Re sult may be falsely increased. Sodium [Moles/Vol] 137 mmol/L 136-145 [facility] Work Phone: Triglyceride [Mass/Vol] 379 mg/dL <199 [facility] Work Phone: Comment on above: The drugs N-Acetylcy steine and Metamizole may falsely depress this assay.Serum Triglycerides Reference Interval Normal <150 mg/dL Borderline high 150 - 199 mg/dL High 200 - 499 mg/dL Very High > or = 500 mg/dL WBC (Bld) [#/Vol] 5.3 10*3/uL 4.4-11.0 [facility] Work Phone: [phone] Blood erythrocytes count (nu mber/volume)on 08-14-2022 RBC (Bld) [#/Vol] 4.90 10*6/uL 4.2-5.4 [facility] Work Phone: [phone] Blood hemoglobin measurement (mass/volume)on 08-14-2022 Hemoglobin (Bld) [Mass/Vol] 14.6 g/dL 12.0-15.0 [facility] Work Phone: Blood lymphocytes/100 leukoc yteson 08-14-2022 Lymphocytes/100 WBC (Bld) 39.2 % 19-41 [facility] Work Phone: Blood monocytes/100 leukocyt eson 08-14-2022 Monocytes/100 WBC (Bld) 8.3 % 0-10 [facility] Work Phone: Blood platelet mean volumeon 08-14-2022 Platelet mean volume (Bld) [Entitic vol] 9.9 fL 6.2-12.0 [facility] Work Phone: Determination of erythrocyte mean corpuscular volume (MCV)on 08-14-2022 MCV (RBC) [Entitic vol] 89.0 fL 81-99 [facility] Work Phone: [phone] Hematocrit Auto (Bld) [Volum e fraction]on 08-14-2022 Hematocrit (Bld) [Volume fraction] 43.6 % 37-47 [facility] Work Phone: Laboratory - Chemistry and C hemistry - challengeon 08-14-2022 CO2 [Moles/Vol] 25.0 mmol/L 21.0-32.0 [facility] Work Phone: Urea nitrogen/Creatinine [Mass ratio] 24.3 mg/mg - [facility] Work Phone: Laboratory - Hematology and Cell countson 08-14-2022 Erythrocyte distribution width (RBC) [Entitic vol] 38.1 fL 35.1-43.9 [facility] Work Phone: Erythrocyte distribution width (RBC) [Ratio] 11.8 % 11.6-14.6 [facility] Work Phone: Immature granulocytes/100 WBC (Bld) 0.200 % 0.0-0.9 [facility] Work Phone: Comment on above: IG% - Immature Granu locytes (promyelocytes, myelocytes and metamyelocytes) > 1% indicates that a LEFT SHIFT is Present. MCH (RBC) [Entitic mass] 29.8 pg 27.0-32.0 [facility] Work Phone: Nucleated RBC/100 WBC (Bld) [Ratio] 0 % 0-5 [facility] Work Phone: MCHC Auto (RBC) [Mass/Vol]on 08-14-2022 MCHC (RBC) [Mass/Vol] 33.5 g/dL 32-36 [facility] Work Phone: No Panel Informationon 08-14 Estimated Creatinine Clearance Calc 117.97 ml/min [facility] Work Phone: Estimated GFR (MDRD) Amer 156 mL/min >60 [facility] Work Phone: Comment on above: GFR Calc Estimated GFR (MDRD) Non-Af Amer 129 mL/min >60 [facility] Work Phone: Comment on above: Non- GFR Calc Thyroid Stimulating Hormone (TSH) 1.55 uIU/mL 0.358-3.74 [facility] [place] Work Phone: Platelets bldon 08-14-2022 Platelets (Bld) [#/Vol] 193 10*3/uL 150-450 [facility] [place] Work Phone: Serum or plasma calcium nick urement (mass/volume)on 08-14-2022 Calcium [Mass/Vol] 9.1 mg/dL 8.5-10.1 [facility] Work Phone: Serum or plasma cholesterol in HDL measurement (mass/volume)on 08-14-2022 Cholesterol in HDL [Mass/Vol] 40 mg/dL >40 [facility] Work Phone: Comment on above: The drugs N-Acetylcy steine and Metamizole may falsely depress this assay. Reference Range HDL <40 mg/dL Low HDL Cholesterol HDL >or= 60 mg/dL High HDL Cholesterol Serum or plasma cholesterol in VLDL measurement (mass/volume)on 08-14-2022 Cholesterol in VLDL [Mass/Vol] 76 mg/dL 5-40 [facility] Work Phone: Serum or plasma creatinine m easurement (mass/volume)on 08-14-2022 Creatinine [Mass/Vol] 0.54 mg/dL 0.55-1.02 [facility] Work Phone: Comment on above: The validity of the calculated GFR & GFRAA in patients over 70 years has not been determined. Clinical correlation is essential. Serum or plasma low density lipoprotein (LDL) cholesterol measurement (mass/volume)on 08-14-2022 Cholesterol in LDL [Mass/Vol] 94 mg/dL 0-130 [facility] Work Phone: Serum or plasma urea nitroge n measurement (mass/volume)on 08-14-2022 Urea nitrogen [Mass/Vol] 13 mg/dL 7-18 [facility] [place] Work Phone: Thin prep Papanicolaou smear with manual screeningon 08-14-2022 Thin prep Papanicolaou smear with manual screening 9 5-15 [facility] Work Phone: Absolute lymphocyte counton 08-13-2022 Lymphocytes Auto (Unsp spec) [#/Vol] 2.02 10*3/uL 0.83-4.51 [facility] Work Phone: Basophil percentageon 2021 Basophils/100 WBC (Bld) 0.4 % 0-1 [facility] Work Phone: Chloride [Moles/Vol] 99 mmol/L 98-107 [facility] Work Phone: Eosinophils/100 WBC (Bld) 1.5 % 0-5 [facility] Work Phone: Glucose [Mass/Vol] 295 mg/dL 74-106 [facility] Work Phone: Comment on above: Glucose result great er than or equal to 200 mg/dLsuggests DIABETES MELLITUS per A.D.A. criteria. Neutrophils (Bld) [#/Vol] 2.8 10*3/uL 2.0-7.7 [facility] Work Phone: Neutrophils/100 WBC (Bld) 51.1 % 47-70 [facility] Work Phone: Potassium [Moles/Vol] 3.8 mmol/L 3.5-5.1 [facility] Work Phone: Sodium [Moles/Vol] 136 mmol/L 136-145 [facility] Work Phone: WBC (Bld) [#/Vol] 5.4 10*3/uL 4.4-11.0 [facility] Work Phone: Blood erythrocytes count (nu mber/volume)on 08-13-2022 RBC (Bld) [#/Vol] 5.18 10*6/uL 4.2-5.4 [facility] Work Phone: Blood hemoglobin measurement (mass/volume)on 08-13-2022 Hemoglobin (Bld) [Mass/Vol] 15.3 g/dL 12.0-15.0 [facility] Work Phone: Blood lymphocytes/100 leukoc yteson 08-13-2022 Lymphocytes/100 WBC (Bld) 37.5 % 19-41 [facility] [place] Work Phone: Blood monocytes/100 leukocyt eson 08-13-2022 Monocytes/100 WBC (Bld) 9.1 % 0-10 [facility] Work Phone: Blood platelet mean volumeon 08-13-2022 Platelet mean volume (Bld) [Entitic vol] 9.6 fL 6.2-12.0 [facility] Work Phone: Determination of erythrocyte mean corpuscular volume (MCV)on 08-13-2022 MCV (RBC) [Entitic vol] 87.1 fL 81-99 [facility] Work Phone: Glucose Glucometer (BldC) [M ass/Vol]on 08-13-2022 Glucose [Mass/Vol] 305 mg/dL 74-106 [facility] Work Phone: Comment on above: MANAGEMENT OF PATIEN T CARE PER NURSING PROTOCOL Hematocrit Auto (Bld) [Volum e fraction]on 08-13-2022 Hematocrit (Bld) [Volume fraction] 45.1 % 37-47 [facility] Work Phone: INR in Blood by Coagulation assayon 08-13-2022 INR Coag (Bld) [Relative time] 1.1 {INR} [facility] Work Phone: Laboratory - Chemistry and C hemistry - challengeon 08-13-2022 CO2 [Moles/Vol] 28.0 mmol/L 21.0-32.0 [facility] Work Phone: Urea nitrogen/Creatinine [Mass ratio] 24.4 mg/mg 10-20 [facility] Work Phone: Laboratory - Coagulationon 0 08-13-2022 aPTT Coag (Bld) [Time] 31.7 s 24.1-[facility] Work Phone: [phone] PT Coag (PPP) [Time] 14.3 s 11.7-14.9 [facility] Work Phone: Laboratory - Hematology and Cell countson 08-13-2022 Erythrocyte distribution width (RBC) [Entitic vol] 37.8 fL 35.1-43.9 [facility] Work Phone: Erythrocyte distribution width (RBC) [Ratio] 11.9 % 11.6-14.6 [facility] Work Phone: Immature granulocytes/100 WBC (Bld) 0.400 % 0.0-0.9 [facility] Work Phone: Comment on above: IG% - Immature Granu locytes (promyelocytes, myelocytes and metamyelocytes) > 1% indicates that a LEFT SHIFT is Present. MCH (RBC) [Entitic mass] 29.5 pg 27.0-32.0 [facility] Work Phone: Nucleated RBC/100 WBC (Bld) [Ratio] 0 % 0-5 [facility] Work Phone: MCHC Auto (RBC) [Mass/Vol]on 08-13-2022 MCHC (RBC) [Mass/Vol] 33.9 g/dL 32-36 [facility] Work Phone: No Panel Informationon 08-13 Troponin I High Sensitivity 6 pg/mL 3.0-54.0 [facility] Work Phone: Comment on above: Please Note: New Hui t Units and Gender Specific Reference Ranges. For more information see Policy Stat Procedure [place] High Sensitivity Troponin (TNIH) and attachments. Estimated Creatinine Clearance Calc 91.01 ml/min [facility] Work Phone: Estimated GFR (MDRD) Amer 115 mL/min >60 [facility] Work Phone: Comment on above: GFR Calc Estimated GFR (MDRD) Non-Af Amer 95 mL/min >60 [facility] Work Phone: Comment on above: Non- GFR Calc Platelets bldon 08-13-2022 Platelets (Bld) [#/Vol] 208 10*3/uL 150-450 [facility] Work Phone: Serum or plasma calcium nick urement (mass/volume)on 08-13-2022 Calcium [Mass/Vol] 9.9 mg/dL 8.5-10.1 [facility] Work Phone: Serum or plasma creatinine m easurement (mass/volume)on 08-13-2022 Creatinine [Mass/Vol] 0.70 mg/dL 0.55-1.02 [facility] Work Phone: Comment on above: The validity of the calculated GFR & GFRAA in patients over 70 years has not been determined. Clinical correlation is essential. Serum or plasma urea nitroge n measurement (mass/volume)on 08-13-2022 Urea nitrogen [Mass/Vol] 17 mg/dL 7-18 [facility] Work Phone: Thin prep Papanicolaou smear with manual screeningon 08-13-2022 Thin prep Papanicolaou smear with manual screening 9 5-15 [facility] [place] Work Phone: Whole blood hemoglobin A1c/t otal hemoglobin ratio (mass fraction)on 08-13-2022 HbA1c (Bld) [Mass fraction] 11.7 % 3.8-5.6 [facility] Work Phone: Comment on above: Normal < 5.7 % Predi abetic 5.7 - 6.4 % Diabetic >or= 6.5 % Please note range changes. MRI SHOULDER WO IVCON LTon 0 01-13-2020 MRI SHOULDER IVCON LT * * *Final Repo rt* * * DATE OF EXAM: Jan 13 [...] Mild hypertrophic change at the acromioclavicular joint. Readiness Paraprofessional: SHAWN Transcribe Date/Time: Jan 13 2020 2:38P Dictated by : SUSAN CARTER MD This examination was interpreted and the report reviewed and electronically signed by: SUSAN CARTER MD on Jan 13 2020 2:47PM EST Normal [facility] Vital Signs Date Time Vital Sign Value Performing Clinician Faci lity 09-13-2025 08:40-0400 Body height 167.[address] Heather Ugarte MD Work Phone: [facility] 09-13-2025 08:40-0400 Body mass index (BMI) [Ratio] 26.3 kg/m2 Dr. Heather Ugarte MD Work Phone: [facility] 09-13-2025 08:40-0400 Body temperature 98 [degF] Dr. Heather Ugarte MD Work Phone: [facility] 09-13-2025 08:40-0400 Body weight 73.[address] Heather Ugarte MD Work Phone: [facility] 09-13-2025 08:40-0400 Diastolic blood pressure 80 mm[Hg] Dr. Heather Ugarte MD Work Phone: [facility] [place] 09-13-2025 08:40-0400 Heart rate 106 /min Dr. Heather Ugarte MD Work Phone: [facility] 09-13-2025 08:40-0400 Respiratory rate 17 /min Dr. Heather Ugarte MD Work Phone: [facility] 09-13-2025 08:40-0400 SaO2% (BldA) [Mass fraction] 94 % Dr. Heather Ugarte MD Work Phone: [facility] 09-13-2025 08:40-0400 Systolic blood pressure 113 mm[Hg] Dr. Heather Ugarte MD Work Phone: [facility] 08-31-2025 14:20-0400 Body height 167.[address] Heather Ugarte MD Work Phone: [facility] [place] 08-16-2025 08:13-0400 Body height 167.[address] Heather Ugarte MD Work Phone: [facility] 08-16-2025 08:13-0400 Body mass index (BMI) [Ratio] 26.6 kg/m2 Dr. Heather Ugarte MD Work Phone: [facility] 08-16-2025 08:13-0400 Body temperature 98.2 [degF] Dr. Heather Ugarte MD Work Phone: [facility] 08-16-2025 08:13-0400 Body weight 74.[address] Heather Ugarte MD Work Phone: [facility] [place] 08-16-2025 08:13-0400 Diastolic blood pressure 80 mm[Hg] Dr. Heather Ugarte MD Work Phone: [facility] 08-16-2025 08:13-0400 Heart rate 74 /min Dr. Heather Ugarte MD Work Phone: [facility] 08-16-2025 08:13-0400 Respiratory rate 17 /min Dr. Heather Ugarte MD Work Phone: [facility] 08-16-2025 08:13-0400 SaO2% (BldA) [Mass fraction] 94 % Dr. Heather Ugarte MD Work Phone: [facility] 08-16-2025 08:13-0400 Systolic blood pressure 121 mm[Hg] Dr. Heather Ugarte MD Work Phone: [facility] 08-09-2025 13:09-0400 Body height 167.[address] Heather Ugarte MD Work Phone: [facility] 08-09-2025 13:09-0400 Body mass index (BMI) [Ratio] 25.8 kg/m2 Dr. Heather Ugarte MD Work Phone: [facility] 08-09-2025 13:09-0400 Body temperature 98.4 [degF] Dr. Heather Ugarte MD Work Phone: [facility] 08-09-2025 13:09-0400 Body weight 72.[address] Heather Ugarte MD Work Phone: [facility] 08-09-2025 13:09-0400 Diastolic blood pressure 84 mm[Hg] Dr. Heather Ugarte MD Work Phone: [facility] 08-09-2025 13:09-0400 Heart rate 106 /min Dr. Heather Ugarte MD Work Phone: [facility] 08-09-2025 13:09-0400 Respiratory rate 16 /min Dr. Heather Ugarte MD Work Phone: [facility] 08-09-2025 13:09-0400 SaO2% (BldA) [Mass fraction] 98 % Dr. Heather Ugarte MD Work Phone: [facility] 08-09-2025 13:09-0400 Systolic blood pressure 129 mm[Hg] Dr. Heather Ugarte MD Work Phone: [facility] 08-03-2025 13:03-0400 Body height 167.[address] Heather Ugarte MD Work Phone: [facility] 08-03-2025 13:03-0400 Body mass index (BMI) [Ratio] 25.8 kg/m2 Dr. Heather Ugarte MD Work Phone: [facility] 08-03-2025 13:03-0400 Body weight 72.[address] Heather Ugarte MD Work Phone: [facility] 07-15-2025 07:54-0400 Body height 167.[address] Heather Ugarte MD Work Phone: [facility] 07-15-2025 07:54-0400 Body mass index (BMI) [Ratio] 25.9 kg/m2 Dr. Heather Ugarte MD Work Phone: [facility] 07-15-2025 07:54-0400 Body temperature 98.4 [degF] Dr. Heather Ugarte MD Work Phone: [facility] 07-15-2025 07:54-0400 Body weight 73.[address] Heather Ugarte MD Work Phone: [facility] 07-15-2025 07:54-0400 Diastolic blood pressure 82 mm[Hg] Dr. Heather Ugarte MD Work Phone: [facility] 07-15-2025 07:54-0400 Heart rate 95 /min Dr. Heather Ugarte MD Work Phone: [facility] 07-15-2025 07:54-0400 Respiratory rate 15 /min Dr. Heather Ugarte MD Work Phone: [facility] 07-15-2025 07:54-0400 SaO2% (BldA) [Mass fraction] 97 % Dr. Heather Ugarte MD Work Phone: [facility] 07-15-2025 07:54-0400 Systolic blood pressure 127 mm[Hg] Dr. Heather Ugarte MD Work Phone: [facility] 07-12-2025 10:30-0400 Body height 167.[address] Heather Ugarte MD Work Phone: [facility] 07-12-2025 10:30-0400 Body mass index (BMI) [Ratio] 25.8 kg/m2 Dr. Heather Ugarte MD Work Phone: [facility] 07-12-2025 10:30-0400 Body temperature 96.6 [degF] Dr. Heather Ugarte MD Work Phone: [facility] 07-12-2025 10:30-0400 Body weight 72.[address] Heather Ugarte MD Work Phone: [facility] 07-12-2025 10:30-0400 Diastolic blood pressure 60 mm[Hg] Dr. Heather Ugarte MD Work Phone: [facility] 07-12-2025 10:30-0400 Heart rate 110 /min Dr. Heather Ugarte MD Work Phone: [facility] 07-12-2025 10:30-0400 Respiratory rate 16 /min Dr. Heather Ugarte MD Work Phone: [facility] 07-12-2025 10:30-0400 SaO2% (BldA) [Mass fraction] 96 % Dr. Heather Ugarte MD Work Phone: [facility] 07-12-2025 10:30-0400 Systolic blood pressure 114 mm[Hg] Dr. Heather Ugarte MD Work Phone: [facility] 06-14-2025 08:09-0400 Body temperature 98.6 [degF] Dr. Heather Ugarte MD Work Phone: [facility] 06-14-2025 08:09-0400 Body weight 75.[address] Heather Ugarte MD Work Phone: [facility] 06-14-2025 08:09-0400 Diastolic blood pressure 80 mm[Hg] Dr. Heather Ugarte MD Work Phone: [facility] 06-14-2025 08:09-0400 Heart rate 102 /min Dr. Heather Ugarte MD Work Phone: [facility] 06-14-2025 08:09-0400 Respiratory rate 17 /min Dr. Heather Ugarte MD Work Phone: [facility] 06-14-2025 08:09-0400 SaO2% (BldA) [Mass fraction] 97 % Dr. Heather Ugarte MD Work Phone: [facility] 06-14-2025 08:09-0400 Systolic blood pressure 130 mm[Hg] Dr. Heather Ugarte MD Work Phone: [facility] 06-11-2025 09:46-0400 Body height 167.[address] Heather Ugarte MD Work Phone: [facility] 06-11-2025 09:46-0400 Body mass index (BMI) [Ratio] 27.2 kg/m2 Dr. Heather Ugarte MD Work Phone: [facility] 06-11-2025 09:46-0400 Body weight 76.[address] Heather Ugarte MD Work Phone: [facility] 06-02-2025 14:52-0400 Body temperature 98.1 [degF] Dr. Heather Ugarte MD Work Phone: [facility] 06-02-2025 14:52-0400 Diastolic blood pressure 62 mm[Hg] Dr. Heather Ugarte MD Work Phone: [facility] 06-02-2025 14:52-0400 Heart rate 86 /min Dr. Heather Ugarte MD Work Phone: [facility] 06-02-2025 14:52-0400 Respiratory rate 16 /min Dr. Heather Ugarte MD Work Phone: [facility] 06-02-2025 14:52-0400 SaO2% (BldA) [Mass fraction] 99 % Dr. Heather Ugarte MD Work Phone: [facility] 06-02-2025 14:52-0400 Systolic blood pressure 110 mm[Hg] Dr. Heather Ugarte MD Work Phone: [facility] 05-13-2025 08:10-0400 Body temperature 98.2 [degF] Dr. Heather Ugarte MD Work Phone: [facility] 05-13-2025 08:10-0400 Body weight 74.[address] Heather Ugarte MD Work Phone: [facility] 05-13-2025 08:10-0400 Diastolic blood pressure 76 mm[Hg] Dr. Heather Ugarte MD Work Phone: [facility] 05-13-2025 08:10-0400 Heart rate 94 /min Dr. Heather Ugarte MD Work Phone: [facility] 05-13-2025 08:10-0400 Heart rate 96 /min Dr. Heather Ugarte MD Work Phone: [facility] 05-13-2025 08:10-0400 Respiratory rate 17 /min Dr. Heather Ugarte MD Work Phone: [facility] 05-13-2025 08:10-0400 SaO2% (BldA) [Mass fraction] 97 % Dr. Heather Ugarte MD Work Phone: [facility] 05-13-2025 08:10-0400 Systolic blood pressure 113 mm[Hg] Dr. Heather Ugarte MD Work Phone: [facility] 04-12-2025 09:08-0400 Body temperature 98.4 [degF] Dr. Heather Ugarte MD Work Phone: [facility] 04-12-2025 09:08-0400 Diastolic blood pressure 77 mm[Hg] Dr. Heather Ugarte MD Work Phone: [facility] 04-12-2025 09:08-0400 Heart rate 98 /min Dr. Heather Ugarte MD Work Phone: [facility] 04-12-2025 09:08-0400 Respiratory rate 17 /min Dr. Heather Ugarte MD Work Phone: [facility] 04-12-2025 09:08-0400 SaO2% (BldA) [Mass fraction] 98 % Dr. Heather Ugarte MD Work Phone: [facility] 04-12-2025 09:08-0400 Systolic blood pressure 107 mm[Hg] Dr. Heather Ugarte MD Work Phone: [facility] 03-29-2025 08:48-0400 Body height 167.[address] Heather Ugarte MD Work Phone: [facility] 03-29-2025 08:48-0400 Body mass index (BMI) [Ratio] 26.3 kg/m2 Dr. Heather Ugarte MD Work Phone: [facility] 03-29-2025 08:48-0400 Body temperature 97.4 [degF] Dr. Heather Ugarte MD Work Phone: [facility] 03-29-2025 08:48-0400 Body weight 73.[address] Heather Ugarte MD Work Phone: [facility] 03-29-2025 08:48-0400 Diastolic blood pressure 74 mm[Hg] Dr. Heather Ugarte MD Work Phone: [facility] 03-29-2025 08:48-0400 Heart rate 96 /min Dr. Heather Ugarte MD Work Phone: [facility] 03-29-2025 08:48-0400 Respiratory rate 16 /min Dr. Heather Ugarte MD Work Phone: [facility] 03-29-2025 08:48-0400 SaO2% (BldA) [Mass fraction] 98 % Dr. Heather Ugarte MD Work Phone: [facility] 03-29-2025 08:48-0400 Systolic blood pressure 112 mm[Hg] Dr. Heather Ugarte MD Work Phone: [facility] 03-11-2025 08:12-0400 Body mass index (BMI) [Ratio] 26.4 kg/m2 Dr. Heather Ugarte MD Work Phone: [facility] 03-11-2025 08:12-0400 Body temperature 98.2 [degF] Dr. Heather Ugarte MD Work Phone: [facility] 03-11-2025 08:12-0400 Body weight 74.[address] Heather Ugarte MD Work Phone: [facility] 03-11-2025 08:12-0400 Diastolic blood pressure 70 mm[Hg] Dr. Heather Ugarte MD Work Phone: [facility] 03-11-2025 08:12-0400 Heart rate 98 /min Dr. Heather Ugarte MD Work Phone: [facility] 03-11-2025 08:12-0400 Respiratory rate 17 /min Dr. Heather Ugarte MD Work Phone: [facility] 03-11-2025 08:12-0400 SaO2% (BldA) [Mass fraction] 96 % Dr. Heather Ugarte MD Work Phone: [facility] 03-11-2025 08:12-0400 Systolic blood pressure 110 mm[Hg] Dr. Heather Ugarte MD Work Phone: [facility] 02-08-2025 08:19-0400 Body height 167.[address] Heather Ugarte MD Work Phone: [facility] 02-08-2025 08:19-0400 Body mass index (BMI) [Ratio] 26.9 kg/m2 Dr. Heather Ugarte MD Work Phone: [facility] 02-08-2025 08:19-0400 Body temperature 97.8 [degF] Dr. Heather Ugarte MD Work Phone: [facility] 02-08-2025 08:19-0400 Body weight 75.[address] Heather Ugarte MD Work Phone: [facility] 02-08-2025 08:19-0400 Diastolic blood pressure 80 mm[Hg] Dr. Heather Ugarte MD Work Phone: [facility] 02-08-2025 08:19-0400 Heart rate 94 /min Dr. Heather Ugarte MD Work Phone: [facility] 02-08-2025 08:19-0400 Respiratory rate 17 /min Dr. Heather Ugarte MD Work Phone: [facility] 02-08-2025 08:19-0400 SaO2% (BldA) [Mass fraction] 96 % Dr. Heather Ugarte MD Work Phone: [facility] 02-08-2025 08:19-0400 Systolic blood pressure 126 mm[Hg] Dr. Heather Ugatre MD Work Phone: [facility] 01-07-2025 08:15-0500 Body mass index (BMI) [Ratio] 26.6 kg/m2 Dr. Heather Ugarte MD Work Phone: [facility] 01-07-2025 08:15-0500 Body temperature 98.4 [degF] Dr. Heather Ugarte MD Work Phone: [facility] 01-07-2025 08:15-0500 Body weight 74.[address] Heather Ugarte MD Work Phone: [facility] 01-07-2025 08:15-0500 Diastolic blood pressure 72 mm[Hg] Dr. Heather Ugarte MD Work Phone: [facility] 01-07-2025 08:15-0500 Heart rate 100 /min Dr. Heather Ugarte MD Work Phone: [facility] 01-07-2025 08:15-0500 Respiratory rate 17 /min Dr. Heather Ugarte MD Work Phone: [facility] 01-07-2025 08:15-0500 SaO2% (BldA) [Mass fraction] 97 % Dr. Heather Ugarte MD Work Phone: [facility] 01-07-2025 08:15-0500 Systolic blood pressure 112 mm[Hg] Dr. Heather Ugarte MD Work Phone: [facility] 12-21-2024 09:05-0500 Body mass index (BMI) [Ratio] 26.9 kg/m2 Dr. Heather Ugarte MD Work Phone: [facility] 12-21-2024 09:05-0500 Body temperature 98.6 [degF] Dr. Heather Ugarte MD Work Phone: [facility] 12-21-2024 09:05-0500 Body weight 75.[address] Heather Ugarte MD Work Phone: [facility] 12-21-2024 09:05-0500 Diastolic blood pressure 68 mm[Hg] Dr. Heather Ugarte MD Work Phone: [facility] 12-21-2024 09:05-0500 Heart rate 106 /min Dr. Heather Ugarte MD Work Phone: [facility] 12-21-2024 09:05-0500 Respiratory rate 16 /min Dr. Heather Ugarte MD Work Phone: [facility] 12-21-2024 09:05-0500 Systolic blood pressure 118 mm[Hg] Dr. Heather Ugarte MD Work Phone: [facility] 12-07-2024 08:18-0500 Body mass index (BMI) [Ratio] 27.1 kg/m2 Dr. Heather Ugarte MD Work Phone: [facility] 12-07-2024 08:18-0500 Body temperature 98.6 [degF] Dr. Heather Ugarte MD Work Phone: [facility] 12-07-2024 08:18-0500 Body weight 76.[address] Heather Ugarte MD Work Phone: [facility] 12-07-2024 08:18-0500 Diastolic blood pressure 82 mm[Hg] Dr. Heather Ugarte MD Work Phone: [facility] 12-07-2024 08:18-0500 Heart rate 105 /min Dr. Heather Ugarte MD Work Phone: [facility] 12-07-2024 08:18-0500 Respiratory rate 17 /min Dr. Heather Ugarte MD Work Phone: [facility] 12-07-2024 08:18-0500 SaO2% (BldA) [Mass fraction] 96 % Dr. Heather Ugarte MD Work Phone: [facility] 12-07-2024 08:18-0500 Systolic blood pressure 138 mm[Hg] Dr. Heather Ugarte MD Work Phone: [facility] 11-05-2024 08:11-0500 Body mass index (BMI) [Ratio] 26.4 kg/m2 Dr. Heather Ugarte MD Work Phone: [facility] 11-05-2024 08:11-0500 Body temperature 98.6 [degF] Dr. Heathre Ugarte MD Work Phone: [facility] 11-05-2024 08:11-0500 Body weight 74.[address] Heather Ugarte MD Work Phone: [facility] 11-05-2024 08:11-0500 Diastolic blood pressure 70 mm[Hg] Dr. Heather Ugarte MD Work Phone: [facility] 11-05-2024 08:11-0500 Heart rate 112 /min Dr. Heather Ugarte MD Work Phone: [facility] 11-05-2024 08:11-0500 Respiratory rate 17 /min Dr. Heather Ugarte MD Work Phone: [facility] 11-05-2024 08:11-0500 SaO2% (BldA) [Mass fraction] 96 % Dr. Heather Ugarte MD Work Phone: [facility] 11-05-2024 08:11-0500 Systolic blood pressure 116 mm[Hg] Dr. Heather Ugarte MD Work Phone: [facility] 02-19-2024 10:59-0400 Body temperature 98.1 [degF] Dr. Heather Ugarte Work Phone: [facility] 02-19-2024 10:59-0400 Diastolic blood pressure 68 mm[Hg] Dr. Heather Ugarte Work Phone: [facility] 02-19-2024 10:59-0400 Heart rate 104 /min Dr. Heather Ugarte Work Phone: [facility] 02-19-2024 10:59-0400 Respiratory rate 15 /min Dr. Heather Ugarte Work Phone: [facility] 02-19-2024 10:59-0400 SaO2% (BldA) [Mass fraction] 97 % Dr. Heather Ugarte Work Phone: [facility] 02-19-2024 10:59-0400 Systolic blood pressure 132 mm[Hg] Dr. Heather Ugarte Work Phone: [facility] 02-13-2024 11:28-0400 Body height 167.[address] Heather Ugarte Work Phone: [facility] 02-13-2024 11:28-0400 Body mass index (BMI) [Ratio] 25.5 kg/m2 Dr. Heather Ugarte Work Phone: [facility] 02-13-2024 11:28-0400 Body temperature 98.7 [degF] Dr. Heather Ugarte Work Phone: [facility] 02-13-2024 11:28-0400 Body weight 71.[address] Heather Ugarte Work Phone: [facility] 02-13-2024 11:28-0400 Diastolic blood pressure 80 mm[Hg] Dr. Heather Ugarte Work Phone: [facility] 02-13-2024 11:28-0400 Heart rate 100 /min Dr. Heather Ugarte Work Phone: [facility] 02-13-2024 11:28-0400 Respiratory rate 17 /min Dr. Heather Ugarte Work Phone: [facility] 02-13-2024 11:28-0400 SaO2% (BldA) [Mass fraction] 98 % Dr. Heather Ugarte Work Phone: [facility] 02-13-2024 11:28-0400 Systolic blood pressure 124 mm[Hg] Dr. Heather Ugarte Work Phone: [facility] 02-11-2024 10:22-0400 Body mass index (BMI) [Ratio] 25.7 kg/m2 Dr. Heather Ugarte Work Phone: [facility] 02-11-2024 10:22-0400 Body temperature 97.6 [degF] Dr. Heather Ugarte Work Phone: [facility] 02-11-2024 10:22-0400 Body weight 72.[address] Heather Ugarte Work Phone: [facility] 02-11-2024 10:22-0400 Diastolic blood pressure 81 mm[Hg] Dr. Heather Ugarte Work Phone: [facility] 02-11-2024 10:22-0400 Heart rate 93 /min Dr. Heather Ugarte Work Phone: [facility] 02-11-2024 10:22-0400 Respiratory rate 17 /min Dr. Heather Ugarte Work Phone: [facility] 02-11-2024 10:22-0400 SaO2% (BldA) [Mass fraction] 98 % Dr. Heather Ugarte Work Phone: [facility] 02-11-2024 10:22-0400 Systolic blood pressure 119 mm[Hg] Dr. Heather Ugarte Work Phone: [facility] 01-17-2024 10:01-0500 Body height 167.[address] Heather Ugarte Work Phone: [facility] 01-17-2024 10:01-0500 Body mass index (BMI) [Ratio] 26.1 kg/m2 Dr. Heather Ugarte Work Phone: [facility] 01-17-2024 10:01-0500 Body temperature 98.2 [degF] Dr. Heather Ugarte Work Phone: [facility] 01-17-2024 10:01-0500 Body weight 73.[address] Heather Ugarte Work Phone: [facility] 01-17-2024 10:01-0500 Diastolic blood pressure 62 mm[Hg] Dr. Heather Ugarte Work Phone: [facility] 01-17-2024 10:01-0500 Heart rate 92 /min Dr. Heather Ugarte Work Phone: [facility] 01-17-2024 10:01-0500 Respiratory rate 16 /min Dr. Heather Ugarte Work Phone: [facility] 01-17-2024 10:01-0500 SaO2% (BldA) [Mass fraction] 97 % Dr. Heather Ugarte Work Phone: [facility] 01-17-2024 10:01-0500 Systolic blood pressure 124 mm[Hg] Dr. Heather Ugarte Work Phone: [facility] 01-13-2024 09:52-0500 Body mass index (BMI) [Ratio] 25.5 kg/m2 Dr. Heather Ugarte Work Phone: [facility] 01-13-2024 09:52-0500 Diastolic blood pressure 70 mm[Hg] Dr. Heather Ugarte Work Phone: [facility] 01-13-2024 09:52-0500 Systolic blood pressure 116 mm[Hg] Dr. Heather Ugarte Work Phone: [facility] 01-13-2024 08:18-0500 Body temperature 98.6 [degF] Dr. Heather Ugarte Work Phone: [facility] 01-13-2024 08:18-0500 Body weight 71.[address] Heather Ugarte Work Phone: [facility] 01-13-2024 08:18-0500 Heart rate 95 /min Dr. Heather Ugarte Work Phone: [facility] 01-13-2024 08:18-0500 Respiratory rate 17 /min Dr. Heather Ugarte Work Phone: [facility] 01-13-2024 08:18-0500 SaO2% (BldA) [Mass fraction] 97 % Dr. Heather Ugarte Work Phone: [facility] 12-16-2023 09:06-0500 Body height 167.[address] Heather Ugarte Work Phone: [facility] 12-16-2023 09:06-0500 Body mass index (BMI) [Ratio] 26.4 kg/m2 Dr. Heather Ugarte Work Phone: [facility] 12-16-2023 09:06-0500 Body temperature 97.3 [degF] Dr. Heather Ugarte Work Phone: [facility] 12-16-2023 09:06-0500 Body weight 74.[address] Heather Ugarte Work Phone: [facility] 12-16-2023 09:06-0500 Diastolic blood pressure 82 mm[Hg] Dr. Heather Ugarte Work Phone: [facility] 12-16-2023 09:06-0500 Heart rate 102 /min Dr. Heather Ugarte Work Phone: [facility] 12-16-2023 09:06-0500 Respiratory rate 16 /min Dr. Heather Ugarte Work Phone: [facility] 12-16-2023 09:06-0500 SaO2% (BldA) [Mass fraction] 97 % Dr. Heather Ugarte Work Phone: [facility] 12-16-2023 09:06-0500 Systolic blood pressure 130 mm[Hg] Dr. Heather Ugarte Work Phone: [facility] 12-12-2023 11:24-0500 Body temperature 98.6 [degF] Dr. Heather Ugarte Work Phone: [facility] 12-12-2023 11:24-0500 Body weight 74.[address] Heather Ugarte Work Phone: [facility] 12-12-2023 11:24-0500 Diastolic blood pressure 68 mm[Hg] Dr. Heather Ugarte Work Phone: [facility] 12-12-2023 11:24-0500 Heart rate 106 /min Dr. Heather Ugarte Work Phone: [facility] 12-12-2023 11:24-0500 Respiratory rate 14 /min Dr. Heather Ugarte Work Phone: [facility] 12-12-2023 11:24-0500 SaO2% (BldA) [Mass fraction] 97 % Dr. Heather Ugarte Work Phone: [facility] 12-12-2023 11:24-0500 Systolic blood pressure 125 mm[Hg] Dr. Heather Ugarte Work Phone: [facility] 11-11-2023 13:10-0500 Body mass index (BMI) [Ratio] 25.9 kg/m2 Dr. Heather Ugarte Work Phone: [facility] 11-11-2023 13:10-0500 Body temperature 98.4 [degF] Dr. Heather Ugarte Work Phone: [facility] 11-11-2023 13:10-0500 Body weight 73.[address] Heather Ugarte Work Phone: [facility] 11-11-2023 13:10-0500 Diastolic blood pressure 70 mm[Hg] Dr. Heather Ugarte Work Phone: [facility] 11-11-2023 13:10-0500 Heart rate 108 /min Dr. Heather Ugarte Work Phone: [facility] 11-11-2023 13:10-0500 Respiratory rate 14 /min Dr. Heather Ugarte Work Phone: [facility] 11-11-2023 13:10-0500 SaO2% (BldA) [Mass fraction] 96 % Dr. Heather Ugarte Work Phone: [facility] 11-11-2023 13:10-0500 Systolic blood pressure 115 mm[Hg] Dr. Heather Ugarte Work Phone: [facility] 10-10-2023 08:17-0500 Body mass index (BMI) [Ratio] 25.3 kg/m2 Dr. Heather Ugarte Work Phone: [facility] 10-10-2023 08:17-0500 Body temperature 98.6 [degF] Dr. Heather Ugarte Work Phone: [facility] 10-10-2023 08:17-0500 Body weight 71.[address] Heather Ugarte Work Phone: [facility] 10-10-2023 08:17-0500 Diastolic blood pressure 76 mm[Hg] Dr. Heather Ugarte Work Phone: [facility] 10-10-2023 08:17-0500 Heart rate 112 /min Dr. Heather Ugarte Work Phone: [facility] 10-10-2023 08:17-0500 Respiratory rate 16 /min Dr. Heather Ugarte Work Phone: [facility] 10-10-2023 08:17-0500 SaO2% (BldA) [Mass fraction] 98 % Dr. Heather Ugarte Work Phone: [facility] 10-10-2023 08:17-0500 Systolic blood pressure 130 mm[Hg] Dr. Heather Ugarte Work Phone: [facility] 09-11-2023 08:47-0400 Body height 167.[address] Heather Ugarte Work Phone: [facility] 09-11-2023 08:47-0400 Body mass index (BMI) [Ratio] 24.7 kg/m2 Dr. Heather Ugarte Work Phone: [facility] 09-11-2023 08:47-0400 Body temperature 100 [degF] Dr. Heather Ugarte Work Phone: [facility] 09-11-2023 08:47-0400 Body weight 69.[address] Heather Ugarte Work Phone: [facility] 09-11-2023 08:47-0400 Diastolic blood pressure 82 mm[Hg] Dr. Heather Ugarte Work Phone: [facility] 09-11-2023 08:47-0400 Heart rate 100 /min Dr. Heather Ugarte Work Phone: [facility] 09-11-2023 08:47-0400 Respiratory rate 16 /min Dr. Heather Ugarte Work Phone: [facility] 09-11-2023 08:47-0400 SaO2% (BldA) [Mass fraction] 97 % Dr. Heather Ugarte Work Phone: [facility] 09-11-2023 08:47-0400 Systolic blood pressure 112 mm[Hg] Dr. Heather Ugarte Work Phone: [facility] 09-09-2023 08:18-0400 Body mass index (BMI) [Ratio] 24.7 kg/m2 Dr. Heather Ugarte Work Phone: [facility] 09-09-2023 08:18-0400 Body temperature 98.4 [degF] Dr. Heather Ugarte Work Phone: [facility] 09-09-2023 08:18-0400 Body weight 69.[address] Heather Ugarte Work Phone: [facility] 09-09-2023 08:18-0400 Diastolic blood pressure 68 mm[Hg] Dr. Heather Ugarte Work Phone: [facility] 09-09-2023 08:18-0400 Heart rate 95 /min Dr. Heather Ugarte Work Phone: [facility] 09-09-2023 08:18-0400 Respiratory rate 17 /min Dr. Heather Ugarte Work Phone: [facility] 09-09-2023 08:18-0400 SaO2% (BldA) [Mass fraction] 99 % Dr. Heather Ugarte Work Phone: [facility] 09-09-2023 08:18-0400 Systolic blood pressure 104 mm[Hg] Dr. Heather Ugarte Work Phone: [facility] 09-03-2023 13:08-0400 Body mass index (BMI) [Ratio] 25 kg/m2 Dr. Heather Ugarte Work Phone: [facility] 09-03-2023 13:08-0400 Body temperature 98.6 [degF] Dr. Heather Ugarte Work Phone: [facility] 09-03-2023 13:08-0400 Body weight 70.[address] Heather Ugarte Work Phone: [facility] 09-03-2023 13:08-0400 Diastolic blood pressure 70 mm[Hg] Dr. Heather Ugarte Work Phone: [facility] 09-03-2023 13:08-0400 Heart rate 88 /min Dr. Heather Ugarte Work Phone: [facility] 09-03-2023 13:08-0400 Respiratory rate 17 /min Dr. Heather Ugarte Work Phone: [facility] 09-03-2023 13:08-0400 SaO2% (BldA) [Mass fraction] 96 % Dr. Heather Ugarte Work Phone: [facility] 09-03-2023 13:08-0400 Systolic blood pressure 112 mm[Hg] Dr. Heather Ugarte Work Phone: [facility] 08-08-2023 09:08-0400 Body mass index (BMI) [Ratio] 21.9 kg/m2 Dr. Heather Ugarte Work Phone: [facility] 08-08-2023 09:08-0400 Body temperature 97.6 [degF] Dr. Heather Ugarte Work Phone: [facility] 08-08-2023 09:08-0400 Body weight 61.[address] Heather Ugarte Work Phone: [facility] 08-08-2023 09:08-0400 Diastolic blood pressure 76 mm[Hg] Dr. Heather Ugarte Work Phone: [facility] 08-08-2023 09:08-0400 Heart rate 83 /min Dr. Heather Ugarte Work Phone: [facility] 08-08-2023 09:08-0400 Respiratory rate 18 /min Dr. Heather Ugarte Work Phone: [facility] [facility] 08-08-2023 09:08-0400 SaO2% (BldA) [Mass fraction] 98 % Dr. Heather Ugarte Work Phone: [facility] 08-08-2023 09:08-0400 Systolic blood pressure 136 mm[Hg] Dr. Heather Ugarte Work Phone: [facility] 07-08-2023 09:53-0400 Body mass index (BMI) [Ratio] 23 kg/m2 Dr. Heather Ugarte Work Phone: [facility] 07-08-2023 09:53-0400 Body temperature 98.6 [degF] Dr. Heather Ugarte Work Phone: [facility] 07-08-2023 09:53-0400 Body weight 65.[address] Heather Ugarte Work Phone: [facility] 07-08-2023 09:53-0400 Diastolic blood pressure 80 mm[Hg] Dr. Heather Ugarte Work Phone: [facility] 07-08-2023 09:53-0400 Heart rate 91 /min Dr. Heather Ugarte Work Phone: [facility] 07-08-2023 09:53-0400 Respiratory rate 17 /min Dr. Heather Ugarte Work Phone: [facility] 07-08-2023 09:53-0400 SaO2% (BldA) [Mass fraction] 98 % Dr. Heather Ugarte Work Phone: [facility] 07-08-2023 09:53-0400 Systolic blood pressure 122 mm[Hg] Dr. Heather Ugarte Work Phone: [facility] 06-10-2023 09:12-0400 Body mass index (BMI) [Ratio] 21.7 kg/m2 Dr. Heather Ugarte Work Phone: [facility] 06-10-2023 09:12-0400 Body temperature 96.6 [degF] Dr. Heather Ugarte Work Phone: [facility] 06-10-2023 09:12-0400 Body weight 61.[address] Heather Uagrte Work Phone: [facility] 06-10-2023 09:12-0400 Diastolic blood pressure 82 mm[Hg] Dr. Heather Ugarte Work Phone: [facility] 06-10-2023 09:12-0400 Heart rate 105 /min Dr. Heather Ugarte Work Phone: [facility] 06-10-2023 09:12-0400 Respiratory rate 18 /min Dr. Heather Ugarte Work Phone: [facility] 06-10-2023 09:12-0400 SaO2% (BldA) [Mass fraction] 99 % Dr. Heather Ugarte Work Phone: [facility] 06-10-2023 09:12-0400 Systolic blood pressure 112 mm[Hg] Dr. Heather Ugarte Work Phone: [facility] 06-06-2023 10:18-0400 Body mass index (BMI) [Ratio] 23.2 kg/m2 Dr. Heather Ugarte Work Phone: [facility] 06-06-2023 10:18-0400 Body temperature 98.8 [degF] Dr. Heather Ugarte Work Phone: [facility] 06-06-2023 10:18-0400 Body weight 66.[address] Heather Ugarte Work Phone: [facility] 06-06-2023 10:18-0400 Diastolic blood pressure 76 mm[Hg] Dr. Heather Ugarte Work Phone: [facility] 06-06-2023 10:18-0400 Heart rate 112 /min Dr. Heather Ugarte Work Phone: [facility] 06-06-2023 10:18-0400 Respiratory rate 16 /min Dr. Heather Ugarte Work Phone: [facility] 06-06-2023 10:18-0400 SaO2% (BldA) [Mass fraction] 96 % Dr. Heather Ugarte Work Phone: [facility] 06-06-2023 10:18-0400 Systolic blood pressure 110 mm[Hg] Dr. Heather Ugarte Work Phone: [facility] 03-11-2023 09:17-0400 Body height 168.[address] Heather Ugarte Work Phone: [facility] 03-11-2023 09:17-0400 Body mass index (BMI) [Ratio] 22.9 kg/m2 Dr. Heather Ugarte Work Phone: [facility] 03-11-2023 09:17-0400 Body temperature 96.3 [degF] Dr. Heather Ugarte Work Phone: [facility] 03-11-2023 09:17-0400 Body weight 65.[address] Heather Ugarte Work Phone: [facility] 03-11-2023 09:17-0400 Diastolic blood pressure 74 mm[Hg] Dr. Heather Ugarte Work Phone: [facility] 03-11-2023 09:17-0400 Heart rate 98 /min Dr. Heather Ugarte Work Phone: [facility] 03-11-2023 09:17-0400 Respiratory rate 18 /min Dr. Heather Ugarte Work Phone: [facility] 03-11-2023 09:17-0400 SaO2% (BldA) [Mass fraction] 100 % Dr. Heather Ugarte Work Phone: [facility] 03-11-2023 09:17-0400 Systolic blood pressure 114 mm[Hg] Dr. Heather Ugarte Work Phone: [facility] 03-04-2023 13:54-0400 Body mass index (BMI) [Ratio] 23.9 kg/m2 Dr. Heather Ugarte Work Phone: [facility] 03-04-2023 13:54-0400 Body temperature 98.7 [degF] Dr. Heather Ugarte Work Phone: [facility] 03-04-2023 13:54-0400 Body weight 68.[address] Heather Ugarte Work Phone: [facility] 03-04-2023 13:54-0400 Diastolic blood pressure 70 mm[Hg] Dr. Heather Ugarte Work Phone: [facility] 03-04-2023 13:54-0400 Heart rate 97 /min Dr. Heather Ugarte Work Phone: [facility] 03-04-2023 13:54-0400 Respiratory rate 16 /min Dr. Heather Ugarte Work Phone: [facility] 03-04-2023 13:54-0400 SaO2% (BldA) [Mass fraction] 9 % Dr. Heather Ugarte Work Phone: [facility] 03-04-2023 13:54-0400 Systolic blood pressure 118 mm[Hg] Dr. Heather Ugarte Work Phone: [facility] 02-12-2023 10:51-0400 Body temperature 98.4 [degF] Dr. Heather Ugarte Work Phone: [facility] 02-12-2023 10:51-0400 Diastolic blood pressure 72 mm[Hg] Dr. Heather Ugarte Work Phone: [facility] 02-12-2023 10:51-0400 Heart rate 110 /min Dr. Heather Ugarte Work Phone: [facility] 02-12-2023 10:51-0400 Respiratory rate 16 /min Dr. Heather Ugarte Work Phone: [facility] 02-12-2023 10:51-0400 SaO2% (BldA) [Mass fraction] 98 % Dr. Hetaher Ugarte Work Phone: [facility] 02-12-2023 10:51-0400 Systolic blood pressure 100 mm[Hg] Dr. Heather Ugarte Work Phone: [facility] 12-17-2022 08:53-0500 Body mass index (BMI) [Ratio] 24.4 kg/m2 Dr. Heather Ugarte Work Phone: [facility] 12-17-2022 08:53-0500 Body temperature 98.4 [degF] Dr. Heather Ugarte Work Phone: [facility] 12-17-2022 08:53-0500 Body weight 69.[address] Heather Ugarte Work Phone: [facility] 12-17-2022 08:53-0500 Diastolic blood pressure 80 mm[Hg] Dr. Heather Ugarte Work Phone: [facility] 12-17-2022 08:53-0500 Heart rate 93 /min Dr. Heather Ugarte Work Phone: [facility] 12-17-2022 08:53-0500 Respiratory rate 16 /min Dr. Heather Ugarte Work Phone: [facility] 12-17-2022 08:53-0500 SaO2% (BldA) [Mass fraction] 96 % Dr. Heather Ugarte Work Phone: [facility] 12-17-2022 08:53-0500 Systolic blood pressure 116 mm[Hg] Dr. Heather Ugarte Work Phone: [facility] 12-03-2022 09:28-0500 Body temperature 97.8 [degF] Dr. Heather Ugarte Work Phone: [facility] 12-03-2022 09:28-0500 Body weight 70.[address] Heather Ugarte Work Phone: [facility] 12-03-2022 09:28-0500 Diastolic blood pressure 84 mm[Hg] Dr. Heather Ugarte Work Phone: [facility] 12-03-2022 09:28-0500 Heart rate 110 /min Dr. Heather Ugarte Work Phone: [facility] 12-03-2022 09:28-0500 Respiratory rate 18 /min Dr. Heather Ugarte Work Phone: [facility] 12-03-2022 09:28-0500 SaO2% (BldA) [Mass fraction] 96 % Dr. Heather Ugarte Work Phone: [facility] 12-03-2022 09:28-0500 Systolic blood pressure 116 mm[Hg] Dr. Heather Ugarte Work Phone: [facility] 09-24-2022 09:13-0400 Body height 168.[address] Michael Gu Work Phone: [facility] Work Phone: 09-24-2022 09:13-0400 Body mass index (BMI) [Ratio] 26.2 kg/m2 Dr. Michael Gu Work Phone: [facility] Work Phone: 09-24-2022 09:13-0400 Body temperature 98.3 [degF] Dr. Michael Gu Work Phone: [facility] Work Phone: 09-24-2022 09:13-0400 Body weight 74.[address] Michael Gu Work Phone: [facility] Work Phone: 09-24-2022 09:13-0400 Diastolic blood pressure 64 mm[Hg] Dr. Michael Gu Work Phone: [facility] Work Phone: 09-24-2022 09:13-0400 Heart rate 90 /min Dr. Michael Gu Work Phone: [facility] Work Phone: 09-24-2022 09:13-0400 Respiratory rate 14 /min Dr. Michael Gu Work Phone: [facility] Work Phone: 09-24-2022 09:13-0400 SaO2% (BldA) [Mass fraction] 95 % Dr. Michael Gu Work Phone: [facility] Work Phone: 09-24-2022 09:13-0400 Systolic blood pressure 122 mm[Hg] Dr. Michael Gu Work Phone: [facility] Work Phone: 08-21-2022 13:52-0400 Body mass index (BMI) [Ratio] 27.3 kg/m2 Dr. Michael Gu Work Phone: [facility] Work Phone: 08-21-2022 13:52-0400 Body temperature 98.6 [degF] Dr. Michael Gu Work Phone: [facility] Work Phone: 08-21-2022 13:52-0400 Body weight 78.[address] Michael Gu Work Phone: [facility] Work Phone: 08-21-2022 13:52-0400 Diastolic blood pressure 84 mm[Hg] Dr. Michael Gu Work Phone: [facility] Work Phone: 08-21-2022 13:52-0400 Heart rate 101 /min Dr. Michael Gu Work Phone: [facility] Work Phone: 08-21-2022 13:52-0400 Respiratory rate 14 /min Dr. Michael Gu Work Phone: [facility] Work Phone: 08-21-2022 13:52-0400 SaO2% (BldA) [Mass fraction] 96 % Dr. Michael Gu Work Phone: [facility] Work Phone: 08-21-2022 13:52-0400 Systolic blood pressure 136 mm[Hg] Dr. Michael Gu Work Phone: [facility] Work Phone: 08-15-2022 11:40-0400 Body mass index (BMI) [Ratio] 27.7 kg/m2 Dr. Michael Gu Work Phone: [facility] Work Phone: 08-15-2022 11:15-0400 Body temperature 98 [degF] Dr. Michael Gu Work Phone: [facility] Work Phone: 08-15-2022 11:15-0400 Diastolic blood pressure 98 mm[Hg] Dr. Michael Gu Work Phone: [facility] Work Phone: 08-15-2022 11:15-0400 Heart rate 103 /min Dr. Michael Gu Work Phone: [facility] Work Phone: 08-15-2022 11:15-0400 Respiratory rate 16 /min Dr. Michael Gu Work Phone: [facility] Work Phone: 08-15-2022 11:15-0400 SaO2% (BldA) [Mass fraction] 98 % Dr. Michael uG Work Phone: [facility] Work Phone: 08-15-2022 11:15-0400 Systolic blood pressure 150 mm[Hg] Dr. Michael Gu Work Phone: [facility] Work Phone: 08-15-2022 04:10-0400 Body mass index (BMI) [Ratio] 27.7 kg/m2 Dr. Michael Gu Work Phone: [facility] Work Phone: 08-14-2022 11:41-0400 Body weight 79.[address] Michael Gu Work Phone: [facility] Work Phone: 08-13-2022 22:29-0400 Diastolic blood pressure 90 mm[Hg] [facility] Work Phone: 08-13-2022 22:29-0400 Heart rate 97 /min [facility] Work Phone: 08-13-2022 22:29-0400 Respiratory rate 22 /min [facility] Work Phone: 08-13-2022 22:29-0400 SaO2% (BldA) [Mass fraction] 96 % [facility] Work Phone: 08-13-2022 22:29-0400 Systolic blood pressure 146 mm[Hg] [facility] Work Phone: 08-13-2022 21:00-0400 Body temperature 98.4 [degF] [facility] Work Phone: 08-13-2022 18:42-0400 Body height 167.64 cm [facility] Work Phone: 08-13-2022 18:42-0400 Body mass index (BMI) [Ratio] 28.2 kg/m2 [facility] Work Phone: 08-13-2022 18:42-0400 Body weight 79.37 kg [facility] Work Phone: Encounters Encounter Date Encounter Type Care Provider Facility Start: 09-13-2025 End: 09-13-[address] Lukas Wang MD -[facility] Work Phone: Start: 09-13-2025 End: 09-13-2025 ambulatory Lukas Wang Facility:[facility] Start: 09-09-2025 End: 09-09-[address] Heather Ugarte MD Work Phone: -Occupational Therapy Start: 09-09-2025 End: 09-09-2025 Discharged Recurring Tonya Dozier [employer] -Occupational Thera [facility] Work Phone: Start: 08-31-2025 End: 08-31-[address] Nick Lee MD -[facility] Work Phone: Start: 08-31-2025 End: 08-31-[address] Heather Ugarte MD Work Phone: -[facility] Start: 08-26-2025 Registered Recurring Tonya Dozier [employer] -Occupational Therapy Work Phone: Start: 08-16-2025 End: 08-16-[address] Lukas Wang MD -[facility] Work Phone: Start: 08-16-2025 End: 08-16-[address] Heather Ugarte MD Work Phone: [facility] Start: 08-09-2025 End: 08-09-[address] Lukas Wang MD -[facility] Work Phone: Start: 08-09-2025 End: 08-09-[address] Heather Ugarte MD Work Phone: [facility] Start: 08-04-2025 Registered Recurring Tonya Dozier [employer] -Occupational Therapy Work Phone: Start: 08-03-2025 End: 08-03-[address] Jamaal Limon MD -[facility] Start: 08-03-2025 End: 08-03-[address] Heather Ugarte MD Work Phone: [facility] Start: 08-03-2025 Non-patient / Non-visit Dr. Jorge mario MD -[facility] Work Phone: Start: 08-03-2025 End: 08-03-[address] Heather Ugarte MD Work Phone: -Pulmonary Services/Neurology Start: 08-03-2025 End: 08-03-[address] Heather Ugarte MD -Pulmonary Services/Neurology Work Phone: Start: 08-03-2025 End: 08-03-2025 ambulatory Sebastianamol Ugarte Facility:[facility] Start: 07-27-2025 End: 07-27-2025 Patient encounter procedure Tonya Dozier NP-C -[facility] Work Phone: Start: 07-27-2025 End: 07-27-[address] Heather Ugarte MD Work Phone: -[facility] Start: 07-23-2025 End: 07-23-[address] Heather Ugarte MD Work Phone: -MRI - [facility] Start: 07-23-2025 End: 07-23-2025 Patient encounter procedure Tonya Dozier NP-C -[facility] Work Phone: Start: 07-23-2025 End: 07-23-2025 ambulatory Tonya Dozier Facility:[facility] Start: 07-21-2025 End: 07-21-[address] Heather Ugarte MD Work Phone: -[facility] Start: 07-21-2025 End: 07-21-[address] Heather Ugarte MD -[facility] Work Phone: Start: 07-21-2025 End: 07-21-2025 ambulatory Heather Ugarte Facility:[facility] Start: 07-15-2025 End: 07-15-[address] Lukas Wang MD -[facility] Work Phone: Start: 07-15-2025 End: 07-15-[address] Heather Ugarte MD Work Phone: -[facility] Start: 07-12-2025 End: 07-12-[address] Heather Ugarte MD -[facility] Work Phone: Start: 07-12-2025 End: 07-12-[address] Heather Ugarte MD Work Phone: -[facility] Start: 07-02-2025 End: 07-02-[address] Heather Ugarte MD Work Phone: -[facility] Start: 07-02-2025 End: 07-02-2025 Patient encounter procedure Tonya HERNANDEZC -[facility] Work Phone: Start: 06-14-2025 End: 06-14-[address] Lukas Wang MD -[facility] Work Phone: Start: 06-14-2025 End: 06-14-[address] Heather Ugarte MD Work Phone: [facility] Start: 06-11-2025 End: 06-11-[address] Jamaal Limon MD -[facility] Start: 06-11-2025 End: 06-11-[address] Heather Ugarte MD Work Phone: -[facility] Start: 06-02-2025 End: 06-02-2025 Patient encounter procedure Yadiel Wang [facility] Work Phone: Start: 06-02-2025 End: 06-02-[address] Heather Ugarte MD Work Phone: -[facility] Start: 05-13-2025 End: 05-13-[address] Lukas Wang MD -[facility] Work Phone: Start: 05-13-2025 End: 05-13-[address] Heather Ugarte MD Work Phone: [facility] Work Phone: Start: 04-12-2025 End: 04-12-[address] Lukas Wang MD -[facility] Work Phone: Start: 04-12-2025 End: 04-12-[address] Heather Ugarte MD Work Phone: [facility] Work Phone: Start: 03-29-2025 End: 03-29-[address] Heather Ugarte MD -[facility] Work Phone: Start: 03-29-2025 End: 03-29-2025 ambulatory Heather Ugarte Facility:[facility] Start: 03-25-2025 End: 03-25-[address] Heather Ugarte MD Work Phone: [facility] Work Phone: Start: 03-25-2025 End: 03-25-[address] Heather Ugarte MD -[facility] Work Phone: Start: 03-25-2025 End: 03-25-2025 ambulatory Heather Ugarte Facility:[facility] Start: 03-11-2025 End: 03-11-[address] Lukas Wang MD -[facility] Work Phone: Start: 03-11-2025 End: 03-11-2025 ambulatory Lukas Wang Facility:[facility] Start: 02-08-2025 End: 02-08-[address] Lukas Wang MD -[facility] Work Phone: Start: 02-08-2025 End: 02-08-2025 ambulatory Lukas Wang Facility:[facility] Start: 02-04-2025 End: 02-04-[address] Heather Ugarte MD Work Phone: [facility] Work Phone: Start: 02-04-2025 End: 02-04-[address] Heather Ugarte MD -Outpatient Breast Imaging Work Phone: Start: 02-04-2025 End: 02-04-20[facility] Start: 01-07-2025 End: 01-07-[address] Lukas Wang MD -[facility] Work Phone: Start: 01-07-2025 End: 01-07-[facility] Start: 12-21-2024 End: 12-21-[address] Heather Ugarte MD -[facility] Work Phone: Start: 12-21-2024 End: 12-21-2024 [facility] Start: 12-07-2024 End: 12-07-[address] Lukas Wang MD -[facility] Work Phone: Start: 12-07-2024 End: 12-07-[facility] Start: 11-05-2024 End: 11-05-[address] Lukas Wang MD -[facility] Work Phone: Start: 11-05-2024 End: 11-05-2024 [facility] Start: 10-12-2024 End: 10-12-2024 [facility] Start: 10-05-2024 End: 10-05-2024 ambulatory E[facility]ongbe [facility] Facility:[facility] Start: 03-16-[address] Heather Ugarte MD Work Phone: [facility] Start: 02-19-2024 End: 02-19-[address] Heather Ugarte Work Phone: [facility] Work Phone: Start: 02-14-2024 Non-patient / Non-visit Dr. Sebastian Ugarte Work Phone: [facility] Start: 02-14-2024 End: 02-14-[address] Heather Ugarte Work Phone: [facility] Work Phone: Start: 02-14-2024 End: 02-14-[address] Heather Ugarte Work Phone: [facility] Work Phone: Start: 02-13-2024 End: 02-13-[address] Heather Ugarte Work Phone: [facility] Work Phone: Start: 02-11-2024 End: 02-11-[address] Heather Ugarte Work Phone: [facility] Work Phone: Start: 02-03-2024 End: 02-03-[address] Heather Ugarte Work Phone: [facility] Work Phone: Start: 02-03-2024 End: 02-03-[address] Heather Ugarte Work Phone: [facility] Breast Imaging Work Phone: Start: 01-29-2024 End: 01-29-[address] Heather Ugarte Work Phone: [facility] Work Phone: Start: 01-29-2024 End: 01-29-[address] Heather Ugarte Work Phone: [facility] Work Phone: Start: 01-17-2024 End: 01-17-[address] Heather Ugarte Work Phone: [facility] Work Phone: Start: 01-13-2024 End: 01-13-[address] Heather Ugarte Work Phone: [facility] Work Phone: Start: 12-16-2023 End: 12-16-[address] Heather Ugarte Work Phone: [facility] Work Phone: Start: 12-16-2023 End: 12-16-[address] Heather Ugarte Work Phone: [facility] Work Phone: Start: 12-12-2023 End: 12-12-[address] Heather Ugarte Work Phone: [facility] Work Phone: Start: 11-11-2023 End: 11-11-[address] Heather Ugarte Work Phone: [facility] Work Phone: Start: 10-10-2023 End: 10-10-[address] Heather Ugarte Work Phone: [facility] Neurology Work Phone: Start: 09-11-2023 End: 09-11-[address] Heather Ugarte Work Phone: [facility] Internal Medicine Work Phone: Start: 09-09-2023 End: 09-09-[address] Heather Ugarte Work Phone: [facility] Work Phone: Start: 09-09-2023 End: 09-09-[address] Heather Ugarte Work Phone: [facility] Neurology Work Phone: Start: 09-03-2023 End: 09-03-[address] Heather Ugarte Work Phone: [facility] Neu[facility] Work Phone: Start: 08-08-2023 End: 08-08-[address] Heather Ugarte Work Phone: [facility] Work Phone: Start: 07-08-2023 End: 07-08-[address] Heather Ugarte Work Phone: [facility] Neurology Work Phone: Start: 06-10-2023 End: 06-10-[address] Heather Ugarte Work Phone: [facility] Internal Medicine Work Phone: Start: 06-06-2023 End: 06-06-[address] Heather Ugarte Work Phone: [facility] Neurology Work Phone: Start: 03-11-2023 End: 03-11-[address] Heather Ugarte Work Phone: [facility] Internal Medicine Start: 03-04-2023 End: 03-04-[address] Heather Ugarte Work Phone: [facility] Neurology Start: 03-02-2023 End: 03-02-[address] Heather Ugarte Work Phone: [facility] Work Phone: Start: 03-02-2023 End: 03-02-[address] Heather Ugarte Work Phone: [facility]-Laboratory Start: 02-12-2023 End: 02-12-[address] Heather Ugarte Work Phone: [facility]-Now Clinic Start: 12-31-[address] Leana Ugarte Work Phone: [facility]-Cardiovascular Services Start: 12-17-2022 End: 12-17-[address] Heather Ugarte Work Phone: [facility] Neurology Start: 12-13-2022 End: 12-13-[address] Heather Ugarte Work Phone: [facility]-Outpatient Breast Imaging Start: 12-03-2022 End: 12-03-[address] Heather Ugarte Work Phone: [facility] Internal Medicine Start: 11-08-2022 End: 11-08-[address] Michael Gu Work Phone: [facility] Work Phone: Start: 11-08-2022 End: 11-08-[address] Michael Gu Work Phone: [facility]-Speech Therapy Start: 09-24-2022 End: 09-24-[address] Michael Gu Work Phone: [facility] Internal Medicine Start: 08-21-2022 End: 08-21-[address] Michael Gu Work Phone: [facility] Internal Medicine Start: 08-15-[address] Michael morillo Work Phone: [facility]-Patient Link Start: 08-15-2022 Non-patient / Non-visit Dr. Trinity Gu Work Phone: [facility] Start: 08-14-2022 End: 08-15-2022 Evaluation and management of inpatient [facility] Start: 08-14-2022 Non-patient / Non-visit Dr. Trinity Gu Work Phone: [facility] Start: 08-13-2022 Non-patient / Non-visit Dr. Trinity Gu Work Phone: [facility] Start: 08-13-2022 Evaluation and management of inpatient [facility] Start: 08-13-2022 observation encounter [facility] Work Phone: Start: 08-13-2022 Non-patient / Non-visit Dr. Trinity Gu Work Phone: [facility] Procedures Date Procedure Procedure Detail Performing Clinician Start: 08-03-2025 Plain x-ray of hand Dr. Heather Ugarte MD Work Phone: Start: 07-23-2025 MRI of upper limb Dr. Helen Ugarte MD Work Phone: Start: 06-11-2025 Plain x-ray of wrist Dr Dominique Ugarte MD Work Phone: Start: 02-04-2025 Screening mammography Aaron Ugarte MD Work Phone: Start: 02-14-2024 Ultrasonography guid ed biopsy of breast Dr. Heather Ugarte Work Phone: Start: 02-03-[address] Leana Ugarte Work Phone: Start: 02-03-[address] Heather Ugarte Work Phone: Start: 01-29-2024 Screening mammography Aaron Ugarte Work Phone: Start: 12-13-2022 Bilateral mammography Aaron Ugarte Work Phone: Start: 08-14-2022 MRI of brain without contrast Dr. Michael Gu Work Phone: Start: 08-13-2022 Plain chest X-ray Start: 08-13-2022 CT angiography of he ad and neck Start: 08-13-2022 CT of head without contrast Plan of Treatment Date Care Activity Detail Author Start: 09-13-2025 End: 09-13-2025 Patient encounter procedure [facility] Neurology Work Phone: Start: 08-19-2025 Registered Recurring Registered Recurring -Occupational Therapy Work Phone: Start: 08-03-2025 Plain x-ray of hand Hand Min 3 Views [facility] Start: 08-03-2025 XR Hand GE 3 Views [facility] Start: 07-23-2025 MRI of upper limb Upper Ext/No Jt/ wo [facility] Start: 06-11-2025 Plain x-ray of wrist Wrist min 3 Views [facility] Start: 06-11-2025 XR Wrist GE 3 Views [facility] Start: 02-14-2024 Bx breast w/device 1st lesion ultrasound guid BX BREAST 1ST LESION US IMAG [facility] Start: 01-17-2024 Patient referral [facility] Work Phone: Start: 08-21-2022 Patient referral [facility] Work Phone: Start: 08-15-2022 Patient discharge [facility] Work Phone: Start: 08-15-2022 [facility] Work Phone: Start: 08-14-2022 Admission procedure [facility] Work Phone: Start: 08-13-2022 Following clinical pathway protocol [facility] Work Phone: Start: 08-13-2022 Ambulation without limitation [facility] Work Phone: Start: 08-13-2022 Assessment of risk of venous thromboembolism [facility] Work Phone: Start: 08-13-2022 Cardiac monitoring [facility] Work Phone: Start: 08-13-2022 Care regimes management [facility] Work Phone: Start: 08-13-2022 Catheterization of vein [facility] Work Phone: Start: 08-13-2022 Elevation of head of bed [facility] Work Phone: Start: 08-13-2022 Exercises [facility] Work Phone: Start: 08-13-2022 Implementation of planned interventions [facility] Work Phone: Start: 08-13-2022 Insertion of catheter into peripheral vein [facility] Work Phone: Start: 08-13-2022 Measuring intake and output [facility] Work Phone: Start: 08-13-2022 Notification of physician [facility] Work Phone: Start: 08-13-2022 Patient referral to dietitian [facility] Work Phone: Start: 08-13-2022 Providing care according to standard [facility] Work Phone: Start: 08-13-2022 Referral to occupational therapist [facility] Work Phone: Start: 08-13-2022 Referral to service [facility] Work Phone: Start: 08-13-2022 Speech therapy assessment [facility] Work Phone: Start: 08-13-2022 Tobacco use cessation education [facility] Work Phone: Start: 08-13-2022 [facility] Work Phone: Start: 08-13-2022 Magnetic resonance angiography of head without contrast MRA Head ONLY without Contrast [facility] Work Phone: Start: 08-13-2022 Verification routine [facility] Work Phone: Start: 08-13-2022 Admission procedure [facility] Work Phone: Start: 08-13-2022 Oxygen therapy [facility] Work Phone: Start: 08-13-2022 End: 08-13-2022 [facility] Work Phone: CBC W Auto Different ial panel - Blood [facility] Comprehensive metabo lic 2000 panel - Serum or Plasma [facility] Hemoglobin A1c/Hemoglobin.total in Blood [facility] Work Phone: Hemoglobin A1c/Hemoglobin.total in Blood [facility] Hemoglobin A1c/Hemoglobin.total in Blood [facility] Lipid 1996 panel - S efrain or Plasma [facility] Lipid 1996 panel - S efrain or Plasma [facility] MR Lower Extremity Joint [facility] Patient referral [facility] Work Phone: XR Cervical spine 2 or 3 Views [facility] Immunizations Immunization Date Immunization Notes Care Provider Lindsey eric 11-03-2014 tetanus toxoid, redu selena diphtheria toxoid, and acellular pertussis vaccine, adsorbed Dr. Heather Ugarte MD Work Phone: [facility] Payers Date Payer Category Payer Self-pay [id number] 2024 Unknown [id number] Unknown [id number] 2.16.8 [id number] Unknown [id number] 2.16.8 40.1.456998.3.579.2.462 Unknown [id number] 2.16.8 40.1.644051.3.579.2.462 Unknown [id number] 2.16.8 40.1.534037.3.579.2.462 Unknown [id number] 2.16.8 40.1.774102.3.579.2.462 Unknown [id number] 2.16.8 40.1.078351.3.579.2.462 Unknown [id number] 2.16.8 40.1.169010.3.579.2.462 Unknown [id number] 2.16.8 40.1.567452.3.579.2.462 Unknown [id number] 2.16.8 40.1.123543.3.579.2.462 Unknown [id number] 2.16.8 40.1.159395.3.579.2.462 Unknown [id number] 2.16.8 40.1.437778.3.579.2.462 Unknown [id number] 2.16.8 40.1.356835.3.579.2.462 Unknown [id number] 2.16.8 40.1.768052.3.579.2.462 Unknown [id number] 2.16.8 40.1.272288.3.579.2.462 Unknown [id number] 2.16.8 40.1.397940.3.579.2.462 Unknown [id number] 2.16.8 40.1.634490.3.579.2.462 Unknown [id number] 2.16.8 40.1.142470.3.579.2.462 Unknown [id number] 2.16.8 40.1.773845.3.579.2.462 Unknown [id number] 2.16.8 40.1.517769.3.579.2.462 Unknown [id number] 2.16.8 40.1.121492.3.579.2.462 Unknown [id number] 2.16.8 40.1.715613.3.579.2.462 Unknown [id number] 2.16.8 40.1.336027.3.579.2.462 Unknown [id number] 2.16.8 40.1.959922.3.579.2.462 Unknown [id number] 2.16.8 40.1.869804.3.579.2.462 Unknown [id number] 2.16.8 40.1.543828.3.579.2.462 Unknown [id number] 2.16.8 40.1.784289.3.579.2.462 Unknown [id number] 2.16.8 40.1.961893.3.579.2.462 Unknown [id number] 2.16.8 40.1.027327.3.579.2.462 Unknown [id number] 2.16.8 40.1.348962.3.579.2.462 Unknown [id number] 2.16.8 40.1.257401.3.579.2.462 Unknown [id number] 2.16.8 40.1.925275.3.579.2.462 Unknown [id number] 2.16.8 40.1.703608.3.579.2.462 Social History Date Type Detail Facility Start: 08-13-2022 End: 02-19-2024 Tobacco smoking status CAIS Unknown if ever smoked [facility] Start: 1975 Sex Assigned At Female [facility] Start: 08-15-2022 Cigarettes [facility] Start: 10-12-2024 End: 10-12-2024 Tobacco smoking status NHIS Ex-smoker (finding) [facility] Start: 02-15-2025 Sex Female (finding) [facility] Sex Female [facility] NEGATED: Highlighted row [facility] Work Phone: Goals Date Patient Goal Desired Activity /State Functional Status Date Assessment Result Facility 08-15-2022 Functional status Up ad julia [facility] Work Phone: Mental Status Date Assessment Result Facility 08-14-2022 Cognitive function Voice/Name [facility] Work Phone: Clinical Notes 02-02-2021 to 09-13-2025 Note Date & Type Note Facility 09-13-2025 Progress note [facility] 09-09-2025 Discharge summary [facility] 08-16-2025 Progress note [facility] 06-02-2025 Evaluation note Diagnosis Onset Date Resolution De Quervain's tenosynovitis, right acute June 02, 2 025 2:20pm Arthritis of carpometacarpal (CMC) joint of right thumb acute June 11, 2025 9:45am Thumb tendonitis acute May 9:45am Fatigue chronic June 14 7:56am Arthritis of carpometacarpal (CMC) joint of right thumb acute July 02, 2025 7:46am Thumb tendonitis acute July 022024 7:46am Hyperlipidemia chronic June 10:12am Hypertension chronic July 12, 2025 10:12am Type 2 diabetes mellitus chronic July 12, 2025 10:12am Fatigue chronic July 15, 025 7:52am Arthritis of carpometacarpal (CMC) joint of right thumb acute July 272024 7:57am Thumb tendonitis acute Septembe r 2024 7:57am Arthritis of carpometacarpal (CMC) joint of right thumb acute August 032024 12:57pm Thumb tendonitis acute Septembe r 2024 12:57pm Fatigue chronic July 1:00pm CVA (cerebral vascular accident) resolved August 09, 2025 1:00pm Fatigue chronic July 7:58am CMC arthritis acute August 1:46pm Fatigue chronic September 13, 2025 8:28am [facility] Work Phone: 1(536) 798-848606-19-2025 Evaluation note* Diagnosis Onset Date Resolution Status Admit Date Fatigue chronic May 13 7:58am De Quervain's tenosynovitis, right acute June 02, 2025 2 :20pm Arthritis of carpometacarpal (CMC) joint of right thumb acute June 11, 2025 9:45am Thumb tendonitis acute Marimar 18t h, 2025 9:45am Fatigue chronic June 14 7:56am Arthritis of carpometacarpal (CMC) joint of right thumb acute 2024 7:46am Thumb tendonitis acute July 022024 7:46am Hyperlipidemia chronic June 10:12am Hypertension chronic July 12, 2025 10:12am Type 2 diabetes mellitus chronic July 12, 2025 10:12am Fatigue chronic July 15 025 7:52am Arthritis of carpometacarpal (CMC) joint of right thumb acute Jule 2024 7:57am Thumb tendonitis acute Septembe r 2024 7:57am Arthritis of carpometacarpal (CMC) joint of right thumb acute Septe mb2024 12:57pm Thumb tendonitis acute Septembe r 2024 12:57pm Fatigue chronic July 1:00pm CVA (cerebral vascular accident) resolved August 09, 2025 1:00pm Fatigue chronic July 7:58am [facility] Work Phone: 1(364) 531-846905-19-2025 Evaluation note* Diagnosis Onset Date Resolution Status Admit Date Fatigue chronic April 12, 2025 8:38am Fatigue chronic May 13 7:58am De Quervain's tenosynovitis, right acute June 02, 2025 2 :20pm Arthritis of carpometacarpal (CMC) joint of right thumb acute June 11, 2025 9:45am Thumb tendonitis acute May 9:45am Fatigue chronic June 14 7:56am Arthritis of carpometacarpal (CMC) joint of right thumb acute 2024 7:46am Thumb tendonitis acute July 022024 7:46am Hyperlipidemia chronic June 10:12am Hypertension chronic July 12, 2025 10:12am Type 2 diabetes mellitus chronic July 12, 2025 10:12am Fatigue chronic July 15, 025 7:52am Arthritis of carpometacarpal (CMC) joint of right thumb acute 2024 7:57am Thumb tendonitis acute Septembe r 2024 7:57[facility] Work Phone: 1(384) 390-672105-19-2025 Evaluation note* Diagnosis Onset Date Resolution Status Admit Date Fatigue chronic April 12, 2025 8:38am Fatigue chronic May 13 7:58am De Quervain's tenosynovitis, right acute June 02, 2025 2 :20pm Arthritis of carpometacarpal (CMC) joint of right thumb acute June 11, 2025 9:45am Thumb tendonitis acute May 9:45am Fatigue chronic June 14 7:56am Arthritis of carpometacarpal (CMC) joint of right thumb acute 2024 7:46am Thumb tendonitis acute July 022024 7:46am Hyperlipidemia chronic June 10:12am Hypertension chronic July 12, 2025 10:12am Type 2 diabetes mellitus chronic July 12, 2025 10:12am Fatigue chronic July 15 7:52am Arthritis of carpometacarpal (CMC) joint of right thumb acute Sept2024 7:57am Thumb tendonitis acute Septembe r 2024 7:57am Arthritis of carpometacarpal (CMC) joint of right thumb acute Septe 2024 12:57pm Thumb tendonitis acute Septembe r 2024 12:57pm Fatigue chronic July 1:00pm CVA (cerebral vascular accident) resolved August 09, 2025 1:00pm [facility] Work Phone: 1(343) 143-798805-05-2025 Evaluation note* Diagnosis Onset Date Resolution Status Admit Date Hyperlipidemia chronic March 29, 2 025 8:36am Hypertension chronic March 29 8:36am Type 2 diabetes mellitus chronic March 29, 2025 8:36am Fatigue chronic April 12, 2025 8:38am Fatigue chronic May 13 7:58am De Quervain's tenosynovitis, right acute June 02, 2025 2 :20pm Arthritis of carpometacarpal (CMC) joint of right thumb acute June 11, 2025 9:45am Thumb tendonitis acute May 9:45am Fatigue chronic June 14 7:56am Arthritis of carpometacarpal (CMC) joint of right thumb acute 2024 7:46am Thumb tendonitis acute July 022024 7:46am [place] [employer] Work Phone: 1(483) 664-665505-05-2025 Evaluation note* Diagnosis Onset Date Resolution Status Admit Date Hyperlipidemia chronic March 29, 2 025 8:36am Hypertension chronic March 29 8:36am Type 2 diabetes mellitus chronic March 29, 2025 8:36am Fatigue chronic April 12, 2025 8:38am Fatigue chronic May 13 7:58am De Quervain's tenosynovitis, right acute June 02, 2025 2 :20pm Arthritis of carpometacarpal (CMC) joint of right thumb acute June 11, 2025 9:45am Thumb tendonitis acute May 9:45am Fatigue chronic June 14 7:56am Arthritis of carpometacarpal (CMC) joint of right thumb acute 2024 7:46am Thumb tendonitis acute July 022024 7:46am Hyperlipidemia chronic June 10:12am Hypertension chronic July 12, 2025 10:12am Type 2 diabetes mellitus chronic July 12, 2025 10:12am [place] [employer] [facility] Work Phone: 1(892) 401-641305-05-2025 Evaluation note* Diagnosis Onset Date Resolution Status Admit Date Hyperlipidemia chronic March 29, 2 025 8:36am Hypertension chronic March 29 8:36am Type 2 diabetes mellitus chronic March 29, 2025 8:36am Fatigue chronic April 12, 2025 8:38am Fatigue chronic May 13 7:58am De Quervain's tenosynovitis, right acute June 02, 2025 2 :20pm Arthritis of carpometacarpal (CMC) joint of right thumb acute June 11, 2025 9:45am Thumb tendonitis acute May 9:45am Fatigue chronic June 14 7:56am Arthritis of carpometacarpal (CMC) joint of right thumb acute 2024 7:46am Thumb tendonitis acute July 022024 7:46am Hyperlipidemia chronic June 10:12am Hypertension chronic July 12, 2025 10:12am Type 2 diabetes mellitus chronic July 12, 2025 10:12am Fatigue chronic July 15 025 7:52am [facility] Work Phone: 1(115) 869-587804-17-2025 Evaluation note* Diagnosis Onset Date Resolution Status Admit Date Fatigue chronic March 11 8:00am Hyperlipidemia chronic March 29 025 8:36am Hypertension chronic March 29 8:36am Type 2 diabetes mellitus chronic March 29, 2025 8:36am Fatigue chronic April 12, 2025 8:38am Fatigue chronic May 13 7:58am De Quervain's tenosynovitis, right acute June 02, 2025 2 :20pm [facility] Work Phone: 1(538) 451-500804-17-2025 Evaluation note* Diagnosis Onset Date Resolution Status Admit Date Fatigue chronic March 11 8:00am Hyperlipidemia chronic March 29 025 8:36am Hypertension chronic March 29 8:36am Type 2 diabetes mellitus chronic March 29, 2025 8:36am Fatigue chronic April 12, 2025 8:38am Fatigue chronic May 13 7:58am De Quervain's tenosynovitis, right acute June 02, 2025 2 :20pm Arthritis of carpometacarpal (CMC) joint of right thumb acute June 11, 2025 9:45am Thumb tendonitis acute May 9:45am Fatigue chronic June 14 7:56am [facility] Work Phone: 1(355) 544-828103-17-2025 Evaluation note* Diagnosis Onset Date Resolution Status Admit Date Fatigue chronic February 08 8:07am Fatigue chronic March 11 8:00am Hyperlipidemia chronic March 29, 025 8:36am Hypertension chronic March 29 8:36am Type 2 diabetes mellitus chronic March 29, 2025 8:36am Fatigue chronic April 12, 2025 8:38am Fatigue chronic May 13 7:58am [facility] Work Phone: 1(804) 279-308601-27-2025 Evaluation note* Diagnosis Onset Date Resolution Status Admit Date Hypertension chronic November 9:00am Type 2 diabetes mellitus chronic December 21, 2024 9:00am Fatigue chronic January 07, 2025 7:59am Fatigue chronic February 08 8:07am Fatigue chronic March 11 8:00am Hyperlipidemia chronic March 29, 2 025 8:36am Hypertension chronic March 29 8:36am Type 2 diabetes mellitus chronic March 29, 2025 8:36am [facility] Work Phone: 1(149) 578-382701-13-2025 Evaluation note* Diagnosis Onset Date Resolution Status Admit Date Fatigue chronic December 07, 2024 8:00am Hypertension chronic November 9:00am Type 2 diabetes mellitus chronic December 21, 2024 9:00am Fatigue chronic January 07, 2025 7:59am Fatigue chronic February 08 8:07am Fatigue chronic March 11 8:00am Hyperlipidemia chronic March 29, 025 8:36am Hypertension chronic March 29 8:36am Type 2 diabetes mellitus chronic March 29, 2025 8:36am [facility] Work Phone: 1(788) 745-210012-12-2024 Evaluation note* Diagnosis Onset Date Resolution Status Admit Date Fatigue chronic November 05, 2024 7:59am Fatigue chronic December 07, 2024 8:00am Hypertension chronic November 9:00am Type 2 diabetes mellitus chronic December 21, 2024 9:00am Fatigue chronic January 07, 2025 7:59am Fatigue chronic February 08 8:07am [facility] Work Phone: 1(890) 274-935811-18-2024 [facility] Medical Records Department [address] [place] [id number] History Physical Exam 10/12/24 0722 MR#: [id number] Acct: [id number] Name: ARELIS BACON Rep #: [id number] : 1975 49 From: Mony Ferrer MD PCP: Dr. Heather Ugarte MD Status:[facility] Location: [place] [address] HPI - General General Date of Service: 10/12/24 HPI Narrative ARELIS BACON, is a 49 F who presents for screening colonoscopy. Patient never had previous colonoscopy. Patient denies any family history of colon cancer. Patient has bowel movements about every other day denies any blood. Patient denies any chronic abdominal pain/nausea/vomiting/reflux. FOR[facility]LY [facility], [facility] Medical History Post-menopausal Alcohol use Diabetes Migraine headache Dietary restriction Former smoker History of Holter monitoring History of echocardiogram History of stress test Hypertension Flu vaccine refused Anxiety about health Chest pain Abnormal EKG Colon cancer screening Health care maintenance Psoriasis Fungal dermatitis Numbness on right side Fatigue Acute frontal sinusitis, unspecified Hyperlipidemia Family history of breast cancer in first degree relative Breast pain, left Headache Type 2 diabetes mellitus Right sided weakness CVA (cerebral vascular accident) History of gallstones History of fracture of clavicle History of wrist fracture Nondisplaced fracture of neck of right radius Home Medications ???Medication ???Instructions ???Recorded ???Last Taken ???Type aspirin 81 mg chewable tablet 162 mg (2 x 81 mg) PO BREAKFAST 08/15/22 10/06/24 Rx #90 tabs cyanocobalamin (vitamin B-12) 100 100 mcg .Route .Q30 DAYS 03/11/23 Unknown History mcg/mL injection solution flash glucose sensor (FreeStyle #3 ea 11/28/23 Unknown Rx Bob 2 Sensor kit) losartan 50 mg tablet 50 mg PO DAILY #90 TABLETS 06/29/24 10/12/24 Rx metformin 500 mg tablet 500 mg PO BID 3 months #180 tabs 06/29/24 Unknown Rx semaglutide 2 mg/dose (8 mg/3 mL) 2 mg (0.75 mL) subcut QWEEK 3 10/01/24 10/04/24 Rx subcutaneous pen injector (Ozempic) months #9.75 mL Allergy/AdvReac Type Severity Reaction Status Date / Time adhesive Allergy Unknown Rash Verified 10/12/24 06:35 cephalexin monohydrate (From AdvReac Intermediate Hives Verified 10/12/24 06:35 Keflex) Iodinated Contrast Media AdvReac Intermediate Sneezing Verified 10/12/24 06:35 Family History Mother Diabetes Breast cancer, Onset Age: 60 Hypertension High cholesterol CVA (cerebral vascular accident) Thyroid disorder Father Diabetes Myocardial infarction, Onset Age: 65 Hypertension Surgical History H/O breast biopsy History of History of cholecystectomy H/O abdominoplasty H/O adenoidectomy Social History adopted: No household members: significant other number of children: 4 current occupational status: employed 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 current occupational exposures/hazards: No pets and animals: Yes history of recent travel: No sexually active: Yes Smoking Status: Former smoker Tobacco: How many years used: 20 second hand exposure: No quit status: quit date established alcohol intake: current alcohol intake frequency: other Alcohol type: wine details: occasionally substance use type: does not use caffeine: Yes Type: coffee Number of servings: 1 eating out: 1-3 times/week during the past year weight has: remained stable what type of physical activity do you participate in: none jessa/jainism: None seatbelt use: always do you feel safe at home: Yes Past Medical/Surgical History Planned Operation Planned Operative Procedure(s): COLONOSCOPY-OA Previous Hospitalizations/Surgeries HX Hospitalizations: No Any Problems With Anesthesia: No You/Your Family Experience Fever (Hyperthermia) With Anes: No Cholinesterase deficiency: No Cardiovascular Hx of Irregular Heartbeat and/or Afib: No Hx Heart Attack: No Hx Congestive Heart Failure: No Hx Hypertension: Yes (CONTROLLED ON MED) Hx Pacemaker: No Respiratory Hx Chronic Obstructive Pulmonary Disease (COPD): No Hx Asthma: No Hx Emphysema: No Hx Sleep Apnea: No Hx Respiratory Tract Infection/Cold (presently): No Do You Snore Loudly (louder than talking or can be heard): No Do You Often Feel Tired/ Fatigued/ Sleepy Dring Daytime?: No Has Anyone Observed You Stop Breathing During Sleep?: No Result (for STOP score): Negative Hx Smoking: Yes Smoking Status: Former smoker Gastrointestinal Hx Ulcer: No Difficulty Chewing/Swallowing: No Neurological Hx Seizures: No Hx Transient Ischemic Attacks (TI (more content not included)...[facility]03-22-2024 Procedure [facility]07-23-2021 NotePatient Outreach (INTMMN) ARELIS BACON ([id number]) 1975 F Date Time Provider Department 06/16/21 MICHAEL GU During your visit today, we recorded the following information about you: Allergies As of Date: 06/16/2021 Noted Allergy Reaction KEFLEX (CEPHALEXIN) 08/02/2008 4 - Hives Date Reviewed: 02/15/2020 Reviewed by: Sybil ([facility]) Da - Fully Assessed Visit Diagnosis:Encounter for screening mammogram for breast cancer [Z12.31] Order(s):[facility] SCREENING [[id number]] Order #: [id number] FUTURE Prescriptions as of 06/19/2021 - metFORMIN [...] 01/20/2020 Encounter Status:Closed by CARLO JARA on 06/19/21[facility] 03-21-2021 NotePatient Outreach (NETNAV) ARELIS BACON ([id number]) 1975 F Date Time Provider Department 03/21/21 STEVEN DIAZ (PSS) NETNAV During your visit today, we recorded the following information about you: Steven Diaz [facility] 03/21/2021 8:55 AM Signed POPULATION HEALTH NAVIGATION OUTREACH Action/FYI HM due mammo, HGB A1c, Retinal Exam Left vm, sent [facility] Contact made with patient or family member? NO Pt identified by name and : NO Outreach Outcome/Action Unable to reach patient: Phone number not valid / voicemail full [employer] message sent Reason for Outreach Care Gap [...] future healthcare decisions with a power of stripper machine operator, living will, or advance directives? n/a Referrals: N/A Message Sent to Practice: NO Navigation Signature: Steven Oro March 21, 2021 8:50 AM Allergies As of Date: 03/21/2021 Noted Allergy Reaction KEFLEX (CEPHALEXIN) 08/02/2008 4 - Hives Date Reviewed: 02/15/2020 Reviewed by: Sybil ([employer]) Da - Fully Assessed Reason for Visit: [...] left shoulder [M77.8] 01/20/2020 Encounter Status:Closed by STEVEN COSTA on 03/21/21[facility]04-27-2021 NoteHNO ID: [id number] Author: Steven Oro Service: ? Author Type: ? Type: Progress Notes Filed: 03/21/2021 8:55 AM Note Text: POPULATION HEALTH NAVIGATION OUTREACH Action/FYI HM due mammo, HGB A1c, Retinal Exam Left vm, sent [facility] Contact made with patient or family member? NO Pt identified by name and : NO Outreach Outcome/Action Unable to reach patient: Phone number not valid / voicemail full [employer] message sent Reason for Outreach Care Gap [...] future healthcare decisions with a power of stripper machine operator, living will, or advance directives? n/a Referrals: N/A Message Sent to Practice: NO Navigation Signature: Steven Oro March 21, 2021 8:50 [facility]04-06-2021 NotePatient Outreach (INTMWS) ARELIS BACON ([id number]) 1975 F Date Time Provider Department 02/28/21 MICHAEL GU INTMWS During your visit today, we recorded the [...] future healthcare decisions with a power of stripper machine operator, living will, or advance directives? No. Are [...] Hives Date Reviewed: 02/15/2020 Reviewed [facility]: [facility] - Fully Assessed Prescriptions as of 02/28/2021 [...] by BRINDA DE LA CRUZ LPN on 02/28/21[facility]04-06-2021 NoteHNO ID: [id number] Author: Brinda De La Cruz LPN Service: [...] future healthcare decisions with a power of stripper machine operator, living will, or advance directives? No. Are you interested in a follow-up phone call or visit with a doctor for more information about planning for future health care decisions? No Referrals: N/A Message Sent to Practice: NO Navigation Signature: Brinda De La Cruz LOLY February 28, 2021 11:02 [facility]03-30-2021 NoteHNO ID: [id number] Author: Sybil Roberson (Cns) Service: ? Author Type: Nurse Specialist Type: Progress Notes Filed: 02/21/2021 11:36 AM Note Text: needs labs and [facility] NotePatient Outreach (COVAMN) ARELIS BACON ([id number]) 1975 F Date Time Provider Department 02/02/21 OUSMANE CHAN During your visit today, we recorded the following information about you: Allergies As of Date: 02/02/2021 Noted Allergy Reaction KEFLEX (CEPHALEXIN) 08/02/2008 4 - Hives Date Reviewed: 02/15/2020 Reviewed by: Sybil Roberson ([employer]) - Fully Assessed Order(s):SARS-COVID VACCINE 1ST DOSE APPT [[id number]] Order #: [id number] FUTURE Prescriptions as of 02/02/2021 Sig: METFORMIN [...] left shoulder [M77.8] 01/20/2020 Encounter Status:Closed by EPIC, PRODUSER on 02/06/21[facility] Discharge summary Author Erin Garrett [facility] Note Date/Time September 09, 2025 1 2:22pm [facility] Occupational Therapy [facility] [place] [address] / REHABILITATION SERVICES DISCHARGE SUMMARY MR#: [id number] Acct: [id number] Name: ARELIS BACON Rep #: [id number] : 1975 50 From: Erin Garrett OTR/L, CHT Referring Dr.: SAGRARIO Dozier Status: REG RCR Eval Date: Discharge Date: Discharge Summary D/C Summary: It has been my pleasure to treat ARELIS BACON under orders from SAGRARIO Dye, for the diagnosis of right thumb pain cmc OA, pain for a total of 6 visit(s). Please see the following information for a summary of their discharge status. Overall Improvement % Improvement: 90 Objective Objective/Function: pt demo understanding of orthosis right design draftsman strength 40# increase from 10# right lateral pinch 2# increase from 0 right tripod pinch 2# increase from 0 right wrist ROM 60/6 increase from 55/30 right cmc 10* same as eval right MPJ flexion 50* same as eval right IP flexion 50* increase from 30* pt is out of her splint most of the time- only wearing when needed. 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 pt agrees with D/C Goals Patient Goals: Decrease Pain, Use Hand/Wrist/Arm Normally Again and Be More Independent in ADLS Goal:: pt will demo a increase in right design draftsman strength by 15# or greater to return pt to her PLOF by d.c. ( goal met) pt will demo a increase in right lateral and tripod pinch by 4# to increase pts IND. wtih ADLs by dc. ( progressing able to pinch 2# more discomfort at CMCJ) Goal:: pt will demo a increase in right wrist ROM by 10* to improve pts functional use of right dominate hand by d/c. ( goal met ) Goal:: pt will report no pain greater than 2/10 with use of right UE with ADLs by d.c ( goal met) Goal:: Pt will demo understanding of joint protection and ergonomics when performing BADLs and IADLs by d/c ( goal met ) Pt will demo understanding of adaptive Equipment use to decrease stress on joints to allow pt to perform BADSL and IADLS at SHERLY level. ( goal met) Goal:: Pt will demo understanding of using supportive bracing 80% of workday/ADLS to decrease stress on tendon origin to allow healing and decrease pain by end of 2nd session. 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 Thank you for the referral of this patient. Sincerely, Erin Garrett, ALYSONR/Speedy, CHT <Electronically signed by Erin JIMENEZ/LITA RuffT> 09/09/25 1016 CC: SAGRARIO Dozier; Dr. Heather Ugarte MD ~ MK Signed [facility] Work Phone: Evaluation note* Diagnosis Onset Date Resolution Status Acute cerebrovascular accident (CVA) acute New onset type 2 diabetes mellitus acute Hypertension chronic [facility] Work Phone: Evaluation note* Diagnosis Onset Date Resolution Status Acute cerebrovascular accident (CVA) acute New onset type 2 diabetes mellitus acute Nondisplaced fracture of neck of right radius acute Hypertension chronic [facility] Work Phone: Evaluation note* Diagnosis Onset Date Resolution Status Acute cerebrovascular accident (CVA) acute New onset type 2 diabetes mellitus acute Hypertension chronic CVA (cerebral vascular accident) acute Right sided weakness acute Hypertension chronic Type 2 diabetes mellitus chr onic Headache acute Type 2 diabetes mellitus chr [facility] Work Phone: Evaluation note* Diagnosis Onset Date Resolution Status Family history of breast can cer in first degree relative acute Breast pain, left chronic Hypertension chronic Type 2 diabetes mellitus chr onic Numbness acute CVA (cerebral vascular accident) resolved Acute frontal sinusitis, unspecified acute Fatigue acute CVA (cerebral vascular accident) resolved [facility] Work Phone: Evaluation note* Diagnosis Onset Date Resolution Status Fatigue chronic Hyperlipidemia chronic Hypertension chronic Type 2 diabetes mellitus chr onic Fatigue chronic Fatigue chronic Neuropathy of lower extremity acute Fatigue chronic CVA (cerebral vascular accident) resolved Fatigue chronic Hypertension chronic Type 2 diabetes mellitus chr [facility] Work Phone: Evaluation note* Diagnosis Onset Date Resolution Status Neuropathy of lower extremity acute Fatigue chronic CVA (cerebral vascular accident) resolved Fatigue chronic Hypertension chronic Type 2 diabetes mellitus chr onic Fatigue chronic Fatigue chronic Fungal dermatitis chronic Hypertension chronic Numbness on right side chron ic Type 2 diabetes mellitus chr [facility] Work Phone: Evaluation note* Diagnosis Onset Date Resolution Status Fatigue chronic Fatigue chronic Fatigue chronic Fungal dermatitis chronic Hypertension chronic Numbness on right side chron ic Type 2 diabetes mellitus chr onic Fatigue chronic Screening for breast cancer acute Fungal dermatitis chronic [facility] Work Phone: Evaluation note* Diagnosis Onset Date Resolution Status Fatigue chronic Fatigue chronic Fungal dermatitis chronic Hypertension chronic Numbness on right side chron ic Type 2 diabetes mellitus chr onic Fatigue chronic Screening for breast cancer acute Fungal dermatitis chronic Breast mass, right acute Fatigue chronic Acute pharyngitis acute [facility] Work Phone: Hospital Discharge instructionsAmbulatory Orders* Occupational Therapy Referral Location: None Selected [facility] Work Phone: Progress note Author Lukas Wang [facility] Note Date/Time August 16, 2025 8:15am [facility] [address] [place] [address] OFFICE VISIT Date of Service: 08/16/25 MR#: [id number] Acct: [id number] Patient: ARELIS BACON Rep # : [id number] : 1975 Provider: Dr. Poppy Wang MD Age/Sex: 50/F Location: [facility] Status: Signed Intake Vital Signs 07/12/25 10:30 08/09/25 13:09 08/16/25 08:13 Height 5 ft 6 in 5 ft 6 in 5 ft 6 in Weight: 160 lb 164 lb 13 oz BMI 25.8 26.6 BP 129/84 H 121/80 H Blood Pressure Location Rt brachial Rt brachial Position Sitting Sitting Respiration 16 17 Pulse 106 H 74 Pulse Source Monitor Monitor Temp 98.4 F 98.2 F Temp Source Temporal Temporal Pulse Oximetry (%) 98 94 Oxygen Delivery Method room air room air Intake Visit Reasons: B12 inject Chief Complaint: Allergies adhesive Allergy (Unknown, Verified 08/09/25 13:12) Rash cephalexin monohydrate (From Keflex) Adverse Reaction (Intermediate, Verified 08/09/25 13:12) Hives Iodinated Contrast Media Adverse Reaction (Intermediate, Verified 08/09/25 13:12) Sneezing Office Meds cyanocobalamin (vitamin B-12) 1,000 mcg/mL injection solution Performing Provider: Lukas Wang MD Performing Location: [facility] Administered by: Jazzy Lagos on 08/16/25 08:15 Dose Route Admin Location Dispensed Lot Number Expiration Date Pack age NDC NDC Propulsion Systems Engineer 1,500 mcg IM right deltoid 1.5 mL [id number] 03/24/27 61813-251-39 [id number] FILOMENA SARAVIA Comments: The patient presents for B12 injection for treatment of fatigue. She has fatigue. Her last B12 injection was of benefit for fatigue. The patient is awake and alert. B12 1500mcg IM was administered today. There were no complications. Assessment and Plan Assessment and Plan (1) Fatigue: Status: Chronic Qualifiers: Fatigue type: chronic, unspecified Qualified Code(s): R53.82 - Chronic fatigue, unspecified Orders: Orders Vitamin B12 Today R53.82 - Chronic fatigue, unspecified 08/16/251751 <Electronically signed by Lukas perera MD> Date _ Lukas Wang MD Cosigner Signature: Date (if applicable) CC: ~ [facility] Work Phone: Progress note Author Lukas Wang [facility] Note Date/Time September 13, 2025 9 :42am [facility] [address] [address] OFFICE VISIT Date of Service: 09/13/25 MR#: [id number] Acct: [id number] Patient: ARELIS BACON Rep # : [id number] : 1975 Provider: Dr. Poppy Wang MD Age/Sex: 50/F Location: [facility] Status: Signed Intake Vital Signs 08/09/25 13:09 08/31/25 14:20 09/13/25 08:40 Height 5 ft 6 in 5 ft 6 in 5 ft 6 in Weight: 163 lb BMI 26.3 BP 113/80 Blood Pressure Location Rt brachial Position Sitting Respiration 17 Pulse 106 H Pulse Source Monitor Temp 98.0 F Temp Source Temporal Pulse Oximetry (%) 94 Oxygen Delivery Method room air Intake Visit Reasons: B12 inject Chief Complaint: Allergies adhesive Allergy (Unknown, Verified 08/31/25 14:21) Rash cephalexin monohydrate (From Keflex) Adverse Reaction (Intermediate, Verified 08/31/25 14:21) Hives Iodinated Contrast Media Adverse Reaction (Intermediate, Verified 08/31/25 14:21) Sneezing Office Meds cyanocobalamin (vitamin B-12) 1,000 mcg/mL injection solution Performing Provider: Lukas Wang MD Performing Location: [facility] Administered by: Jazzy Lagos on 09/13/25 08:42 Dose Route Admin Location Dispensed Lot Number Expiration Date Pack age NDC NDC Propulsion Systems Engineer 1,500 mcg IM right deltoid 1.5 mL [id number] 03/24/27 [id number] SOMERSET THERAP Comments: The patient presents for B12 injection for treatment of fatigue. She has fatigue. Her last B12 injection was of benefit for fatigue. The patient is awake and alert. B12 1500mcg IM was administered today. There were no complications. Assessment and Plan Assessment and Plan (1) Fatigue: Status: Chronic Qualifiers: Fatigue type: chronic, unspecified Qualified Code(s): R53.82 - Chronic fatigue, unspecified Orders: Orders Vitamin B12 09/13/25 R53.82 - Chronic fatigue, unspecified 09/14/25 0002 <Electronically signed by Lukas perera MD> Date _ Lukas Wang MD Cosigner Signature: Date (if applicable) CC: ~ [facility] Work Phone: Reason for referral (narrative)No reason for referral information availableWCommunity [facility] Work Phone: Summary Purpose Family History Relationship Condition Age at Onset Recorded Date/T sheyla mother Diabetes mellitus Unknown father Diabetes mellitus Unknown Relationship Condition Age at Onset Recorded Date/T shyela mother Diabetes mellitus Unknown Malignant neoplasm of breast 60 Hypertension Unknown High blood cholesterol Unknown Cerebrovascular accident (CVA) Unknown Disorder of thyroid Unknown father Diabetes mellitus Unknown Myocardial infarction 65 Advance Directives Advance Directive Response Recorded Date/ Time Living Will No August 13, 2022 7:04pm Power of Special Assemblies Supervisor No July 7:04pm Advance Directive Response Recorded Date/ Time Living Will No August 15, 2022 9:57am Power of Special Assemblies Supervisor No July 9:57am Advance Directive Response Recorded Date/ Time Living Will No August 15, 2022 8:57am Power of Special Assemblies Supervisor No July 8:57am Advance Directive Response Recorded Date/ Time Living Will No August 03 1:37pm Do you have a Healthcare Power of Special Assemblies Supervisor? No August 03, 2024 1:37pm Advance Directive Response Recorded Date/ Time Living Will No August 03 12:37pm Do you have a Healthcare Power of Special Assemblies Supervisor? No August 03, 2024 12:37pm Chief Complaint and Reason for Visit Chief Complaint STROKE R/O Reason for Visit Acute cerebrovascula r accident (CVA) New onset type 2 diabetes mellitus Hypertension Chief Complaint STROKE R/O STROKE R/O STROKE R/O STROKE R/O Reason for Visit Acute cerebrovascula r accident (CVA) New onset type 2 diabetes mellitus Nondisplaced fracture of neck of right radius Hypertension Chief Complaint STROKE R/O STROKE R/O STROKE R/O STROKE R/O BLUEBERRY GROWER, EST. CARE, NEEDS PPW 1 M FU CVA/RX HERE Reason for Visit Acute cerebrovascula r accident (CVA) New onset type 2 diabetes mellitus Hypertension CVA (cerebral vascular accident) Right sided weakness Hypertension Type 2 diabetes mellitus Headache Type 2 diabetes mellitus Chief Complaint 3 M FU LEFT BREAST DISCOMFORT Consult CVA SORE THROAT/MIAGRAINE e order 4 M FU 3 M FU Reason for Visit Family history of br east cancer in first degree relative Breast pain, left Hypertension Type 2 diabetes mellitus Numbness CVA (cerebral vascular accident) Acute frontal sinusitis, unspecified Fatigue CVA (cerebral vascular accident) Chief Complaint B12 inject 3 m fu B12 inject B12 6 M FU EORDER B12 3 M FU Reason for Visit Fatigue Hyperlipidemia Hypertension Type 2 diabetes mellitus Fatigue Fatigue Neuropathy of lower extremity Fatigue CVA (cerebral vascular accident) Fatigue Hypertension Type 2 diabetes mellitus Chief Complaint 6 M FU EORDER B12 3 M FU b12 B12 injection B12 injection 3 M FU Reason for Visit Neuropathy of lower extremity Fatigue CVA (cerebral vascular accident) Fatigue Hypertension Type 2 diabetes mellitus Fatigue Fatigue Fungal dermatitis Hypertension Numbness on right side Type 2 diabetes mellitus Chief Complaint b12 B12 injection B12 injection 3 M FU B12 inject yeast under breasts SCREENING Reason for Visit Fatigue Fatigue Fatigue Fungal dermatitis Hypertension Numbness on right side Type 2 diabetes mellitus Fatigue Screening for breast cancer Fungal dermatitis Chief Complaint b12 B12 injection B12 injection 3 M FU B12 inject yeast under breasts SCREENING ABNORMAL BI Reason for Visit Fatigue Fatigue Fatigue Fungal dermatitis Hypertension Numbness on right side Type 2 diabetes mellitus Fatigue Screening for breast cancer Fungal dermatitis Chief Complaint B12 injection B12 injection 3 M FU B12 inject yeast under breasts SCREENING ABNORMAL BI birads 4 B12 inject RT BREAST MASS RT BREAST MASS SORE THROAT Reason for Visit Fatigue Fatigue Fungal dermatitis Hypertension Numbness on right side Type 2 diabetes mellitus Fatigue Screening for breast cancer Fungal dermatitis Breast mass, right Fatigue Acute pharyngitis Chief Complaint Admit Date B12 inject November 05, 2024 7:59am B12 inject December 07, 2024 8 :00am 3 M FU December 21, 2024 9 :00am B12 inject January 07, 2025 7:59am SCREENING February 04, 2025 7:1 8am B12 inject February 08, 2025 8:0 7am Reason for Visit Admit Date Fatigue November 05, 2024 7:59am Fatigue December 07, 2024 8 :00am Hypertension December 21, 2024 9 :00am Type 2 diabetes mellitus December 21, 2 025 9:00am Fatigue January 07, 2025 7:59am Fatigue February 08, 2025 8:0 7am Chief Complaint Admit Date B12 inject December 07, 2024 8 :00am 3 M FU December 21, 2024 9 :00am B12 inject January 07, 2025 7:59am SCREENING February 04, 2025 7:1 8am B12 inject February 08, 2025 8:0 7am B12 inject March 11, 2025 8:0 0am E-ORDER March 25, 2025 8:32am 3 M FU March 29, 2025 8:36am Reason for Visit Admit Date Fatigue December 07, 2024 8 :00am Hypertension December 21, 2024 9 :00am Type 2 diabetes mellitus December 21, 2 025 9:00am Fatigue January 07, 2025 7:59am Fatigue February 08, 2025 8:0 7am Fatigue March 11, 2025 8:0 0am Hyperlipidemia March 29, 2025 8:36am Hypertension March 29, 2025 8:36am Type 2 diabetes mellitus March 29, 2025 8 :36am Chief Complaint Admit Date 3 M FU December 21, 2024 9 :00am B12 inject January 07, 2025 7:59am SCREENING February 04, 2025 7:1 8am B12 inject February 08, 2025 8:0 7am B12 inject March 11, 2025 8:0 0am E-ORDER March 25, 2025 8:32am 3 M FU March 29, 2025 8:36am B12 inject April 12, 2025 8:38a m Reason for Visit Admit Date Hypertension December 21, 2024 9 :00am Type 2 diabetes mellitus December 21, 025 9:00am Fatigue January 07, 2025 7:59am Fatigue February 08, 2025 8:0 7am Fatigue March 11, 2025 8:0 0am Hyperlipidemia March 29, 2025 8:36am Hypertension March 29, 2025 8:36am Type 2 diabetes mellitus March 29, 2025 8 :36am Chief Complaint Admit Date SCREENING February 04, 2025 7:1 8am B12 inject February 08, 2025 8:0 7am B12 inject March 11, 2025 8:0 0am E-ORDER March 25, 2025 8:32am 3 M FU March 29, 2025 8:36am B12 inject April 12, 2025 8:38a m B12 inject May 13, 2025 7:58 am Reason for Visit Admit Date Fatigue February 08, 2025 8:0 7am Fatigue March 11, 2025 8:0 0am Hyperlipidemia March 29, 2025 8:36am Hypertension March 29, 2025 8:36am Type 2 diabetes mellitus March 29, 2025 8 :36am Fatigue April 12, 2025 8:38a m Fatigue May 13, 2025 7:58 am Chief Complaint Admit Date SCREENING February 04, 2025 7:1 8am B12 inject February 08, 2025 8:0 7am B12 inject March 11, 2025 8:0 0am E-ORDER March 25, 2025 8:32am 3 M FU March 29, 2025 8:36am B12 inject April 12, 2025 8:38a m B12 inject May 13, 2025 7:58 am R HAND/WRIST INJURY June 02, 2025 2:20p m Chief Complaint Admit Date B12 inject March 11, 2025 8:0 0am E-ORDER March 25, 2025 8:32am 3 M FU May 5th, 2025 8:36am B12 inject April 12, 2025 8:38a m B12 inject May 13, 2025 7:58 am R HAND/WRIST INJURY June 02, 2025 2:20p m RIGHT HAND/THUMB June 11, 2025 9:45 am Room 5 June 11, 2025 10:0 0am Reason for Visit Admit Date Fatigue March 11, 2025 8:0 0am Hyperlipidemia March 29, 2025 8:36am Hypertension March 29, 2025 8:36am Type 2 diabetes mellitus March 29, 2025 8 :36am Fatigue April 12, 2025 8:38a m Fatigue May 13, 2025 7:58 am De Quervain's tenosynovitis, right June 02, 2025 2:20pm Chief Complaint Admit Date B12 inject March 11, 2025 8:0 0am E-ORDER March 25, 2025 8:32am 3 M FU March 29, 2025 8:36am B12 inject April 12, 2025 8:38a m B12 inject May 13, 2025 7:58 am R HAND/WRIST INJURY June 02, 2025 2:20p m RIGHT HAND/THUMB June 11, 2025 9:45 am Room 5 June 11, 2025 10:0 0am B12 inject June 14, 2025 7:56 am Reason for Visit Admit Date Fatigue March 11, 2025 8:0 0am Hyperlipidemia March 29, 2025 8:36am Hypertension March 29, 2025 8:36am Type 2 diabetes mellitus March 29, 2025 8 :36am Fatigue April 12, 2025 8:38a m Fatigue May 13, 2025 7:58 am De Quervain's tenosynovitis, right June 02, 2025 2:20pm Arthritis of carpometacarpal (CMC) joint of right thumb June 11, 2025 9:45am Thumb tendonitis June 11, 2025 9:45 am Fatigue June 14, 2025 7:56 am Chief Complaint Admit Date B12 inject March 11, 2025 8:0 0am E-ORDER March 25, 2025 8:32am 3 M FU March 29, 2025 8:36am B12 inject April 12, 2025 8:38a m B12 inject May 13, 2025 7:58 am R HAND/WRIST INJURY June 02, 2025 2:20p m RIGHT HAND/THUMB June 11, 2025 9:45 am Room 5 June 11, 2025 10:0 0am B12 inject June 14, 2025 7:56 am RIGHT HAND/THUMB July 02, 2025 7:4 6am Chief Complaint Admit Date E-ORDER March 25, 2025 8:32am 3 M FU March 29, 2025 8:36am B12 inject April 12, 2025 8:38a m B12 inject May 13, 2025 7:58 am R HAND/WRIST INJURY June 02, 2025 2:20p m RIGHT HAND/THUMB June 11, 2025 9:45 am Room 5 June 11, 2025 10:0 0am B12 inject June 14, 2025 7:56 am RIGHT HAND/THUMB July 02, 2025 7:4 6am 3 m fu July 12, 2025 10 :12am Reason for Visit Admit Date Hyperlipidemia March 29, 2025 8:36am Hypertension March 29, 2025 8:36am Type 2 diabetes mellitus March 29, 2025 8 :36am Fatigue April 12, 2025 8:38a m Fatigue May 13, 2025 7:58 am De Quervain's tenosynovitis, right June 02, 2025 2:20pm Arthritis of carpometacarpal (CMC) joint of right thumb June 11, 2025 9:45am Thumb tendonitis June 11, 2025 9:45 am Fatigue June 14, 2025 7:56 am Arthritis of carpometacarpal (CMC) joint of right thumb July 02, 2025 7:46am Thumb tendonitis July 02, 2025 7:4 6am Chief Complaint Admit Date E-ORDER March 25, 2025 8:32am 3 M FU March 29, 2025 8:36am B12 inject April 12, 2025 8:38a m B12 inject May 13, 2025 7:58 am R HAND/WRIST INJURY June 02, 2025 2:20p m RIGHT HAND/THUMB June 11, 2025 9:45 am Room 5 June 11, 2025 10:0 0am B12 inject June 14, 2025 7:56 am RIGHT HAND/THUMB July 02, 2025 7:4 6am 3 m fu [place] 18th, 2025 10 :12am B12 inject July 15, 2025 7: 52am Reason for Visit Admit Date Hyperlipidemia March 29, 2025 8:36am Hypertension March 29, 2025 8:36am Type 2 diabetes mellitus March 29, 2025 8 :36am Fatigue April 12, 2025 8:38a m Fatigue May 13, 2025 7:58 am De Quervain's tenosynovitis, right June 02, 2025 2:20pm Arthritis of carpometacarpal (CMC) joint of right thumb June 11, 2025 9:45am Thumb tendonitis June 11, 2025 9:45 am Fatigue June 14, 2025 7:56 am Arthritis of carpometacarpal (CMC) joint of right thumb July 02, 2025 7:46am Thumb tendonitis July 02, 2025 7:4 6am Hyperlipidemia July 12, 2025 10 :12am Hypertension July 12, 2025 10 :12am Type 2 diabetes mellitus July 12 10:12am Chief Complaint Admit Date 3 M FU March 29, 2025 8:36am B12 inject April 12, 2025 8:38a m B12 inject May 13, 2025 7:58 am R HAND/WRIST INJURY June 02, 2025 2:20p m RIGHT HAND/THUMB June 11, 2025 9:45 am Room 5 June 11, 2025 10:0 0am B12 inject June 14, 2025 7:56 am RIGHT HAND/THUMB July 02, 2025 7:4 6am 3 m fu July 12, 2025 10 :12am B12 inject July 15, 2025 7: 52am EORDERS July 21, 2025 7: 28am RIGHT THUMB PAIN - attn: thumb July 232024 12:30pm RIGHT HAND July 27, 2025 7:57am Reason for Visit Admit Date Hyperlipidemia March 29, 2025 8:36am Hypertension March 29, 2025 8:36am Type 2 diabetes mellitus March 29, 2025 8 :36am Fatigue April 12, 2025 8:38a m Fatigue May 13, 2025 7:58 am De Quervain's tenosynovitis, right June 02, 2025 2:20pm Arthritis of carpometacarpal (CMC) joint of right thumb June 11, 2025 9:45am Thumb tendonitis June 11, 2025 9:45 am Fatigue June 14, 2025 7:56 am Arthritis of carpometacarpal (CMC) joint of right thumb July 02, 2025 7:46am Thumb tendonitis July 02, 2025 7:4 6am Hyperlipidemia July 12, 2025 10 :12am Hypertension July 12, 2025 10 :12am Type 2 diabetes mellitus July 12 10:12am Fatigue July 15, 2025 7: 52am Chief Complaint Admit Date B12 inject April 12, 2025 8:38a m B12 inject May 13, 2025 7:58 am R HAND/WRIST INJURY June 02, 2025 2:20p m RIGHT HAND/THUMB June 11, 2025 9:45 am Room 5 June 11, 2025 10:0 0am B12 inject June 14, 2025 7:56 am RIGHT HAND/THUMB July 02, 2025 7:4 6am 3 m fu July 12, 2025 10 :12am B12 inject July 15, 2025 7: 52am EORDERS July 21, 2025 7: 28am RIGHT THUMB PAIN - attn: thumb July 232024 12:30pm RIGHT HAND July 27, 2025 7:57am Reason for Visit Admit Date Fatigue April 12, 2025 8:38a m Fatigue May 13, 2025 7:58 am De Quervain's tenosynovitis, right June 02, 2025 2:20pm Arthritis of carpometacarpal (CMC) joint of right thumb June 11, 2025 9:45am Thumb tendonitis June 11, 2025 9:45 am Fatigue June 14, 2025 7:56 am Arthritis of carpometacarpal (CMC) joint of right thumb July 02, 2025 7:46am Thumb tendonitis July 02, 2025 7:4 6am Hyperlipidemia July 12, 2025 10 :12am Hypertension July 12, 2025 10 :12am Type 2 diabetes mellitus July 12 10:12am Fatigue July 15, 2025 7: 52am Arthritis of carpometacarpal (CMC) joint of right thumb July 27, 2025 7:57am Thumb tendonitis July 27, 2025 7:57am Chief Complaint Admit Date B12 inject April 12, 2025 8:38a m B12 inject May 13, 2025 7:58 am R HAND/WRIST INJURY June 02, 2025 2:20p m RIGHT HAND/THUMB June 11, 2025 9:45 am Room 5 June 11, 2025 10:0 0am B12 inject June 14, 2025 7:56 am RIGHT HAND/THUMB July 02, 2025 7:4 6am 3 m fu July 12, 2025 10 :12am B12 inject July 15, 2025 7: 52am EORDERS July 21, 2025 7: 28am RIGHT THUMB PAIN - attn: thumb July 232024 12:30pm RIGHT HAND July 27, 2025 7:57am PALP August 03, 2025 7:30am RIGHT HAND August 03, 2025 12:57pm Room 2 August 03, 2025 1:32pm Chief Complaint Admit Date B12 inject April 12, 2025 8:38a m B12 inject May 13, 2025 7:58 am R HAND/WRIST INJURY June 02, 2025 2:20p m RIGHT HAND/THUMB June 11, 2025 9:45 am Room 5 June 11, 2025 10:0 0am B12 inject June 14, 2025 7:56 am RIGHT HAND/THUMB July 02, 2025 7:4 6am 3 m fu July 12, 2025 10 :12am B12 inject July 15, 2025 7: 52am EORDERS July 21, 2025 7: 28am RIGHT THUMB PAIN - attn: thumb July 232024 12:30pm RIGHT HAND July 27, 2025 7:57am PALP August 03, 2025 7:30am RIGHT HAND August 03, 2025 12:57pm Room 2 August 03, 2025 1:32pm THUMB TENDONITIS. RX HERE July 2:06pm 1 Y FU August 09, 2025 1:00pm Reason for Visit Admit Date Fatigue April 12, 2025 8:38a m Fatigue May 13, 2025 7:58 am De Quervain's tenosynovitis, right June 02, 2025 2:20pm Arthritis of carpometacarpal (CMC) joint of right thumb June 11, 2025 9:45am Thumb tendonitis June 11, 2025 9:45 am Fatigue June 14, 2025 7:56 am Arthritis of carpometacarpal (CMC) joint of right thumb July 02, 2025 7:46am Thumb tendonitis July 02, 2025 7:4 6am Hyperlipidemia July 12, 2025 10 :12am Hypertension July 12, 2025 10 :12am Type 2 diabetes mellitus July 12 10:12am Fatigue July 15, 2025 7: 52am Arthritis of carpometacarpal (CMC) joint of right thumb July 27, 2025 7:57am Thumb tendonitis July 27, 2025 7:57am Arthritis of carpometacarpal (CMC) joint of right thumb August 03, 2025 12:57pm Thumb tendonitis August 03, 2025 12:57pm Fatigue August 09, 2025 1:00pm [facility] Chief Complaint Admit Date B12 inject May 13, 2025 7:58 am R HAND/WRIST INJURY June 02, 2025 2:20p m RIGHT HAND/THUMB June 11, 2025 9:45 am Room 5 June 11, 2025 10:0 0am B12 inject June 14, 2025 7:56 am RIGHT HAND/THUMB July 02, 2025 7:4 6am 3 m fu July 12, 2025 10 :12am B12 inject July 15, 2025 7: 52am EORDERS July 21, 2025 7: 28am RIGHT THUMB PAIN - attn: thumb July 232024 12:30pm RIGHT HAND July 27, 2025 7:57am PALP August 03, 2025 7:30am PALP August 03, 2025 7:45am RIGHT HAND August 03, 2025 12:57pm Room 2 August 03, 2025 1:32pm 1 Y FU August 09, 2025 1:00pm B12 inject August 16, 2025 7:58am THUMB TENDONITIS. RX HERE July 10:00am Reason for Visit Admit Date Fatigue May 13, 2025 7:58 am De Quervain's tenosynovitis, right June 02, 2025 2:20pm Arthritis of carpometacarpal (CMC) joint of right thumb June 11, 2025 9:45am Thumb tendonitis June 11, 2025 9:45 am Fatigue June 14, 2025 7:56 am Arthritis of carpometacarpal (CMC) joint of right thumb July 02, 2025 7:46am Thumb tendonitis July 02, 2025 7:4 6am Hyperlipidemia July 12, 2025 10 :12am Hypertension July 12, 2025 10 :12am Type 2 diabetes mellitus July 12 10:12am Fatigue July 15, 2025 7: 52am Arthritis of carpometacarpal (CMC) joint of right thumb July 27, 2025 7:57am Thumb tendonitis July 27, 2025 7:57am Arthritis of carpometacarpal (CMC) joint of right thumb August 03, 2025 12:57pm Thumb tendonitis August 03, 2025 12:57pm Fatigue August 09, 2025 1:00pm [facility] 1[facility] Fatigue August 16, 2025 7:58am Chief Complaint Admit Date B12 inject May 13, 2025 7:58 am R HAND/WRIST INJURY June 02, 2025 2:20p m RIGHT HAND/THUMB June 11, 2025 9:45 am Room 5 June 11, 2025 10:0 0am B12 inject June 14, 2025 7:56 am RIGHT HAND/THUMB July 02, 2025 7:4 6am 3 m fu July 12, 2025 10 :12am B12 inject July 15, 2025 7: 52am EORDERS July 21, 2025 7: 28am RIGHT THUMB PAIN - attn: thumb July 232024 12:30pm RIGHT HAND July 27, 2025 7:57am PALP August 03, 2025 7:30am PALP August 03, 2025 7:45am RIGHT HAND August 03, 2025 12:57pm Room 2 August 03, 2025 1:32pm 1 Y FU August 09, 2025 1:00pm B12 inject August 16, 2025 7:58am THUMB TENDONITIS. RX HERE August 26, 025 10:00am RIGHT HAND August 31, 2025 1: 46pm Chief Complaint Admit Date R HAND/WRIST INJURY June 02, 2025 2:20p m RIGHT HAND/THUMB June 11, 2025 9:45 am Room 5 June 11, 2025 10:0 0am B12 inject June 14, 2025 7:56 am RIGHT HAND/THUMB July 02, 2025 7:4 6am 3 m fu July 12, 2025 10 :12am B12 inject July 15, 2025 7: 52am EORDERS July 21, 2025 7: 28am RIGHT THUMB PAIN - attn: thumb July 232024 12:30pm RIGHT HAND July 27, 2025 7:57am PALP August 03, 2025 7:30am PALP August 03, 2025 7:45am RIGHT HAND August 03, 2025 12:57pm Room 2 August 03, 2025 1:32pm 1 Y FU August 09, 2025 1:00pm B12 inject August 16, 2025 7:58am RIGHT HAND August 31, 2025 1: 46pm THUMB TENDONITIS. RX HERE September 09, 2025 10:00am B12 inject September 13, 2025 8 :28am Reason for Visit Admit Date De Quervain's tenosynovitis, right June 02, 2025 2:20pm Arthritis of carpometacarpal (CMC) joint of right thumb June 11, 2025 9:45am Thumb tendonitis June 11, 2025 9:45 am Fatigue June 14, 2025 7:56 am Arthritis of carpometacarpal (CMC) joint of right thumb July 02, 2025 7:46am Thumb tendonitis July 02, 2025 7:4 6am Hyperlipidemia July 12, 2025 10 :12am Hypertension July 12, 2025 10 :12am Type 2 diabetes mellitus July 12 10:12am Fatigue July 15, 2025 7: 52am Arthritis of carpometacarpal (CMC) joint of right thumb July 27, 2025 7:57am Thumb tendonitis July 27, 2025 7:57am Arthritis of carpometacarpal (CMC) joint of right thumb August 03, 2025 12:57pm Thumb tendonitis August 03, 2025 12:57pm Fatigue August 09, 2025 1:00pm CVA (cerebral vascular accident) [facility] 1:00pm Fatigue August 16, 2025 7:58am CMC arthritis August 31, 2025 1: 46pm Fatigue September 13, 2025 8 :28am Additional Source Comments INFORMATION SOURCE (unrecogn ized section and content) DATE CREATED AUTHOR 01/13/2020 [facility] DATE CREATED AUTHOR AUTHOR'S ORGANIZ ATION 01/13/2022 [facility] DATE CREATED AUTHOR AUTHOR'S ORGANIZ ATION 09/24/2025 [facility] Goals (unrecognized section and content) Goals may be documented in a n alternate sectionGoals may be documented in an alternate sectionGoals may be documented in an alternate sectionGoals may be documented in an alternate sectionGoals may be documented in an alternate sectionGoals may be documented in an alternate sectionGoals may be documented in an alternate sectionGoals may be documented in an alternate sectionGoals may be documented in an alternate sectionGoals may be documented in an alternate sectionGoals may be documented in an alternate sectionGoals may be documented in an alternate sectionGoals may be documented in an alternate sectionGoals may be documented in an alternate sectionGoals may be documented in an alternate sectionGoals may be documented in an alternate sectionGoals may be documented in an alternate sectionGoals may be documented in an alternate sectionGoals may be documented in an alternate sectionGoals may be documented in an alternate sectionGoals may be documented in an alternate sectionGoals may be documented in an alternate sectionGoals may be documented in an alternate sectionGoals may be documented in an alternate sectionGoals may be documented in an alternate sectionGoals may be documented in an alternate sectionGoals may be documented in an alternate sectionGoals may be documented in an alternate sectionGoals may be documented in an alternate section Care Teams (unrecognized sec tion and content) Team Status: Active Member Role Status Dates Dr. Michael Gu MD Family Provider Active Dr. Heather Ugarte MD Primary Care Provider Active Team Status: Inactive Member Role Status Dates Dr. Heather Ugarte MD Primary Care Nico deleon, Attending Provider, Referring Provider Active Team Status: Inactive Member Role Status Dates Dr. Heather Ugarte MD Primary Care Provider Active Dr. Lukas Wang MD Attending Provider Active Team Status: Inactive Member Role Status Dates Dr. Heather Ugarte MD Primary Care Provider Active Dr. Lukas Wang MD Attending Provider, Referring Provider Active Team Status: Inactive Member Role Status Dates Dr. Heather Ugarte MD Primary Care Provider, Refer ring Provider Active Yadiel Wang PA, PA Attending Provider Active Team Status: Inactive Member Role Status Dates Dr. Heather Ugarte MD Primary Care Provider, Atten ding Provider Active Team Status: Active Member Role Status Dates Dr. Heather Ugarte MD Primary Care Provider Active Dr. Jamaal Limon MD Attending Provider Active Dr. Lukas Wang MD Referring Provider Active Team Status: Inactive Member Role Status Dates Dr. Heather Ugarte MD Primary Care Provider, Refer ring Provider Active Dr. Lukas Wang MD Attending Provider Active Team Status: Inactive Member Role Status Dates Dr. Heather Ugarte MD Primary Care Provider, Refer ring Provider Active Sugey Rodriguez NP-C Attending Provider Active Team Status: Inactive Member Role Status Dates Dr. Heather Ugarte MD Primary Care Provider Active Sugey Rodriguez BLUEBERRY GROWER-C Attending Provider, Referring Pro vider Active Team Status: Inactive Member Role Status Dates Dr. Heather Ugarte MD Primary Care Provider, Refer ring Provider Active Dr. Mony Ferrer MD Attending Provider Active Team Status: Active Member Role Status Dates Dr. Heather Ugarte MD Primary Care Provider Active Sugey Rodriguez NP-C Referring Provider, Other Provide r Active Dr. Mony Ferrer MD Attending Provider Active Team Status: Inactive Member Role Status Dates Dr. Heather Ugarte MD Primary Care Provider, Refer ring Provider Active Kd De La O PA, PA Attending Provider Active Team Status: Inactive Member Role Status Dates Dr. Heahter Ugarte MD Primary Care Provider Active Sugey Rodriguez BLUEBERRY GROWER-C Attending Provider, Referring Pro vider Active Dr. Mony Ferrer MD Other Provider Active Team Status: Active Member Role Status Dates Dr. Heather Ugarte MD Primary Care Provider Active Team Status: Inactive Member Role Status Dates Dr. Heather Ugarte MD Primary Care Provider Active Start: November 05, 2024 End: November 05, 2024 Dr. Lukas Wang MD Attending Provider Active Start: November 05, 2024 End: November 05, 2024 Dr. Lukas Wang MD Referring Provider Active Start: November 05, 2024 End: November 05, 2024 Team Status: Inactive Member Role Status Dates Dr. Heather Ugarte MD Primary Care Provider Active Start: December 07, 2024 End: December 07, 2024 Dr. Lukas Wang MD Attending Provider Active Start: December 07, 2024 End: December 07, 2024 Dr. Lukas Wang MD Referring Provider Active Start: December 07, 2024 End: December 07, 2024 Team Status: Inactive Member Role Status Dates Dr. Heather Ugarte MD Primary Care Provider Active Start: December 21, 2024 End: December 21, 2024 Dr. Heather Ugarte MD Attending Provider Active Start: December 21, 2024 End: December 21, 2024 Dr. Heather Ugarte MD Referring Provider Active Start: December 21, 2024 End: December 21, 2024 Team Status: Inactive Member Role Status Dates Dr. Heather Ugarte MD Primary Care Provider Active Start: January 07, 2025 End: January 07, 2025 Dr. Lukas Wang MD Attending Provider Active Start: January 07, 2025 End: January 07, 2025 Dr. Lukas Wang MD Referring Provider Active Start: January 07, 2025 End: January 07, 2025 Team Status: Inactive Member Role Status Dates Dr. Heather Ugarte MD Primary Care Provider Active Start: February 04, 2025 End: February 04, 2025 Dr. Heather Ugarte MD Attending Provider Active Start: February 04, 2025 End: February 04, 2025 Dr. Heather Ugarte MD Referring Provider Active Start: February 04, 2025 End: February 04, 2025 Team Status: Inactive Member Role Status Dates Dr. Heather Ugarte MD Primary Care Provider Active Start: February 08, 2025 End: February 08, 2025 Dr. Heather Ugarte MD Referring Provider Active Start: February 08, 2025 End: February 08, 2025 Dr. Lukas Wang MD Attending Provider Active Start: February 08, 2025 End: February 08, 2025 Team Status: Inactive Member Role Status Dates Dr. Heather Ugarte MD Primary Care Provider Active Start: February 08, 2025 End: February 08, 2025 Dr. Lukas Wang MD Attending Provider Active Start: February 08, 2025 End: February 08, 2025 Dr. Lukas Wang MD Referring Provider Active Start: February 08, 2025 End: February 08, 2025 Team Status: Inactive Member Role Status Dates Dr. Heather Ugarte MD Primary Care Provider Active Start: March 11, 2025 End: March 11, 2025 Dr. Heather Ugarte MD Referring Provider Active Start: March 11, 2025 End: March 11, 2025 Dr. Lukas Wang MD Attending Provider Active Start: March 11, 2025 End: March 11, 2025 Team Status: Inactive Member Role Status Dates Dr. Heather Ugarte MD Primary Care Provider Active Start: March 25, 2025 End: March 25, 2025 Dr. Heather Ugarte MD Attending Provider Active Start: March 25, 2025 End: March 25, 2025 Dr. Heather Ugarte MD Referring Provider Active Start: March 25, 2025 End: March 25, 2025 Team Status: Inactive Member Role Status Dates Dr. Heather Ugarte MD Primary Care Provider Active Start: March 29, 2025 End: March 29, 2025 Dr. Heather Ugarte MD Attending Provider Active Start: March 29, 2025 End: March 29, 2025 Dr. Heather Ugarte MD Referring Provider Active Start: March 29, 2025 End: March 29, 2025 Team Status: Inactive Member Role Status Dates Dr. Heather Ugarte MD Primary Care Provider Active Start: March 11, 2025 End: March 11, 2025 Dr. Lukas Wang MD Attending Provider Active Start: March 11, 2025 End: March 11, 2025 Dr. Lukas Wang MD Referring Provider Active Start: March 11, 2025 End: March 11, 2025 Team Status: Inactive Member Role Status Dates Dr. Heather Ugarte MD Primary Care Provider Active Start: April 12, 2025 End: April 12, 2025 Dr. Heather Ugarte MD Referring Provider Active Start: April 12, 2025 End: April 12, 2025 Dr. Lukas Wang MD Attending Provider Active Start: April 12, 2025 End: April 12, 2025 Team Status: Inactive Member Role Status Dates Dr. Heather Ugarte MD Primary Care Provider Active Start: April 12, 2025 End: April 12, 2025 Dr. Lukas Wang MD Attending Provider Active Start: April 12, 2025 End: April 12, 2025 Dr. Lukas Wang MD Referring Provider Active Start: April 12, 2025 End: April 12, 2025 Team Status: Inactive Member Role Status Dates Dr. Heather Ugarte MD Primary Care Provider Active Start: May 13, 2025 End: May 13, 2025 Dr. Heathre Ugarte MD Referring Provider Active Start: May 13, 2025 End: May 13, 2025 Dr. Lukas Wang MD Attending Provider Active Start: May 13, 2025 End: May 13, 2025 Team Status: Active Member Role/Relationship Status Dates Dr. Heather Ugarte MD Primary Care Provider Active Team Status: Inactive Member Role/Relationship Status Dates Dr. Heather Ugarte MD Primary Care Provider Active Start: February 04, 2025 End: February 04, 2025 Dr. Heather Ugarte MD Attending Provider Active Start: February 04, 2025 End: February 04, 2025 Dr. Heather Ugarte MD Referring Provider Active Start: February 04, 2025 End: February 04, 2025 Team Status: Inactive Member Role/Relationship Status Dates Dr. Heather Ugarte MD Primary Care Provider Active Start: February 08, 2025 End: February 08, 2025 Dr. Lukas Wang MD Attending Provider Active Start: February 08, 2025 End: February 08, 2025 Dr. Lukas Wang MD Referring Provider Active Start: February 08, 2025 End: February 08, 2025 Team Status: Inactive Member Role/Relationship Status Dates Dr. Heather Ugarte MD Primary Care Provider Active Start: March 11, 2025 End: March 11, 2025 Dr. Lukas Wang MD Attending Provider Active Start: March 11, 2025 End: March 11, 2025 Dr. Lukas Wang MD Referring Provider Active Start: March 11, 2025 End: March 11, 2025 Team Status: Inactive Member Role/Relationship Status Dates Dr. Heather Ugarte MD Primary Care Provider Active Start: March 25, 2025 End: March 25, 2025 Dr. Heather Ugarte MD Attending Provider Active Start: March 25, 2025 End: March 25, 2025 Dr. Heather Ugarte MD Referring Provider Active Start: March 25, 2025 End: March 25, 2025 Team Status: Inactive Member Role/Relationship Status Dates Dr. Heather Ugarte MD Primary Care Provider Active Start: March 29, 2025 End: March 29, 2025 Dr. Heather Ugarte MD Attending Provider Active Start: March 29, 2025 End: March 29, 2025 Dr. Heather Ugarte MD Referring Provider Active Start: March 29, 2025 End: March 29, 2025 Team Status: Inactive Member Role/Relationship Status Dates Dr. Heather Ugarte MD Primary Care Provider Active Start: April 12, 2025 End: April 12, 2025 Dr. Lukas Wang MD Attending Provider Active Start: April 12, 2025 End: April 12, 2025 Dr. Lukas Wang MD Referring Provider Active Start: April 12, 2025 End: April 12, 2025 Team Status: Inactive Member Role/Relationship Status Dates Dr. Heather Ugarte MD Primary Care Provider Active Start: May 13, 2025 End: May 13, 2025 Dr. Heather Ugarte MD Referring Provider Active Start: May 13, 2025 End: May 13, 2025 Dr. Lukas Wang MD Attending Provider Active Start: May 13, 2025 End: May 13, 2025 Team Status: Inactive Member Role/Relationship Status Dates Dr. Heather Ugarte MD Primary Care Provider Active Start: June 02, 2025 End: June 02, 2025 Dr. Heather Ugarte MD Referring Provider Active Start: June 02, 2025 End: June 02, 2025 Yadiel Wang PA, PA Attending Provider Active Start: June 02, 2025 End: June 02, 2025 Team Status: Inactive Member Role/Relationship Status Dates Dr. Heather Ugarte MD Primary Care Provider Active Start: March 11, 2025 End: March 11, 2025 Dr. Lukas Wang MD Attending Provider Active Start: March 11, 2025 End: March 11, 2025 Dr. Lukas Wang MD Referring Provider Active Start: March 11, 2025 End: March 11, 2025 Team Status: Inactive Member Role/Relationship Status Dates Dr. Heather Ugarte MD Primary Care Provider Active Start: March 25, 2025 End: March 25, 2025 Dr. Heather Ugarte MD Attending Provider Active Start: March 25, 2025 End: March 25, 2025 Dr. Heather Ugarte MD Referring Provider Active Start: March 25, 2025 End: March 25, 2025 Team Status: Inactive Member Role/Relationship Status Dates Dr. Heahter Ugarte MD Primary Care Provider Active Start: March 29, 2025 End: March 29, 2025 Dr. Heather Ugarte MD Attending Provider Active Start: March 29, 2025 End: March 29, 2025 Dr. Heather Ugarte MD Referring Provider Active Start: March 29, 2025 End: March 29, 2025 Team Status: Inactive Member Role/Relationship Status Dates Dr. Heather Ugarte MD Primary Care Provider Active Start: April 12, 2025 End: April 12, 2025 Dr. Lukas Wang MD Attending Provider Active Start: April 12, 2025 End: April 12, 2025 Dr. Lukas Wang MD Referring Provider Active Start: April 12, 2025 End: April 12, 2025 Team Status: Inactive Member Role/Relationship Status Dates Dr. Heather Ugarte MD Primary Care Provider Active Start: May 13, 2025 End: May 13, 2025 Dr. Heather Ugarte MD Referring Provider Active Start: May 13, 2025 End: May 13, 2025 Dr. Lukas Wang MD Attending Provider Active Start: May 13, 2025 End: May 13, 2025 Team Status: Inactive Member Role/Relationship Status Dates Dr. Heather Ugarte MD Primary Care Provider Active Start: June 02, 2025 End: June 02, 2025 Dr. Heather Ugarte MD Referring Provider Active Start: June 02, 2025 End: June 02, 2025 Yadiel Wang PA, PA Attending Provider Active Start: June 02, 2025 End: June 02, 2025 Team Status: Active Member Role/Relationship Status Dates Dr. Heather Ugarte MD Primary Care Provider Active Start: June 11, 2025 Dr. Heather Ugarte MD Referring Provider Active Start: June 11, 2025 SAGRARIO Norton Attending Provider Active Start: June 11, 2025 Team Status: Inactive Member Role/Relationship Status Dates Dr. Heather Ugarte MD Primary Care Provider Active Start: June 11, 2025 End: June 11, 2025 Dr. Jamaal Limon MD Attending Provider Active S tart: June 11, 2025 End: June 11, 2025 Team Status: Inactive Member Role/Relationship Status Dates Dr. Heather Ugarte MD Primary Care Provider Active Start: June 11, 2025 End: June 11, 2025 Dr. Heather Ugarte MD Referring Provider Active Start: June 11, 2025 End: June 11, 2025 SAGRARIO Norton Attending Provider Active Start: June 11, 2025 End: June 11, 2025 Team Status: Inactive Member Role/Relationship Status Dates Dr. Heather Ugarte MD Primary Care Provider Active Start: June 14, 2025 End: June 14, 2025 Dr. Heather Ugarte MD Referring Provider Active Start: June 14, 2025 End: June 14, 2025 Dr. Lukas Wang MD Attending Provider Active Start: June 14, 2025 End: June 14, 2025 Team Status: Inactive Member Role/Relationship Status Dates Dr. Heather Ugarte MD Primary Care Provider Active Start: May 13, 2025 End: May 13, 2025 Dr. Lukas Wang MD Attending Provider Active Start: May 13, 2025 End: May 13, 2025 Dr. Lukas Wang MD Referring Provider Active Start: May 13, 2025 End: May 13, 2025 Team Status: Inactive Member Role/Relationship Status Dates Dr. Heather Ugarte MD Primary Care Provider Active Start: July 02, 2025 End: July 02, 2025 Dr. Heather Ugarte MD Referring Provider Active Start: July 02, 2025 End: July 02, 2025 SAGRARIO Norton Attending Provider Active Start: July 02, 2025 End: July 02, 2025 Team Status: Inactive Member Role/Relationship Status Dates Dr. Heather Ugarte MD Primary Care Provider Active Start: March 25, 2025 End: March 25, 2025 Dr. Heather Ugarte MD Attending Provider Active Start: March 25, 2025 End: March 25, 2025 Dr. Heather Ugarte MD Referring Provider Active Start: March 25, 2025 End: March 25, 2025 Team Status: Inactive Member Role/Relationship Status Dates Dr. Heather Ugarte MD Primary Care Provider Active Start: March 29, 2025 End: March 29, 2025 Dr. Heather Ugarte MD Attending Provider Active Start: March 29, 2025 End: March 29, 2025 Dr. Heather Ugarte MD Referring Provider Active Start: March 29, 2025 End: March 29, 2025 Team Status: Inactive Member Role/Relationship Status Dates Dr. Heather Ugarte MD Primary Care Provider Active Start: April 12, 2025 End: April 12, 2025 Dr. Lukas Wang MD Attending Provider Active Start: April 12, 2025 End: April 12, 2025 Dr. Lukas Wang MD Referring Provider Active Start: April 12, 2025 End: April 12, 2025 Team Status: Inactive Member Role/Relationship Status Dates Dr. Heather Ugarte MD Primary Care Provider Active Start: May 13, 2025 End: May 13, 2025 Dr. Lukas Wang MD Attending Provider Active Start: May 13, 2025 End: May 13, 2025 Dr. Lukas Wang MD Referring Provider Active Start: May 13, 2025 End: May 13, 2025 Team Status: Inactive Member Role/Relationship Status Dates Dr. Heather Ugarte MD Primary Care Provider Active Start: June 02, 2025 End: June 02, 2025 Dr. Heather Ugarte MD Referring Provider Active Start: June 02, 2025 End: June 02, 2025 Yadiel Wang PA, PA Attending Provider Active Start: June 02, 2025 End: June 02, 2025 Team Status: Inactive Member Role/Relationship Status Dates Dr. Heather Ugarte MD Primary Care Provider Active Start: June 11, 2025 End: June 11, 2025 Dr. Heather Ugarte MD Referring Provider Active Start: June 11, 2025 End: June 11, 2025 SAGRARIO Norton Attending Provider Active Start: June 11, 2025 End: June 11, 2025 Team Status: Inactive Member Role/Relationship Status Dates Dr. Heather Ugarte MD Primary Care Provider Active Start: June 11, 2025 End: June 11, 2025 Dr. Jamaal Limon MD Attending Provider Active S tart: June 11, 2025 End: June 11, 2025 Team Status: Inactive Member Role/Relationship Status Dates Dr. Heather Ugarte MD Primary Care Provider Active Start: June 14, 2025 End: June 14, 2025 Dr. Heather Ugarte MD Referring Provider Active Start: June 14, 2025 End: June 14, 2025 Dr. Lukas Wang MD Attending Provider Active Start: June 14, 2025 End: June 14, 2025 Team Status: Inactive Member Role/Relationship Status Dates Dr. Heather Ugarte MD Primary Care Provider Active Start: July 02, 2025 End: July 02, 2025 Dr. Heather Ugarte MD Referring Provider Active Start: July 02, 2025 End: July 02, 2025 SAGRARIO Norton Attending Provider Active Start: July 02, 2025 End: July 02, 2025 Team Status: Inactive Member Role/Relationship Status Dates Dr. Heather Ugarte MD Primary Care Provider Active Start: July 12, 2025 End: July 12, 2025 Dr. Heather Ugarte MD Attending Provider Active Start: July 12, 2025 End: July 12, 2025 Dr. Heather Ugarte MD Referring Provider Active Start: July 12, 2025 End: July 12, 2025 Team Status: Inactive Member Role/Relationship Status Dates Dr. Heather Ugarte MD Primary Care Provider Active Start: July 15, 2025 End: July 15, 2025 Dr. Heather Ugarte MD Referring Provider Active Start: July 15, 2025 End: July 15, 2025 Dr. Lukas Wang MD Attending Provider Active Start: July 15, 2025 End: July 15, 2025 Team Status: Inactive Member Role/Relationship Status Dates Dr. Heather Ugarte MD Primary Care Provider Active Start: March 29, 2025 End: March 29, 2025 Dr. Heather Ugarte MD Attending Provider Active Start: March 29, 2025 End: March 29, 2025 Dr. Heather Ugarte MD Referring Provider Active Start: March 29, 2025 End: March 29, 2025 Team Status: Inactive Member Role/Relationship Status Dates Dr. Heather Ugarte MD Primary Care Provider Active Start: April 12, 2025 End: April 12, 2025 Dr. Lukas Wang MD Attending Provider Active Start: April 12, 2025 End: April 12, 2025 Dr. Lukas Wang MD Referring Provider Active Start: April 12, 2025 End: April 12, 2025 Team Status: Inactive Member Role/Relationship Status Dates Dr. Heather Ugarte MD Primary Care Provider Active Start: May 13, 2025 End: May 13, 2025 Dr. Lukas Wang MD Attending Provider Active Start: May 13, 2025 End: May 13, 2025 Dr. Lukas Wang MD Referring Provider Active Start: May 13, 2025 End: May 13, 2025 Team Status: Inactive Member Role/Relationship Status Dates Dr. Heather Ugarte MD Primary Care Provider Active Start: June 02, 2025 End: June 02, 2025 Dr. Heather Ugarte MD Referring Provider Active Start: June 02, 2025 End: June 02, 2025 Yadiel Wang PA, PA Attending Provider Active Start: June 02, 2025 End: June 02, 2025 Team Status: Inactive Member Role/Relationship Status Dates Dr. Heather Ugarte MD Primary Care Provider Active Start: June 11, 2025 End: June 11, 2025 Dr. Heather Ugarte MD Referring Provider Active Start: June 11, 2025 End: June 11, 2025 SAGRARIO Norton Attending Provider Active Start: June 11, 2025 End: June 11, 2025 Team Status: Inactive Member Role/Relationship Status Dates Dr. Heather Ugarte MD Primary Care Provider Active Start: June 11, 2025 End: June 11, 2025 Dr. Jamaal Limon MD Attending Provider Active S tart: June 11, 2025 End: June 11, 2025 Team Status: Inactive Member Role/Relationship Status Dates Dr. Heather Ugarte MD Primary Care Provider Active Start: June 14, 2025 End: June 14, 2025 Dr. Lukas Wang MD Attending Provider Active Start: June 14, 2025 End: June 14, 2025 Dr. Lukas Wang MD Referring Provider Active Start: June 14, 2025 End: June 14, 2025 Team Status: Inactive Member Role/Relationship Status Dates Dr. Heather Ugarte MD Primary Care Provider Active Start: July 02, 2025 End: July 02, 2025 Dr. Heather Ugarte MD Referring Provider Active Start: July 02, 2025 End: July 02, 2025 SAGRARIO Norton Attending Provider Active Start: July 02, 2025 End: July 02, 2025 Team Status: Inactive Member Role/Relationship Status Dates Dr. Heather Ugarte MD Primary Care Provider Active Start: July 12, 2025 End: July 12, 2025 Dr. Heather Ugarte MD Attending Provider Active Start: July 12, 2025 End: July 12, 2025 Dr. Heather Ugarte MD Referring Provider Active Start: July 12, 2025 End: July 12, 2025 Team Status: Inactive Member Role/Relationship Status Dates Dr. Heather Ugarte MD Primary Care Provider Active Start: July 15, 2025 End: July 15, 2025 Dr. Heather Ugarte MD Referring Provider Active Start: July 15, 2025 End: July 15, 2025 Dr. Lukas Wang MD Attending Provider Active Start: July 15, 2025 End: July 15, 2025 Team Status: Active Member Role/Relationship Status Dates Dr. Heather Ugarte MD Primary Care Provider Active Start: July 21, 2025 Dr. Heather Ugarte MD Attending Provider Active Start: July 21, 2025 Dr. Heather Ugarte MD Referring Provider Active Start: July 21, 2025 Team Status: Active Member Role/Relationship Status Dates Dr. Heather Ugarte MD Primary Care Provider Active Start: July 23, 2025 Tonya Dozier NP-C Attending Provider Active Start: July 23, 2025 Tonya Dozier NP-C Referring Provider Active Start: July 23, 2025 Team Status: Inactive Member Role/Relationship Status Dates Dr. Heather Ugarte MD Primary Care Provider Active Start: July 27, 2025 End: July 27, 2025 Dr. Heather Ugarte MD Referring Provider Active Start: July 27, 2025 End: July 27, 2025 Tonya Dozier BLUEBERRY GROWER-C Attending Provider Active Start: July 27, 2025 End: July 27, 2025 Team Status: Inactive Member Role/Relationship Status Dates Dr. Heather Ugarte MD Primary Care Provider Active Start: April 12, 2025 End: April 12, 2025 Dr. Lukas Wang MD Attending Provider Active Start: April 12, 2025 End: April 12, 2025 Dr. Lukas Wang MD Referring Provider Active Start: April 12, 2025 End: April 12, 2025 Team Status: Inactive Member Role/Relationship Status Dates Dr. Heather Ugarte MD Primary Care Provider Active Start: May 13, 2025 End: May 13, 2025 Dr. Lukas Wang MD Attending Provider Active Start: May 13, 2025 End: May 13, 2025 Dr. Lukas Wang MD Referring Provider Active Start: May 13, 2025 End: May 13, 2025 Team Status: Inactive Member Role/Relationship Status Dates Dr. Heather Ugarte MD Primary Care Provider Active Start: June 02, 2025 End: June 02, 2025 Dr. Heather Ugarte MD Referring Provider Active Start: June 02, 2025 End: June 02, 2025 Yadiel Wang PA, PA Attending Provider Active Start: June 02, 2025 End: June 02, 2025 Team Status: Inactive Member Role/Relationship Status Dates Dr. Heather Ugarte MD Primary Care Provider Active Start: June 11, 2025 End: June 11, 2025 Dr. Heahter Ugarte MD Referring Provider Active Start: June 11, 2025 End: June 11, 2025 SAGRARIO Norton Attending Provider Active Start: June 11, 2025 End: June 11, 2025 Team Status: Inactive Member Role/Relationship Status Dates Dr. Heather Ugarte MD Primary Care Provider Active Start: June 11, 2025 End: June 11, 2025 Dr. Jamaal Limon MD Attending Provider Active S tart: June 11, 2025 End: June 11, 2025 Team Status: Inactive Member Role/Relationship Status Dates Dr. Heather Ugarte MD Primary Care Provider Active Start: June 14, 2025 End: June 14, 2025 Dr. Lukas Wang MD Attending Provider Active Start: June 14, 2025 End: June 14, 2025 Dr. Lukas Wang MD Referring Provider Active Start: June 14, 2025 End: June 14, 2025 Team Status: Inactive Member Role/Relationship Status Dates Dr. Heather Ugarte MD Primary Care Provider Active Start: July 02, 2025 End: July 02, 2025 Dr. Heather Ugarte MD Referring Provider Active Start: July 02, 2025 End: July 02, 2025 SAGRARIO Norton Attending Provider Active Start: July 02, 2025 End: July 02, 2025 Team Status: Inactive Member Role/Relationship Status Dates Dr. Heather Ugarte MD Primary Care Provider Active Start: July 12, 2025 End: July 12, 2025 Dr. Heather Ugarte MD Attending Provider Active Start: July 12, 2025 End: July 12, 2025 Dr. Heather Ugarte MD Referring Provider Active Start: July 12, 2025 End: July 12, 2025 Team Status: Inactive Member Role/Relationship Status Dates Dr. Heather Ugarte MD Primary Care Provider Active Start: July 15, 2025 End: July 15, 2025 Dr. Heather Ugarte MD Referring Provider Active Start: July 15, 2025 End: July 15, 2025 Dr. Lukas Wang MD Attending Provider Active Start: July 15, 2025 End: July 15, 2025 Team Status: Inactive Member Role/Relationship Status Dates Dr. Heather Ugarte MD Primary Care Provider Active Start: July 21, 2025 End: July 21, 2025 Dr. Heather Ugarte MD Attending Provider Active Start: July 21, 2025 End: July 21, 2025 Dr. Heather Ugarte MD Referring Provider Active Start: July 21, 2025 End: July 21, 2025 Team Status: Active Member Role/Relationship Status Dates Dr. Heather Ugarte MD Primary Care Provider Active Start: July 23, 2025 SAGRARIO Norton Attending Provider Active Start: July 23, 2025 SAGRARIO Norton Referring Provider Active Start: July 23, 2025 Team Status: Inactive Member Role/Relationship Status Dates Dr. Heather Ugarte MD Primary Care Provider Active Start: July 27, 2025 End: July 27, 2025 Dr. Heather Ugrate MD Referring Provider Active Start: July 27, 2025 End: July 27, 2025 SAGRARIO Norton Attending Provider Active Start: July 27, 2025 End: July 27, 2025 Team Status: Inactive Member Role/Relationship Status Dates Dr. Heather Ugarte MD Primary Care Provider Active Start: July 23, 2025 End: July 23, 2025 SAGRARIO Norton Attending Provider Active Start: July 23, 2025 End: July 23, 2025 SAGRARIO Norton Referring Provider Active Start: July 23, 2025 End: July 23, 2025 Team Status: Active Member Role/Relationship Status Dates Dr. Heather Ugarte MD Primary Care Provider Active Start: August 03, 2025 Dr. Heather Ugarte MD Attending Provider Active Start: August 03, 2025 Dr. Heather Ugarte MD Referring Provider Active Start: August 03, 2025 Team Status: Active Member Role/Relationship Status Dates Dr. Heather Ugarte MD Primary Care Provider Active Start: August 03, 2025 Dr. Heather Ugarte MD Referring Provider Active Start: August 03, 2025 SAGRARIO Norton Attending Provider Active Start: August 03, 2025 Team Status: Inactive Member Role/Relationship Status Dates Dr. Heather Ugarte MD Primary Care Provider Active Start: August 03, 2025 End: August 03, 2025 Dr. Jamaal Limon MD Attending Provider Active S tart: August 03, 2025 End: August 03, 2025 Team Status: Inactive Member Role/Relationship Status Dates Dr. Heather Ugarte MD Primary Care Provider Active Start: August 03, 2025 End: August 03, 2025 Dr. Heather Ugarte MD Referring Provider Active Start: August 03, 2025 End: August 03, 2025 DAVID NortonC Attending Provider Active Start: August 03, 2025 End: August 03, 2025 Team Status: Active Member Role/Relationship Status Dates Dr. Heather Ugarte MD Primary Care Provider Active Start: August 04, 2025 DAVID NortonC Attending Provider Active Start: August 04, 2025 SAGRARIO Norton Referring Provider Active Start: August 04, 2025 Team Status: Inactive Member Role/Relationship Status Dates Dr. Heather Ugarte MD Primary Care Provider Active Start: August 09, 2025 End: August 09, 2025 Dr. Heather Ugarte MD Referring Provider Active Start: August 09, 2025 End: August 09, 2025 Dr. Lukas Wang MD Attending Provider Active Start: August 09, 2025 End: August 09, 2025 Team Status: Active Member Role/Relationship Status Dates Dr. Heather Ugarte MD Primary care physician Activ e Team Status: Inactive Member Role/Relationship Status Dates Dr. Heather Ugarte MD Primary care physician Activ e Start: May 13, 2025 End: May 13, 2025 Dr. Lukas Wang MD Attending physician Active Start: May 13, 2025 End: May 13, 2025 Dr. Lukas Wang MD Referring Provider Active Start: May 13, 2025 End: May 13, 2025 Team Status: Inactive Member Role/Relationship Status Dates Dr. Heather Ugarte MD Primary care physician Activ e Start: June 02, 2025 End: June 02, 2025 Dr. Heather Ugarte MD Referring Provider Active Start: June 02, 2025 End: June 02, 2025 Yadiel HARDIN, PA Attending physician Active Start: June 02, 2025 End: June 02, 2025 Team Status: Inactive Member Role/Relationship Status Dates Dr. Heather Ugarte MD Primary care physician Activ e Start: June 11, 2025 End: June 11, 2025 Dr. Heather Ugarte MD Referring Provider Active Start: June 11, 2025 End: June 11, 2025 SAGRARIO Norton Attending physician Active Start: June 11, 2025 End: June 11, 2025 Team Status: Inactive Member Role/Relationship Status Dates Dr. Heather Ugarte MD Primary care physician Activ e Start: June 11, 2025 End: June 11, 2025 Dr. Jamaal Limon MD Attending physician Active Start: June 11, 2025 End: June 11, 2025 Team Status: Inactive Member Role/Relationship Status Dates Dr. Heather Ugarte MD Primary care physician Activ e Start: June 14, 2025 End: June 14, 2025 Dr. Lukas Wang MD Attending physician Active Start: June 14, 2025 End: June 14, 2025 Dr. Lukas Wang MD Referring Provider Active Start: June 14, 2025 End: June 14, 2025 Team Status: Inactive Member Role/Relationship Status Dates Dr. Heather Ugarte MD Primary care physician Activ e Start: July 02, 2025 End: July 02, 2025 Dr. Heather Ugarte MD Referring Provider Active Start: July 02, 2025 End: July 02, 2025 SAGRARIO Norton Attending physician Active Start: July 02, 2025 End: July 02, 2025 Team Status: Inactive Member Role/Relationship Status Dates Dr. Heather Ugarte MD Primary care physician Activ e Start: July 12, 2025 End: July 12, 2025 Dr. Heather Ugarte MD Attending physician Active Start: July 12, 2025 End: July 12, 2025 Dr. Heather Ugarte MD Referring Provider Active Start: July 12, 2025 End: July 12, 2025 Team Status: Inactive Member Role/Relationship Status Dates Dr. Heather Ugarte MD Primary care physician Activ e Start: July 15, 2025 End: July 15, 2025 Dr. Heather Ugarte MD Referring Provider Active Start: July 15, 2025 End: July 15, 2025 Dr. uLkas Wang MD Attending physician Active Start: July 15, 2025 End: July 15, 2025 Team Status: Inactive Member Role/Relationship Status Dates Dr. Heather Ugarte MD Primary care physician Activ e Start: July 21, 2025 End: July 21, 2025 Dr. Heather Ugarte MD Attending physician Active Start: July 21, 2025 End: July 21, 2025 Dr. Heather Ugarte MD Referring Provider Active Start: July 21, 2025 End: July 21, 2025 Team Status: Inactive Member Role/Relationship Status Dates Dr. Heather Ugarte MD Primary care physician Activ e Start: July 23, 2025 End: July 23, 2025 SAGRARIO Norton Attending physician Active Start: July 23, 2025 End: July 23, 2025 Tonya Dozier , BLUEBERRY GROWER-C Referring Provider Active Start: July 23, 2025 End: July 23, 2025 Team Status: Inactive Member Role/Relationship Status Dates Dr. Heather Ugarte MD Primary care physician Activ e Start: July 27, 2025 End: July 27, 2025 Dr. Heather Ugarte MD Referring Provider Active Start: July 27, 2025 End: July 27, 2025 SAGRARIO Norton Attending physician Active Start: July 27, 2025 End: July 27, 2025 Team Status: Inactive Member Role/Relationship Status Dates Dr. Heather Ugarte MD Primary care physician Activ e Start: August 03, 2025 End: August 03, 2025 Dr. Heather Ugarte MD Attending physician Active Start: August 03, 2025 End: August 03, 2025 Dr. Heather Ugarte MD Referring Provider Active Start: August 03, 2025 End: August 03, 2025 Team Status: Active Member Role/Relationship Status Dates Dr. Heather Ugarte MD Primary care physician Activ e Start: August 03, 2025 Dr. Heather Ugarte MD Referring Provider Active Start: August 03, 2025 Dr. Jorge Lindsay MD Attending physician Active Start: August 03, 2025 Team Status: Inactive Member Role/Relationship Status Dates Dr. Heather Ugarte MD Primary care physician Activ e Start: August 03, 2025 End: August 03, 2025 Dr. Heather Ugarte MD Referring Provider Active Start: August 03, 2025 End: August 03, 2025 SAGRARIO Norton Attending physician Active Start: August 03, 2025 End: August 03, 2025 Team Status: Inactive Member Role/Relationship Status Dates Dr. Heather Ugarte MD Primary care physician Activ e Start: August 03, 2025 End: August 03, 2025 Dr. Jamaal Limon MD Attending physician Active Start: August 03, 2025 End: August 03, 2025 Team Status: Inactive Member Role/Relationship Status Dates Dr. Heather Ugarte MD Primary care physician Activ e Start: August 09, 2025 End: August 09, 2025 Dr. Heather Ugarte MD Referring Provider Active Start: August 09, 2025 End: August 09, 2025 Dr. Lukas Wang MD Attending physician Active Start: August 09, 2025 End: August 09, 2025 Team Status: Inactive Member Role/Relationship Status Dates Dr. Heather Ugarte MD Primary care physician Activ e Start: August 16, 2025 End: August 16, 2025 Dr. Heather Ugarte MD Referring Provider Active Start: August 16, 2025 End: August 16, 2025 Dr. Lukas Wang MD Attending physician Active Start: August 16, 2025 End: August 16, 2025 Team Status: Active Member Role/Relationship Status Dates Dr. Heather Ugarte MD Primary care physician Activ e Start: August 19, 2025 Tonya Dozier NP-C Attending physician Active Start: August 19, 2025 Tonya Dozier NP-C Referring Provider Active Start: August 19, 2025 Team Status: Inactive Member Role/Relationship Status Dates Dr. Heather Ugarte MD Primary care physician Activ e Start: July 15, 2025 End: July 15, 2025 Dr. Lukas Wang MD Attending physician Active Start: July 15, 2025 End: July 15, 2025 Dr. Lukas Wang MD Referring Provider Active Start: July 15, 2025 End: July 15, 2025 Team Status: Active Member Role/Relationship Status Dates Dr. Heather Ugarte MD Primary care physician Activ e Start: August 26, 2025 DAVID NortonC Attending physician Active Start: August 26, 2025 Tonya Dozier NP-C Referring Provider Active Start: August 26, 2025 Team Status: Inactive Member Role/Relationship Status Dates Dr. Heather Ugarte MD Primary care physician Activ e Start: August 31, 2025 End: August 31, 2025 Dr. Heahter Ugarte MD Referring Provider Active Start: August 31, 2025 End: August 31, 2025 Dr. Nick Lee MD Attending physician Active Start: August 31, 2025 End: August 31, 2025 Team Status: Inactive Member Role/Relationship Status Dates Dr. Heather Ugarte MD Primary care physician Activ e Start: June 02, 2025 End: June 02, 2025 Dr. Heather Ugarte MD Referring Provider Active Start: June 02, 2025 End: June 02, 2025 Yadiel Wang PA, PA Attending physician Active Start: June 02, 2025 End: June 02, 2025 Team Status: Inactive Member Role/Relationship Status Dates Dr. Heather Ugarte MD Primary care physician Activ e Start: June 11, 2025 End: June 11, 2025 Dr. Heather Ugarte MD Referring Provider Active Start: June 11, 2025 End: June 11, 2025 SAGRARIO Norton Attending physician Active Start: June 11, 2025 End: June 11, 2025 Team Status: Inactive Member Role/Relationship Status Dates Dr. Heather Ugarte MD Primary care physician Activ e Start: June 11, 2025 End: June 11, 2025 Dr. Jamaal Limon MD Attending physician Active Start: June 11, 2025 End: June 11, 2025 Team Status: Inactive Member Role/Relationship Status Dates Dr. Heather Ugarte MD Primary care physician Activ e Start: June 14, 2025 End: June 14, 2025 Dr. Lukas Wang MD Attending physician Active Start: June 14, 2025 End: June 14, 2025 Dr. Lukas Wang MD Referring Provider Active Start: June 14, 2025 End: June 14, 2025 Team Status: Inactive Member Role/Relationship Status Dates Dr. Heather Ugarte MD Primary care physician Activ e Start: July 02, 2025 End: July 02, 2025 Dr. Heather Ugarte MD Referring Provider Active Start: July 02, 2025 End: July 02, 2025 SAGRARIO Norton Attending physician Active Start: July 02, 2025 End: July 02, 2025 Team Status: Inactive Member Role/Relationship Status Dates Dr. Heather Ugarte MD Primary care physician Activ e Start: July 12, 2025 End: July 12, 2025 Dr. Heather Ugarte MD Attending physician Active Start: July 12, 2025 End: July 12, 2025 Dr. Heather Ugarte MD Referring Provider Active Start: July 12, 2025 End: July 12, 2025 Team Status: Inactive Member Role/Relationship Status Dates Dr. Heather Ugarte MD Primary care physician Activ e Start: July 15, 2025 End: July 15, 2025 Dr. Lukas Wang MD Attending physician Active Start: July 15, 2025 End: July 15, 2025 Dr. Lukas Wang MD Referring Provider Active Start: July 15, 2025 End: July 15, 2025 Team Status: Inactive Member Role/Relationship Status Dates Dr. Heather Ugarte MD Primary care physician Activ e Start: July 21, 2025 End: July 21, 2025 Dr. Heather Ugarte MD Attending physician Active Start: July 21, 2025 End: July 21, 2025 Dr. Heather Ugarte MD Referring Provider Active Start: July 21, 2025 End: July 21, 2025 Team Status: Inactive Member Role/Relationship Status Dates Dr. Heather Ugarte MD Primary care physician Activ e Start: July 23, 2025 End: July 23, 2025 SAGRARIO Norton Attending physician Active Start: July 23, 2025 End: July 23, 2025 SAGRARIO Norton Referring Provider Active Start: July 23, 2025 End: July 23, 2025 Team Status: Inactive Member Role/Relationship Status Dates Dr. Heather Ugarte MD Primary care physician Activ e Start: July 27, 2025 End: July 27, 2025 Dr. Heather Ugaret MD Referring Provider Active Start: July 27, 2025 End: July 27, 2025 SAGRARIO Norton Attending physician Active Start: July 27, 2025 End: July 27, 2025 Team Status: Inactive Member Role/Relationship Status Dates Dr. Heather Ugarte MD Primary care physician Activ e Start: August 03, 2025 End: August 03, 2025 Dr. Heather Ugarte MD Attending physician Active Start: August 03, 2025 End: August 03, 2025 Dr. Heather Ugarte MD Referring Provider Active Start: August 03, 2025 End: August 03, 2025 Team Status: Active Member Role/Relationship Status Dates Dr. Heather Ugarte MD Primary care physician Activ e Start: August 03, 2025 Dr. Heather Ugarte MD Referring Provider Active Start: August 03, 2025 Dr. Jorge Lindsay MD Attending physician Active Start: August 03, 2025 Team Status: Inactive Member Role/Relationship Status Dates Dr. Heather Ugarte MD Primary care physician Activ e Start: August 03, 2025 End: August 03, 2025 Dr. Heather Ugarte MD Referring Provider Active Start: August 03, 2025 End: August 03, 2025 SAGRARIO Norton Attending physician Active Start: August 03, 2025 End: August 03, 2025 Team Status: Inactive Member Role/Relationship Status Dates Dr. Heather Ugarte MD Primary care physician Activ e Start: August 03, 2025 End: August 03, 2025 Dr. Jamaal Limon MD Attending physician Active Start: August 03, 2025 End: August 03, 2025 Team Status: Inactive Member Role/Relationship Status Dates Dr. Heather Ugarte MD Primary care physician Activ e Start: August 09, 2025 End: August 09, 2025 Dr. Heather Ugarte MD Referring Provider Active Start: August 09, 2025 End: August 09, 2025 Dr. Lukas Wang MD Attending physician Active Start: August 09, 2025 End: August 09, 2025 Team Status: Inactive Member Role/Relationship Status Dates Dr. Heather Ugarte MD Primary care physician Activ e Start: August 16, 2025 End: August 16, 2025 Dr. Heather Ugarte MD Referring Provider Active Start: August 16, 2025 End: August 16, 2025 Dr. Lukas Wang MD Attending physician Active Start: August 16, 2025 End: August 16, 2025 Team Status: Inactive Member Role/Relationship Status Dates Dr. Heather Ugarte MD Primary care physician Activ e Start: August 31, 2025 End: August 31, 2025 Dr. Heather Ugarte MD Referring Provider Active Start: August 31, 2025 End: August 31, 2025 Dr. Nick Lee MD Attending physician Active Start: August 31, 2025 End: August 31, 2025 Team Status: Inactive Member Role/Relationship Status Dates Dr. Heather Ugarte MD Primary care physician Activ e Start: September 09, 2025 End: September 09, 2025 SAGRARIO Norton Attending physician Active Start: September 09, 2025 End: September 09, 2025 SAGRARIO Norton Referring Provider Active Start: September 09, 2025 End: September 09, 2025 Team Status: Inactive Member Role/Relationship Status Dates Dr. Heather Ugarte MD Primary care physician Activ e Start: September 13, 2025 End: September 13, 2025 Dr. Heather Ugarte MD Referring Provider Active Start: September 13, 2025 End: September 13, 2025 Dr. Lukas Wang MD Attending physician Active Start: September 13, 2025 End: September 13, 2025 Team Status: Inactive Member Role/Relationship Status Dates Dr. Heather Ugarte MD Primary care physician Activ e Start: August 16, 2025 End: August 16, 2025 Dr. Lukas Wang MD Attending physician Active Start: August 16, 2025 End: August 16, 2025 Dr. Lukas Wang MD Referring Provider Active Start: August 16, 2025 End: August 16, 2025 FOR RECORDS PERTAINING TO PATIENTS WHO ARE [...] BE BASED ON THE PRIMARY CLINICAL RECORDS. [facility]. provides no warranty or guarantee of the accuracy or completeness of information in this document.
--- NOTE | 2025-11-10 09:29 | STRESSREP_ITS ---
Stress Test Report Date: 11/10/2025 Procedure: Exercise tolerance test/imaging study Indications: Palpitations/chest pain Consent: Per the patient Procedure: The patient exercised on a Blue protocol for 3 minutes and 30 seconds achieving a peak heart rate of 164 bpm (97% predicted maximal heart rate) with a peak blood pressure 152/70 mmHg and a peak MET capacity of 5.8 METs. The baseline ECG demonstrated sinus rhythm. The peak exercise ECG showed sinus tachycardia with no ischemic changes. There were no cardiac dysrhythmias pretest, during exercise, or recovery. The functional capacity was considered suboptimal. There was no complaint of chest discomfort during exercise or recovery. The examination was discontinued secondary to dyspnea and leg discomfort. The patient was injected with 13.7 mCi of technetium 99m Cardiolite and subsequently rest SPECT Cardiolite nuclear imaging was obtained in the horizontal long, vertical long, and short axis views. Post-exercise, the patient was injected with 40.3 mCi of technetium 99m Cardiolite and subsequently stress SPECT Cardiolite nuclear imaging was obtained in the horizontal long, vertical long, and short axis views. A gated Cardiolite study at peak stress was obtained. Rest and stress SPECT Cardiolite nuclear imaging status post realignment, normalization, and attenuation correction, demonstrates mildly reduced perfusion of the inferior wall and apex post exercise stress. There is end systolic thickening and brightening. The gated Cardiolite study demonstrates myocardial thickening and inward wall motion. The reported LVEF is 71%. Impression: 1. Technically adequate (percent predicted maximal heart rate greater than 85%) exercise tolerance test 2. Peak exercise ECG with no ischemic changes 3. There were no cardiac dysrhythmias pretest, during exercise, or recovery 4. Rest and stress SPECT Cardiolite nuclear imaging demonstrate mildly reduced perfusion of the inferior wall and apex post stress, suggestive of mild stress- induced ischemia. 5. The gated Cardiolite study reports an LVEF of 71%. This note was generated with [employer] software. It may contain incorrect words, spelling, and punctuation that were not noted in checking the note before signing.
== END | disposition home or self-care (01) ==
LOC: CVS 06:21
PROVIDERS: PCP Internal Medicine; Referring Provider Internal Medicine Cardiovascular Disease; Visit Provider Internal Medicine Cardiovascular Disease
DX: R94.31 Abnormal electrocardiogram [ECG] [EKG] (principal); E11.69 Type 2 diabetes mellitus with other specified complication; R00.2 Palpitations; R53.82 Chronic fatigue, unspecified
CPT/HCPCS: 78452; 93017; 93306; A9500; Q9957; A4216; C8929